=== PATIENT | male | born 1955 | race Caucasian/White ===

== ENCOUNTER → 2018-01-31 06:33 | Outpatient (CLI) | payer BC, SELFPAY ==
[2018-01-31 07:48] LABS: Alanine Aminotransferase 33 IU/L (21-72); Albumin 3.9 g/dL (3.5-5.0); Albumin Globulin Ratio 1.3 (1.0-2.8); Alkaline Phosphatase 70 U/L (38-126); Aspartate Aminotransferase 28 IU/L (17-59); BUN Creatinine Ratio 23.3 (6-22); Bilirubin Total 0.8 mg/dL (0.2-1.3); Blood Urea Nitrogen 28 mg/dL (9-20); Calcium 8.9 mg/dL (8.4-10.2); Carbon Dioxide 27 mmol/L (22-32); Chloride 104 mmol/L (98-107); Estimated Glomerular Filt Rate > 60.0 mL/min (>60); Globulin 3.1 g/dL (1.7-4.1); Glucose 95 mg/dL (80-110); HEMOLYSIS < 15 (0-50); Potassium 4.3 mmol/L (3.4-5.1); Sodium 142 mmol/L (137-145); Uric Acid 7.9 mg/dL (3.5-8.5)
[2018-01-31 10:10] LABS: Creatinine Urine Random 156.3 mg/dL
[2018-01-31 10:14] LABS: Microalbumi Creatinin Ratio Ur 6.3 ug/mg CR (<30)
== END ==
PROVIDERS: PCP Physician Assistant; Visit Provider Physician Assistant
DX: I10 Essential (primary) hypertension (principal); I25.10 Atherosclerotic heart disease of native coronary artery without angina pectoris; E78.5 Hyperlipidemia, unspecified; E79.0 Hyperuricemia without signs of inflammatory arthritis and tophaceous disease
CPT/HCPCS: 36415; 80053; 82043; 82570; 84550

== ENCOUNTER 2018-04-15 20:45 | Emergency (ER) | payer OTHER, SELFPAY ==
[2018-04-15 20:50] VITALS: BP 139/70; PULSE 59; RESP 18; TEMP 37; O2SAT 99; BMI 25.1
--- NOTE | 2018-04-15 20:53 | DI.RAD.S_ITS ---
PROCEDURE: XR FINGER LT MIN 2V INDICATIONS: crush injury, open TECHNIQUE: AP hand, 2 views of the left fourth finger(s) acquired. COMPARISON: [facility], , HAND 3V LEFT, 04/11/2016, 9:43. FINDINGS: Bones: No fractures or dislocations. No suspicious bony lesions. Soft tissues: Trace heterotopic ossification is present anterior to the middle phalanx of the left fourth digit. These findings have evolved when compared with the prior plain film dated 04/11/16. IMPRESSION: No acute fracture or dislocation. Trace heterotopic ossification likely evolved from the 2016 film. Dictated by: Lila Garsia M.D. on 04/15/2018 at 21:24 Approved by: Lila Garsia M.D. on 04/15/2018 at 21:25
[2018-04-15] MEDS: TET,DIPH,PERTUSS(ACELL),VAC/PF 0.5 ML SYRINGE IM (21:12)
[2018-04-15] MEDS: cephALEXin 250 MG PREPACK 1 BOTTLE MISC (21:55)
[2018-04-15 22:02] VITALS: BP 124/62; PULSE 58; RESP 20; TEMP 37.1; O2SAT 97
--- NOTE | 2018-04-15 22:10 | ED.WOUNDLAC ---
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 He was throwing heavy chunks of asphalt when his left ring finger was accidentally caught between 1 of these thrown chunks of asphalt and a steel wall. As a result he suffered a laceration and injury to his finger. He has decreased range of motion secondary to pain but denies numbness, tingling or weakness. He denies any other injury nor any prior injury of this finger. He is right-hand dominant Onset (ago): minute(s) Extremity Location: Left: hand Place: work Patient tetanus UTD: No Context: accidental Associated symptoms: pain Related Data Home Medications Medication Instructions Recorded Confirmed [SUPER BETA PROSTATE] 2 tab PO BID #0 04/20/16 02/02/18 aspirin 81 mg PO QDAY #60 tab 04/20/16 02/02/18 [ACID TRADER-COSTCO] 1 tab PO BID #0 01/18/17 02/02/18 amlodipine [Norvasc] 5 mg PO QDAY #0 04/07/17 02/02/18 lisinopril 10 mg PO QDAY #0 04/07/17 02/02/18 metoprolol succinate 50 mg PO BID #0 04/07/17 02/02/18 [FISH OIL] PO QDAY #0 05/24/17 02/02/18 [VITAMIN B-12] 1 tab PO QDAY #0 05/24/17 02/02/18 Previous Rx's Medication Instructions Recorded escitalopram 10 mg tablet 15 mg PO HS #135 tab 01/30/18 rosuvastatin 20 mg tablet 20 mg PO QDAY #90 tab 01/30/18 bupropion HCl XL 150 mg 24 hr 150 mg PO QDAY #90 tab 02/02/18 tablet, extended release cephalexin 500 mg PO QID 7 Days #28 cap 04/15/18 Allergies Allergy/AdvReac Type Severity Reaction Status Date / Time hydrocodone AdvReac Intermediate WEAKNESS, Verified 02/02/18 15:35 SYNCOPE codeine AdvReac Mild NAUSEA Verified 02/02/18 15:35 Review of Systems Review of Systems All systems reviewed & are unremarkable except as noted in HPI and below Constitutional Denies chills, Denies fever(s), Denies lethargy and Denies weakness Eyes Denies change in vision, Denies eye discharge, Denies irritation and Denies loss of vision ENT Ears, Nose, Mouth, and Throat: Denies change in voice, Denies neck pain and Denies sore throat Cardiovascular Denies chest pain, Denies irregular heart rhythm, Denies lightheadedness, Denies palpitations, Denies dyspnea, Denies dyspnea on exertion and Denies orthopnea Respiratory Denies cough, Denies dyspnea, Denies dyspnea on exertion and Denies wheezing Gastrointestinal Gastrointestinal: Denies abdominal pain, Denies change in bowel habits, Denies diarrhea, Denies nausea and Denies vomiting Genitourinary Denies hematuria, Denies flank pain, Denies urinary incontinence and Denies urinary urgency Musculoskeletal Reports joint swelling, Reports limited range of motion and Denies neck pain Integumentary/Breasts Denies pruritus, Denies erythema, Denies rash and Reports wounds Neurologic Denies confusion, Denies loss of vision and Denies weakness Psychiatric Denies anxiety, Denies confusion, Denies depression, Denies homicidal ideation and Denies suicidal ideation Endocrine Denies palpitations Hematologic/Lymphatic Denies easy bruising Allergic/Immunologic Denies wheezing [facility] Medical History Snoring (Chronic) Gastroesophageal reflux disease (Chronic) Coronary artery disease (Chronic) Mixed anxiety depressive disorder (Chronic 01/18/17) Essential hypertension (Chronic) Surgical History History of angioplasty Social History Smoking Status: Former smoker Tobacco: How many years used: 40 second hand exposure: No alcohol intake: never substance use type: does not use Exam Narrative Exam Narrative: GEN: AOx3 and in mild distress, clutching his left ring finger EYES: Pupils are equal, round, and reactive to light and accommodation. Extraoccular muscles are intact bilaterally. There is no subconjunctival hemorrhage or exudate. CHEST: Lungs are clear to auscultation bilaterally and free of wheezes, rales, or rhonchi. Heart rate is regular rhythm, there are no murmurs, clicks, rubs, or gallops. There is no chest wall tenderness. ABD: Abdomen is soft and nontender. There is no guarding or rebound. Bowel sounds are normal in all 4 quadrants. There is no mass or organomegaly. EXT: Decreased ROM of L 4th finger secondary to pain. No numbness, weakness, or tingling. 3cm irregular laceration on medial side of finger with debris. Minimal active bleeding SKIN: Warm, pink, and dry. No erythema or rash Initial Vital Signs Initial Vital Signs: Vital Signs Temperature 98.6 F 04/15/18 20:50 Pulse Rate 59 L 04/15/18 20:50 Respiratory Rate 18 04/15/18 20:50 Blood Pressure 139/70 04/15/18 20:50 Pulse Oximetry 99 04/15/18 20:50 Procedures Laceration Repair Laceration 1: Site: hand (Ring finger) Side (If applicable): left Size (cm): 3 Description: irregular and contaminated Depth: simple, single layer Local Anesthetic: lidocaine 1% and bupivacaine 0.5% Amount of anesthesia used (mL): 4 Pre-repair: wound explored, irrigated extensively and deep structures intact Skin layer closed with: nylon Size (cm): 5-0 Number of sutures: 4 Technique: simple, interrupted Course Orders Ordered: ED Orders 04/15/18 20:53 XR finger LT min 2V Stat Discontinued Medications Cefazolin Sodium (Keflex) 1 bottle MISC SEEINSTR ONE Stop: 04/15/18 21:48 Last Admin: 04/15/18 21:55 Dose: 500 mg Cephalexin HCl (Keflex) 1 bottle MISC SEEINSTR ONE Stop: 04/15/18 21:07 Diphtheria/Tetanus/Acell Pertussis (Adacel) 0.5 ml IM .ONCE ONE Stop: 04/15/18 20:55 Last Admin: 04/15/18 21:12 Dose: 0.5 ml Vital Signs - 8 hr 04/15/18 20:50 04/15/18 22:02 Temperature 98.6 F 98.8 F Pulse Rate 59 L 58 L Respiratory Rate 18 20 Blood Pressure 139/70 Blood Pressure [Right Arm] 124/62 Pulse Oximetry 99 97 Discharge Plan Departure Patient Disposition: Home Clinical Impression: Laceration of finger Discharge Date/Time: 04/15/18 22:15 Instructions: DI for Laceration Repair -- Finger Activity Restrictions/Additional Instructions: *You have been diagnosed with [ contaminated laceration of left ring finger ] *What to do: *Take medications as directed *Follow up with your primary care provider in about a week, call for an appointment. Let them know you were seen in the Emergency Department and that we ask that you be seen in follow up and will require suture removal *Return to ER if you should have any new, worsening or concerning symptoms, such as [increasing pain, swelling, drainage, other bothersome symptoms ] Prescriptions: New cephalexin 500 mg capsule 500 mg PO QID 7 Days Qty: 28 RF: 0 No Action bupropion HCl [Wellbutrin XL] 150 mg tablet extended release 24 hr 150 mg PO QDAY Qty: 90 RF: 1 aspirin 81 MG tablet,delayed release (DR/EC) 81 mg PO QDAY Qty: 60 RF: 0 [SUPER BETA PROSTATE] 2 tab PO BID Qty: 0 RF: 0 [ACID TRADER-COSTCO] 1 tab PO BID Qty: 0 RF: 0 amlodipine [Norvasc] 5 MG tablet 5 mg PO QDAY Qty: 0 RF: 0 lisinopril 10 MG tablet 10 mg PO QDAY Qty: 0 RF: 0 metoprolol succinate 50 MG tablet extended release 24 hr 50 mg PO BID Qty: 0 RF: 0 [FISH OIL] PO QDAY Qty: 0 RF: 0 [VITAMIN B-12] 1 tab PO QDAY Qty: 0 RF: 0 rosuvastatin [Crestor] 20 mg tablet 20 mg PO QDAY Qty: 90 RF: 3 escitalopram oxalate [Lexapro] 10 mg tablet 15 mg PO HS Qty: 135 RF: 0 Referrals: Rhina Vargas PA-C [Primary Care Provider] -
--- NOTE | 2018-04-15 22:17 | ED_ITS ---
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 He was throwing heavy chunks of asphalt when his left ring finger was accidentally caught between 1 of these thrown chunks of asphalt and a steel wall. As a result he suffered a laceration and injury to his finger. He has decreased range of motion secondary to pain but denies numbness, tingling or weakness. He denies any other injury nor any prior injury of this finger. He is right-hand dominant Onset (ago): minute(s) Extremity Location: Left: hand Place: work Patient tetanus UTD: No Context: accidental Associated symptoms: pain Related Data Home Medications Medication Instructions Recorded Confirmed [SUPER BETA PROSTATE] 2 tab PO BID #0 04/20/16 02/02/18 aspirin 81 mg PO QDAY #60 tab 04/20/16 02/02/18 [ACID SUPERVISOR DRYING AND WINDING-COSTCO] 1 tab PO BID #0 01/18/17 02/02/18 amlodipine [Norvasc] 5 mg PO QDAY #0 04/07/17 02/02/18 lisinopril 10 mg PO QDAY #0 04/07/17 02/02/18 metoprolol succinate 50 mg PO BID #0 04/07/17 02/02/18 [FISH OIL] PO QDAY #0 05/24/17 02/02/18 [VITAMIN B-12] 1 tab PO QDAY #0 05/24/17 02/02/18 Previous Rx's Medication Instructions Recorded escitalopram 10 mg tablet 15 mg PO HS #135 tab 01/30/18 rosuvastatin 20 mg tablet 20 mg PO QDAY #90 tab 01/30/18 bupropion HCl XL 150 mg 24 hr 150 mg PO QDAY #90 tab 02/02/18 tablet, extended release cephalexin 500 mg PO QID 7 Days #28 cap 04/15/18 Allergies Allergy/AdvReac Type Severity Reaction Status Date / Time hydrocodone AdvReac Intermediate WEAKNESS, Verified 02/02/18 15:35 SYNCOPE codeine AdvReac Mild NAUSEA Verified 02/02/18 15:35 Review of Systems Review of Systems All systems reviewed & are unremarkable except as noted in HPI and below Constitutional Denies chills, Denies fever(s), Denies lethargy and Denies weakness Eyes Denies change in vision, Denies eye discharge, Denies irritation and Denies loss of vision ENT Ears, Nose, Mouth, and Throat: Denies change in voice, Denies neck pain and Denies sore throat Cardiovascular Denies chest pain, Denies irregular heart rhythm, Denies lightheadedness, Denies palpitations, Denies dyspnea, Denies dyspnea on exertion and Denies orthopnea Respiratory Denies cough, Denies dyspnea, Denies dyspnea on exertion and Denies wheezing Gastrointestinal Gastrointestinal: Denies abdominal pain, Denies change in bowel habits, Denies diarrhea, Denies nausea and Denies vomiting Genitourinary Denies hematuria, Denies flank pain, Denies urinary incontinence and Denies urinary urgency Musculoskeletal Reports joint swelling, Reports limited range of motion and Denies neck pain Integumentary/Breasts Denies pruritus, Denies erythema, Denies rash and Reports wounds Neurologic Denies confusion, Denies loss of vision and Denies weakness Psychiatric Denies anxiety, Denies confusion, Denies depression, Denies homicidal ideation and Denies suicidal ideation Endocrine Denies palpitations Hematologic/Lymphatic Denies easy bruising Allergic/Immunologic Denies wheezing [facility] Medical History Snoring (Chronic) Gastroesophageal reflux disease (Chronic) Coronary artery disease (Chronic) Mixed anxiety depressive disorder (Chronic 01/18/17) Essential hypertension (Chronic) Surgical History History of angioplasty Social History Smoking Status: Former smoker Tobacco: How many years used: 40 second hand exposure: No alcohol intake: never substance use type: does not use Exam Narrative Exam Narrative: GEN: AOx3 and in mild distress, clutching his left ring finger EYES: Pupils are equal, round, and reactive to light and accommodation. Extraoccular muscles are intact bilaterally. There is no subconjunctival hemorrhage or exudate. CHEST: Lungs are clear to auscultation bilaterally and free of wheezes, rales, or rhonchi. Heart rate is regular rhythm, there are no murmurs, clicks, rubs, or gallops. There is no chest wall tenderness. ABD: Abdomen is soft and nontender. There is no guarding or rebound. Bowel sounds are normal in all 4 quadrants. There is no mass or organomegaly. EXT: Decreased ROM of L 4th finger secondary to pain. No numbness, weakness, or tingling. 3cm irregular laceration on medial side of finger with debris. Minimal active bleeding SKIN: Warm, pink, and dry. No erythema or rash Initial Vital Signs Initial Vital Signs: Vital Signs Temperature 98.6 F 04/15/18 20:50 Pulse Rate 59 L 04/15/18 20:50 Respiratory Rate 18 04/15/18 20:50 Blood Pressure 139/70 04/15/18 20:50 Pulse Oximetry 99 04/15/18 20:50 Procedures Laceration Repair Laceration 1: Site: hand (Ring finger) Side (If applicable): left Size (cm): 3 Description: irregular and contaminated Depth: simple, single layer Local Anesthetic: lidocaine 1% and bupivacaine 0.5% Amount of anesthesia used (mL): 4 Pre-repair: wound explored, irrigated extensively and deep structures intact Skin layer closed with: nylon Size (cm): 5-0 Number of sutures: 4 Technique: simple, interrupted Course Orders Ordered: ED Orders 04/15/18 20:53 XR finger LT min 2V Stat Discontinued Medications Cefazolin Sodium (Keflex) 1 bottle MISC SEEINSTR ONE Stop: 04/15/18 21:48 Last Admin: 04/15/18 21:55 Dose: 500 mg Cephalexin HCl (Keflex) 1 bottle MISC SEEINSTR ONE Stop: 04/15/18 21:07 Diphtheria/Tetanus/Acell Pertussis (Adacel) 0.5 ml IM .ONCE ONE Stop: 04/15/18 20:55 Last Admin: 04/15/18 21:12 Dose: 0.5 ml Vital Signs - 8 hr 04/15/18 20:50 04/15/18 22:02 Temperature 98.6 F 98.8 F Pulse Rate 59 L 58 L Respiratory Rate 18 20 Blood Pressure 139/70 Blood Pressure [Right Arm] 124/62 Pulse Oximetry 99 97 Discharge Plan Departure Patient Disposition: Home Clinical Impression: Laceration of finger Discharge Date/Time: 04/15/18 22:15 Instructions: DI for Laceration Repair -- Finger Activity Restrictions/Additional Instructions: *You have been diagnosed with [ contaminated laceration of left ring finger ] *What to do: *Take medications as directed *Follow up with your primary care provider in about a week, call for an appointment. Let them know you were seen in the Emergency Department and that we ask that you be seen in follow up and will require suture removal *Return to ER if you should have any new, worsening or concerning symptoms , such as [increasing pain, swelling, drainage, other bothersome symptoms ] Prescriptions: New cephalexin 500 mg capsule 500 mg PO QID 7 Days Qty: 28 RF: 0 No Action bupropion HCl [Wellbutrin XL] 150 mg tablet extended release 24 hr 150 mg PO QDAY Qty: 90 RF: 1 aspirin 81 MG tablet,delayed release (DR/EC) 81 mg PO QDAY Qty: 60 RF: 0 [SUPER BETA PROSTATE] 2 tab PO BID Qty: 0 RF: 0 [ACID SUPERVISOR DRYING AND WINDING-COSTCO] 1 tab PO BID Qty: 0 RF: 0 amlodipine [Norvasc] 5 MG tablet 5 mg PO QDAY Qty: 0 RF: 0 lisinopril 10 MG tablet 10 mg PO QDAY Qty: 0 RF: 0 metoprolol succinate 50 MG tablet extended release 24 hr 50 mg PO BID Qty: 0 RF: 0 [FISH OIL] PO QDAY Qty: 0 RF: 0 [VITAMIN B-12] 1 tab PO QDAY Qty: 0 RF: 0 rosuvastatin [Crestor] 20 mg tablet 20 mg PO QDAY Qty: 90 RF: 3 escitalopram oxalate [Lexapro] 10 mg tablet 15 mg PO HS Qty: 135 RF: 0 Referrals: Rhina Vargas PA-C [Primary Care Provider] -
== END 2018-04-15 22:15 | disposition home or self-care (01) ==
PROVIDERS: Emergency Provider Emergency Medicine; PCP Physician Assistant
DX: S61.215A Laceration without foreign body of left ring finger without damage to nail, initial encounter (principal); W26.9XXA Contact with unspecified sharp object(s), initial encounter; Y99.0 Civilian activity done for income or pay
CPT/HCPCS: 12002; 73140; 99283; 90715

== ENCOUNTER → 2018-04-21 11:29 | Outpatient (CLI) | payer OTHER, SELFPAY | PROVIDERS: PCP Physician Assistant; Visit Provider Physician Assistant | DX: S61.225A Laceration with foreign body of left ring finger without damage to nail, initial encounter (principal) | CPT/HCPCS: 87070; 87205 ==

== ENCOUNTER → 2018-07-12 10:40 | Outpatient (CLI) | payer BC, SELFPAY ==
[2018-07-14 18:19] LABS: Fecal Immunochemical Test NOT DETECTED
== END ==
PROVIDERS: PCP Physician Assistant; Visit Provider Physician Assistant
DX: Z12.11 Encounter for screening for malignant neoplasm of colon (principal)
CPT/HCPCS: 82274

== ENCOUNTER 2018-08-17 10:51 | Emergency (ER) | payer BC, SELFPAY ==
[2018-08-17 10:52] VITALS: BP 140/63; PULSE 66; RESP 18; TEMP 36.8; O2SAT 98; BMI 27.8
--- NOTE | 2018-08-17 10:57 | ED_ITS ---
HPI - General Adult General Chief complaint: Upper Respiratory Symptoms Stated complaint: SHORT OF BREATH, CHEST TIGHT Time Seen by Provider: 08/17/18 10:57 Source: patient Mode of arrival: ambulatory Limitations: no limitations History of Present Illness HPI narrative: Patient is a 63-year-old male sent over from the clinic for evaluation. Patient states that he went to see his provider this morning for ? medication issues ?during this evaluation he mentioned that he has been having dyspnea on exertion. This has been going on for several weeks if not months. He states that it has now gotten to the point to where any sort of exertion to include walking to his mailbox or walking from the couch to the refrigerator causes him to have shortness of breath. Some chest pressure with these episodes. He does have a history of coronary artery disease. Has [address] Is not on anticoagulation. He does see a outside barrel lathe operator. His last appointment a outside barrel lathe operator was within the past 6 months. He states that his last echocardiogram/stress test was greater than 1 year ago. Denies any lower extremity swelling. No new symptoms today over what has been going on for the past several months. Related Data Home Medications Medication Instructions Recorded Confirmed [SUPER BETA PROSTATE] 2 tab PO BID #0 04/20/16 08/17/18 aspirin 81 mg PO DAILY #60 tab 04/20/16 08/17/18 [ACID REWARDS CONSULTANT-COSTCO] 1 tab PO BID #0 01/18/17 08/17/18 amlodipine [Norvasc] 5 mg PO DAILY #0 04/07/17 08/17/18 lisinopril 5 mg PO DAILY #0 04/07/17 08/17/18 bupropion HCl [Wellbutrin XL] 150 mg PO DAILY 08/17/18 08/17/18 escitalopram oxalate [Lexapro] 15 mg PO BEDTIME 08/17/18 08/17/18 metoprolol tartrate 50 mg PO BID 08/17/18 08/17/18 naproxen sodium 220 mg capsule 440 mg PO DAILY PRN cap 08/17/18 08/17/18 rosuvastatin [Crestor] 20 mg PO QPM 08/17/18 08/17/18 Previous Rx's Medication Instructions Recorded furosemide [Lasix] 20 mg PO DAILY #30 tab 08/17/18 Allergies Allergy/AdvReac Type Severity Reaction Status Date / Time hydrocodone AdvReac Intermediate WEAKNESS, Verified 08/17/18 11:05 SYNCOPE codeine AdvReac Mild NAUSEA Verified 08/17/18 11:05 Review of Systems Constitutional Denies fever(s) ENT Ears, Nose, Mouth, and Throat: Denies vertigo and Denies dizziness Cardiovascular Reports chest pain, Denies syncope, Denies rapid heart rate, Denies leg edema and Reports dyspnea on exertion Respiratory Reports dyspnea on exertion Gastrointestinal Gastrointestinal: Denies abdominal pain, Denies nausea and Denies vomiting Genitourinary Denies dysuria Musculoskeletal Denies myalgias and Denies arthralgias Integumentary/Breasts Denies rash Neurologic Denies vertigo, Denies dizziness and Denies syncope Hematologic/Lymphatic Comments: Not on anticoagulation [facility] Social History Smoking Status: Former smoker Tobacco: How many years used: 40 second hand exposure: No alcohol intake: never substance use type: does not use Exam Initial Vital Signs Initial Vital Signs: Vital Signs Temperature 98.3 F 08/17/18 10:52 Pulse Rate 66 08/17/18 10:52 Respiratory Rate 18 08/17/18 10:52 Blood Pressure 140/63 08/17/18 10:52 Pulse Oximetry 98 08/17/18 10:52 Const General: cooperative, healthy appearing, comfortable, well developed, well groomed and No acute distress Orientation: alert, awake and oriented x3 HENMT Head: normal to inspection and normocephalic Resp Effort & Inspection: normal respiratory effort, no grunting, not labored and not tachypneic Auscultation: clear to auscultation bilaterally Cardio Rate: regular rate Rhythm: regular rhythm Pulses: radial pulses present GI Inspection: non-distended Palpation: soft and No tender Skin Lesions: no lesions Rashes: no rashes Neuro General: alert, awake and oriented x3 Extrem General: normal to inspection, normal exam except as noted and No edema Psych Appearance: grossly normal and well kempt Course Orders Ordered: ED Orders 08/17/18 10:58 XR chest 1V Stat D Dimer Stat 08/17/18 11:02 EKG-12 Lead Stat 08/17/18 11:15 B Type Natriuretic Peptide Stat Complete Blood Count AUTO DIFF Stat Comprehensive Metabolic Panel Stat Lipase Stat Partial Thromboplastin Time Stat Prothrombin Time INR Stat Troponin I Stat Vital Signs - 8 hr 08/17/18 10:52 Temperature 98.3 F Pulse Rate 66 Respiratory Rate 18 Blood Pressure 140/63 Pulse Oximetry 98 Medical Decision Making Lab Data Lab results reviewed: Yes I reviewed the patient's lab results. Result diagrams: 08/17/18 11:15 08/17/18 11:15 Lab Results 08/17/18 08/17/18 08/17/18 Range/Units 10:58 11:15 11:15 WBC 8.7 (4.5-11.0) X10^3/uL RBC 3.87 L (4.5-5.9) X10^6/uL Hgb 12.0 L (13.5-17.5) g/dL Hct 35.0 L (41-53) % MCV 90.4 (80-100) fL MCH 31.0 (26-34) PG MCHC 34.3 (30-36) % RDW 13.1 (11.6-14.8) % Plt Count 281 (150-400) X10^3/uL Neut % (Auto) 57.5 (50-75) % Lymph % (Auto) 28.9 (25-40) % [place] % (Auto) 10.8 (3-14) % Eos % (Auto) 1.5 L (2-4) % Baso % (Auto) 1.3 (0-2) % Neut # (Auto) 5000 (7172-4377) /uL PT (10.1-12.7) SECONDS INR (0.9-1.3) APTT (26.4-36.2) SECONDS D-Dimer 202 (<230) ng/mL Sodium 141 (137-145) mmol/L Potassium 4.2 (3.4-5.1) mmol/L Chloride 103 (98-107) mmol/L Carbon Dioxide 27 (22-32) mmol/L BUN 24 H (9-20) mg/dL Creatinine 1.40 H (0.66-1.25) mg/dL Estimated GFR 51.4 L (>60) mL/min BUN/Creatinine Ratio 17.1 (6-22) Glucose 100 (80-110) mg/dL Calcium 9.3 (8.4-10.2) mg/dL Total Bilirubin 0.8 (0.2-1.3) mg/dL AST 24 (17-59) IU/L ALT 34 (21-72) IU/L Alkaline Phosphatase 78 (38-126) U/L Troponin I (0.01-0.034) ng/mL B-Natriuretic Peptide < 100 (<100) Total Protein 6.9 (6.3-8.2) g/dL Albumin 4.1 (3.5-5.0) g/dL Globulin 2.8 (1.7-4.1) g/dL Albumin/Globulin Ratio 1.5 (1.0-2.8) Lipase (23-300) U/L 08/17/18 08/17/18 Range/Units 11:15 11:15 WBC (4.5-11.0) X10^3/uL RBC (4.5-5.9) X10^6/uL Hgb (13.5-17.5) g/dL Hct (41-53) % MCV (80-100) fL MCH (26-34) PG MCHC (30-36) % RDW (11.6-14.8) % Plt Count (150-400) X10^3/uL Neut % (Auto) (50-75) % Lymph % (Auto) (25-40) % [place] % (Auto) (3-14) % Eos % (Auto) (2-4) % Baso % (Auto) (0-2) % Neut # (Auto) (6103-6530) /uL PT 11.2 (10.1-12.7) SECONDS INR 1.0 (0.9-1.3) APTT 32 (26.4-36.2) SECONDS D-Dimer (<230) ng/mL Sodium (137-145) mmol/L Potassium (3.4-5.1) mmol/L Chloride (98-107) mmol/L Carbon Dioxide (22-32) mmol/L BUN (9-20) mg/dL Creatinine (0.66-1.25) mg/dL Estimated GFR (>60) mL/min BUN/Creatinine Ratio (6-22) Glucose (80-110) mg/dL Calcium (8.4-10.2) mg/dL Total Bilirubin (0.2-1.3) mg/dL AST (17-59) IU/L ALT (21-72) IU/L Alkaline Phosphatase (38-126) U/L Troponin I < 0.012 (0.01-0.034) ng/mL B-Natriuretic Peptide (<100) Total Protein (6.3-8.2) g/dL Albumin (3.5-5.0) g/dL Globulin (1.7-4.1) g/dL Albumin/Globulin Ratio (1.0-2.8) Lipase 150 (23-300) U/L Imaging Data Chest x-ray: Radiologist's impression: PROCEDURE: XR CHEST 1V INDICATIONS: SOB TECHNIQUE: One view of the chest was acquired. COMPARISON: [facility], , CHEST 2 VIEW, 06/10/2017, 16:23. FINDINGS: Surgical changes and devices: None. Lungs and pleura: No pleural effusions or pneumothorax. Lungs are clear. Mediastinum: Mediastinal contours appear normal. Heart size is normal. Bones and chest wall: No suspicious bony lesions. Overlying soft tissues appear unremarkable. IMPRESSION: No acute cardiopulmonary findings. Dictated by: Lila Garsia M.D. on 08/17/2018 at 11:19 Approved by: Lila Garsia M.D. on 08/17/2018 at 11:19 ECG Data Attestation: I personally reviewed and interpreted this ECG as follows: Prior ECG tracings: available for review Interpretation: Emergency department EKG Sinus rhythm Ventricular rate is 64 Normal QRS Normal QTC Normal axis No ST T wave changes Comparison EKG from 06/11 today shows no changes from emergency department EKG Comparison EKG from January 2017 shows no changes from today's emergency department EKG MDM Narrative Medical decision making narrative: Patient not in any respiratory distress. Not tachypneic. Not hypoxic. Nonischemic EKG. D-dimer is negative. Troponin is negative. Patient's symptoms have been going on for weeks if not months. Does have a significant cardiac history and is under the care of Cardiology at [facility]. I do feel like he needs an echocardiogram however do not feel like he needs admitted to the hospital to get this done. Will have him contact his outside barrel lathe operator for follow-up. Will send him home on a low dose of Lasix. Unsure if this will help his symptoms however I feel it may be diagnostic. Patient was given return precautions. He expressed understanding and agreement with plan. Discharge Plan Departure Patient Disposition: Home Clinical Impression: Dyspnea on exertion Instructions: DI for Shortness of Breath, How to Manage Shortness of Breath Activity Restrictions/Additional Instructions: Recommend that you contact your outside barrel lathe operator this afternoon to schedule a follow -up appointment in to discuss the indications for an echocardiogram. Take all of your medications as directed. Return to the emergency department for any new or worsening symptoms Prescriptions: New furosemide [Lasix] 20 mg tablet 20 mg PO DAILY Qty: 30 RF: 0 No Action naproxen sodium [Aleve] 220 mg capsule 440 mg PO DAILY PRN (Reason: pain) RF: 0 aspirin 81 MG tablet,delayed release (DR/EC) 81 mg PO DAILY Qty: 60 RF: 0 [SUPER BETA PROSTATE] 2 tab PO BID Qty: 0 RF: 0 [ACID REWARDS CONSULTANT-[employer]CO] 1 tab PO BID Qty: 0 RF: 0 amlodipine [Norvasc] 5 MG tablet 5 mg PO DAILY Qty: 0 RF: 0 lisinopril 10 MG tablet 5 mg PO DAILY Qty: 0 RF: 0 metoprolol tartrate 50 mg tablet 50 mg PO BID RF: 0 escitalopram oxalate [Lexapro] 10 mg tablet 15 mg PO BEDTIME RF: 0 rosuvastatin [Crestor] 20 mg tablet 20 mg PO QPM RF: 0 bupropion HCl [Wellbutrin XL] 150 mg tablet extended release 24 hr 150 mg PO DAILY RF: 0
[2018-08-17 11:32] LABS: Add Manual Diff / Slide Review NO; Basophils Percent Auto 1.3 % (0-2); Eosinophils Percent Auto 1.5 % (2-4); Lymphocytes Percent Auto 28.9 % (25-40); Mean Corpuscular HGB Conc 34.3 % (30-36); Mean Corpuscular Volume 90.4 fL (80-100); Monocytes Percent Auto 10.8 % (3-14); Neutrophils Absolute Auto 5000 /uL (1500-7000); Neutrophils Percent Auto 57.5 % (50-75); Platelet Count 281 X10^3/uL (150-400); Red Blood Cell Count 3.87 X10^6/uL (4.5-5.9); Red Cell Distribution Width 13.1 % (11.6-14.8); White Blood Cell Count 8.7 X10^3/uL (4.5-11.0)
[2018-08-17 11:35] LABS: Prothrombin Time 11.2 SECONDS (10.1-12.7)
[2018-08-17 11:37] LABS: PTT Partial Thromboplastin Tim 32 SECONDS (26.4-36.2)
[2018-08-17 11:42] LABS: Lipase 150 U/L (23-300)
[2018-08-17 11:45] LABS: B Type Natriuretic Peptide < 100 (<100)
[2018-08-17 11:58] LABS: Troponin I < 0.012 ng/mL (0.01-0.034)
[2018-08-17 12:07] LABS: D Dimer 202 ng/mL (<230)
[2018-08-17 12:39] LABS: Alanine Aminotransferase 34 IU/L (21-72); Albumin 4.1 g/dL (3.5-5.0); Albumin Globulin Ratio 1.5 (1.0-2.8); Alkaline Phosphatase 78 U/L (38-126); Aspartate Aminotransferase 24 IU/L (17-59); BUN Creatinine Ratio 17.1 (6-22); Bilirubin Total 0.8 mg/dL (0.2-1.3); Blood Urea Nitrogen 24 mg/dL (9-20); Calcium 9.3 mg/dL (8.4-10.2); Carbon Dioxide 27 mmol/L (22-32); Chloride 103 mmol/L (98-107); Estimated Glomerular Filt Rate 51.4 mL/min (>60); Globulin 2.8 g/dL (1.7-4.1); Glucose 100 mg/dL (80-110); HEMOLYSIS < 15 (0-50); Potassium 4.2 mmol/L (3.4-5.1); Sodium 141 mmol/L (137-145); Total Protein 6.9 g/dL (6.3-8.2)
[2018-08-17 13:00] VITALS: BP 127/65; PULSE 61; RESP 20; O2SAT 98
== END 2018-08-17 13:32 | disposition home or self-care (01) ==
PROVIDERS: Emergency Provider Emergency Medicine; PCP Physician Assistant
DX: R06.09 Other forms of dyspnea (principal)
CPT/HCPCS: 36591; 71045; 80053; 83690; 83880; 84484; 85025; 85379; 85610; 85730; 93005; 99282; 99285

== ENCOUNTER → 2018-08-29 07:53 | Outpatient (CLI) | payer BC, SELFPAY ==
[2018-08-29 09:30] LABS: Alanine Aminotransferase 42 IU/L (21-72); Albumin Globulin Ratio 1.3 (1.0-2.8); Alkaline Phosphatase 66 U/L (38-126); Aspartate Aminotransferase 27 IU/L (17-59); BUN Creatinine Ratio 25.8 (6-22); Bilirubin Total 0.8 mg/dL (0.2-1.3); Blood Urea Nitrogen 31 mg/dL (9-20); Calcium 9.6 mg/dL (8.4-10.2); Carbon Dioxide 31 mmol/L (22-32); Chloride 102 mmol/L (98-107); Cholesterol 99 mg/dL (140-199); Estimated Glomerular Filt Rate > 60.0 mL/min (>60); Glucose 90 mg/dL (80-110); HDL Cholesterol 42 mg/dL (40-60); HEMOLYSIS < 15 (0-50); LDL Cholesterol Calculated 32 mg/dL (<100); Potassium 4.8 mmol/L (3.4-5.1); Sodium 141 mmol/L (137-145); Triglycerides 126 mg/dL (35-150)
== END ==
PROVIDERS: Family Provider Physician Assistant; PCP Physician Assistant; Visit Provider Internal Medicine Cardiovascular Disease
DX: E78.5 Hyperlipidemia, unspecified (principal)
CPT/HCPCS: 36415; 80053; 80061

== ENCOUNTER → 2018-11-01 09:52 | Outpatient (CLI) | payer BC, SELFPAY ==
[2018-11-01 10:49] LABS: Hematocrit 33.3 % (41-53); Hemoglobin 11.3 g/dL (13.5-17.5)
[2018-11-01 11:10] LABS: HEMOLYSIS < 15 (0-50); Iron 69 ug/dL (49-181)
[2018-11-01 11:21] LABS: Percent Iron Saturation 21 % (20-50); Total Iron Binding Capacity 330 ug/dL (261-462); Transferrin 242 mg/dL (206-381)
== END ==
PROVIDERS: Family Provider Physician Assistant; PCP Physician Assistant; Visit Provider Physician Assistant
DX: D64.9 Anemia, unspecified (principal); R79.89 Other specified abnormal findings of blood chemistry
CPT/HCPCS: 36415; 82728; 83540; 83550; 85014; 85018

== ENCOUNTER → 2018-12-06 10:45 | Outpatient (CLI) | payer BC, SELFPAY ==
--- NOTE | 2018-12-08 14:26 | PM.PFT.1 ---
Pulmonary Function Test Referral & Results Date Patient Seen: 12/06/18 Requesting provider: Rhina Vargas Results: The spirometry demonstrates an FVC of 4.10 L which is 84% of predicted. The FEV1 was measured at 2.89 L which is 79% of predicted. The FEV1/FVC ratio was 71 which is 94% of predicted. Following the administration of bronchodilator there was no significant change. Lung volumes show an SVC of 4.05 L which is 83% of predicted. The diffusing capacity was measured at 17.81 which is 51% of predicted. No hemoglobin value was provided, so no correction for potential anemia could be made, if appropriate. The maximum voluntary ventilation was reduced Interpretation: This study demonstrates mild obstructive lung disease based our reduction in FEV1. There is no evidence of significant benefit following bronchodilator administration There is also mild restrictive lung disease present based on slight reduction in lung volumes The diffusing capacity is more significantly reduced suggesting more significant disease at the capillary alveolar level Compared to PFTs performed in January 2012, current study shows spirometry to be essentially unchanged but diffusing capacity has further decline from previous value of 66% of predicted to current value of 51% of predicted Clinical correlation suggested
== END ==
PROVIDERS: PCP Physician Assistant; Visit Provider Physician Assistant
DX: R06.00 Dyspnea, unspecified (principal)
CPT/HCPCS: 94060; 94726; 94729

== ENCOUNTER → 2019-02-26 15:52 | Outpatient (CLI) | payer BC, SELFPAY ==
--- NOTE | 2019-02-26 15:54 | DI.ECHO.S_ITS ---
[facility] +---------+ : : [address] : : : : [id number] : : : : Phone: [phone] Echocardiogram Report + + :Name: DENNISE KLEIN Study Date: 02/26/2019 Height: 71 in : :[facility] Weight: 202 lb : : Gender: Male BSA: 2.1 m2 : :: 1955 Age: 64 yrs BP: 142/72 mmHg: :Reason For Study: Dyspnea : : Performed By: Yoselin Caicedo : :Referring: GAIL SAAB : + + Interpretation Summary 1) Normal left ventricular thickness, size, wall motion, and systolic function (EF 60-65%). 2) Normal right ventricular size and function. 3) Diastolic parameters suggest a pseudonormalization pattern, consistent with probable elevated filling pressures. 4) No significant valvular abnormalities. 5) The right ventricular systolic pressure is estimated to be at least 43 mmHg based on an estimated right atrial pressure of 3 mm Hg. 6) Compared to the Echo done 11/14/2014, no significant change. Procedure: A two-dimensional transthoracic echocardiogram with color flow and Doppler was performed. The study quality was technically adequate. Comparison is made with the echocardiogram of 11-14-14. The patient was in normal sinus rhythm during the exam. Left Ventricle: The left ventricle is normal in size, wall thickness, and systolic function without any focal wall motion abnormalities. The ejection fraction is estimated to be 60-65%. Diastolic parameters suggest a pseudonormalization pattern, consistent with probable elevated filling pressures. Right Ventricle: The right ventricle grossly appears normal in size with probable normal systolic function. Atria: The left atrium is mildly dilated. Right atrial size is normal. The interatrial septum is intact with no evidence for an atrial septal defect. Mitral Valve: The mitral valve is normal in structure and function. There is trace mitral regurgitation. Aortic Valve: The aortic valve is trileaflet. The aortic valve opens well. There is no aortic valve stenosis. No aortic regurgitation is present. Tricuspid Valve: The tricuspid valve leaflets are thin and pliable. There is mild tricuspid regurgitation. The right ventricular systolic pressure is estimated to be at least 43 mmHg based on an estimated right atrial pressure of 3 mm Hg. Pulmonic Valve: The pulmonic valve is normal in structure and function. There is a trace or physiologic amount of pulmonic regurgitation. Great Vessels: The aortic root is normal size. The dimensions of the ascending aorta are normal. The aortic arch is normal in size. The IVC is of normal diameter and collapses greater than 50% with a sniff. This suggests a low right atrial pressure of 3 mm Hg. Pericardium/ Pleura There is no pericardial effusion. There is no pleural effusion. MMode/2D Measurements & Calculations LVIDd: 5.3 cm Ao root diam: 3.6 cm LVIDs: 2.8 cm Aortic Jxn: 2.4 cm FS: 46.4 % asc Aorta Diam: 3.1 cm EPSS: 0.82 cm Ao Arch Diam (Prox Trans): 2.5 cm IVSd: 1.0 cm LVPWd: 1.1 cm LV eli. diameter/BSA (cm/m^2): 2.5 LV sys. diameter/BSA (cm/m^2): 1.3 LA dimension: 4.0 cm RA long axis: 5.1 cm LA A2 area: 19.7 cm2 RA area: 18.7 cm2 LA A4 area: 21.0 cm2 RA vol: 58.6 ml LA length (vol): 5.6 cm RA : 27.7 ml/m2 LA vol: 62.2 ml IVC diam: 1.5 cm LA vol index: 29.4 ml/m2 RVDd major: 5.4 cm RVD1 (basal): 3.9 cm RVD2 (mid): 3.4 cm Doppler Measurements & Calculations Ao V2 max: 139.7 cm/sec MV E max se: 105.8 cm/sec Ao V2 mean: 88.3 cm/sec MV A max se: 88.2 cm/sec Ao max P.8 mmHg MV E/A: 1.2 Ao mean P.7 mmHg Med Peak E' Se: 5.5 cm/sec Ao V2 VTI: 33.8 cm E/E' med: 19.3 Lat Peak E' Se: 10.2 cm/sec E/E' lat: 10.4 E/e' average: 14.8 MV dec time: 0.18 sec MV P1/2t: 55.2 msec TR max se: 317.7 cm/sec MV P1/2t max se: 105.3 cm/sec TR max P.4 mmHg MVA(P1/2t): 4.0 cm2 PA V2 max: 78.9 cm/sec PA V2 mean: 52.2 cm/sec PA mean P.3 mmHg PA Accel Time: 0.23 sec Reading Physician:05:18 PM
== END ==
PROVIDERS: Family Provider Internal Medicine Cardiovascular Disease; PCP Physician Assistant; Visit Provider Physician Assistant
DX: R06.09 Other forms of dyspnea (principal); I07.1 Rheumatic tricuspid insufficiency; R94.2 Abnormal results of pulmonary function studies; I25.10 Atherosclerotic heart disease of native coronary artery without angina pectoris; I10 Essential (primary) hypertension
CPT/HCPCS: 93306

== ENCOUNTER → 2019-05-31 11:46 | Outpatient (CLI) | payer BC, SELFPAY ==
--- NOTE | 2019-05-31 12:14 | DI.CT.S_ITS ---
PROCEDURE: CT CHEST HIGH RESOLUTION INDICATIONS: Abnormal PFTs; Dyspnea on exertion; suspect ILD TECHNIQUE: Noncontrast 1.0 and 5.0 mm thick contiguous axial sections from the pulmonary apex to the posterior costophrenic angles, with 7 mm thick coronal and sagittal MIP reformats. 1 mm thick dynamic expiratory images acquired through the upper, mid, and lower lungs. 1.0 mm thick axial sections acquired from the mervin to the posterior costophrenic angles in the prone end-inspiration position. For radiation dose reduction, the following was used: automated exposure control, adjustment of mA and/or kV according to patient size. COMPARISON: None. FINDINGS: Image quality: Excellent. CHEST: Lungs and pleura: Mild subsegmental scattered atelectasis and scarring. No definite subpleural reticulation identified. No honeycombing seen. No acute consolidation. Central airway thickening is present. No tree-in-bud opacities or definite mosaic lung attenuation. Mild upper lobe centrilobular emphysema Pleura: Normal Mediastinum: Coronary artery calcifications are present. Lymph nodes: Normal Aorta: Normal Pulmonary arteries: Normal Trace hiatal hernia. Bones and chest wall: Bones: Multilevel spondylosis and endplate spurring No vertebral body compression fractures. Axillary nodes: Normal Thyroid: Normal Abdomen (visualized upper abdomen): Pancreatic calcifications incidentally noted. IMPRESSION: No acute consolidation. Subsegmental scattered scarring/atelectasis. Central airway thickening suggestive of chronic bronchitis and/or reactive airways disease. No specific evidence of interstitial lung disease. Coronary artery disease. Upper lobe centrilobular emphysema. Dictated by: Westley Rock M.D. on 05/31/2019 at 17:05 Approved by: Westley Rock M.D. on 05/31/2019 at 17:13
== END ==
PROVIDERS: Family Provider Internal Medicine Cardiovascular Disease; PCP Physician Assistant; Visit Provider Physician Assistant
DX: R94.2 Abnormal results of pulmonary function studies (principal); R06.09 Other forms of dyspnea; I25.10 Atherosclerotic heart disease of native coronary artery without angina pectoris; J43.2 Centrilobular emphysema
CPT/HCPCS: 71250

== ENCOUNTER → 2020-02-20 07:38 | Outpatient (CLI) | payer BC, SELFPAY ==
[2020-02-20 08:24] LABS: Add Manual Diff / Slide Review NO; Basophils Absolute Auto 100 /uL (0-100); Basophils Percent Auto 1.2 % (0-2); Eosinophils Absolute Auto 100 /uL (0-450); Eosinophils Percent Auto 1.5 % (2-4); Hemoglobin 12.3 g/dL (13.5-17.5); Lymphocytes Absolute Auto 2000 /uL (1100-4500); Lymphocytes Percent Auto 27.8 % (25-40); Mean Corpuscular HGB Conc 33.1 % (30-36); Mean Corpuscular Hemoglobin 29.7 PG (26-34); Mean Corpuscular Volume 89.5 fL (80-100); Monocytes Absolute Auto 600 /uL (0-900); Monocytes Percent Auto 7.8 % (3-14); Neutrophils Absolute Auto 4400 /uL (1500-7000); Neutrophils Percent Auto 61.7 % (50-75); Platelet Count 267 X10^3/uL (150-400); Red Blood Cell Count 4.14 X10^6/uL (4.5-5.9); Red Cell Distribution Width 13.9 % (11.6-14.8); White Blood Cell Count 7.1 X10^3/uL (4.5-11.0)
[2020-02-20 08:51] LABS: Erythrocyte Sedimentation Rate 13 MM/HR (0-15)
[2020-02-20 08:52] LABS: Alanine Aminotransferase 18 IU/L (<50); Albumin 3.9 g/dL (3.5-5.0); Albumin Globulin Ratio 1.3 (1.0-2.8); Alkaline Phosphatase 80 U/L (38-126); Aspartate Aminotransferase 22 IU/L (17-59); BUN Creatinine Ratio 16.7 (6-22); Bilirubin Total 0.6 mg/dL (0.2-1.3); Blood Urea Nitrogen 21 mg/dL (9-20); Calcium 9.5 mg/dL (8.4-10.2); Carbon Dioxide 27 mmol/L (22-32); Chloride 104 mmol/L (98-107); Cholesterol 106 mg/dL (140-199); Estimated Glomerular Filt Rate 57.6 mL/min (>60); Globulin 2.9 g/dL (1.7-4.1); Glucose 115 mg/dL (80-110); HDL Cholesterol 41 mg/dL (40-60); HEMOLYSIS < 15 (0-50); LDL Cholesterol Calculated 40 mg/dL (<100); Potassium 4.4 mmol/L (3.4-5.1); Sodium 138 mmol/L (137-145); Total Protein 6.8 g/dL (6.3-8.2); Triglycerides 124 mg/dL (35-150)
[2020-02-20 08:54] LABS: C-Reactive Protein Quant < 0.5 mg/dL (<1.0)
[2020-02-20 09:21] LABS: Prostate Specific Antigen Scrn 0.719 ng/mL (0.1-4.0); TSH w/ Reflex to FT4 1.89 uIU/mL (0.47-4.68)
== END ==
PROVIDERS: Family Provider Internal Medicine Cardiovascular Disease; PCP Internal Medicine; Referring Provider Internal Medicine; Visit Provider Internal Medicine
DX: Z12.5 Encounter for screening for malignant neoplasm of prostate (principal); F41.8 Other specified anxiety disorders; I10 Essential (primary) hypertension; I25.10 Atherosclerotic heart disease of native coronary artery without angina pectoris; J44.9 Chronic obstructive pulmonary disease, unspecified; K21.9 Gastro-esophageal reflux disease without esophagitis; R53.83 Other fatigue
CPT/HCPCS: 36415; 80053; 80061; 84443; 85025; 85651; 86140; G0103

== ENCOUNTER → 2020-03-19 07:53 | Outpatient (CLI) | payer BC, SELFPAY ==
[2020-03-20 10:36] LABS: Fecal Immunochemical Test Negative (Negative)
== END ==
PROVIDERS: Family Provider Internal Medicine Cardiovascular Disease; PCP Internal Medicine; Referring Provider Internal Medicine; Visit Provider Internal Medicine
DX: Z12.11 Encounter for screening for malignant neoplasm of colon (principal)
CPT/HCPCS: 82274

== ENCOUNTER → 2020-08-12 09:58 | Outpatient (CLI) | payer BC, SELFPAY ==
[2020-08-12 12:05] LABS: BUN Creatinine Ratio 18.6 (6-22); Blood Urea Nitrogen 22 mg/dL (9-20); Calcium 9.4 mg/dL (8.4-10.2); Carbon Dioxide 30 mmol/L (22-32); Chloride 104 mmol/L (98-107); Estimated Glomerular Filt Rate > 60.0 mL/min (>60); Glucose 107 mg/dL (80-110); HEMOLYSIS < 15 (0-50); Potassium 4.4 mmol/L (3.4-5.1); Sodium 138 mmol/L (137-145)
[2020-08-12 12:13] LABS: NT-proBNP (BNP-Adult 18+) 433 pg/mL (<125)
== END ==
PROVIDERS: Family Provider Internal Medicine Cardiovascular Disease; PCP Internal Medicine; Referring Provider Nurse Practitioner; Visit Provider Nurse Practitioner
DX: I25.10 Atherosclerotic heart disease of native coronary artery without angina pectoris (principal); R06.00 Dyspnea, unspecified
CPT/HCPCS: 36415; 80048; 83880

== ENCOUNTER → 2021-08-24 09:24 | Outpatient (CLI) | payer OTHER, SELFPAY ==
--- NOTE | 2021-08-24 | DI.US.S_ITS ---
PROCEDURE: US ABD AORTA ANEURYSM SCREEN INDICATIONS: Encounter for screening for cardiovascular disorde TECHNIQUE: Real time scanning was performed of the aorta and iliac arteries, with image documentation. COMPARISON: [facility], , ABD AORTA ANEURYSM SCREENING, 02/28/2012, 13:05. FINDINGS: Aorta: Proximal aortic diameter measures 2.4 cm. Mid-aorta measures 1.5 cm. Distal aortic diameter is 1.7 cm. Iliac arteries: Right common iliac artery measures 0.8 cm. Left common iliac artery measures 0.8 cm. Study is limited by bowel gas. IMPRESSION: Negative for aneurysm. Dictated by: Jonh Lawson M.D. on 08/24/2021 at 10:46 Approved by: Jonh Lawson M.D. on 08/24/2021 at 10:47
== END ==
PROVIDERS: Family Provider Internal Medicine Cardiovascular Disease; PCP Internal Medicine; Referring Provider Family Medicine; Visit Provider Family Medicine
DX: Z13.6 Encounter for screening for cardiovascular disorders (principal)
CPT/HCPCS: 76706

== ENCOUNTER 2022-05-07 07:12 | Inpatient (IN) | payer OTHER, SELFPAY ==
[2022-05-07] VITALS (28 sets, daily range): BP systolic 105–174; BP diastolic 50–110; PULSE 51–71; RESP 8–34; TEMP 36.3–36.6; O2SAT 90–100; BMI 27.8; BMI 25.8
--- NOTE | 2022-05-07 07:23 | DI.RAD.S_ITS ---
PROCEDURE: XR CHEST 1V INDICATIONS: chest pain TECHNIQUE: One view of the chest was acquired. COMPARISON: [facility], CATE, XR CHEST 1V, 08/17/2018, 11:23. [facility], CATE, CHEST 2 VIEW, 06/10/2017, 16:23. FINDINGS: Surgical changes and devices: None. Lungs and pleura: Lungs are clear. No pleural effusions or pneumothorax. Mediastinum: Mediastinal contours appear normal. Heart size is normal. Bones and chest wall: No suspicious bony lesions. Overlying soft tissues appear unremarkable. IMPRESSION: No acute radiographic abnormality. Dictated by: Nabeel Jones M.D. on 05/07/2022 at 7:54 Approved by: Nabeel Jones M.D. on 05/07/2022 at 7:55
[2022-05-07 07:52] LABS: Add Manual Diff / Slide Review NO; Basophils Absolute Auto 100 /uL (0-100); Basophils Percent Auto 0.7 % (0-2); Eosinophils Absolute Auto 200 /uL (0-450); Eosinophils Percent Auto 1.8 % (2-4); Hemoglobin 11.9 g/dL (13.5-17.5); Lymphocytes Absolute Auto 1700 /uL (1100-4500); Lymphocytes Percent Auto 19.7 % (25-40); Mean Corpuscular HGB Conc 35.1 % (30-36); Mean Corpuscular Hemoglobin 30.7 PG (26-34); Mean Corpuscular Volume 87.4 fL (80-100); Monocytes Absolute Auto 700 /uL (0-900); Monocytes Percent Auto 8.1 % (3-14); Neutrophils Absolute Auto 5900 /uL (1500-7000); Neutrophils Percent Auto 69.7 % (50-75); Platelet Count 272 X10^3/uL (150-400); Red Blood Cell Count 3.89 X10^6/uL (4.5-5.9); Red Cell Distribution Width 13.5 % (11.6-14.8); White Blood Cell Count 8.4 X10^3/uL (4.5-11.0)
[2022-05-07 08:02] LABS: Alanine Aminotransferase 16 IU/L (<50); Albumin 3.8 g/dL (3.5-5.0); Albumin Globulin Ratio 1.2 (1.0-2.8); Alkaline Phosphatase 85 U/L (38-126); Aspartate Aminotransferase 20 IU/L (17-59); BUN Creatinine Ratio 15.9 (6-22); Bilirubin Total 0.7 mg/dL (0.2-1.3); Blood Urea Nitrogen 20 mg/dL (9-20); Calcium 8.9 mg/dL (8.4-10.2); Carbon Dioxide 27 mmol/L (22-32); Chloride 104 mmol/L (98-107); Creatine Kinase 66 U/L (55-170); Estimated Glomerular Filt Rate > 60 mL/min (>60); Globulin 3.3 g/dL (1.7-4.1); Glucose 136 mg/dL (80-110); HEMOLYSIS < 15 (0-50); Lipase 95 U/L (23-300); Magnesium 1.8 mg/dL (1.6-2.3); Potassium 3.9 mmol/L (3.4-5.1); Sodium 141 mmol/L (137-145); Total Protein 7.1 g/dL (6.3-8.2)
--- NOTE | 2022-05-07 08:05 | DI.CT.S_ITS ---
PROCEDURE: CT ANGIO HEAD AND NECK INDICATIONS: Dizziness/ataxia TECHNIQUE: Pre-contrast 4.5 mm thick sections acquired from the foramen magnum to the vertex. After the administration of intravenous contrast, 1 mm thick sections acquired from the aortic arch through the [place] of [place]. Post-contrast 4.5 mm thick sections then re-acquired from the foramen magnum to the vertex. 3-dimensional iniekvh-imdrcopzg-sttnunwgzn (MIP) and/or volume rendering reformats were acquired of the central intracranial vasculature and neck separately. For radiation dose reduction, the following was used: automated exposure control, adjustment of mA and/or kV according to patient size. COMPARISON: , CT, HEAD WITHOUT CONTRAST, 11/08/2012, 19:01. FINDINGS: Image quality: Excellent. BRAIN: CSF spaces: Ventricles are normal in size and shape. Basal cisterns are patent. No extra-axial fluid collections. Brain: No midline shift. No intracranial bleeds or masses. Punctate calcification is redemonstrated within the left basal ganglia. Kaufman-white matter interface appears intact. Skull and face: Calvarium and facial bones appear intact, without suspicious lesions. Orbits appear normal. Sinuses: Sinuses and mastoids are clear. HEAD CT ANGIOGRAPHY: Anterior circulation: Dense atheromatous calcifications are present bilaterally within the cavernous portions of the internal carotid arteries with resultant 50% luminal stenosis. The flow within the paired anterior cerebral arteries is normal and symmetric. The flow within the middle cerebral arteries is normal and symmetric. The anterior communicating artery is seen. No aneurysms are seen. Posterior circulation: Visualized portions of the vertebral arteries demonstrate normal caliber, and join to form a normal appearing basilar artery. Flow within the posterior cerebral arteries is normal and symmetric. No aneurysms are seen. NECK CT ANGIOGRAPHY: Carotid system: The great vessels demonstrate a conventional anatomy as they arise from the aortic arch. The origins of the common carotid arteries appear patent. The common carotid arteries demonstrate normal caliber and courses. The bifurcation regions are both widely patent. Atheromatous calcification at the left carotid bulb results in approximately 50% stenosis at the origin of the left internal carotid artery. The internal carotid arteries demonstrate normal calibers and courses. Posterior circulation: The origins of the vertebral arteries both appear widely patent. The more superior extracranial portions of both vertebral arteries also demonstrate normal courses and calibers. They join to form a normal appearing basilar artery. Soft tissues: There is moderate centrilobular emphysema at the bilateral apices. There is mediastinal adenopathy which is incompletely characterized including a 1.2 cm subcarinal lymph node and shotty subcentimeter AP window nodes. Bones: No suspicious bony lesions. Visualized cervical spine appears normally aligned. IMPRESSION: 1. Approximately 50% stenosis in the bilateral cavernous portions of the internal carotid artery secondary to atheromatous calcification. 2. Approximately 50% stenosis at the origin of the left internal carotid artery secondary to atheromatous calcification. 3. No acute intracranial findings. 4. Questionable mediastinal adenopathy which is incompletely characterized. If further characterization is warranted, CT of the chest with contrast is recommended. Any quantitative measurements of stenosis were performed using NASCET criteria. Dictated by: Lila Garsia M.D. on 05/07/2022 at 8:37 Approved by: Lila Garsia M.D. on 05/07/2022 at 8:47
--- NOTE | 2022-05-07 08:06 | ED_ITS ---
HPI - Dizziness General Chief Complaint: Dizziness Stated Complaint: vertigo/dizziness Time Seen by Provider: 05/07/22 07:32 Source: patient and EMS Mode of arrival: EMS History of Present Illness HPI Narrative: Patient here for dizziness and ataxia. He had no complaints yesterday of this. He went to bed around 2:00 a.m.. at bedside. Brought in by ambulance. Blood sugar 116. Patient and states they did not fall asleep very easily or sleep very well at night. He fell asleep around 2:00 a.m.. It woke up at 3:30 a.m.. He got out of bed and felt very off balance and dizzy. He was bouncing back and forth on the hallway álvarez to get to the bathroom. He lowered himself to the ground no fall or injury. Was able to get himself back to bed. States he had a bowel movement which was very dark. But no noticeable blood in the toilet. Patient states that he tried getting up again around 6:00 a.m. in the morning but called the ambulance because he was too dizzy to get out of the bed and feared that he would fall again. No recent nausea vomiting diarrhea. No cough cold congestion or fluid loss. No urinary complaints. Patient states that this has happened 3 times before in the past years. Has been seen here for the same. Has cardiac history, sees Dr. Diaz, primary care is Dr. Stack. Denies denies any chest pain or palpitations. He has been feeling very tired and short of breath when he is exerting himself. No recent colonoscopy. No history of stomach or colonic bleeds. Is not on a blood t hinner. Patient felt very dizzy when attempted to do orthostatics here. No recent echocardiogram. Fast exam is negative. No slurred speech or facial droop or limb numbness tingling or weakness. Related Data Home Medications Medication Instructions Recorded Confirmed aspirin 81 mg tablet,delayed 81 mg PO DAILY #60 tabs 04/20/16 05/07/22 release lisinopril 10 mg tablet 5 mg PO DAILY ##0 04/07/17 05/07/22 naproxen sodium 220 mg capsule 440 mg PO DAILY PRN pain 08/17/18 05/07/22 (Aleve) esomeprazole magnesium 20 mg 20 mg PO DAILY 02/19/20 05/07/22 capsule,delayed release (Nexium 24HR) metoprolol tartrate 50 mg tablet 75 mg PO BID 09/08/20 05/07/22 Previous Rx's Medication Instructions Recorded Disabled Parking Placard #1 ea 11/13/18 rosuvastatin 20 mg tablet (Crestor) 20 mg PO QPM #90 tabs 03/31/20 amlodipine 5 mg tablet (Norvasc) 5 mg PO DAILY #90 tabs 05/16/20 escitalopram oxalate 20 mg tablet 20 mg PO DAILY #90 tabs 06/01/21 bupropion HCl 150 mg 24 hr tablet, 150 mg PO DAILY #90 tabs 06/26/21 extended release (Wellbutrin XL) Allergies Allergy/AdvReac Type Severity Reaction Status Date / Time hydrocodone AdvReac Intermediate WEAKNESS, Verified 05/07/22 07:21 SYNCOPE codeine AdvReac Mild NAUSEA Verified 05/07/22 07:21 Review of Systems Review of Systems Narrative: GENERAL: Denies chills, fatigue, malaise, fever, sweats. HEENT: Denies sinus pain, ear pain, sore throat RESPIRATORY: Denies dyspnea, cough CARDIOVASCULAR: Denies chest pain, palpitations GASTROINTESTINAL: Denies nausea, vomiting, abdominal pain, positive black stools : Denies dysuria, frequency, hematuria MUSCULOSKELETAL: denies muscle or bony pain SKIN: Denies rash, skin lesions NEUROLOGIC: Denies weakness, numbness, positive dizziness ROS Unobtainable: All systems reviewed & are unremarkable except as noted in HPI and below Patient History Medical History Chronic cough COPD (chronic obstructive pulmonary disease) Coronary artery disease (~2008) Essential hypertension Gastroesophageal reflux disease Gout Mixed anxiety depressive disorder (01/18/17) Mixed hyperlipidemia Restless leg syndrome Sleep apnea Snoring Varicose veins of both lower extremities Vision disorder Surgical History History of angioplasty Family History Father Stroke History of heart disease Hypertension Hyperlipidemia Mother Cancer Brother History of heart attack History of heart disease Sister Mental health problem Social History household members: spouse Smoking Status: Former smoker Tobacco: How many years used: 40 second hand exposure: No alcohol intake: never substance use type: does not use Smoking Status: Former smoker Exam Narrative Exam Narrative: GENERAL: in no distress, not toxic not dyspneic HEAD: Normocephalic. EYES: Pupils equal round No scleral icterus. ENT: Mucous membranes moist. NECK: Trachea midline. CARDIOVASCULAR: Regular rate and rhythm without murmurs RESPIRATORY: Clear to auscultation. Breath sounds equal bilaterally. No wheezes, rales, or rhonchi. GASTROINTESTINAL: Abdomen soft, non-tender, brown stool on glove, slight hemoccult positive. EXTREMITIES: No gross deformities. BACK: No flank tenderness. NEURO: AOx4. SKIN: Warm and dry PSYCH: Not anxious, is cooperative Initial Vital Signs Initial Vital Signs: Vital Signs Temperature 97.8 F 05/07/22 07:17 Pulse Rate 59 L 05/07/22 07:17 Respiratory Rate 18 05/07/22 07:17 Blood Pressure 154/70 H 05/07/22 07:17 Pulse Oximetry 100 05/07/22 07:17 Oxygen Delivery Method 05/07/22 07:17 Scores NIH Stroke Scale Level of Conciousness: Alert, keenly responsive Ask month/age: Answers both questions correctly. Open/close eyes, close hand: Performs both tasks correctly Best gaze horizontal: Normal Visual armando: No visual loss Facial palsy: Normal symetrical movement Left arm drift: No drift for full 10 sec Right arm drift: No drift for full 10 sec Left leg drift: No drift for full 5 sec Right leg drift: No drift for full 5 sec Limb ataxia: Absent Sensory on face/arms/legs: Normal, no sensory loss Best language: No aphasia, normal Dysarthria: Normal Extinction or inattention: No abnormality Total NIH Stroke scale score: 0 Course Course Decision to Admit Date: 05/07/22 Decision to Admit time: 08:13 Orders Ordered: Discontinued Medications Acetaminophen (Acetaminophen 325 Mg Tablet) 650 mg PO Q6HR PRN PRN Reason: Fever/Mild Pain (1-3) Last Admin: 05/07/22 23:20 Dose: 650 mg Documented By: GAY Amlodipine Besylate (Amlodipine 5 Mg Tablet) 5 mg PO DAILY [facility] Last Admin: 05/09/22 08:40 Dose: 5 mg Documented By: Admin: 05/08/22 09:10 Dose: 5 mg Documented By: FREDERICK Atorvastatin Calcium (Atorvastatin 20 Mg Tablet) 40 mg PO BEDTIME [facility] Last Admin: 05/08/22 20:50 Dose: 40 mg Documented By: Admin: 05/07/22 20:03 Dose: 40 mg Documented By: GAY Bupropion HCl (Bupropion Xl 150 Mg Tab) 150 mg PO DAILY [facility] Last Admin: 05/09/22 08:44 Dose: 150 mg Documented By: Admin: 05/08/22 09:09 Dose: 150 mg Documented By: FREDERICK Calcium Carbonate (Calcium Carbonate 500 Mg Tab) 1,000 mg PO Q4HR PRN PRN Reason: Dyspepsia Docusate Sodium (Docusate 100 Mg Capsule) 100 mg PO BID [facility] Last Admin: 05/09/22 08:40 Dose: 100 mg Documented By: Admin: 05/08/22 20:50 Dose: 100 mg Documented By: Admin: 05/08/22 09:10 Dose: 100 mg Documented By: Admin: 05/07/22 20:03 Dose: 100 mg Documented By: GAY Enoxaparin Sodium (Enoxaparin 40 Mg/0.4 Ml Syringe) 40 mg SUBCUT DAILY [facility] Last Admin: 05/09/22 08:44 Dose: 40 mg Documented By: Admin: 05/08/22 09:10 Dose: 40 mg Documented By: FREDERICK Escitalopram Oxalate (Escitalopram 10 Mg Tablet) 20 mg PO DAILY [facility] Last Admin: 05/09/22 08:43 Dose: 20 mg Documented By: Admin: 05/08/22 09:13 Dose: 20 mg Documented By: FREDERICK Sodium Chloride (Normal Saline 0.9%) 1,000 mls @ 1,000 mls/hr IV BOLUS ONE Stop: 05/07/22 09:04 Last Infusion: 05/07/22 10:10 Dose: 0 mls/hr Documented By: Admin: 05/07/22 08:35 Dose: 1,000 mls/hr Documented By: RANDALL Sodium Chloride (Normal Saline 0.9%) 1,000 mls @ 84 mls/hr IV CONT [facility] Last Admin: 05/08/22 07:17 Dose: 84 mls/hr Documented By: Infusion: 05/08/22 07:17 Dose: 84 mls/hr Documented By: Admin: 05/07/22 19:38 Dose: 84 mls/hr Documented By: GAY Lactated Ringer's (Lactated Ringers) 1,000 mls @ 120 mls/hr IV CONT [facility] Last Infusion: 05/07/22 19:38 Dose: 0 mls/hr Documented By: Admin: 05/07/22 19:26 Dose: 120 mls/hr Documented By: Infusion: 05/07/22 19:26 Dose: 120 mls/hr Documented By: Admin: 05/07/22 15:10 Dose: 120 mls/hr Documented By: FARIDEH Lisinopril (Lisinopril 10 Mg Tablet) 5 mg PO DAILY [facility] Last Admin: 05/09/22 08:40 Dose: 5 mg Documented By: Admin: 05/08/22 09:09 Dose: 5 mg Documented By: FREDERICK Metoclopramide HCl (Metoclopramide 10 Mg/2 Ml Inj) 10 mg IV NOW PRN PRN Reason: Nausea And Vomiting Metoprolol Tartrate (Metoprolol Ir 50 Mg Tablet) 50 mg PO BID [facility] Last Admin: 05/09/22 08:44 Dose: 50 mg Documented By: Admin: 05/08/22 20:50 Dose: 50 mg Documented By: Admin: 05/08/22 09:10 Dose: 50 mg Documented By: Admin: 05/07/22 20:03 Dose: 50 mg Documented By: GAY Ondansetron HCl (Ondansetron 4 Mg Odt) 4 mg PO Q8HR PRN PRN Reason: Nausea And Vomiting Ondansetron HCl (Ondansetron 4 Mg/2 Ml Inj) 4 mg IV NOW PRN PRN Reason: Nausea And Vomiting Pantoprazole Sodium (Pantoprazole Dr 20 Mg Tablet) 20 mg PO DAILY [facility] Last Admin: 05/09/22 08:40 Dose: 20 mg Documented By: Admin: 05/08/22 09:10 Dose: 20 mg Documented By: FREDERICK Reevaluation(s) Reevaluation #1: Reviewed results with patient. They understand need for admission and endoscopy. Will need observation for hemoglobin levels as well. Currently symptom free. Has been NPO greater than 12 hours Time: 10:59 Consultations Consultation #1: Spoke with general surgery, Dr. Jasso, if medically cleared patient can be taken to the endoscopy suite today/this afternoon. Time: 10:59 Consultation #2: Spoke with primary care provider dr canales, will admit pt Time: 11:22 Vital Signs Vital signs: Vital Signs - 8 hr 05/07/22 07:17 05/07/22 07:56 05/07/22 07:21 Temperature 97.8 F Pulse Rate 59 L 58 L Pulse Rate [Orthostatic Lying] 55 L Pulse Rate [Orthostatic Sitting] 68 Pulse Rate [Orthostatic Standing] 60 Respiratory Rate 18 Blood Pressure 154/70 H Blood Pressure [Orthostatic Lying] 145/67 H Blood Pressure [Orthostatic Sitting] 138/69 Blood Pressure [Orthostatic Standing] 134/66 Pulse Oximetry 100 99 Oxygen Delivery Method Room Air 05/07/22 07:30 05/07/22 07:30 05/07/22 07:45 Temperature Pulse Rate 54 L Pulse Rate [Orthostatic Lying] Pulse Rate [Orthostatic Sitting] Pulse Rate [Orthostatic Standing] Respiratory Rate 28 H Blood Pressure 151/72 H 145/67 H Blood Pressure [Orthostatic Lying] Blood Pressure [Orthostatic Sitting] Blood Pressure [Orthostatic Standing] Pulse Oximetry 97 Oxygen Delivery Method 05/07/22 07:45 05/07/22 07:49 05/07/22 07:49 Temperature Pulse Rate 56 L 58 L Pulse Rate [Orthostatic Lying] Pulse Rate [Orthostatic Sitting] Pulse Rate [Orthostatic Standing] Respiratory Rate 27 H 34 H Blood Pressure 138/69 Blood Pressure [Orthostatic Lying] Blood Pressure [Orthostatic Sitting] Blood Pressure [Orthostatic Standing] Pulse Oximetry 98 99 Oxygen Delivery Method 05/07/22 07:50 05/07/22 07:50 05/07/22 08:00 Temperature Pulse Rate 60 56 L Pulse Rate [Orthostatic Lying] Pulse Rate [Orthostatic Sitting] Pulse Rate [Orthostatic Standing] Respiratory Rate 32 H 30 H Blood Pressure 134/66 Blood Pressure [Orthostatic Lying] Blood Pressure [Orthostatic Sitting] Blood Pressure [Orthostatic Standing] Pulse Oximetry 99 98 Oxygen Delivery Method Room Air 05/07/22 08:25 05/07/22 08:25 05/07/22 08:30 Temperature Pulse Rate 57 L Pulse Rate [Orthostatic Lying] Pulse Rate [Orthostatic Sitting] Pulse Rate [Orthostatic Standing] Respiratory Rate 21 Blood Pressure 174/74 H 155/72 H Blood Pressure [Orthostatic Lying] Blood Pressure [Orthostatic Sitting] Blood Pressure [Orthostatic Standing] Pulse Oximetry 99 Oxygen Delivery Method 05/07/22 08:30 05/07/22 09:00 05/07/22 09:00 Temperature Pulse Rate 55 L 56 L Pulse Rate [Orthostatic Lying] Pulse Rate [Orthostatic Sitting] Pulse Rate [Orthostatic Standing] Respiratory Rate 21 17 Blood Pressure 162/74 H Blood Pressure [Orthostatic Lying] Blood Pressure [Orthostatic Sitting] Blood Pressure [Orthostatic Standing] Pulse Oximetry 96 94 Oxygen Delivery Method 05/07/22 09:30 05/07/22 09:30 05/07/22 09:32 Temperature Pulse Rate 58 L 59 L Pulse Rate [Orthostatic Lying] Pulse Rate [Orthostatic Sitting] Pulse Rate [Orthostatic Standing] Respiratory Rate 18 18 Blood Pressure 159/110 H Blood Pressure [Orthostatic Lying] Blood Pressure [Orthostatic Sitting] Blood Pressure [Orthostatic Standing] Pulse Oximetry 95 96 Oxygen Delivery Method 05/07/22 09:32 05/07/22 10:00 05/07/22 10:00 Temperature Pulse Rate 55 L Pulse Rate [Orthostatic Lying] Pulse Rate [Orthostatic Sitting] Pulse Rate [Orthostatic Standing] Respiratory Rate 15 Blood Pressure 160/72 H 163/73 H Blood Pressure [Orthostatic Lying] Blood Pressure [Orthostatic Sitting] Blood Pressure [Orthostatic Standing] Pulse Oximetry 96 Oxygen Delivery Method 05/07/22 10:30 05/07/22 10:30 05/07/22 11:00 Temperature Pulse Rate 59 L Pulse Rate [Orthostatic Lying] Pulse Rate [Orthostatic Sitting] Pulse Rate [Orthostatic Standing] Respiratory Rate 17 Blood Pressure 164/68 H 146/66 H Blood Pressure [Orthostatic Lying] Blood Pressure [Orthostatic Sitting] Blood Pressure [Orthostatic Standing] Pulse Oximetry 100 Oxygen Delivery Method 05/07/22 11:00 Temperature Pulse Rate 56 L Pulse Rate [Orthostatic Lying] Pulse Rate [Orthostatic Sitting] Pulse Rate [Orthostatic Standing] Respiratory Rate 16 Blood Pressure Blood Pressure [Orthostatic Lying] Blood Pressure [Orthostatic Sitting] Blood Pressure [Orthostatic Standing] Pulse Oximetry 98 Oxygen Delivery Method MDM - Dizziness Differential Diagnosis Differential diagnosis: Likely benign paroxysmal positional vertigo, orthostatic hypotension, vertebral basilar insufficiency, cerebrovascular accident, acute vestibular neuronitis, transient cerebral ischemia and other (GI bleed/valvular disease) Medical Records Medical records narrative: [address] [address] Echocardiography Report Signed Patient: Dennise Klein MR#: [id number] : 1955 Acct:[id number] Age/Sex: 64 / M Date of Service: 02/26/19 Loc: ECHO Accession Number: [id number] ?? Procedure: EC echo doppler complete Ordering Provider: Rhina Vargas P.A-C ? [facility] +---------+? [facility]? +---------+ : ? :? [address] [place] [address] ? : ? : : ? :? [place], [place] ? : ? : : ? :? [id number] ? : ? : : ? : ? Phone: [phone] : ? : [phone]---------[phone]? [phone]? +---------+ ? Echocardiogram Report + + :Name: DENNISE KLEIN ? Study Date: 02/26/2019? Height: 71 in? : :[facility] ? Weight: 202 lb : : ? Gender: Male? BSA: 2.1 m2? ? : :: 1955 ? Age: 64 yrs ? BP: 142/72 mmHg: :Reason For Study: Dyspnea? : :? Performed By: Yoselin Caicedo? : :Referring: RHINA VARGAS ? : + + Interpretation Summary 1) Normal left ventricular thickness, size, wall motion, and systolic function (EF 60-65%). 2) Normal right ventricular size and function. 3) Diastolic parameters suggest a pseudonormalization pattern, consistent with probable elevated filling pressures. 4) No significant valvular abnormalities. 5) The right ventricular systolic pressure is estimated to be at least 43 mmHg based on an estimated right atrial pressure of 3 mm Hg. 6) Compared to the Echo done 11/14/2014, no significant change. ? ? Procedure: ? A two-dimensional transthoracic echocardiogram with color flow and Doppler was performed. The study quality was technically adequate. Comparison is made with the echocardiogram of 11-14-14. The patient was in normal sinus rhythm during the exam. Left Ventricle: ? The left ventricle is normal in size, wall thickness, and systolic function without any focal wall motion abnormalities. The ejection fraction is estimated to be 60-65%. Diastolic parameters suggest a pseudonormalization pattern, consistent with probable elevated filling pressures. Right Ventricle: ? The right ventricle grossly appears normal in size with probable normal systolic function. Atria: ? The left atrium is mildly dilated. Right atrial size is normal. The interatrial septum is intact with no evidence for an atrial septal defect. Mitral Valve: ? The mitral valve is normal in structure and function. There is trace mitral regurgitation. Aortic Valve: ? The aortic valve is trileaflet. The aortic valve opens well. There is no aortic valve stenosis. No aortic regurgitation is present. Tricuspid Valve: ? The tricuspid valve leaflets are thin and pliable. There is mild tricuspid regurgitation. The right ventricular systolic pressure is estimated to be at least 43 mmHg based on an estimated right atrial pressure of 3 mm Hg. Pulmonic Valve: ? The pulmonic valve is normal in structure and function. There is a trace or physiologic amount of pulmonic regurgitation. Great Vessels: ? The aortic root is normal size. The dimensions of the ascending aorta are normal. The aortic arch is normal in size. The IVC is of normal diameter and collapses greater than 50% with a sniff. This suggests a low right atrial pressure of 3 mm Hg. Pericardium/ Pleura ? There is no pericardial effusion. There is no pleural effusion. ? ? MMode/2D Measurements & Calculations LVIDd: 5.3 cm? Ao root diam: 3.6 cm LVIDs: 2.8 cm? Aortic Jxn: 2.4 cm FS: 46.4 % ? asc Aorta Diam: 3.1 cm EPSS: 0.82 cm? Ao Arch Diam (Prox Trans): 2.5 cm IVSd: 1.0 cm LVPWd: 1.1 cm LV eli. diameter/BSA (cm/m^2): 2.5 LV sys. diameter/BSA (cm/m^2): 1.3 ? LA dimension: 4.0 cm ? RA long axis: 5.1 cm LA A2 area: 19.7 cm2 ? RA area: 18.7 cm2 LA A4 area: 21.0 cm2 ? RA vol: 58.6 ml LA length (vol): 5.6 cm? RA : 27.7 ml/m2 LA vol: 62.2 ml? IVC diam: 1.5 cm LA vol index: 29.4 ml/m2 ? RVDd major: 5.4 cm ? RVD1 (basal): 3.9 cm RVD2 (mid): 3.4 cm ? ? Doppler Measurements & Calculations Ao V2 max: 139.7 cm/sec? MV E max se: 105.8 cm/sec Ao V2 mean: 88.3 cm/sec? MV A max se: 88.2 cm/sec Ao max P.8 mmHg? MV E/A: 1.2 Ao mean P.7 mmHg ? Med Peak E' Se: 5.5 cm/sec Ao V2 VTI: 33.8 cm ? E/E' med: 19.3 ? Lat Peak E' Se: 10.2 cm/sec ? E/E' lat: 10.4 ? E/e' average: 14.8 ? MV dec time: 0.18 sec ? MV P1/2t: 55.2 msec ? TR max se: 317.7 cm/sec ? MV P1/2t max se: 105.3 cm/sec TR max P.4 mmHg ? MVA(P1/2t): 4.0 cm2 PA V2 max: 78.9 cm/sec PA V2 mean: 52.2 cm/sec PA mean P.3 mmHg PA Accel Time: 0.23 sec ? Reading Physician:05:18 PM ? ? Lab Data Result diagrams: 05/09/22 06:55 05/09/22 06:55 Labs: Lab Results 05/07/22 05/07/22 05/07/22 Range/Units 07:20 07:20 11:00 WBC 8.4 (4.5-11.0) X10^3/uL RBC 3.89 L (4.5-5.9) X10^6/uL Hgb 11.9 L (13.5-17.5) g/dL Hct 34.0 L (41-53) % MCV 87.4 (80-100) fL MCH 30.7 (26-34) PG MCHC 35.1 (30-36) % RDW 13.5 (11.6-14.8) % Plt Count 272 (150-400) X10^3/uL Neut % (Auto) 69.7 (50-75) % Lymph % (Auto) 19.7 L (25-40) % [place] % (Auto) 8.1 (3-14) % Eos % (Auto) 1.8 L (2-4) % Baso % (Auto) 0.7 (0-2) % Neut # (Auto) 5900 (3610-7273) /uL Lymph # (Auto) 1700 (4580-2173) /uL [place] # (Auto) 700 (0-900) /uL Eos # (Auto) 200 (0-450) /uL Baso # (Auto) 100 (0-100) /uL Sodium 141 (137-145) mmol/L Potassium 3.9 (3.4-5.1) mmol/L Chloride 104 (98-107) mmol/L Carbon Dioxide 27 (22-32) mmol/L BUN 20 (9-20) mg/dL Creatinine 1.26 H (0.66-1.25) mg/dL Estimated GFR > 60 (>60) mL/min BUN/Creatinine Ratio 15.9 (6-22) Glucose 136 H (80-110) mg/dL Calcium 8.9 (8.4-10.2) mg/dL Magnesium 1.8 (1.6-2.3) mg/dL Total Bilirubin 0.7 (0.2-1.3) mg/dL AST 20 (17-59) IU/L ALT 16 (<50) IU/L Alkaline Phosphatase 85 (38-126) U/L Total Creatine Kinase 66 (55-170) U/L CK-MB (CK-2) TNP CK-MB (CK-2) Rel Index TNP Troponin I < 0.012 (0.01-0.034) ng/mL Total Protein 7.1 (6.3-8.2) g/dL Albumin 3.8 (3.5-5.0) g/dL Globulin 3.3 (1.7-4.1) g/dL Albumin/Globulin Ratio 1.2 (1.0-2.8) Lipase 95 (23-300) U/L SARS-CoV-2 (PCR) Negative (Negative) Imaging Data Chest x-ray: Radiologist's Impression: [address] [address]ABvp ReportSigned Patient: Dennise Klein RMR#: [id number]: 1955cct:[id number]/Sex: 67 / MDate of Service: 05/07/22Loc: EDAccession Number: [id number] Procedure: XR chest 1V Ordering Provider: Rolando Vera MD PROCEDURE: XR CHEST 1V INDICATIONS: chest pain TECHNIQUE: One view of the chest was acquired. COMPARISON: [facility], CR, XR CHEST 1V, 08/17/2018, 11:23. [facility], CR, CHEST 2 VIEW, 06/10/2017, 16:23. FINDINGS: Surgical changes and devices: None. Lungs and pleura: Lungs are clear. No pleural effusions or pneumothorax. Mediastinum: Mediastinal contours appear normal. Heart size is normal. Bones and chest wall: No suspicious bony lesions. Overlying soft tissues appear unremarkable. IMPRESSION: No acute radiographic abnormality. Dictated by: Nabeel Jones M.D. on 05/07/2022 at 7:54 Approved by: Nabeel Jones M.D. on 05/07/2022 at 7:55 CTA - brain/neck: Radiologist's Impression: [address] [address] [address] Scan Report Signed Patient: Dennise Klein MR#: [id number] : 1955 Acct:[id number] Age/Sex: 67 / M Date of Service: 05/07/22 Loc: ED Accession Number: [id number] ?? Procedure: CT angio head and neck Ordering Provider: Rolando Vera MD PROCEDURE:? CT ANGIO HEAD AND NECK ? INDICATIONS:? Dizziness/ataxia ? TECHNIQUE:? Pre-contrast 4.5 mm thick sections acquired from the foramen magnum to the vertex.? After the administration of intravenous contrast, 1 mm thick sections acquired from the aortic arch through the [place] of [place].? Post-contrast 4.5 mm thick sections then re- acquired from the foramen magnum to the vertex.? 3-dimensional dqoboxi-ggjhlhkzo-klikfpbmcy (MIP) and/or volume rendering reformats were acquired of the central intracranial vasculature and neck separately. For radiation dose reduction, the following was used:? automated exposure control, adjustment of mA and/or kV according to patient size.? ? COMPARISON:? [facility], CT, HEAD WITHOUT CONTRAST, 11/08/2012, 19:01. ? FINDINGS:? Image quality:? Excellent.? ? BRAIN:? CSF spaces:? Ventricles are normal in size and shape.? Basal cisterns are patent.? No extra-axial fluid collections.? ? Brain:? No midline shift.? No intracranial bleeds or masses.? Punctate calcification is redemonstrated within the left basal ganglia.? Kaufman-white matter interface appears intact.? ? Skull and face:? Calvarium and facial bones appear intact, without suspicious lesions.? Orbits appear normal.? ? Sinuses:? Sinuses and mastoids are clear.? ? HEAD CT ANGIOGRAPHY:? Anterior circulation:? Dense atheromatous calcifications are present bilaterally within the cavernous portions of the internal carotid arteries with resultant 50% luminal stenosis.? The flow within the paired anterior cerebral arteries is normal and symmetric. ?The flow within the middle cerebral arteries is normal and symmetric.? The anterior communicating artery is seen.? No aneurysms are seen.? ? Posterior circulation:? Visualized portions of the vertebral arteries demonstrate normal caliber, and join to form a normal appearing basilar artery.? Flow within the posterior cerebral arteries is normal and symmetric.? No aneurysms are seen.? ? NECK CT ANGIOGRAPHY:? Carotid system:? The great vessels demonstrate a conventional anatomy as they arise from the aortic arch.? The origins of the common carotid arteries appear patent.? The common carotid arteries demonstrate normal caliber and courses.? The bifurcation regions are both widely patent.? Atheromatous calcification at the left carotid bulb results in approximately 50% stenosis at the origin of the left internal carotid artery.? The internal carotid arteries demonstrate normal calibers and courses.? ? Posterior circulation:? The origins of the vertebral arteries both appear widely patent.? The more superior extracranial portions of both vertebral arteries also demonstrate normal courses and calibers.? They join to form a normal appearing basilar artery.? ? Soft tissues:? There is moderate centrilobular emphysema at the bilateral apices.? There is mediastinal adenopathy which is incompletely characterized including a 1.2 cm subcarinal lymph node and shotty subcentimeter AP window nodes. ? Bones:? No suspicious bony lesions.? Visualized cervical spine appears normally aligned.? IMPRESSION:? ? 1. Approximately 50% stenosis in the bilateral cavernous portions of the internal carotid artery secondary to atheromatous calcification. ? 2. Approximately 50% stenosis at the origin of the left internal carotid artery secondary to atheromatous calcification. ? 3. No acute intracranial findings. ? 4. Questionable mediastinal adenopathy which is incompletely characterized.? If further characterization is warranted, CT of the chest with contrast is recommended.? ? Any quantitative measurements of stenosis were performed using NASCET criteria.? ? ? Dictated by: Lila Garsia M.D. on 05/07/2022 at 8:37 ? ? Approved by: Lila Garsia M.D. on 05/07/2022 at 8:47 ? ECG Data Interpretation: Sinus bradycardia rate 56 MDM Narrative Medical decision making narrative: Appropriate for admission. Will need echocardiogram as well as possible endoscopy Discharge Plan Departure Patient Disposition: Admitted as Observation Clinical Impression: Dizziness Admit Date/Time: 05/07/22 11:37 Admit Provider: Noe Canales
[2022-05-07 08:13] LABS: Troponin I < 0.012 ng/mL (0.01-0.034)
--- NOTE | 2022-05-07 08:17 | DI.ECHO.S_ITS ---
[place] [facility]---------+ [facility] +---------+ : : [address] : : : : [id number] : : : : Phone: [phone] Echocardiogram Report + + :Name: DENNISE KLEIN Study Date: 05/07/2022 Height: 71 in : :[facility] ReadingLocation: Weight: 200 lb : : Gender: Male BSA: 2.1 m2 : :: 1955 Age: 67 yrs BP: 163/73 mmHg: :Reason For Study: Dyspnea : :Ordering Physician: : :TYRONE SHORT Performed By: Ranjeet Shah : :Referring: TYRONE SHORT : + + Interpretation Summary Normal sinus rhythm. Normal LV size and wall thickness. Normal wall motion and left ventricular systolic function. Ejection fraction is 60-65%. Stage I diastolic dysfunction. Normal chamber sizes No significant valvular abnormalities. Compared to prior study performed November 14, 2014, diastolic dysfunction improved from stage II down to stage I. Left atrial volume index fell from 30 down to 21 mL/mA?. Elevated blood pressure is newly described. Procedure: A two-dimensional transthoracic echocardiogram with color flow and Doppler was performed. The study quality was technically adequate. Comparison is made with the echocardiogram of 04/06/2017. The patient was in normal sinus rhythm during the exam. Left Ventricle: The left ventricle is normal in size and wall thickness. Left ventricular systolic function is normal. The ejection fraction is estimated to be 60-65%. There are no focal wall motion abnormalities. Diastolic parameters suggest a relaxation abnormality of the left ventricle, consistent with probable normal filling pressures. Right Ventricle: The right ventricle is normal in size and function. Atria: Both atria are normal in size. The interatrial septum grossly appears intact with no obvious evidence for an atrial septal defect. Mitral Valve: The mitral valve is normal in structure and function. There is trace mitral regurgitation. Aortic Valve: The aortic valve is normal in structure and function. No aortic regurgitation is present. Tricuspid Valve: The tricuspid valve is normal in structure and function. There is trace tricuspid regurgitation. Pulmonary artery pressures cannot be estimated because of the lack of a measurable TR jet velocity. Pulmonic Valve: The pulmonic valve is normal in structure and function. There is a trace or physiologic amount of pulmonic regurgitation. Great Vessels: The aortic root is normal size. The dimensions of the ascending aorta are normal. The IVC is of normal diameter and collapses greater than 50% with a sniff. This suggests a low right atrial pressure of 3 mm Hg. Pericardium/ Pleura There is no pericardial effusion. There is no pleural effusion. MMode/2D Measurements & Calculations LVIDd: 5.3 cm LVOT diam: 2.2 cm LVIDs: 3.6 cm Ao root diam: 3.2 cm FS: 32.9 % asc Aorta Diam: 2.9 cm IVSd: 1.1 cm LVPWd: 0.91 cm LV eli. diameter/BSA (cm/m^2): 2.5 LV sys. diameter/BSA (cm/m^2): 1.7 LA A2 area: 17.4 cm2 RA long axis: 4.6 cm LA A4 area: 14.9 cm2 RA area: 14.6 cm2 LA length (vol): 5.0 cm RA vol: 39.6 ml LA vol: 44.4 ml RA : 18.8 ml/m2 LA vol index: 21.0 ml/m2 TAPSE: 2.1 cm Doppler Measurements & Calculations Ao V2 max: 121.1 cm/sec LVOT Max Se: 105.9 cm/sec Ao V2 mean: 77.6 cm/sec LV V1 max P.5 mmHg Ao max P.9 mmHg LV V1 VTI: 24.3 cm Ao mean P.8 mmHg LORETO(I,D): 3.5 cm2 Ao V2 VTI: 26.1 cm LORETO(V,D): 3.3 cm2 sev ratio: 0.93 LORETO indexed to BSA (cm^2/m^2): 1.7 MV E max se: 83.9 cm/sec SV(LVOT): 91.8 ml MV A max se: 94.9 cm/sec MV E/A: 0.88 Med Peak E' Se: 6.1 cm/sec E/E' med: 13.9 Lat Peak E' Se: 7.9 cm/sec E/E' lat: 10.7 E/e' average: 12.3 MV dec time: 0.25 sec Electronically signed by: Oksana Stern M.D. on Reading Physician:05/07/2022 01:01 PM
[2022-05-07] MEDS: SODIUM CHLORIDE 0.9% 1,000 ML 1000 ML IV (08:35)
[2022-05-07 11:38] LABS: COVID19 -Nasal RAPID Negative (Negative)
--- NOTE | 2022-05-07 12:20 | PM.HP.1 ---
History of Present Illness History of Present Illness Date Patient Seen: 05/07/22 Time Patient Seen: 11:00 Chief complaint: vertigo/dizziness Narrative: Pt reports some decreasing exercise tolerance for the last couple weeks then yesterday became acutely dizzy on getting up to go to the bathroom. endorses dark black stools found to be anemic with positive guiac. He feels ok sitting in bed but weaving all over if he tries to stand and walk. no falls but definitely not feeling well with SOB/dizzy/nausea on exertion. In ED other scans of CTA/FAST were not acutely concerning, surgery plans to take him for scope this afternoon which is great. He has been NPO all night and will continue until the procedure. endorses appetite. Patient History Medical History Chronic cough COPD (chronic obstructive pulmonary disease) Coronary artery disease (~2008) Essential hypertension Gastroesophageal reflux disease Gout Mixed anxiety depressive disorder (01/18/17) Mixed hyperlipidemia Restless leg syndrome Sleep apnea Snoring Varicose veins of both lower extremities Vision disorder Surgical History History of angioplasty Family & Social History Family History Father Stroke History of heart disease Hypertension Hyperlipidemia Mother Cancer Brother History of heart attack History of heart disease Sister Mental health problem Safety & Behavioral: Feels Safe in Current Yes Environment Been Physically Hurt or No Threatened By a Person Tobacco & Substance use: Smoking Status Former smoker alcohol intake never Meds Home Medications and Allergies Home Medications Medication Instructions Recorded Confirmed Type aspirin 81 mg tablet,delayed 81 mg PO DAILY #60 tabs 04/20/16 03/09/21 History release lisinopril 10 mg tablet 5 mg PO DAILY ##0 04/07/17 03/09/21 History naproxen sodium 220 mg capsule 440 mg PO DAILY PRN pain 08/17/18 03/09/21 History (Aleve) Disabled Parking Placard #1 ea 11/13/18 03/09/21 Rx esomeprazole magnesium 20 mg 20 mg PO DAILY 02/19/20 03/09/21 History capsule,delayed release (Nexium 24HR) rosuvastatin 20 mg tablet (Crestor) 20 mg PO QPM #90 tabs 03/31/20 03/09/21 Rx amlodipine 5 mg tablet (Norvasc) 5 mg PO DAILY #90 tabs 05/16/20 03/09/21 Rx metoprolol tartrate 50 mg tablet 75 mg PO BID 09/08/20 03/09/21 History escitalopram oxalate 20 mg tablet 20 mg PO DAILY #90 tabs 06/01/21 Rx bupropion HCl 150 mg 24 hr tablet, 150 mg PO DAILY #90 tabs 06/26/21 Rx extended release (Wellbutrin XL) Allergies Allergy/AdvReac Type Severity Reaction Status Date / Time hydrocodone AdvReac Intermediate WEAKNESS, Verified 05/07/22 07:21 SYNCOPE codeine AdvReac Mild NAUSEA Verified 05/07/22 07:21 Review of Systems Review of Systems Narrative: all systems reviewed and negative except as otherwise documented in HPI Exam Vital Signs (past 8 hours): - 05/07/22 07:17 05/07/22 07:56 05/07/22 07:21 Temperature 97.8 F Pulse Rate 59 L 58 L Pulse Rate [Orthostatic Lying] 55 L Pulse Rate [Orthostatic Sitting] 68 Pulse Rate [Orthostatic Standing] 60 Respiratory Rate 18 Blood Pressure 154/70 H Blood Pressure [Orthostatic Lying] 145/67 H Blood Pressure [Orthostatic Sitting] 138/69 Blood Pressure [Orthostatic Standing] 134/66 Pulse Oximetry 100 99 Oxygen Delivery Method Room Air 05/07/22 07:30 05/07/22 07:30 05/07/22 07:45 Temperature Pulse Rate 54 L Pulse Rate [Orthostatic Lying] Pulse Rate [Orthostatic Sitting] Pulse Rate [Orthostatic Standing] Respiratory Rate 28 H Blood Pressure 151/72 H 145/67 H Blood Pressure [Orthostatic Lying] Blood Pressure [Orthostatic Sitting] Blood Pressure [Orthostatic Standing] Pulse Oximetry 97 Oxygen Delivery Method 05/07/22 07:45 05/07/22 07:49 05/07/22 07:49 Temperature Pulse Rate 56 L 58 L Pulse Rate [Orthostatic Lying] Pulse Rate [Orthostatic Sitting] Pulse Rate [Orthostatic Standing] Respiratory Rate 27 H 34 H Blood Pressure 138/69 Blood Pressure [Orthostatic Lying] Blood Pressure [Orthostatic Sitting] Blood Pressure [Orthostatic Standing] Pulse Oximetry 98 99 Oxygen Delivery Method 05/07/22 07:50 05/07/22 07:50 05/07/22 08:00 Temperature Pulse Rate 60 56 L Pulse Rate [Orthostatic Lying] Pulse Rate [Orthostatic Sitting] Pulse Rate [Orthostatic Standing] Respiratory Rate 32 H 30 H Blood Pressure 134/66 Blood Pressure [Orthostatic Lying] Blood Pressure [Orthostatic Sitting] Blood Pressure [Orthostatic Standing] Pulse Oximetry 99 98 Oxygen Delivery Method Room Air 05/07/22 08:25 05/07/22 08:25 05/07/22 08:30 Temperature Pulse Rate 57 L Pulse Rate [Orthostatic Lying] Pulse Rate [Orthostatic Sitting] Pulse Rate [Orthostatic Standing] Respiratory Rate 21 Blood Pressure 174/74 H 155/72 H Blood Pressure [Orthostatic Lying] Blood Pressure [Orthostatic Sitting] Blood Pressure [Orthostatic Standing] Pulse Oximetry 99 Oxygen Delivery Method 05/07/22 08:30 05/07/22 09:00 05/07/22 09:00 Temperature Pulse Rate 55 L 56 L Pulse Rate [Orthostatic Lying] Pulse Rate [Orthostatic Sitting] Pulse Rate [Orthostatic Standing] Respiratory Rate 21 17 Blood Pressure 162/74 H Blood Pressure [Orthostatic Lying] Blood Pressure [Orthostatic Sitting] Blood Pressure [Orthostatic Standing] Pulse Oximetry 96 94 Oxygen Delivery Method 05/07/22 09:30 05/07/22 09:30 05/07/22 09:32 Temperature Pulse Rate 58 L 59 L Pulse Rate [Orthostatic Lying] Pulse Rate [Orthostatic Sitting] Pulse Rate [Orthostatic Standing] Respiratory Rate 18 18 Blood Pressure 159/110 H Blood Pressure [Orthostatic Lying] Blood Pressure [Orthostatic Sitting] Blood Pressure [Orthostatic Standing] Pulse Oximetry 95 96 Oxygen Delivery Method 05/07/22 09:32 05/07/22 10:00 05/07/22 10:00 Temperature Pulse Rate 55 L Pulse Rate [Orthostatic Lying] Pulse Rate [Orthostatic Sitting] Pulse Rate [Orthostatic Standing] Respiratory Rate 15 Blood Pressure 160/72 H 163/73 H Blood Pressure [Orthostatic Lying] Blood Pressure [Orthostatic Sitting] Blood Pressure [Orthostatic Standing] Pulse Oximetry 96 Oxygen Delivery Method 05/07/22 10:30 05/07/22 10:30 05/07/22 11:00 Temperature Pulse Rate 59 L Pulse Rate [Orthostatic Lying] Pulse Rate [Orthostatic Sitting] Pulse Rate [Orthostatic Standing] Respiratory Rate 17 Blood Pressure 164/68 H 146/66 H Blood Pressure [Orthostatic Lying] Blood Pressure [Orthostatic Sitting] Blood Pressure [Orthostatic Standing] Pulse Oximetry 100 Oxygen Delivery Method 05/07/22 11:00 05/07/22 11:30 05/07/22 11:30 Temperature Pulse Rate 56 L 53 L Pulse Rate [Orthostatic Lying] Pulse Rate [Orthostatic Sitting] Pulse Rate [Orthostatic Standing] Respiratory Rate 16 17 Blood Pressure 147/70 H Blood Pressure [Orthostatic Lying] Blood Pressure [Orthostatic Sitting] Blood Pressure [Orthostatic Standing] Pulse Oximetry 98 93 Oxygen Delivery Method Oxygen Delivery Method Room Air Const General: cooperative and comfortable HENCO Head: normocephalic and atraumatic Eyes General: appearance normal, both eyes and all related structures Resp Other: moving air well clear to auscultation bilaterally Cardio Rhythm: regular rhythm GI Other: active bowel sounds nontender Skin General: pallor Neuro General: patient alert, patient awake, patient oriented x3, moves all extremities and CN's II-XI intact bilaterally Psych Appearance: grossly normal Mental Status: mental status grossly normal Objective Labs Result Diagrams: 05/07/22 07:20 05/07/22 07:20 Labs: Laboratory Results - last 24 hr 05/07/22 05/07/22 05/07/22 07:20 07:20 11:00 WBC 8.4 RBC 3.89 L Hgb 11.9 L Hct 34.0 L MCV 87.4 MCH 30.7 MCHC 35.1 RDW 13.5 Plt Count 272 Neut % (Auto) 69.7 Lymph % (Auto) 19.7 L [place] % (Auto) 8.1 Eos % (Auto) 1.8 L Baso % (Auto) 0.7 Neut # (Auto) 5900 Lymph # (Auto) 1700 [place] # (Auto) 700 Eos # (Auto) 200 Baso # (Auto) 100 Sodium 141 Potassium 3.9 Chloride 104 Carbon Dioxide 27 BUN 20 Creatinine 1.26 H Estimated GFR > 60 BUN/Creatinine Ratio 15.9 Glucose 136 H Calcium 8.9 Magnesium 1.8 Total Bilirubin 0.7 AST 20 ALT 16 Alkaline Phosphatase 85 Total Creatine Kinase 66 CK-MB (CK-2) TNP CK-MB (CK-2) Rel Index TNP Troponin I < 0.012 Total Protein 7.1 Albumin 3.8 Globulin 3.3 Albumin/Globulin Ratio 1.2 Lipase 95 SARS-CoV-2 (PCR) Negative Assessment & Plan Assessment & Plan narrative: #new normocytic anemia in setting of #dizziness and malaise with melena and positive guiac indicating #possible GI bleed admitting for monitoring and colonoscopy continue NPO until scope VSS he remains fall risk pending echo read #MDD stable, continue home escitalopram and bupropion #hypertension stable, continue home lisinopril amlodipine and metoprolol #GERD stable continue home prazole #Hyperlipidemia stable continue home statin dispo: Admit obsv for monitoring and scope code: full MDM: Lauryn VALDEZ diet: NPO Time Spent With Patient Critical Care time: I spent a total of [] minutes of critical care time on this patient's care today; this time is exclusive of procedural time.
--- NOTE | 2022-05-07 13:11 | PM.HP.1 ---
History of Present Illness History of Present Illness Date Patient Seen: 05/07/22 Chief complaint: vertigo/dizziness Narrative: Mr. Walker is a 67-year-old male who presents with vertigo and dizziness. He has been having black tarry stools starting last night. Today the stool is according to ER physician weakly heme-positive and not black but still the suspicion is for an upper GI bleed as the main etiology for his presenting symptoms. Patient states he is short of breath he feels weak and he has been having some abdominal pain as well. He has had some previous episodes which were similar about a year ago. He has had a colonoscopy in the past but states it has been a very long time since then he can not recall if he had any polyps removed. He has no family history of colon cancer no family history of bleeding or blood clotting disorders or problems with anesthesia in the family. As far as he knows he has not eaten anything strange in terms of food. He does complain of symptoms of ?and ?heartburn and takes an antacid daily he has been NPO for the last 12 hours for any food or water. Patient History Medical History Chronic cough COPD (chronic obstructive pulmonary disease) Coronary artery disease (~2008) Essential hypertension Gastroesophageal reflux disease Gout Mixed anxiety depressive disorder (01/18/17) Mixed hyperlipidemia Restless leg syndrome Sleep apnea Snoring Varicose veins of both lower extremities Vision disorder Surgical History History of angioplasty Family & Social History Family History Father Stroke History of heart disease Hypertension Hyperlipidemia Mother Cancer Brother History of heart attack History of heart disease Sister Mental health problem Safety & Behavioral: Feels Safe in Current Yes Environment Been Physically Hurt or No Threatened By a Person Tobacco & Substance use: Smoking Status Former smoker alcohol intake never Meds Home Medications and Allergies Home Medications Medication Instructions Recorded Confirmed Type aspirin 81 mg tablet,delayed 81 mg PO DAILY #60 tabs 04/20/16 03/09/21 History release lisinopril 10 mg tablet 5 mg PO DAILY ##0 04/07/17 03/09/21 History naproxen sodium 220 mg capsule 440 mg PO DAILY PRN pain 08/17/18 03/09/21 History (Aleve) Disabled Parking Placard #1 ea 11/13/18 03/09/21 Rx esomeprazole magnesium 20 mg 20 mg PO DAILY 02/19/20 03/09/21 History capsule,delayed release (Nexium 24HR) rosuvastatin 20 mg tablet (Crestor) 20 mg PO QPM #90 tabs 03/31/20 03/09/21 Rx amlodipine 5 mg tablet (Norvasc) 5 mg PO DAILY #90 tabs 05/16/20 03/09/21 Rx metoprolol tartrate 50 mg tablet 75 mg PO BID 09/08/20 03/09/21 History escitalopram oxalate 20 mg tablet 20 mg PO DAILY #90 tabs 06/01/21 Rx bupropion HCl 150 mg 24 hr tablet, 150 mg PO DAILY #90 tabs 06/26/21 Rx extended release (Wellbutrin XL) Allergies Allergy/AdvReac Type Severity Reaction Status Date / Time hydrocodone AdvReac Intermediate WEAKNESS, Verified 05/07/22 07:21 SYNCOPE codeine AdvReac Mild NAUSEA Verified 05/07/22 07:21 Exam Vital Signs (past 8 hours): - 05/07/22 07:17 05/07/22 07:56 05/07/22 07:21 Temperature 97.8 F Pulse Rate 59 L 58 L Pulse Rate [Orthostatic Lying] 55 L Pulse Rate [Orthostatic Sitting] 68 Pulse Rate [Orthostatic Standing] 60 Respiratory Rate 18 Blood Pressure 154/70 H Blood Pressure [Orthostatic Lying] 145/67 H Blood Pressure [Orthostatic Sitting] 138/69 Blood Pressure [Orthostatic Standing] 134/66 Pulse Oximetry 100 99 Oxygen Delivery Method Room Air 05/07/22 07:30 05/07/22 07:30 05/07/22 07:45 Temperature Pulse Rate 54 L Pulse Rate [Orthostatic Lying] Pulse Rate [Orthostatic Sitting] Pulse Rate [Orthostatic Standing] Respiratory Rate 28 H Blood Pressure 151/72 H 145/67 H Blood Pressure [Orthostatic Lying] Blood Pressure [Orthostatic Sitting] Blood Pressure [Orthostatic Standing] Pulse Oximetry 97 Oxygen Delivery Method 05/07/22 07:45 05/07/22 07:49 05/07/22 07:49 Temperature Pulse Rate 56 L 58 L Pulse Rate [Orthostatic Lying] Pulse Rate [Orthostatic Sitting] Pulse Rate [Orthostatic Standing] Respiratory Rate 27 H 34 H Blood Pressure 138/69 Blood Pressure [Orthostatic Lying] Blood Pressure [Orthostatic Sitting] Blood Pressure [Orthostatic Standing] Pulse Oximetry 98 99 Oxygen Delivery Method 05/07/22 07:50 05/07/22 07:50 05/07/22 08:00 Temperature Pulse Rate 60 56 L Pulse Rate [Orthostatic Lying] Pulse Rate [Orthostatic Sitting] Pulse Rate [Orthostatic Standing] Respiratory Rate 32 H 30 H Blood Pressure 134/66 Blood Pressure [Orthostatic Lying] Blood Pressure [Orthostatic Sitting] Blood Pressure [Orthostatic Standing] Pulse Oximetry 99 98 Oxygen Delivery Method Room Air 05/07/22 08:25 05/07/22 08:25 05/07/22 08:30 Temperature Pulse Rate 57 L Pulse Rate [Orthostatic Lying] Pulse Rate [Orthostatic Sitting] Pulse Rate [Orthostatic Standing] Respiratory Rate 21 Blood Pressure 174/74 H 155/72 H Blood Pressure [Orthostatic Lying] Blood Pressure [Orthostatic Sitting] Blood Pressure [Orthostatic Standing] Pulse Oximetry 99 Oxygen Delivery Method 05/07/22 08:30 05/07/22 09:00 05/07/22 09:00 Temperature Pulse Rate 55 L 56 L Pulse Rate [Orthostatic Lying] Pulse Rate [Orthostatic Sitting] Pulse Rate [Orthostatic Standing] Respiratory Rate 21 17 Blood Pressure 162/74 H Blood Pressure [Orthostatic Lying] Blood Pressure [Orthostatic Sitting] Blood Pressure [Orthostatic Standing] Pulse Oximetry 96 94 Oxygen Delivery Method 05/07/22 09:30 05/07/22 09:30 05/07/22 09:32 Temperature Pulse Rate 58 L 59 L Pulse Rate [Orthostatic Lying] Pulse Rate [Orthostatic Sitting] Pulse Rate [Orthostatic Standing] Respiratory Rate 18 18 Blood Pressure 159/110 H Blood Pressure [Orthostatic Lying] Blood Pressure [Orthostatic Sitting] Blood Pressure [Orthostatic Standing] Pulse Oximetry 95 96 Oxygen Delivery Method 05/07/22 09:32 05/07/22 10:00 05/07/22 10:00 Temperature Pulse Rate 55 L Pulse Rate [Orthostatic Lying] Pulse Rate [Orthostatic Sitting] Pulse Rate [Orthostatic Standing] Respiratory Rate 15 Blood Pressure 160/72 H 163/73 H Blood Pressure [Orthostatic Lying] Blood Pressure [Orthostatic Sitting] Blood Pressure [Orthostatic Standing] Pulse Oximetry 96 Oxygen Delivery Method 05/07/22 10:30 05/07/22 10:30 05/07/22 11:00 Temperature Pulse Rate 59 L Pulse Rate [Orthostatic Lying] Pulse Rate [Orthostatic Sitting] Pulse Rate [Orthostatic Standing] Respiratory Rate 17 Blood Pressure 164/68 H 146/66 H Blood Pressure [Orthostatic Lying] Blood Pressure [Orthostatic Sitting] Blood Pressure [Orthostatic Standing] Pulse Oximetry 100 Oxygen Delivery Method 05/07/22 11:00 05/07/22 11:30 05/07/22 11:30 Temperature Pulse Rate 56 L 53 L Pulse Rate [Orthostatic Lying] Pulse Rate [Orthostatic Sitting] Pulse Rate [Orthostatic Standing] Respiratory Rate 16 17 Blood Pressure 147/70 H Blood Pressure [Orthostatic Lying] Blood Pressure [Orthostatic Sitting] Blood Pressure [Orthostatic Standing] Pulse Oximetry 98 93 Oxygen Delivery Method 05/07/22 12:00 05/07/22 12:00 Temperature Pulse Rate 53 L Pulse Rate [Orthostatic Lying] Pulse Rate [Orthostatic Sitting] Pulse Rate [Orthostatic Standing] Respiratory Rate 17 Blood Pressure 153/72 H Blood Pressure [Orthostatic Lying] Blood Pressure [Orthostatic Sitting] Blood Pressure [Orthostatic Standing] Pulse Oximetry 93 Oxygen Delivery Method Oxygen Delivery Method Room Air Const General: cooperative, healthy appearing and comfortable HENMT Head: normal to inspection Eyes General: appearance normal, both eyes and all related structures Neck Neck: normal visual inspection Resp Effort & Inspection: normal respiratory effort and able to speak in complete sentences GI Inspection: normal to inspection Palpation: soft and tender (Mild tenderness right upper quadrant) Extrem General: normal to inspection Objective Labs Result Diagrams: 05/07/22 07:20 05/07/22 07:20 Labs: Laboratory Results - last 24 hr 05/07/22 05/07/22 05/07/22 07:20 07:20 11:00 WBC 8.4 RBC 3.89 L Hgb 11.9 L Hct 34.0 L MCV 87.4 MCH 30.7 MCHC 35.1 RDW 13.5 Plt Count 272 Neut % (Auto) 69.7 Lymph % (Auto) 19.7 L [place] % (Auto) 8.1 Eos % (Auto) 1.8 L Baso % (Auto) 0.7 Neut # (Auto) 5900 Lymph # (Auto) 1700 [place] # (Auto) 700 Eos # (Auto) 200 Baso # (Auto) 100 Sodium 141 Potassium 3.9 Chloride 104 Carbon Dioxide 27 BUN 20 Creatinine 1.26 H Estimated GFR > 60 BUN/Creatinine Ratio 15.9 Glucose 136 H Calcium 8.9 Magnesium 1.8 Total Bilirubin 0.7 AST 20 ALT 16 Alkaline Phosphatase 85 Total Creatine Kinase 66 CK-MB (CK-2) TNP CK-MB (CK-2) Rel Index TNP Troponin I < 0.012 Total Protein 7.1 Albumin 3.8 Globulin 3.3 Albumin/Globulin Ratio 1.2 Lipase 95 SARS-CoV-2 (PCR) Negative Assessment & Plan Assessment and plan (1) Dizziness: Status: Acute (2) GI (gastrointestinal bleed): Status: Acute Plan I discussed the risks benefits and alternatives to esophagogastroduodenoscopy with Mr. Wall. He understands all of his questions were answered. He would like to understand why he is having the symptoms and understands that GI bleeding is a possible cause and would like to proceed with the examination to rule out out or diagnose an upper GI bleed. He understands that this examination may be negative and may not give us the answer for the symptoms he is presenting with today. He will be hospitalized and is already admitted to the medical service. Time Spent With Patient Critical Care time: I spent a total of [] minutes of critical care time on this patient's care today; this time is exclusive of procedural time.
--- NOTE | 2022-05-07 14:30 | P.OP.EGD_ITS ---
Operative Date/Time/Diagnoses Date of procedure: 05/07/22 Pre-op diagnosis: Possible GI bleed. Post-op diagnosis: same (not upper GI bleed. ) Procedure & Clinicians Study performed: EGD Same procedure as scheduled: Yes Surgeon: Eleanor Jasso Procedure Notes Procedure in detail: Mr. Wall taken to OR time out was preformed. Monitored anesthetic care. Scope introduced easily into esophagus. Tounge and epiglottis normal. Espohagus was tortuous but otherwise looked normal. EG junction normal. gastric álvarez no rmal, no stigmata of bleeding. pyloris and first portion of duodenum normal without blood within. Photographs taken. Scope withdrawn. patient tolerated well, no complications, went in good condition to PACU. Specimen(s): none sent Complications: none Impression: normal EGD Post-procedure Recommendations: Other recommendation(s) (no need for repeat EGD. Would trend Hb and monitor. If continued suspicion of GI bleed as reason for presenting symptoms, could schedule colonoscopy in future. I believe the patient is likely due for screeing. ) Disposition: PACU
[2022-05-07] MEDS: LACTATED RINGERS 1,000 ML 120 ML IV ×2 (15:10→19:26)
--- NOTE | 2022-05-07 15:45 | OT.IP.EVAL ---
Current Diagnoses Gastrointestinal hemorrhage, unspecified (05/07/22) Dizziness and giddiness (05/07/22) Surgery Performed Operation Date: 05/07/22 13:45 Actual Procedures p Esophagogastroduodenoscopy - Eleanor Jasso MD Past Medical History (Last Reviewed 05/07/22 @ 13:13 by Eleanor Jasso MD) Chronic cough COPD (chronic obstructive pulmonary disease) Coronary artery disease (~2008) Essential hypertension Gastroesophageal reflux disease Gout Mixed anxiety depressive disorder (01/18/17) Mixed hyperlipidemia Restless leg syndrome Sleep apnea Snoring Varicose veins of both lower extremities Vision disorder Surgical History (Last Reviewed 05/07/22 @ 13:13 by Eleanor Jasso MD) History of angioplasty Occupational Therapy Inpatient Evaluation/Re-Eval M1 PT/OT-IP Prior Functional Status Start: 05/07/22 15:47 Freq: NEEDED Status: Active Protocol: Document 05/07/22 15:47 CGR (Rec: 05/07/22 15:57 CGR [id number]) Medical Review Prior Functional Status Medical History Reviewed Yes Communication Pt is an effective verbal communicator. Mobility and Gait Pt was IND in all functional mobility prior to admit. Activities of Daily Living and IADL's Pt was IND in all ADLs and IADLs prior to admit. Social History Household Members spouse Living Arrangements RV Number of Floors (Floors) One Floor Number of Stairs To Enter/Railing? 5 steps with railing on L assending. Home Environment Standard Height Toilet,Walk in Shower Home Equipment Straight Cane,Hand Held Shower Employment Status Retired Additional Social History Comment Pt and his live in a class A. They currently are parked on their property and their kids live in the house on the property. M2 OT-IP Current Condition Start: 05/07/22 15:47 Freq: Status: Active Protocol: Document 05/07/22 15:47 CGR (Rec: 05/07/22 15:57 CGR [id number]) Occupational Therapy Current Condition Current Condition Evaluation Date 05/07/22 Treatment Diagnosis acute dizziness, black margaret stools. Diagnosis Onset Date 05/07/22 M3 OT- IP Subjective and Pain Start: 05/07/22 15:47 Freq: Status: Active Protocol: Document 05/07/22 15:47 CGR (Rec: 05/07/22 15:57 CGR [id number]) OT- Subjective Occupational Therapy Visit Type Type Initial Evaluation Visit Start Time 15:16 Visit Stop Time 15:45 Total Visit Minutes 29 Notes Co-treat with P.T. OT Pain Assessment Pain When Pain Assessed At Rest Pain Present Pain Present Denied Pain M4 OT- IP ADL's Start: 05/07/22 15:47 Freq: Status: Active Protocol: Document 05/07/22 15:47 CGR (Rec: 05/07/22 15:57 CGR [id number]) OT [id number] Comments OT Self-Feeding Comments Pt is currently NPO OT ADL-Grooming Comments OT Grooming Comments Pt declined to perform at this time OT ADL-Oral Care Comments Oral Care Comments Pt states his has his teeth at this time. OT ADL-Dressing Comments OT Dressing Comments not performed OT ADL-Toileting Comments OT Toileting Comments pt declined need OT ADL-Bathing Comments OT Bathing Comments not performed M5 OT- IP IADL's Start: 05/07/22 15:47 Freq: Status: Active Protocol: Document 05/07/22 15:47 CGR (Rec: 05/07/22 15:57 CGR [id number]) OT-Instrumental Activities of Daily Living Deficits IADL Deficits Identified Deficits Home Safety Awareness Awareness of Need for Assistance at Home Good Awareness Ability to Problem Solve Emergency Able to Problem Solve Situations Medication Management Medication Management No Deficits Identified Money Management Money Management No Deficits Identified Meal Preparation Meal Preparation Caregiver Provides Assist Portfolio Management Marketing Portfolio Management Marketing Caregiver Provides Assist Driving Driving Concerns Identified Regarding Safety M6 OT- IP Functional Cognition Start: 05/07/22 15:47 Freq: Status: Active Protocol: Document 05/07/22 15:47 CGR (Rec: 05/07/22 15:57 CGR [id number]) Cognitive Factors Limiting Selfcare Function Cognitive Ability Level of Alertness Alert Patient Orientation Name,Age,Birthday,Month,Date, Year,Day of Week,Place, Situation Attention Span Ability Capable of Focused Attention, Capable of Sustained Attention Ability to Follow Commands Able to Follow Multi-Step Commands OT- Vision and Hearing OT- Hearing Assessment OT- Hearing Assessment WFL OT- Vision Assessment Visual Acuity Glasses All The Time Visual Attentiveness WFL Occular Pursuits WFL Visual Convergence WFL Vision Assessment Comments No noted beating of the eyes with head movements. M7 OT- IP Mobility and Balance Start: 05/07/22 15:47 Freq: Status: Active Protocol: Document 05/07/22 15:47 CGR (Rec: 05/07/22 15:57 CGR [id number]) OT- Bed Mobility Assessment Supine to Sit Supine to Sit Assist Standby Assistance Scooting Scooting to Edge of Bed Independent OT-Transfer Assessment Sit to and From Stand Sit to and from Stand Moderate Assistance,Maximum Assistance,1 Person Assistance Transfers Transfer Ability Moderate Assistance,Maximum Assistance,1 Person Assistance Technique Transfer Destination Bed,Chair Transfer Technique Stand Step Pivot Devices Transfer Assistive Devices Gait Belt,Front Wheeled Walker Comments Mobility Comments Pt stood x 2 from the bed then transfered to the chair. BP steady, see p.t. notes for specific BP measurements. OT- Balance Assessment Sitting Balance and Reactions Static Sitting Balance Ability Good Dynamic Sitting Balance Ability Fair M8 OT- IP Objective Assessments Start: 05/07/22 15:47 Freq: Status: Active Protocol: Document 05/07/22 15:47 CGR (Rec: 05/07/22 15:57 CGR [id number]) OT Gross Range of Motion Upper Extremity Range of Motion Assessment Within Functional Limits OT Strength Upper Extremity Strength Assessment Within Functional Limits Comments Strength Comments 4+/5 OT- Coordination Assessment Upper Extremity Finger to Nose Test Within Functional Limits Finger Tapping Test Within Functional Limits OT-Muscle Tone Assessment Muscle Tone WNL Yes OT Sensation Assessment Edema Edema Absent M9 OT- IP Assessment and Plan Start: 05/07/22 15:47 Freq: Status: Active Protocol: Document 05/07/22 15:47 CGR (Rec: 05/07/22 15:57 CGR [id number]) OT Summary Assessment and Plan Potential Rehabilitation Potential Excellent Analytic Complexity at Evaluation Low Summary OT Impairments Balance,Functional Mobility, Grooming,Dressing,Toileting, Bathing,Toilet Transfers, Shower Transfers,Activity Tolerance Progress Towards Goals Progressing Toward Goals Assessment Summary Pt presents as a low complexity evaluation s/p admit for acute dizziness and black margaret stools. Pt currently having difficulty with mobility d/t dizziness. Pt states that it gets better if he doesn't move his head but sideways movements and up and down movements of the head seem to cause dizziness only at end point of neck ROM. Will assess further tomorrow for BPPV. Pt may benefit form SNF if dizziness continues. Goals Grooming Goal Independent Dressing Goal Independent Toileting Goal Independent Bathing Goal Independent Toilet Transfer Goal Independent Shower Transfer Goal Independent Days to Meet Goals 5 Frequency of Treatment Frequency Of Treatment Once a Day Treatment Plan OT Treatment Plan ADL Training,Functional Cognition Training,Functional Mobility,Therapeutic Exercises ,Patient/Family Education, Discharge Planning Other Treatment Recommendations and Next BPPV assessment, shower Treatment Focus Discharge Recommendations OT Discharge Recommendations Home vs SNF Other Discharge Recommendations dependent on dizziness Transportation Needs at Discharge Wheelchair/Cabulance
--- NOTE | 2022-05-07 15:45 | PT.IIE ---
Current Diagnoses Gastrointestinal hemorrhage, unspecified (05/07/22) Dizziness and giddiness (05/07/22) Surgery Performed Operation Date: 05/07/22 13:45 Actual Procedures p Esophagogastroduodenoscopy - Eleanor Jasso MD Surgical History (Last Reviewed 05/07/22 @ 13:13 by Eleanor Jasso MD) History of angioplasty Medical History (Last Reviewed 05/07/22 @ 13:13 by Eleanor Jasso MD) Chronic cough COPD (chronic obstructive pulmonary disease) Coronary artery disease (~2008) Essential hypertension Gastroesophageal reflux disease Gout Mixed anxiety depressive disorder (01/18/17) Mixed hyperlipidemia Restless leg syndrome Sleep apnea Snoring Varicose veins of both lower extremities Vision disorder Physical Therapy Inpatient Evaluation/Re-Eval M1 PT/OT-IP Prior Functional Status Start: 05/07/22 16:42 Freq: NEEDED Status: Active Protocol: Document 05/07/22 15:10 AB (Rec: 05/07/22 16:52 AB [id number]) Medical Review Prior Functional Status Medical History Reviewed Yes Communication able to make needs known Mobility and Gait pt stated that he is indpeendent with all mobilities and ambulation without AD Activities of Daily Living and IADL's per OT's note: Pt was IND in all ADLs and IADLs prior to admit. Social History Household Members spouse Living Arrangements RV Number of Floors (Floors) One Floor Number of Stairs To Enter/Railing? 5 steps with railing on L assending. Home Environment Standard Height Toilet,Walk in Shower Home Equipment Straight Cane,Hand Held Shower Employment Status Retired Additional Social History Comment Pt and his live in a class A. They currently are parked on their property and their sons live in the house on the property. pt stated that a FWW will be hard to use inside his house. M2 PT-IP Current Condition Start: 05/07/22 16:42 Freq: NEEDED Status: Active Protocol: Document 05/07/22 15:10 AB (Rec: 05/07/22 16:52 AB [id number]) Physical Therapy Current Condition Current Condition Evaluation Date 05/07/22 Treatment Diagnosis GI bleed; dizziness; difficulty in walking Onset Date 05/07/22 M3 PT-IP Subjective Start: 05/07/22 16:42 Freq: NEEDED Status: Active Protocol: Document 05/07/22 15:10 AB (Rec: 05/07/22 16:52 [email or web address]) Subjective Physical Therapy Visit Type Type Initial Evaluation Visit Start Time 15:10 Visit Stop Time 15:45 Total Visit Minutes 35 Number of NIGHT MONITOR Visits 0 Physical Therapy Visit Comments Patient Comments agreeable to do PT M4 PT-IP Mobility and Gait Start: 05/07/22 16:42 Freq: NEEDED Status: Active Protocol: Document 05/07/22 15:10 AB (Rec: 05/07/22 16:52 [email or web address]) PT-Bed Mobility Assessment Supine to Sit Supine to Sit Standby Assistance PT-Transfer Assessment Sit to and From Stand Sit to and from Stand Moderate Assistance,Maximum Assistance,1 Person Assistance ,Use of Upper Extremities Equipment Transfer Assistive Device Gait Belt,Front Wheeled Walker Orthotic/Prosthetic Devices or Brace: No Transfers Transfer Destination Chair Transfer Technique Stand Step Pivot Transfer Ability Level of Assist Moderate Assistance,Maximum Assistance,1 Person Assistance ,Use of Upper Extremities Comments Mobility Comments BP in supine: 139/70. completed supine to sit SBA. BP in sittin/77. c/o dizziness with head movement at end range of rotation and flexion. completed sit to stand mod to max A and max cues. able to to maintain standing min A and cues using FWW for support. BP in standin/71. pt able to take ~ 3 steps using FWW mod to max A but has to sit back down with c/o feeling weak and unsteady. positioned pt on the chair. BP in sittin /74. call light and table placed within reach. Gait Assessment Gait Gait Assistance Required: Moderate Assistance,Maximum Assistance,1 Person Assist Distance (Feet) 2 Able to Maintain Weight Bearing Status Yes During Gait Assistive Devices Assistive Device Gait Belt,Front Wheeled Walker Orthotic/Prosthetic Devices or Brace: No Gait Deviations General Gait Pattern Decreased Stride Length, Decreased Feet Clearance Factors Limiting Gait Function Factors Limiting Gait Function Decreased Activity Tolerance, Decreased Strength,Difficulty Following Directions,Limited Range of Motion,Pain,Poor Balance,Poor Safety Awareness PT-Balance Assessment Sitting Balance and Reactions Static Sitting Balance Ability Good Dynamic Sitting Balance Ability Good Standing Balance and Reactions Static Standing Balance Ability Fair Dynamic Standing Balance Ability Poor Device Used FWW M5 PT-IP Objective Assessments Start: 05/07/22 16:42 Freq: NEEDED Status: Active Protocol: Document 05/07/22 15:10 AB (Rec: 05/07/22 16:52 AB [id number]) Orientation Orientation/Cognition Level of Alertness Alert Orientation Name,Month,Year,Place, Situation Language Function Ability No Deficits Noted Safety Awareness Decreased Safety Awareness Memory Description No Deficits Noted Gross Range of Motion Lower Extremity ROM Assessment Within Functional Limits Strength Lower Extremity Strength Hip 4-/5 Knee 4-/5 Muscle Tone Muscle Tone WNL Yes M6 PT-IP Treatment Start: 05/07/22 16:42 Freq: NEEDED Status: Active Protocol: Document 05/07/22 15:10 AB (Rec: 05/07/22 16:52 AB [email or web address]) Physical Therapy Treatment Education Education Provided Safety M7 PT-IP Assessment and Plan Start: 05/07/22 16:42 Freq: NEEDED Status: Active Protocol: Document 05/07/22 15:10 AB (Rec: 05/07/22 16:52 AB [email or web address]) PT Summary Assessment and Plan Potential Rehabilitation Potential Fair Status of Condition at Evaluation Evolving Summary Impairments Pain,ROM,Strength,Balance, Coordination,Sensation,Tone, Cognition,Bed Mobility, Transfers,Gait,Activity Tolerance Assessment Summary pt requiring mod to max with mobility using FWW and only able to take a few steps using FWW requiring mod to max A. d/c plan depends on progress but at this time may require SNF rehab. will continue to assess progress. Goals Bed Mobility Goal Independent Transfer Goal Standby Assistance,Front Wheeled Walker Gait Goal Standby Assistance,Front Wheel Walker Gait Distance 100 Other Goals improve transfers and ambulation 200 ft without AD or least restrictive AD SBA up/down 5 steps L rail ascending SBA Days to Meet Goals 10 Frequency of Treatment Frequency Of Treatment Once a Day Treatment Plan Physical Therapy Treatment Plan Bed Mobility Training,Transfer Training,Gait Training, Therapeutic Exercise,Balance Retraining,Discharge Planning, Hot or Cold Pack,Neuromuscular Re-ed,Coordination Retraining ,Manual Therapy Precautions Other Precautions falls Recommendations To Nursing Amount of Assist Needed 1 Person Assist Discharge Recommendations PT Discharge Recommendations Home with 07/03 Assist Available,Home Health,SNF Rehab,Home vs SNF Equipment Needed for Home Before FWW if not safe with SPC/ Discharge without AD Transportation Needs at Discharge Private Vehicle,Wheelchair/ Cabulance
[2022-05-07] MEDS: SODIUM CHLORIDE 0.9% 1,000 ML 84 ML IV (19:38)
[2022-05-07] MEDS: METOPROLOL IR 50 MG TABLET PO (20:03)
[2022-05-07] MEDS: ATORVASTATIN 20 MG TABLET 40 MG PO (20:03)
[2022-05-07] MEDS: DOCUSATE 100 MG CAPSULE PO (20:03)
[2022-05-07] MEDS: ACETAMINOPHEN 325 MG TABLET 650 MG PO (23:20)
[2022-05-08 07:00] VITALS: BP 138/72; PULSE 60; RESP 17; TEMP 36.1; O2SAT 94
[2022-05-08] MEDS: SODIUM CHLORIDE 0.9% 1,000 ML 84 ML IV (07:17)
[2022-05-08 08:25] LABS: Add Manual Diff / Slide Review NO; Basophils Absolute Auto 100 /uL (0-100); Basophils Percent Auto 0.9 % (0-2); Eosinophils Absolute Auto 200 /uL (0-450); Eosinophils Percent Auto 2.2 % (2-4); Hematocrit 30.3 % (41-53); Hemoglobin 10.7 g/dL (13.5-17.5); Lymphocytes Absolute Auto 1500 /uL (1100-4500); Lymphocytes Percent Auto 21.4 % (25-40); Mean Corpuscular HGB Conc 35.3 % (30-36); Mean Corpuscular Hemoglobin 30.9 PG (26-34); Mean Corpuscular Volume 87.5 fL (80-100); Monocytes Absolute Auto 600 /uL (0-900); Monocytes Percent Auto 8.7 % (3-14); Neutrophils Absolute Auto 4700 /uL (1500-7000); Neutrophils Percent Auto 66.8 % (50-75); Platelet Count 236 X10^3/uL (150-400); Red Blood Cell Count 3.47 X10^6/uL (4.5-5.9); Red Cell Distribution Width 13.7 % (11.6-14.8)
[2022-05-08 08:32] LABS: Alanine Aminotransferase 15 IU/L (<50); Albumin 3.3 g/dL (3.5-5.0); Albumin Globulin Ratio 1.1 (1.0-2.8); Alkaline Phosphatase 73 U/L (38-126); Aspartate Aminotransferase 19 IU/L (17-59); BUN Creatinine Ratio 12.9 (6-22); Bilirubin Total 0.9 mg/dL (0.2-1.3); Blood Urea Nitrogen 16 mg/dL (9-20); Calcium 8.6 mg/dL (8.4-10.2); Carbon Dioxide 27 mmol/L (22-32); Chloride 106 mmol/L (98-107); Estimated Glomerular Filt Rate > 60 mL/min (>60); Glucose 109 mg/dL (80-110); HEMOLYSIS < 15 (0-50); Potassium 3.6 mmol/L (3.4-5.1); Sodium 140 mmol/L (137-145); Total Protein 6.3 g/dL (6.3-8.2)
[2022-05-08 09:09] VITALS: BP 138/72
[2022-05-08] MEDS: lisinopriL 10 MG TABLET 5 MG PO (09:09)
[2022-05-08] MEDS: buPROPion XL 150 MG TAB PO (09:09)
[2022-05-08] MEDS: AMLODIPINE 5 MG TABLET PO (09:10)
[2022-05-08] MEDS: METOPROLOL IR 50 MG TABLET PO ×2 (09:10→20:50)
[2022-05-08] MEDS: PANTOPRAZOLE DR 20 MG TABLET PO (09:10)
[2022-05-08] MEDS: ENOXAPARIN 40 MG/0.4 ML SYRINGE SUBCUT (09:10)
[2022-05-08] MEDS: DOCUSATE 100 MG CAPSULE PO ×2 (09:10→20:50)
--- NOTE | 2022-05-08 09:12 | CM.DANOTE ---
DCP Assessment: Payor Confirmed: Yonathan PCP Confirmed: MD Alycia Pt is a 67 y.o. M who presented to the ER via ambulance for dizziness and ataxia. called ambulance because of her fear that pt would have a fall due to his dizziness and loss of balance. Pt admitted under observation for further management of symptoms. Pt had EGD procedure yesterday. DCP met with patient this morning to discuss discharge needs. Pt sitting up in bed eating breakfast. DCP introduced self and role. Pt states he lives with his , Violeta, in [place]. Pt states he is independent at baseline. Denies DME use. Still drives POV. Pt states that he still feels dizzy when he sits up on the side of the bed. Pt states that he does need help getting to the bathroom. Pt denies HH use in the past. Discharge needs unclear at this time. DCP to continue to follow. Whiteboard updated and instructed to call if needed. Pt thankful for discussion. P: DCP to continue to follow pt case. Once medically stable, goal is to discharge home via spouse POV. Unclear needs at this time. 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 No History Provided By Patient,Medical Record Prior Living Arrangements House Household Members spouse Type of transporation used prior to Drives own vehicle admit Independent with ADL's Yes Is patient alert and oriented? Yes Caregiver for Another No Discharge Plan Home Transportation Arrangement Spouse POV Referrals Initiated None needed Additional Comment At this time. Whiteboard Updated in Patient Room with Yes name and ext. # of Gas Burner Operator Comment Instructed to call if needed. Review Status In Process Please Provide Date Initial DC 05/08/22 Assessment Was Performed Next Review Type Continued Stay Review
[2022-05-08] MEDS: ESCITALOPRAM 10 MG TABLET 20 MG PO (09:13)
--- NOTE | 2022-05-08 11:00 | PT.IPTN ---
Current Diagnoses Gastrointestinal hemorrhage, unspecified (05/07/22) Dizziness and giddiness (05/07/22) Surgery Performed Operation Date: 05/07/22 13:45 Actual Procedures p Esophagogastroduodenoscopy - Eleanor Jasso MD Physical Therapy Treatment Note M2 PT-IP Current Condition Start: 05/07/22 16:42 Freq: NEEDED Status: Active Protocol: Document 05/07/22 15:10 AB (Rec: 05/07/22 16:52 AB [email or web address]) Physical Therapy Current Condition Current Condition Evaluation Date 05/07/22 Treatment Diagnosis GI bleed; dizziness; difficulty in walking Onset Date 05/07/22 M3 PT-IP Subjective Start: 05/07/22 16:42 Freq: NEEDED Status: Active Protocol: Document 05/08/22 10:35 KS (Rec: 05/08/22 12:55 KS [id number]) Subjective Physical Therapy Visit Type Type Treatment Note Visit Start Time 10:35 Visit Stop Time 11:00 Total Visit Minutes 25 Number of MANAGER DATA WAREHOUSING Visits 1 Physical Therapy Visit Comments Patient Comments agreeable to do PT M4 PT-IP Mobility and Gait Start: 05/07/22 16:42 Freq: NEEDED Status: Active Protocol: Document 05/08/22 10:35 KS (Rec: 05/08/22 12:55 KS [id number]) PT-Bed Mobility Assessment Supine to Sit Supine to Sit Standby Assistance Scooting Scooting to Edge of Bed Standby Assistance PT-Transfer Assessment Sit to and From Stand Sit to and from Stand Contact Guard Assistance,1 Person Assistance,Use of Upper Extremities Equipment Transfer Assistive Device Gait Belt,Front Wheeled Walker Orthotic/Prosthetic Devices or Brace: No Transfers Transfer Destination Chair,Toilet Transfer Technique Pt ambulated w/ FWW Transfer Ability Level of Assist Contact Guard Assistance,1 Person Assistance,Use of Upper Extremities Comments Mobility Comments Pt in bed upon arrival and agreeable to mobilize. SBA for bed mobility, CGA for sit<> stand w/ FWW. Pts BP 125/71 standing - reporting slight dizziness. Pt requesting to use bathroom. Pt ambulated to bathroom ~20 ft w/ FWW CGA, c/ o dizziness. After voiding, he ambulated to chair and remained dizzy and reported weakness but felt slightly better after sitting. BP 140/ 80. Pt did not wish to complete further mobility due to weakness. Gait Assessment Gait Gait Assistance Required: Contact Guard Assist,1 Person Assist Distance (Feet) 20 Able to Maintain Weight Bearing Status Yes During Gait Assistive Devices Assistive Device Gait Belt,Front Wheeled Walker Orthotic/Prosthetic Devices or Brace: No Gait Deviations General Gait Pattern Decreased Stride Length, Decreased Feet Clearance Factors Limiting Gait Function Factors Limiting Gait Function Decreased Activity Tolerance, Decreased Strength,Difficulty Following Directions,Limited Range of Motion,Pain,Poor Balance,Poor Safety Awareness Comments Gait Comments Pt limited by weakness and dizziness, but able to ambulate short distances w/ FWW. Stair Climbing Assessment Comments Stair Climbing Comments Did not assess due to pt dizziness, weakness, and fatigue. PT-Balance Assessment Sitting Balance and Reactions Static Sitting Balance Ability Good Dynamic Sitting Balance Ability Good Standing Balance and Reactions Static Standing Balance Ability Fair Dynamic Standing Balance Ability Fair Device Used FWW M5 PT-IP Objective Assessments Start: 05/07/22 16:42 Freq: NEEDED Status: Active Protocol: Document 05/07/22 15:10 AB (Rec: 05/07/22 16:52 AB [id number]) Orientation Orientation/Cognition Level of Alertness Alert Orientation Name,Month,Year,Place, Situation Language Function Ability No Deficits Noted Safety Awareness Decreased Safety Awareness Memory Description No Deficits Noted Gross Range of Motion Lower Extremity ROM Assessment Within Functional Limits Strength Lower Extremity Strength Hip 4-/5 Knee 4-/5 Muscle Tone Muscle Tone WNL Yes M6 PT-IP Treatment Start: 05/07/22 16:42 Freq: NEEDED Status: Active Protocol: Document 05/08/22 10:35 KS (Rec: 05/08/22 12:55 KS [id number]) Physical Therapy Treatment Education Education Provided Safety M7 PT-IP Assessment and Plan Start: 05/07/22 16:42 Freq: NEEDED Status: Active Protocol: Document 05/08/22 10:35 KS (Rec: 05/08/22 12:55 KS [id number]) PT Summary Assessment and Plan Potential Rehabilitation Potential Fair Summary Impairments Pain,ROM,Strength,Balance, Coordination,Sensation,Tone, Cognition,Bed Mobility, Transfers,Gait,Activity Tolerance Progress Towards Goals Slow Progress due to Medical Issues,Slow Progress due to Activity Tolerance Assessment Summary Pt limited by dizziness w/ positional changes, weakness, and quick approach to fatigue. SBA to CGA for transfers and CGA for short distances ambulation. Anticipate pt will be safe to d/c home w/ spouse supporting and either HHPT or OPPT to assess dizziness and weakness. Goals Bed Mobility Goal Independent Transfer Goal Standby Assistance,Front Wheeled Walker Gait Goal Standby Assistance,Front Wheel Walker Gait Distance 100 Other Goals improve transfers and ambulation 200 ft without AD or least restrictive AD SBA up/down 5 steps L rail ascending SBA Days to Meet Goals 10 Frequency of Treatment Frequency Of Treatment Once a Day Treatment Plan Physical Therapy Treatment Plan Bed Mobility Training,Transfer Training,Gait Training, Therapeutic Exercise,Balance Retraining,Discharge Planning, Hot or Cold Pack,Neuromuscular Re-ed,Coordination Retraining ,Manual Therapy Precautions Other Precautions falls Recommendations To Nursing Amount of Assist Needed 1 Person Assist Discharge Recommendations PT Discharge Recommendations Home with 07/03 Assist Available,Home Health, Outpatient PT Equipment Needed for Home Before FWW if not safe with SPC/ Discharge without AD - pt unsure if he can use FWW in home Transportation Needs at Discharge Private Vehicle
--- NOTE | 2022-05-08 12:26 | OT.IP.TRT ---
Current Diagnoses Gastrointestinal hemorrhage, unspecified (05/07/22) Dizziness and giddiness (05/07/22) Surgery Performed Operation Date: 05/07/22 13:45 Actual Procedures p Esophagogastroduodenoscopy - Eleanor Jasso MD Occupational Therapy Treatment Note M2 OT-IP Current Condition Start: 05/07/22 15:47 Freq: Status: Active Protocol: Document 05/07/22 15:47 CGR (Rec: 05/07/22 15:57 CGR [id number]) Occupational Therapy Current Condition Current Condition Evaluation Date 05/07/22 Treatment Diagnosis acute dizziness, black margaret stools. Diagnosis Onset Date 05/07/22 M3 OT- IP Subjective and Pain Start: 05/07/22 15:47 Freq: Status: Active Protocol: Document 05/08/22 16:25 CGR (Rec: 05/08/22 16:37 CGR [id number]) OT- Subjective Occupational Therapy Visit Type Type Progress Note Visit Start Time 11:30 Visit Stop Time 12:26 Total Visit Minutes 56 Notes Discussed findings with Dr. Tang. She is agreeable to imaging of the cervial spine and plan for out patient physical therapy. OT Pain Assessment Pain When Pain Assessed At Rest Pain Present Pain Present Denied Pain M4 OT- IP ADL's Start: 05/07/22 15:47 Freq: Status: Active Protocol: Document 05/07/22 15:47 CGR (Rec: 05/07/22 15:57 CGR [id number]) OT [id number] Comments OT Self-Feeding Comments Pt is currently NPO OT ADL-Grooming Comments OT Grooming Comments Pt declined to perform at this time OT ADL-Oral Care Comments Oral Care Comments Pt states his has his teeth at this time. OT ADL-Dressing Comments OT Dressing Comments not performed OT ADL-Toileting Comments OT Toileting Comments pt declined need OT ADL-Bathing Comments OT Bathing Comments not performed M5 OT- IP IADL's Start: 05/07/22 15:47 Freq: Status: Active Protocol: Document 05/07/22 15:47 CGR (Rec: 05/07/22 15:57 CGR [id number]) OT-Instrumental Activities of Daily Living Deficits IADL Deficits Identified Deficits Home Safety Awareness Awareness of Need for Assistance at Home Good Awareness Ability to Problem Solve Emergency Able to Problem Solve Situations Medication Management Medication Management No Deficits Identified Money Management Money Management No Deficits Identified Meal Preparation Meal Preparation Caregiver Provides Assist Power Sweeper Operator Power Sweeper Operator Caregiver Provides Assist Driving Driving Concerns Identified Regarding Safety M6 OT- IP Functional Cognition Start: 05/07/22 15:47 Freq: Status: Active Protocol: Document 05/07/22 15:47 CGR (Rec: 05/07/22 15:57 CGR [id number]) Cognitive Factors Limiting Selfcare Function Cognitive Ability Level of Alertness Alert Patient Orientation Name,Age,Birthday,Month,Date, Year,Day of Week,Place, Situation Attention Span Ability Capable of Focused Attention, Capable of Sustained Attention Ability to Follow Commands Able to Follow Multi-Step Commands OT- Vision and Hearing OT- Hearing Assessment OT- Hearing Assessment WFL OT- Vision Assessment Visual Acuity Glasses All The Time Visual Attentiveness WFL Occular Pursuits WFL Visual Convergence WFL Vision Assessment Comments No noted beating of the eyes with head movements. M7 OT- IP Mobility and Balance Start: 05/07/22 15:47 Freq: Status: Active Protocol: Document 05/08/22 16:25 CGR (Rec: 05/08/22 16:37 CGR [id number]) OT- Bed Mobility Assessment Supine to Sit Supine to Sit Assist Standby Assistance Sit to Supine Sit to Supine Assist Standby Assistance Scooting Scooting to Edge of Bed Standby Assistance OT-Transfer Assessment Sit to and From Stand Sit to and from Stand Contact Guard Assistance Transfers Transfer Ability Contact Guard Assistance Technique Transfer Destination Bed,Chair Transfer Technique Stand Step Pivot Devices Transfer Assistive Devices Gait Belt,Front Wheeled Walker Comments Mobility Comments After identifying cervical component of pt's dizziness and instructing him to pull his head back during activity, pt was able to perform mobility with CGA. M8 OT- IP Objective Assessments Start: 05/07/22 15:47 Freq: Status: Active Protocol: Document 05/07/22 15:47 CGR (Rec: 05/07/22 15:57 R [id number]) OT Gross Range of Motion Upper Extremity Range of Motion Assessment Within Functional Limits OT Strength Upper Extremity Strength Assessment Within Functional Limits Comments Strength Comments 4+/5 OT- Coordination Assessment Upper Extremity Finger to Nose Test Within Functional Limits Finger Tapping Test Within Functional Limits OT-Muscle Tone Assessment Muscle Tone WNL Yes OT Sensation Assessment Edema Edema Absent M9 OT- IP Assessment and Plan Start: 05/07/22 15:47 Freq: Status: Active Protocol: Document 05/08/22 16:25 CGR (Rec: 05/08/22 16:37 CGR [id number]) OT Summary Assessment and Plan Potential Rehabilitation Potential Excellent Analytic Complexity at Evaluation Low Summary OT Impairments Balance,Functional Mobility, Grooming,Dressing,Toileting, Bathing,Toilet Transfers, Shower Transfers,Activity Tolerance Progress Towards Goals Progressing Toward Goals Assessment Summary Pt presents as a low complexity evaluation s/p admit for acute dizziness and black margaret stools. This repairer typewriter was prepared to perform BPPV testing on pt today, however, it was discovered that the greatest dizziness occured with pt looking down then up, although he states light dizziness with right and left head turns. Pt has significant resting protraction of the neck noted. Attempted neck retraction then performing the same movements and pt states no dizziness with multiple trials . Pt then performed sit to stand from chair and transfer to bed for exercises without dizziness by following commands to retract his neck when moving. Pt performed neck retraction exercises sitting in chair x10, then in bed pushing against pillow x15, then again x 10 seated EOB as well as shld retraction and protraction x15. Pt returned to chair at end of session. Call button within reach and lunch set up for pt. Goals Grooming Goal Independent Dressing Goal Independent Toileting Goal Independent Bathing Goal Independent Toilet Transfer Goal Independent Shower Transfer Goal Independent Days to Meet Goals 5 Frequency of Treatment Frequency Of Treatment Once a Day Treatment Plan OT Treatment Plan ADL Training,Functional Cognition Training,Functional Mobility,Therapeutic Exercises ,Patient/Family Education, Discharge Planning Other Treatment Recommendations and Next BPPV assessment, shower Treatment Focus Discharge Recommendations OT Discharge Recommendations Home with Assistance, Outpatient PT Transportation Needs at Discharge Private Vehicle
--- NOTE | 2022-05-08 13:56 | PC.NURSE ---
Pt having relatively uneventful day Denies pain; some vertigo with movement Sat in chair this afternoon HL RAC intact/patent. MD here to see, ordering MRI of neck. Call light w/in reach, pt calls appropriately for needs. Continue w/plan of care.
--- NOTE | 2022-05-08 13:58 | DI.MRI.S_ITS ---
PROCEDURE: MR CERVICAL SPINE WO CON INDICATIONS: vertigo; cervical radiculopathy TECHNIQUE: Noncontrast sagittal T1 spin echo and T2 fast spin echo, sagittal STIR, foraminal oblique sagittal T2 fast spin echo, and axial gradient echo or T2 fast spin echo through the cervical spine. COMPARISON: [facility], CT, CT CHEST W CON, 05/08/2022, 16:11. FINDINGS: Image quality: This examination is limited by involuntary motion artifact. Alignment and Curvature: There is normal bony alignment. Bone Marrow: Marrow demonstrates normal overall signal. Spinal Cord: Visualized spinal cord has normal size. Mildly increased T2 weighted signal can be seen within the cervical cord at the C2-C3 and C3-C4 levels. No cerebellar tonsillar herniation. Paraspinous Soft Tissues: No paravertebral masses. Prevertebral soft tissues are normal in thickness. C2-C3: Moderate loss of disc height is seen. Loss of disc signal is seen. Moderate generalized disc osteophyte complex is seen. There is a central disc osteophyte protrusion. Mild to moderate facet hypertrophy is seen. There is at least moderate bilateral neural foraminal narrowing seen, right worse than left. At least moderate central canal narrowing is seen, with associated ventral cord flattening. C3-C4: Moderate loss of disc height is seen. Loss of disc signal is seen. Moderate disc osteophyte complex is seen, with a central/right disc osteophyte protrusion. At least moderate facet hypertrophy is seen. Moderate to severe bilateral neural foraminal narrowing can be seen. There is severe central canal narrowing seen, with associated flattening of the spinal cord. C4-C5: The disc height is well-preserved. Loss of disc signal is seen at this level. Mild to moderate disc osteophyte complex is seen, which is eccentric to the left. Moderate to severe facet hypertrophy is seen. There is moderate to severe bilateral neural foraminal narrowing seen. Moderate central canal narrowing is seen. C5-C6: The disc height is well-preserved. Loss of disc signal is seen at this level. A mild degree of generalized disc osteophyte complex is seen. There is a central/right disc osteophyte protrusion seen. At least moderate facet hypertrophy can be seen at this level. There is moderate to severe bilateral neural foraminal narrowing seen. Moderate central canal narrowing is seen. There is associated mass effect upon the ventral spinal cord. C6-C7: Moderate loss of disc height is seen. Loss of disc signal is seen. At least moderate disc osteophyte complex is seen. There is a central disc osteophyte protrusion seen. Uncovertebral joint hypertrophy is seen at this level. Moderate facet joint hypertrophy is seen. Moderate to severe bilateral neural foraminal narrowing can be seen. At least moderate central canal narrowing is seen, with associated ventral cord flattening. C7-T1: Mild loss of disc height is seen. Loss of disc signal is seen. Moderate disc osteophyte complex is seen, which is eccentric to the right. Moderate facet hypertrophy is seen, right worse than left. There is [id number] bilateral neural foraminal narrowing seen. Minimal to mild central canal narrowing is seen. IMPRESSION: Prominent cervical spine degenerative changes are seen, which are overall worst at the C3-C4 level, where there is severe central canal narrowing and moderate to severe bilateral neural foraminal narrowing. 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 Dictated by: Jonh Lawson M.D. on 05/08/2022 at 16:15 Approved by: Jonh Lawson M.D. on 05/08/2022 at 16:20
--- NOTE | 2022-05-08 14:00 | DI.CT.S_ITS ---
PROCEDURE: CT CHEST W CON INDICATIONS: mediastinal adenopathy TECHNIQUE: After the administration of intravenous contrast, 5 mm thick sections acquired from the pulmonary apices to the posterior costophrenic angles. 1 mm axial lung, 5 mm thick coronal and sagittal reformats and 7 mm axial MIP were acquired. For radiation dose reduction, the following was used: automated exposure control, adjustment of mA and/or kV according to patient size. COMPARISON: [facility], MR, MR CERVICAL SPINE WO CON, 05/08/2022, 15:36. [facility], CT, CT CHEST HIGH RESOLUTION, 05/31/2019, 11:53. FINDINGS: Image quality: Excellent. Lungs and pleura: Centrilobular emphysematous changes are seen. These are more prominent at the lung apices than at the lung bases. No focal infiltrates are seen. No pneumothorax or pleural effusions are seen. Mediastinum: At least moderate coronary artery calcification is seen. Heart size is normal. No pericardial effusion. Borderline prominent mediastinal lymph nodes are seen, yet without gisselle enlarged mediastinal or hilar lymph nodes by size criteria. Thoracic aorta and central pulmonary arteries are normal in size. Esophagus is normal in caliber. No hiatal hernia. Bones and chest wall: No suspicious bony lesions. No vertebral body compression fractures. No axillary or supraclavicular adenopathy by size criteria. Age-appropriate bony degenerative changes are seen. Accentuated thoracic kyphosis is seen. Thyroid gland demonstrates no significant abnormality . Abdomen: Visualized upper abdominal solid organs appear normal. Upper abdominal bowel loops are normal in caliber. IMPRESSION: Borderline prominent lymph nodes are seen, without gisselle enlarged mediastinal lymph nodes. Incidental note is made of: Centrilobular emphysematous changes At least moderate coronary artery calcification Dictated by: Jonh Lawson M.D. on 05/08/2022 at 16:20 Approved by: Jonh Lawson M.D. on 05/08/2022 at 16:22
--- NOTE | 2022-05-08 14:01 | P.PN_ITS ---
Subjective Subjective Date Patient Seen: 05/08/22 Time Patient Seen: 14:01 Interval history: Patient had an unremarkable night. He underwent EGD for possible GI bleed which showed no evidence of any abnormality. Patient has not had any melanotic stools and physical therapy met with patient and clearly his dizziness seems to be vertigo and cervicogenic in nature. Outpatient physical therapy and imaging were recommended. Patient however did have a decrease in his hemoglobin hematocrit today. He is not having any abdominal pain. He is tolerating p.o. without difficulty. He denies any chest pain or shortness of breath. I reviewed his history in his workup thus far. Discussed his case with surgery. Twelve point review of systems is otherwise negative other than subjective Exam Vital Signs (past 8 hours): - 05/08/22 07:00 05/08/22 09:09 Temperature 96.9 F L Pulse Rate 60 Respiratory Rate 17 Blood Pressure 138/72 138/72 Pulse Oximetry 94 Oxygen Flow Rate 0 Oxygen Delivery Method Room Air Oxygen Flow Rate 0 Narrative Exam Narrative: Patient is afebrile, vital signs stable, slightly pale HEENT is unremarkable. Patient has no nystagmus. Patient does have reproduction of his vertigo with positional changes if he is leaning forward. Neck: Supple without adenopathy or thyromegaly. Chest: Clear to auscultation without wheezes rhonchi or crackles Cor: Regular rate and rhythm without a murmur Abdomen: Positive bowel sounds, obese, no hepatosplenomegaly Extremities no edema pulses intact Neurologic exam is nonfocal Skin no rashes Objective Labs Result Diagrams: 05/08/22 07:52 05/08/22 07:52 Labs: Laboratory Results - last 24 hr 05/08/22 05/08/22 07:52 07:52 WBC 7.0 RBC 3.47 L Hgb 10.7 L Hct 30.3 L MCV 87.5 MCH 30.9 MCHC 35.3 RDW 13.7 Plt Count 236 Neut % (Auto) 66.8 Lymph % (Auto) 21.4 L [place] % (Auto) 8.7 Eos % (Auto) 2.2 Baso % (Auto) 0.9 Neut # (Auto) 4700 Lymph # (Auto) 1500 [place] # (Auto) 600 Eos # (Auto) 200 Baso # (Auto) 100 Sodium 140 Potassium 3.6 Chloride 106 Carbon Dioxide 27 BUN 16 Creatinine 1.24 Estimated GFR > 60 BUN/Creatinine Ratio 12.9 Glucose 109 Calcium 8.6 Total Bilirubin 0.9 AST 19 ALT 15 Alkaline Phosphatase 73 Total Protein 6.3 Albumin 3.3 L Globulin 3.0 Albumin/Globulin Ratio 1.1 [facility] Medical History Chronic cough COPD (chronic obstructive pulmonary disease) Coronary artery disease (~2008) Essential hypertension Gastroesophageal reflux disease Gout Mixed anxiety depressive disorder (01/18/17) Mixed hyperlipidemia Restless leg syndrome Sleep apnea Snoring Varicose veins of both lower extremities Vision disorder Surgical History History of angioplasty Family History Father Stroke History of heart disease Hypertension Hyperlipidemia Mother Cancer Brother History of heart attack History of heart disease Sister Mental health problem Social History household members: spouse Smoking Status: Former smoker Tobacco: How many years used: 40 second hand exposure: No alcohol intake: never substance use type: does not use Assessment & Plan Assessment & Plan narrative: 67-year-old male admitted with dizziness, anemia and guaiac-positive stool on digital rectal exam. Assessment 1. Guaiac-positive stool. Story does not seem entirely consistent for GI bleed as the etiology of his dizziness. EGD was done yesterday was unremarkable. Appreciate surgery consult. H&H was decreased today which certainly could be explained by IV fluids etc.. Plan: Will continue hospitalization overnight and reassess blood count tomorrow. If blood count is stable and no further symptoms then he will likely be discharged home and we can do an outpatient colonoscopy Assessment 2. Dizziness suspect multifactorial. I do not think this is related to peripheral vascular disease or the CT findings of 50% stenosis of carotid arteries. I think most likely this is related to cervical spine disease per my exam and history as well as physical therapy. He is doing much better with the changes that were recommended by Physical therapy. Plan: We will do MRI without contrast of his cervical spine. Will continue with physical therapy and likely discharge home tomorrow with outpatient physical therapy Assessment 3. History of coronary artery disease without any acute symptoms. Plan: Continue with risk reduction with antihypertensives and statin medication Assessment 4. Anxiety and depression, no acute issues Plan: Continue with the escitalopram and Wellbutrin Assessment 5. Possible mediastinal adenopathy on CT scan head and neck Plan: Will do chest CT today with contrast Assessment 6. Hypertension with good control Plan: Continue outpatient medications. Assessment 7. DVT prophylaxis Plan: Because of the concern of possible GI bleed then we will not do Lovenox but will do bilateral SCDs. Patient is active in the room and working with physical therapy. Code status is full code Disposition: If patient remains stable likely home tomorrow with outpatient PT and colonoscopy Time Spent With Patient Critical Care time: I spent a total of [] minutes of critical care time on this patient's care today; this time is exclusive of procedural time. Quality VTE Deep Vein Thrombosis/Pulmonary Embolism Present on Admission: No
[2022-05-08 14:57] VITALS: BP 140/59; PULSE 61; RESP 17; TEMP 36.2; O2SAT 96
[2022-05-08 19:10] VITALS: BP 137/70; PULSE 62; RESP 21; TEMP 36.6; O2SAT 97
[2022-05-08] MEDS: ATORVASTATIN 20 MG TABLET 40 MG PO (20:50)
[2022-05-09 03:15] VITALS: BP 146/63; PULSE 64; RESP 18; TEMP 36.2; O2SAT 97
[2022-05-09 07:36] LABS: Add Manual Diff / Slide Review NO; Basophils Absolute Auto 100 /uL (0-100); Basophils Percent Auto 0.9 % (0-2); Eosinophils Absolute Auto 300 /uL (0-450); Eosinophils Percent Auto 3.1 % (2-4); Hematocrit 31.9 % (41-53); Hemoglobin 11.1 g/dL (13.5-17.5); Lymphocytes Absolute Auto 1600 /uL (1100-4500); Lymphocytes Percent Auto 18.4 % (25-40); Mean Corpuscular Hemoglobin 30.6 PG (26-34); Mean Corpuscular Volume 87.5 fL (80-100); Monocytes Absolute Auto 600 /uL (0-900); Neutrophils Absolute Auto 6100 /uL (1500-7000); Neutrophils Percent Auto 70.6 % (50-75); Platelet Count 246 X10^3/uL (150-400); Red Blood Cell Count 3.64 X10^6/uL (4.5-5.9); Red Cell Distribution Width 13.7 % (11.6-14.8); White Blood Cell Count 8.6 X10^3/uL (4.5-11.0)
[2022-05-09 07:52] LABS: Alanine Aminotransferase 15 IU/L (<50); Albumin 3.5 g/dL (3.5-5.0); Albumin Globulin Ratio 1.1 (1.0-2.8); Alkaline Phosphatase 74 U/L (38-126); Aspartate Aminotransferase 21 IU/L (17-59); BUN Creatinine Ratio 12.2 (6-22); Bilirubin Total 0.6 mg/dL (0.2-1.3); Blood Urea Nitrogen 14 mg/dL (9-20); Calcium 8.9 mg/dL (8.4-10.2); Carbon Dioxide 27 mmol/L (22-32); Chloride 104 mmol/L (98-107); Estimated Glomerular Filt Rate > 60 mL/min (>60); Globulin 3.2 g/dL (1.7-4.1); Glucose 114 mg/dL (80-110); HEMOLYSIS < 15 (0-50); Potassium 3.7 mmol/L (3.4-5.1); Sodium 139 mmol/L (137-145); Total Protein 6.7 g/dL (6.3-8.2)
[2022-05-09 08:40] VITALS: BP 146/73; PULSE 61
[2022-05-09] MEDS: AMLODIPINE 5 MG TABLET PO (08:40)
[2022-05-09] MEDS: DOCUSATE 100 MG CAPSULE PO (08:40)
[2022-05-09] MEDS: lisinopriL 10 MG TABLET 5 MG PO (08:40)
[2022-05-09] MEDS: PANTOPRAZOLE DR 20 MG TABLET PO (08:40)
[2022-05-09] MEDS: ESCITALOPRAM 10 MG TABLET 20 MG PO (08:43)
[2022-05-09] MEDS: buPROPion XL 150 MG TAB PO (08:44)
[2022-05-09] MEDS: METOPROLOL IR 50 MG TABLET PO (08:44)
[2022-05-09] MEDS: ENOXAPARIN 40 MG/0.4 ML SYRINGE SUBCUT (08:44)
[2022-05-09 10:57] VITALS: BP 130/55; PULSE 57; RESP 17; TEMP 36.2; O2SAT 96
--- NOTE | 2022-05-09 12:25 | PM.DS.1 ---
History of Present Illness History of Present Illness Date Patient Seen: 05/09/22 Time Patient Seen: 12:25 Chief complaint: vertigo/dizziness Discharge Providers Provider Date of admission: 05/07/22 11:37 Discharge Date: 05/09/22 Primary care physician: Noe Tong MD Consults: 05/07/22 12:19 Consult to Occupational Therapy Evaluate & Treat Comment: Physician Instructions: Evaluate and treat Consult to Physical Therapy Evaluate & Treat Comment: Physician Instructions: Evaluate and Treat Discharge provider: Amanda Tang MD Summary Hospital Course Discharge Diagnosis: Guaiac-positive stools status post EGD negative. 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 No further black tarry stools. EGD negative. Hematocrit improved and was no significant drop. No abdominal pain or other concerns. Patient evaluated by surgery and recommended outpatient colonoscopy. Patient's dizziness was felt to be cervical spine. PT evaluated him and recommended positional changes in his symptoms resolved. He would no other complications during the hospitalization. He would a MRI of his neck. Had a CT scan of his chest to rule out mediastinal lymphadenopathy which was incidentally found on the CT a of his head and neck. He had 50% stenosis bilateral carotids. Echo was normal. His vital signs remained stable. He will be discharged home in stable condition on outpatient medications Status at Discharge Cognitive/behavioral status at discharge: at baseline, oriented Functional status at discharge: independent ambulation Overall status at discharge: patient is back to baseline Exam Vital Signs (past 8 hours): - 05/09/22 08:40 05/09/22 10:57 Temperature 97.1 F L Pulse Rate 61 57 L Respiratory Rate 17 Blood Pressure 146/73 H 130/55 L Pulse Oximetry 96 Oxygen Flow Rate 0 Oxygen Delivery Method Room Air Oxygen Flow Rate 0 Narrative Exam Narrative: Alert and oriented no apparent distress HEENT unremarkable Neck: No tenderne ss to palpation. Some tenderness in the proximal insertion of the trapezius to the posterior occiput bilateral Chest: Clear to auscultation with prolonged expiratory phase but no wheezes rhonchi or crackles Cor: Regular rate and rhythm without a murmur Abdomen benign. Positive bowel sounds x4. No tenderness to palpation or hepatosplenomegaly Extremities: No edema Neurologic exam nonfocal Objective Labs Result Diagrams: 05/09/22 06:55 05/09/22 06:55 Labs: Laboratory Results - last 24 hr 05/09/22 05/09/22 06:55 06:55 WBC 8.6 RBC 3.64 L Hgb 11.1 L Hct 31.9 L MCV 87.5 MCH 30.6 MCHC 35.0 RDW 13.7 Plt Count 246 Neut % (Auto) 70.6 Lymph % (Auto) 18.4 L [place] % (Auto) 7.0 Eos % (Auto) 3.1 Baso % (Auto) 0.9 Neut # (Auto) 6100 Lymph # (Auto) 1600 [place] # (Auto) 600 Eos # (Auto) 300 Baso # (Auto) 100 Sodium 139 Potassium 3.7 Chloride 104 Carbon Dioxide 27 BUN 14 Creatinine 1.15 Estimated GFR > 60 BUN/Creatinine Ratio 12.2 Glucose 114 H Calcium 8.9 Total Bilirubin 0.6 AST 21 ALT 15 Alkaline Phosphatase 74 Total Protein 6.7 Albumin 3.5 Globulin 3.2 Albumin/Globulin Ratio 1.1 PFSH Medical History Chronic cough COPD (chronic obstructive pulmonary disease) Coronary artery disease (~2008) Essential hypertension Gastroesophageal reflux disease Gout Mixed anxiety depressive disorder (01/18/17) Mixed hyperlipidemia Restless leg syndrome Sleep apnea Snoring Varicose veins of both lower extremities Vision disorder Surgical History History of angioplasty Family History Father Stroke History of heart disease Hypertension Hyperlipidemia Mother Cancer Brother History of heart attack History of heart disease Sister Mental health problem Social History household members: spouse Smoking Status: Former smoker Tobacco: How many years used: 40 second hand exposure: No alcohol intake: never substance use type: does not use Discharge Assessment & Plan Assessment and Plan Assessment: 67-year-old male who was admitted for dizziness and guaiac-positive stools. Patient seen by Physical therapy and instructed on tucking his chin which has completely eradicated his dizziness. He is had no further black tarry stools. He is had a negative EGD. Assessment 1. Guaiac-positive stool.? Story does not seem consistent for GI bleed as the etiology of his dizziness.? EGD was performed and was negative..? Appreciate surgery consult.? H&H improved today and no further concerns Plan:? DC home Patient instructed to return if he has recurrent symptoms. Patient will need outpatient colonoscopy. Due to heme-positive stool on admit with rectal exam and he is overdue for screening. He voices understanding. He will call for appointment tomorrow with Dr. Tong Assessment 2. Dizziness suspect multifactorial.? I do not think this is related to peripheral vascular disease or the CT findings of 50% stenosis of carotid arteries.? I think most likely this is related to cervical spine disease per my exam and history as well as physical therapy.? He is doing much better with the changes that were recommended by Physical therapy. His symptoms have completely response did to positional changes. MRI shows degenerative disc disease of the cervical spine with canal stenosis. Patient gets headaches and tension headaches but he denies radicular symptoms including weakness numbness tingling of the upper lower extremities. He is not having any bowel or bladder problems. Plan:? Patient will be discharged home today. He will follow-up for outpatient therapy. We will refer for neurosurgical evaluation and nerve conduction study. He will follow-up with his PCP this week to get this set up. He will call or come in with any worsening symptoms which were reviewed with him at length. Assessment 3. History of coronary artery disease without any acute symptoms. Plan: Continue with risk reduction with antihypertensives and statin medication Assessment 4. Anxiety and depression, no acute issues Plan: Continue with the escitalopram and Wellbutrin Assessment 5. Possible mediastinal adenopathy on CT scan head and neck. CT scan with contrast of the chest does not show mediastinal adenopathy but lymph nodes are at the upper end of normal but not enlarged Plan:? No further evaluation indicated Assessment 6. Hypertension with good control Plan: Continue outpatient medications. Assessment 7. DVT prophylaxis Plan:? Because of the concern of possible GI bleed then we will not do Lovenox but will do bilateral SCDs.? Patient is active in the room and working with physical therapy. Assessment 8. Hyperlipidemia Plan: Will continue outpatient statin. Discharge Plan Discharge Plan Patient Disposition: [facility] Diet/Activity/Treatments Diet: Diet as Tolerated Discharge Data Primary Care Provider: Noe Tong Attending Provider: Noe Tong Quality VTE Deep Vein Thrombosis/Pulmonary Embolism Present on Admission: No
--- NOTE | 2022-05-09 12:58 | CM.DPC ---
DCP Discharge Home Per MD, pt is medically stable to d/c home today with oral Rx and will need outpt follow up for colonoscopy and dizziness has resolved per PT recommendations for tx. Per RN, no concerns at this time. Pt independent at baseline and in room. Plan: Patient to d/c home today via spouse POV and no further SW needs at this time and outpt f/u. ROSALINO Smith
--- NOTE | 2022-05-09 13:01 | PC.NURSE ---
Pt is dressed and ready for discharge home with Spouse. Went over d/c instructions with Pt and Spouse-discussed d/c meds, time of last dose, reviewed stroke education, no new prescriptions, advised Pt to get up slowly from bed or chair, follow PT instructions regarding neck movements and follow up as directed. Pt denied further questions and was taken out via w/c by SENIOR TRAINER to POV with Spouse and all belongings.
--- NOTE | 2022-05-09 13:16 | PT.IPTN ---
Current Diagnoses Gastrointestinal hemorrhage, unspecified (05/07/22) Dizziness and giddiness (05/07/22) Surgery Performed Operation Date: 05/07/22 13:45 Actual Procedures p Esophagogastroduodenoscopy - Eleanor Jasso MD Physical Therapy Treatment Note M2 PT-IP Current Condition Start: 05/07/22 16:42 Freq: NEEDED Status: Active Protocol: Document 05/09/22 13:07 [facility] (Rec: 05/09/22 13:16 [facility] [id number]) Physical Therapy Current Condition Current Condition Evaluation Date 05/09/22 Treatment Diagnosis GI bleed; dizziness; difficulty in walking Onset Date 05/07/22 M3 PT-IP Subjective Start: 05/07/22 16:42 Freq: NEEDED Status: Active Protocol: Document 05/09/22 13:07 [facility] (Rec: 05/09/22 13:16 [facility] [id number]) Subjective Physical Therapy Visit Type Type Treatment Note Visit Start Time 12:45 Visit Stop Time 13:07 Total Visit Minutes 22 Number of FOOD SERVICE REPRESENTATIVE Visits 0 Physical Therapy Visit Comments Patient Comments pt agrees to PT and is sitting up in bedside chair with clothes on ready to DC home with M4 PT-IP Mobility and Gait Start: 05/07/22 16:42 Freq: NEEDED Status: Active Protocol: Document 05/09/22 13:07 [facility] (Rec: 05/09/22 13:16 [facility] [id number]) PT-Bed Mobility Assessment Supine to Sit Supine to Sit Standby Assistance Scooting Scooting to Edge of Bed Standby Assistance PT-Transfer Assessment Sit to and From Stand Sit to and from Stand Contact Guard Assistance,1 Person Assistance,Use of Upper Extremities Equipment Transfer Assistive Device Gait Belt,Front Wheeled Walker Orthotic/Prosthetic Devices or Brace: No Transfers Transfer Destination Chair Transfer Technique pt ambulated with FWW Transfer Ability Level of Assist Contact Guard Assistance,1 Person Assistance,Use of Upper Extremities Comments Mobility Comments pt sitting in chair upon arrival. He is dressed and ready to DC home. His is present. Pt reports he had ambulated to the bathroom just recently. He notes that as along as he doesn't look down he is okay. Pt ambulated 212 feet with no loss of balance and CGA. He ambulated up and down 2 sets of stairs for a total of 6 stairs using B railings and CGA. His was shown how to assist on stairs with gait belt for safety Gait Assessment Gait Gait Assistance Required: Contact Guard Assist,1 Person Assist Distance (Feet) 212 Able to Maintain Weight Bearing Status Yes During Gait Assistive Devices Assistive Device Gait Belt,Front Wheeled Walker Orthotic/Prosthetic Devices or Brace: No Gait Deviations General Gait Pattern Decreased Stride Length, Decreased Feet Clearance Comments Gait Comments pt demonstrated improved balance and decreased dizzyness with gait this afternoon. He notes as long as he doesn't look down he is able to avoid dizzyness Stair Climbing Assessment Evaluation Level of Assist On Stairs Contact Guard Assistance Devices Stair Climbing Assistive Devices Left Railing,Right Railing Technique/Endurance Stair Climbing Direction Ascend and Descend Stair Climbing Technique Step to Step Comments Stair Climbing Comments pt did well, able to do 2 sets of stairs, instructions to to fuel injection servicer front of him coming down with gait belt as he can't look down without dizzyness PT-Balance Assessment Sitting Balance and Reactions Static Sitting Balance Ability Good Dynamic Sitting Balance Ability Good Standing Balance and Reactions Static Standing Balance Ability Good Dynamic Standing Balance Ability Fair Device Used FWW M5 PT-IP Objective Assessments Start: 05/07/22 16:42 Freq: NEEDED Status: Active Protocol: Document 05/07/22 15:10 AB (Rec: 05/07/22 16:52 AB [id number]) Orientation Orientation/Cognition Level of Alertness Alert Orientation Name,Month,Year,Place, Situation Language Function Ability No Deficits Noted Safety Awareness Decreased Safety Awareness Memory Description No Deficits Noted Gross Range of Motion Lower Extremity ROM Assessment Within Functional Limits Strength Lower Extremity Strength Hip 4-/5 Knee 4-/5 Muscle Tone Muscle Tone WNL Yes M6 PT-IP Treatment Start: 05/07/22 16:42 Freq: NEEDED Status: Active Protocol: Document 05/09/22 13:07 [facility] (Rec: 05/09/22 13:16 [facility] [id number]) Physical Therapy Treatment Other Treatments Other Treatment Performed cervical retraction/chin tuck, shoulder blade squeeze M7 PT-IP Assessment and Plan Start: 05/07/22 16:42 Freq: NEEDED Status: Active Protocol: Document 05/09/22 13:07 [facility] (Rec: 05/09/22 13:16 [facility] [id number]) PT Summary Assessment and Plan Potential Rehabilitation Potential Good Summary Impairments Pain,ROM,Strength,Balance, Coordination,Sensation,Tone, Cognition,Bed Mobility, Transfers,Gait,Activity Tolerance Progress Towards Goals Safe For Discharge Assessment Summary Pt limited by dizziness w/ positional changes, weakness, and quick approach to fatigue. SBA to CGA for transfers and CGA for short distances ambulation. Anticipate pt will be safe to d/c home w/ spouse supporting and either HHPT or OPPT to assess dizziness and weakness. Goals Bed Mobility Goal Independent Transfer Goal Standby Assistance,Front Wheeled Walker Gait Goal Standby Assistance,Front Wheel Walker Gait Distance 100 Other Goals improve transfers and ambulation 200 ft without AD or least restrictive AD SBA up/down 5 steps L rail ascending SBA Days to Meet Goals 10 Frequency of Treatment Frequency Of Treatment Once a Day Discharge Recommendations PT Discharge Recommendations Home,Home Health,Outpatient PT Equipment Needed for Home Before FWW for home use Discharge Transportation Needs at Discharge Private Vehicle
== END 2022-05-09 13:26 | disposition home or self-care (01) | DRG 552 ==
LOC: ED 11:05 → AC 13:05
PROVIDERS: Surgery; Admitting Provider Family Medicine; Emergency Provider Emergency Medicine; Family Provider Internal Medicine Cardiovascular Disease; PCP Family Medicine; Referring Provider Emergency Medicine; Visit Provider Family Medicine
PROC: 0DJ08ZZ Inspection of Upper Intestinal Tract, Via Natural or Artificial Opening Endoscopic (ICD-10-PCS; CPT 43235; principal; 2022-05-07 13:45)
DX: M48.02 Spinal stenosis, cervical region (principal); R19.5 Other fecal abnormalities; D64.9 Anemia, unspecified; F32.9 Major depressive disorder, single episode, unspecified; I10 Essential (primary) hypertension; K21.9 Gastro-esophageal reflux disease without esophagitis; E78.5 Hyperlipidemia, unspecified; F41.9 Anxiety disorder, unspecified; I25.10 Atherosclerotic heart disease of native coronary artery without angina pectoris; Z98.61 Coronary angioplasty status; Z87.891 Personal history of nicotine dependence; Z20.822 Contact with and (suspected) exposure to COVID-19
CPT/HCPCS: 43235; 36415; 70496; 70498; 71045; 71260; 72141; 80053; 82550; 83690; 83735; 84484; 85025; 87635; 93005; 93306; 97116; 97162; 97165; 97530; 99284; 99285; C9803; G0378; J1650; Q9967

== ENCOUNTER → 2022-06-24 12:04 | Outpatient (CLI) | payer OTHER, SELFPAY ==
[2022-05-07 15:02] VITALS: BMI 25.8
--- NOTE | 2022-06-24 12:06 | DI.CT.S_ITS ---
PROCEDURE: CT CERVICAL SPINE WO CON INDICATIONS: Spinal stenosis, cervical region TECHNIQUE: Noncontrast 3 mm thick sections acquired from the skull base to the T4 level. Sagittal and coronal reformats were then constructed. For radiation dose reduction, the following was used: automated exposure control, adjustment of mA and/or kV according to patient size. COMPARISON: [facility], MR, MR CERVICAL SPINE WO CON, 05/08/2022, 15:36. [facility], EC, EC ECHO DOPPLER COMPLETE, 05/07/2022, 10:35. FINDINGS: Image quality: Excellent. Bones: No fractures or dislocations. Visualized superior ribs are intact. Disc space narrowing and posterior osteophytes with uncovertebral joint hypertrophy noted in the mid cervical spine. Severe central stenosis present at C2-3 and C3-4 with moderate bilateral foraminal stenosis. Moderate central stenosis present at C6-7 as well Soft tissues: Prevertebral soft tissues are normal in thickness. No paravertebral hematomas. No apical pneumothoraces. IMPRESSION: Multilevel degenerative disc disease and arthropathy results in varying degrees of central foraminal stenosis including severe central stenosis C2-3 and C3-4, as noted on the prior Approved by: Torin Mcdermott M.D. on 06/24/2022 at 13:54
== END ==
PROVIDERS: Family Provider Internal Medicine Cardiovascular Disease; PCP Family Medicine; Referring Provider Neurological Surgery; Visit Provider Neurological Surgery
DX: M50.31 Other cervical disc degeneration, high cervical region (principal); M47.812 Spondylosis without myelopathy or radiculopathy, cervical region; M48.02 Spinal stenosis, cervical region
CPT/HCPCS: 72125

== ENCOUNTER → 2022-11-11 10:10 | Outpatient (CLI) | payer OTHER, SELFPAY ==
[2022-05-07 15:02] VITALS: BMI 25.8
--- NOTE | 2022-11-11 | DI.RAD.S_ITS ---
PROCEDURE: XR CERVICAL SPINE 2V OR 3V INDICATIONS: Spinal stenosis, cervical region TECHNIQUE: 3 view(s) of the cervical spine were acquired. COMPARISON: None. FINDINGS: Bones: No fractures or dislocations to the C7-T1 level. There is prior anterior fusion at C3-4 level with surgical hardware in place. No evidence of hardware loosening or failure. Degenerative endplate changes and bilateral facet arthrosis throughout rest of the cervical spine is seen. The lateral masses of C1 appear intact on the odontoid view. No suspicious bony lesions. Soft tissues: No prevertebral soft tissue swelling. IMPRESSION: Prior anterior fusion at C3-4 level. No acute cervical spine fracture or dislocation. No gross prevertebral soft tissue abnormalities. Degenerative disc disease throughout rest of the cervical spine. Dictated by: Xu Baer M.D. on 11/11/2022 at 11:30 Approved by: Xu Baer M.D. on 11/11/2022 at 11:31
== END ==
PROVIDERS: Family Provider Internal Medicine Cardiovascular Disease; PCP Family Medicine; Referring Provider Neurological Surgery; Visit Provider Neurological Surgery
DX: M50.30 Other cervical disc degeneration, unspecified cervical region (principal); M43.22 Fusion of spine, cervical region; M48.02 Spinal stenosis, cervical region
CPT/HCPCS: 72040

== ENCOUNTER → 2023-04-15 07:57 | Outpatient (CLI) | payer OTHER, SELFPAY ==
[2022-05-07 15:02] VITALS: BMI 25.8
== END ==
PROVIDERS: Family Provider Internal Medicine Cardiovascular Disease; PCP Family Medicine; Referring Provider Internal Medicine Cardiovascular Disease; Visit Provider Internal Medicine Cardiovascular Disease
DX: R06.09 Other forms of dyspnea (principal); Z87.891 Personal history of nicotine dependence; J98.8 Other specified respiratory disorders
CPT/HCPCS: 94060; 94726; 94729

== ENCOUNTER → 2023-05-11 07:37 | Outpatient (CLI) | payer OTHER, SELFPAY ==
[2022-05-07 15:02] VITALS: BMI 25.8
--- NOTE | 2023-05-11 07:39 | DI.US.S_ITS ---
PROCEDURE: US CAROTID DOPPLER BI INDICATIONS: CHEST DISCOMFORT TECHNIQUE: Color and pulse Doppler interrogation was performed of both carotid systems, with image documentation and velocity measurements. COMPARISON: None. FINDINGS: Stenosis calculations are based on SRU (Society of Radiologists in Ultrasound) criteria. Right side: Brachial blood pressure: 127/68 mm Hg. Common carotid artery peak systolic velocity: 75 cm/sec. Internal carotid artery peak systolic velocity: 119 cm/sec. Internal carotid artery end diastolic velocity: 18 cm/sec. External carotid artery peak systolic velocity: 109 cm/sec. ICA/CCA peak systolic ratio: 0.6 . Kaufman scale imaging description: Mild plaque Percent internal carotid artery stenosis: Less than 50% . Vertebral artery: Flow direction is antegrade. Left side: Brachial blood pressure: 124/66 mm Hg. Common carotid artery peak systolic velocity: 60 cm/sec. Internal carotid artery peak systolic velocity: 19 cm/sec. Internal carotid artery end diastolic velocity: 33 cm/sec. External carotid artery peak systolic velocity: 239 cm/sec. ICA/CCA peak systolic ratio: 1.9 . Kaufman scale imaging description: Moderate plaque Percent internal carotid artery stenosis: Less than 50% . Vertebral artery: Flow direction is antegrade. IMPRESSION: Less than 50% bilateral internal carotid artery stenosis. Dictated by: Padilla Da Silva [facility] Interpreted: Xu Baer MD on 05/11/2023 at 13:05 Transcribed by: ALEM on 05/11/2023 at 13:06 Approved by: Xu Baer M.D. on 05/11/2023 at 16:23
--- NOTE | 2023-05-11 07:39 | DI.ECHO.S_ITS ---
[facility] +---------+ : : [address] : : : : [id number] : : : : Phone: [phone]+ Echocardiogram Report + + :Name: DENNISE KLEIN Study Date: 05/11/2023 Height: 69 in : :[facility] ReadingLocation: Weight: 200 lb : : Gender: Male BSA: 2.1 m2 : :: 1955 Age: 68 yrs BP: 135/78 mmHg: :Reason For Study: CHEST DISCOMFORT : :Ordering Physician: REGINALDO, : :DELON Performed By: Kellee Roldan : :Referring: DELON HAIR : + + Interpretation Summary The left ventricle is normal in size and wall thickness. The left ventricular ejection fraction is normal. The ejection fraction is estimated to be 60-65%. There has been no significant change in LVEF since the previous exam. The right ventricle is normal in size and function. No significant valvular pathology seen. There is mild luminal irregularity and echogenicity in the abdominal aorta, suggestive of aortic atherosclerotic disease. Mild atherosclerotic plaque(s) in the aortic arch. The IVC is of normal diameter and collapses greater than 50% with a sniff. This suggests a low right atrial pressure of 3 mm Hg. Procedure: A two-dimensional transthoracic echocardiogram with color flow and Doppler was performed. The study quality was technically adequate. Comparison is made with the echocardiogram of 05/07/2022. The patient was in sinus rhythm with heart rates between 52-64 bpm during the exam. Left Ventricle: The left ventricle is normal in size and wall thickness. There is no thrombus. The ejection fraction is estimated to be 60-65%. The left ventricular ejection fraction is normal. There has been no significant change since the previous exam. There are no focal wall motion abnormalities. MV E/A: 1.1 Med Peak E' Se: 5.8 cm/sec E/E' med: 14.0. Right Ventricle: The right ventricle is normal in size and function. Atria: The left atrial size is normal. There has been no significant change since the previous study. Right atrial size is normal. There is no Doppler evidence for an interatrial shunt. Mitral Valve: The mitral valve is normal in structure and function. There is trace mitral regurgitation. Aortic Valve: The aortic valve is trileaflet. The aortic valve opens well. There is no aortic valve stenosis. No aortic regurgitation is present. Tricuspid Valve: The tricuspid valve is normal in structure and function. There is trace tricuspid regurgitation. The right ventricular systolic pressure is estimated to be at least 31 mmHg based on an estimated right atrial pressure of 3 mm Hg. Pulmonic Valve: The pulmonic valve leaflets are thin and pliable; valve motion is normal. There is trace pulmonic regurgitation. Great Vessels: The aortic root is normal size. The dimensions of the ascending aorta are normal. There is mild luminal irregularity and echogenicity in the abdominal aorta, suggestive of aortic atherosclerotic disease. Mild atherosclerotic plaque(s) in the aortic arch. The IVC is of normal diameter and collapses greater than 50% with a sniff. This suggests a low right atrial pressure of 3 mm Hg. Pericardium/ Pleura There is no pericardial effusion. There is no pleural effusion. MMode/2D Measurements & Calculations LVIDd: 5.6 cm LVOT diam: 2.1 cm LVIDs: 3.7 cm Ao root diam: 3.2 cm FS: 34.0 % asc Aorta Diam: 2.9 cm EPSS: 0.88 cm IVSd: 0.96 cm LVPWd: 0.79 cm LV eli. diameter/BSA (cm/m^2): 2.7 LV sys. diameter/BSA (cm/m^2): 1.8 LA A2 area: 16.1 cm2 RA long axis: 4.8 cm LA A4 area: 13.1 cm2 RA area: 12.4 cm2 LA length (vol): 4.7 cm RA vol: 27.5 ml LA vol: 37.9 ml RA : 13.3 ml/m2 LA vol index: 18.4 ml/m2 IVC diam: 1.3 cm RVD1 (basal): 3.4 cm RVD2 (mid): 2.5 cm TAPSE: 2.1 cm Doppler Measurements & Calculations Ao V2 max: 119.5 cm/sec LVOT Max Se: 98.2 cm/sec Ao V2 mean: 83.6 cm/sec LV V1 max P.9 mmHg Ao max P.7 mmHg LV V1 VTI: 20.6 cm Ao mean P.0 mmHg LORETO(I,D): 2.5 cm2 Ao V2 VTI: 28.3 cm LORETO(V,D): 2.8 cm2 sev ratio: 0.73 LORETO indexed to BSA (cm^2/m^2): 1.2 MV E max se: 81.0 cm/sec TR max se: 267.0 cm/sec MV A max se: 76.8 cm/sec TR max P.5 mmHg MV E/A: 1.1 PA V2 max: 89.0 cm/sec Med Peak E' Se: 5.8 cm/sec PA V2 mean: 66.1 cm/sec E/E' med: 14.0 PA mean P.9 mmHg Lat Peak E' Se: 8.5 cm/sec PA pr(Accel): 32.8 mmHg E/E' lat: 9.6 E/e' average: 11.8 MV dec time: 0.24 sec SV(LVOT): 70.0 ml Reading Physician:04:14 PM
--- NOTE | 2023-05-12 07:15 | DI.NM.S_ITS ---
DATE OF SERVICE: 05/11/2023 Pharmacological Perfusion Study INDICATIONS: Chest pain with known history of coronary artery disease with history of LAD and RCA stent in the remote past, hypertension and hyperlipidemia. RADIOPHARMACEUTICAL: 27 mCi technetium-99m Myoview IV was injected at stress and 11.4 mCi technetium-99m Myoview IV was injected at rest. CARDIAC STRESS: Patient underwent IV Lexiscan perfusion study under the supervision of an attending staff as per standard protocol. The patient remained hemodynamically stable. Resting blood pressure 128/70. Heart rate 68. Baseline rhythm sinus. During stress, no convincing ischemic changes or significant arrhythmias seen. With Lexiscan, patient has chest discomfort and minimal dyspnea, which got resolved in recovery. RAW DATA: There is increased subdiaphragmatic activity. The patient's weight is 210 pounds. GATED STUDY: Resting LV ejection fraction 73% and stress LV ejection fraction 77% without any obvious wall motion abnormalities. Resting end- diastolic volume 104 mL. TID ratio 0.91, which is within normal limits. Lung/heart ratio 0.32, which is within normal limits. MYOCARDIAL PERFUSION SCAN: Stress supine, resting supine and stress prone images were compared to each other. Resting supine images revealed small size, mildly decreased perfusion of inferior wall which got completely resolved during stress prone images, suggestive of diaphragmatic tissue attenuation artifact. The stress supine images revealed normal myocardial perfusion as well. CONCLUSION: This is a normal myocardial perfusion study without any convincing ischemia infarction. Preserved left ventricular function. There was evidence of diaphragmatic tissue attenuation artifact which was resolved during stress prone images. The patient had a perfusion study in August,, at that time also had normal myocardial perfusion. Overall, low-risk myocardial perfusion scan. Andrew Wall - /gaby/ doc#: [id number]/job#: [id number] dd: 05/11/2023 16:37:00 dt: 05/11/2023 19:02:00 DICTATING MD/COPIES TO: Andrew Diaz MD COPIES MNE: MARY;
== END ==
PROVIDERS: Family Provider Internal Medicine Cardiovascular Disease; PCP Family Medicine; Referring Provider Internal Medicine Cardiovascular Disease; Visit Provider Internal Medicine Cardiovascular Disease
DX: I65.23 Occlusion and stenosis of bilateral carotid arteries (principal); R07.89 Other chest pain; I70.0 Atherosclerosis of aorta; I10 Essential (primary) hypertension; I25.10 Atherosclerotic heart disease of native coronary artery without angina pectoris; E78.5 Hyperlipidemia, unspecified; R06.09 Other forms of dyspnea; R09.89 Other specified symptoms and signs involving the circulatory and respiratory systems; Z95.5 Presence of coronary angioplasty implant and graft
CPT/HCPCS: 78452; 93017; 93306; 93880; A9502; J2785

== ENCOUNTER → 2023-05-25 07:43 | Outpatient (CLI) | payer OTHER, SELFPAY ==
[2022-05-07 15:02] VITALS: BMI 25.8
[2023-05-25 13:13] LABS: Cholesterol 103 mg/dL (140-199); HDL Cholesterol 41 mg/dL (40-60); LDL Cholesterol Calculated 39 mg/dL (<100); Triglycerides 116 mg/dL (35-150)
== END ==
PROVIDERS: Family Provider Internal Medicine Cardiovascular Disease; PCP Family Medicine; Referring Provider Internal Medicine Cardiovascular Disease; Visit Provider Internal Medicine Cardiovascular Disease
DX: E78.5 Hyperlipidemia, unspecified (principal)
CPT/HCPCS: 36415; 80061

== ENCOUNTER 2023-09-30 08:15 | Inpatient (IN) | payer OTHER, SELFPAY ==
[2022-05-07 15:02] VITALS: BMI 25.8
[2023-09-30] VITALS (44 sets, daily range): BP systolic 92–142; BP diastolic 50–75; PULSE 70–90; RESP 17–34; TEMP 36.7–38.9; O2SAT 90–97; BMI 30.1; BMI 29.6
--- NOTE | 2023-09-30 08:21 | DI.CT.S_ITS ---
PROCEDURE: CT CHEST ABD PEL W CON INDICATIONS: Sepsis TECHNIQUE: After the administration of intravenous contrast, 5 mm thick sections acquired from the lung apices to the symphysis. 5 mm coronal and sagittal reformats were performed, with additional 7 mm MIP reformats through the lungs. For radiation dose reduction, the following was used: automated exposure control, adjustment of mA and/or kV according to patient size. COMPARISON: CT, CT CHEST W CON, 05/08/2022, 16:11. FINDINGS: Image quality: Excellent. CHEST: Lower Neck: No enlarged lymph nodes. Thyroid: No thyroid nodules which require sonographic follow up, per consensus guidelines. Axillae: No enlarged lymph nodes. Chest Wall: Unremarkable. Lungs and Pleura: No pneumothorax or pleural effusions. Right upper lobe infiltrate and consolidation consistent with pneumonia. Heart: Heart size is normal. No pericardial effusion. Severe coronary artery calcification. Thoracic Vessels: The aorta and pulmonary arteries demonstrate normal size. Mediastinum and Liya: No enlarged lymph nodes. Esophagus: No wall thickening. Small hiatal hernia. ABDOMEN: Liver: No solid mass. Gallbladder: No radiopaque gallstones or wall thickening. Biliary ducts: No biliary dilation. Pancreas: No ductal dilation. Spleen: Size is within normal limits. Adrenal Glands: No adrenal nodules. Kidneys and Ureters: No hydronephrosis. No solid mass. No complex renal cystic lesion which requires follow up. Stomach and Bowel: Normal bowel caliber, without significant wall thickening. There is a large amount of stool in colon and rectum. Peritoneum: No abnormal intraperitoneal fluid. No free air. Ventral Wall: No significant ventral hernia. Abdominal Nodes: No retroperitoneal or mesenteric adenopathy by size criteria. Vessels: Aorta and inferior vena cava are normal in size. Moderate atherosclerotic calcifications. PELVIS: Pelvic Organs: Unremarkable. Bladder: No bladder wall thickening, accounting for underdistention. Pelvic Nodes: No enlarged lymph nodes. Miscellaneous: No inguinal hernias are seen. Bones: No aggressive osseous abnormality. IMPRESSION: 1. Right upper lobe pneumonia. 2. Severe coronary artery calcifications consistent with severe coronary atherosclerosis. 3. A large amount of stool in colon and rectum. Dictated by: Norberto Galvez M.D. on 09/30/2023 at 9:24 Approved by: Norberto Galvez M.D. on 09/30/2023 at 9:27
--- NOTE | 2023-09-30 08:24 | ED_ITS ---
HPI - Syncope General Chief Complaint: Weakness Stated Complaint: weakness/cp/sob/fever Time Seen by Provider: 09/30/23 08:21 History of Present Illness HPI narrative: Patient brought in by ambulance from home. Blood sugar 150. Patient is awake alert oriented x4 at this time. Denies any pain or injury after syncopal episode when he walked to the bathroom this morning. had reported he has been sick in the past week or 2. Has had cough cold congestion fever chills. Has had off and on chest pain. Pain is right side chest and radiates epigastric area. Patient denies any chest pain at this time. Did have vomiting episode on EMS arrival. Patient states has chills and is shaking at this time. Warm blankets provided. Denies hitting his head. No pain from the syncopal episode. Was going to the bathroom to have a bowel movement Related Data Home Medications Medication Instructions Recorded Confirmed aspirin 81 mg tablet,delayed 81 mg PO DAILY #60 tabs 04/20/16 09/30/23 release lisinopril 10 mg tablet 5 mg PO DAILY ##0 04/07/17 09/30/23 esomeprazole magnesium 20 mg 20 mg PO DAILY 02/19/20 09/30/23 capsule,delayed release (Nexium 24HR) metoprolol tartrate 50 mg tablet 50 mg PO BID 09/08/20 09/30/23 bupropion HCl 150 mg 24 hr tablet, 300 mg PO DAILY 09/30/23 09/30/23 extended release (Wellbutrin XL) nitroglycerin 0.4 mg sublingual 0.4 mg sublingual PRN PRN Chest 09/30/23 09/30/23 tablet Pain Previous Rx's Medication Instructions Recorded Disabled Parking Placard #1 ea 11/13/18 rosuvastatin 20 mg tablet (Crestor) 20 mg PO QPM #90 tabs 03/31/20 escitalopram oxalate 20 mg tablet 20 mg PO DAILY #90 tabs 06/01/21 amlodipine 5 mg tablet (Norvasc) 10 mg (2 x 5 mg) PO DAILY #30 tabs 10/07/23 cefuroxime axetil 250 mg tablet 500 mg (2 x 250 mg) PO BID #14 tabs 10/07/23 doxycycline hyclate 100 mg tablet 100 mg PO BID #14 tabs 10/07/23 furosemide 20 mg tablet 20 mg PO DAILY #7 tabs 10/07/23 prednisone 20 mg tablet 20 mg PO DAILY #15 tabs 10/07/23 Allergies Allergy/AdvReac Type Severity Reaction Status Date / Time hydrocodone AdvReac Intermediate WEAKNESS, Verified 05/07/22 07:21 SYNCOPE codeine AdvReac Mild NAUSEA Verified 05/07/22 07:21 Review of Systems Review of Systems Narrative: GENERAL: Positive chills, fatigue, malaise, fever, sweats. HEENT: negative sinus pain, ear pain, sore throat RESPIRATORY: negative dyspnea, positive cough CARDIOVASCULAR: negative chest pain, palpitations GASTROINTESTINAL: Positive nausea, vomiting, negative abdominal pain : negative dysuria, frequency, hematuria MUSCULOSKELETAL: negative muscle or bony pain SKIN: negative rash, skin lesions NEUROLOGIC: negative weakness, numbness ROS Unobtainable: All systems reviewed & are unremarkable except as noted in HPI and below Patient History Medical History Vision disorder Gout Chronic cough Restless leg syndrome Mixed hyperlipidemia COPD (chronic obstructive pulmonary disease) Varicose veins of both lower extremities Sleep apnea Snoring Essential hypertension Mixed anxiety depressive disorder (01/18/17) Coronary artery disease (~2008) Gastroesophageal reflux disease Surgical History History of angioplasty Family History Father Stroke History of heart disease Hypertension Hyperlipidemia Mother Cancer Brother History of heart attack History of heart disease Sister Mental health problem Social History household members: spouse Smoking Status: Former smoker Tobacco: How many years used: 40 second hand exposure: No alcohol intake: never substance use type: does not use Smoking Status: Former smoker Substance Use Type: does not use Exam Narrative Exam Narrative: GENERAL: in no distress, not toxic not dyspneic HEAD: Normocephalic. EYES: Pupils equal round ENT: Mucous membranes dry, dry lips NECK: Trachea midline. CARDIOVASCULAR: Regular rate and rhythm RESPIRATORY: Clear to auscultation. Breath sounds equal bilaterally. No wheezes, rales, or rhonchi. GASTROINTESTINAL: Abdomen soft, non-tender EXTREMITIES: No gross deformities. Nontender bilateral shoulders elbows wrists pelvis hips knees and ankles BACK: No flank tenderness. No midline tenderness or step-off of the cervical thoracic or lumbar spine NEURO: AOx4. Clear speech SKIN: Warm and dry PSYCH: Not anxious, is cooperative Initial Vital Signs Initial Vital Signs: Vital Signs Pulse Rate 81 09/30/23 08:18 Blood Pressure 142/75 H 09/30/23 08:18 Pulse Oximetry 90 L 09/30/23 08:18 Course Orders Ordered: Discontinued Medications Acetaminophen (Acetaminophen 325 Mg Tablet) 975 mg PO NOW ONE Stop: 09/30/23 10:41 Last Admin: 09/30/23 10:50 Dose: 975 mg Documented By: ARACELI Acetaminophen (Acetaminophen 325 Mg Tablet) 650 mg PO Q6HR PRN PRN Reason: Fever/Mild Pain (1-3) Last Admin: 10/06/23 20:29 Dose: 650 mg Documented By: Admin: 10/06/23 05:24 Dose: 650 mg Documented By: Admin: 10/05/23 13:32 Dose: 650 mg Documented By: (2) Admin: 10/04/23 04:00 Dose: 650 mg Documented By: Admin: 10/03/23 20:39 Dose: 650 mg Documented By: Admin: 10/03/23 12:50 Dose: 650 mg Documented By: Admin: 10/03/23 05:28 Dose: 650 mg Documented By: Admin: 10/02/23 19:42 Dose: 650 mg Documented By: Admin: 10/01/23 17:18 Dose: 325 mg Documented By: Admin: 10/01/23 05:30 Dose: 650 mg Documented By: RAGINI Hydrocodone Bitart/Acetaminophen (Hydrocodone/Acet 5/325 Tablet) 1 tab PO Q4H PRN PRN Reason: Pain, Moderate (4-6) Last Admin: 09/30/23 19:24 Dose: 1 tab Documented By: RAGINI Albuterol (Albuterol 2.5 Mg/3 Ml Neb (Adult)) 2.5 mg INH NOW ONE Stop: 10/01/23 20:24 Last Admin: 10/01/23 20:39 Dose: 2.5 mg Documented By: Albuterol (Albuterol 2.5 Mg/3 Ml Neb (Adult)) 2.5 mg INH [id number] PRN PRN Reason: Shortness Of Breath Or Wheezing Last Admin: 10/04/23 04:23 Dose: 2.5 mg Documented By: MANISH Albuterol/Ipratropium (Albuterol/Ipratropium 3 Ml Ampul) 3 ml INH NOW ONE Stop: 09/30/23 09:14 Last Admin: 09/30/23 09:17 Dose: 3 ml Documented By: OLGA Amlodipine Besylate (Amlodipine 5 Mg Tablet) 5 mg PO DAILY [facility] Last Admin: 10/05/23 08:51 Dose: 5 mg Documented By: Admin: 10/04/23 08:51 Dose: 5 mg Documented By: Admin: 10/03/23 09:10 Dose: 5 mg Documented By: Admin: 10/02/23 09:36 Dose: 5 mg Documented By: Admin: 10/01/23 10:44 Dose: Not Given Documented By: SUHAS Amlodipine Besylate (Amlodipine 5 Mg Tablet) 10 mg PO DAILY [facility] Last Admin: 10/07/23 08:41 Dose: 10 mg Documented By: Admin: 10/06/23 08:42 Dose: Not Given Documented By: MS(2) Admin: 10/06/23 08:36 Dose: 10 mg Documented By: MS(2) Aspirin (Aspirin Ec 81 Mg Tablet) 81 mg PO DAILY [facility] Last Admin: 10/07/23 08:42 Dose: 81 mg Documented By: Admin: 10/06/23 08:36 Dose: 81 mg Documented By: MS(2) Admin: 10/05/23 08:50 Dose: 81 mg Documented By: Admin: 10/04/23 08:49 Dose: 81 mg Documented By: Admin: 10/03/23 09:10 Dose: 81 mg Documented By: Admin: 10/02/23 09:36 Dose: 81 mg Documented By: Admin: 10/01/23 10:42 Dose: 81 mg Documented By: SUHAS Atorvastatin Calcium (Atorvastatin 20 Mg Tablet) 40 mg PO BEDTIME [facility] Last Admin: 10/06/23 20:07 Dose: 40 mg Documented By: Admin: 10/05/23 20:10 Dose: 40 mg Documented By: Admin: 10/04/23 20:51 Dose: 40 mg Documented By: Admin: 10/03/23 20:40 Dose: 40 mg Documented By: Admin: 10/02/23 21:02 Dose: 40 mg Documented By: Admin: 10/01/23 21:14 Dose: 40 mg Documented By: Admin: 09/30/23 20:23 Dose: 40 mg Documented By: RAGINI Bupropion HCl (Bupropion Xl 150 Mg Tab) 300 mg PO DAILY [facility] Last Admin: 10/07/23 08:42 Dose: 300 mg Documented By: Admin: 10/06/23 08:35 Dose: 300 mg Documented By: MS(2) Admin: 10/05/23 08:51 Dose: 300 mg Documented By: Admin: 10/04/23 08:48 Dose: 300 mg Documented By: Admin: 10/03/23 09:10 Dose: 300 mg Documented By: Admin: 10/02/23 09:38 Dose: 300 mg Documented By: Admin: 10/01/23 10:42 Dose: 300 mg Documented By: SUHAS Cefuroxime Axetil (Cefuroxime 250 Mg Tablet) 500 mg PO BID [facility] Last Admin: 10/07/23 08:40 Dose: 500 mg Documented By: Admin: 10/06/23 20:07 Dose: 500 mg Documented By: Admin: 10/06/23 08:35 Dose: 500 mg Documented By: MS(2) Docusate Sodium (Docusate 100 Mg Capsule) 100 mg PO BID [facility] Last Admin: 10/07/23 08:42 Dose: Not Given Documented By: Admin: 10/06/23 20:07 Dose: 100 mg Documented By: Admin: 10/06/23 08:39 Dose: Not Given Documented By: MS(2) Admin: 10/05/23 20:10 Dose: 100 mg Documented By: Admin: 10/05/23 08:50 Dose: 100 mg Documented By: Admin: 10/04/23 20:51 Dose: 100 mg Documented By: Admin: 10/04/23 08:49 Dose: 100 mg Documented By: Admin: 10/03/23 20:38 Dose: 100 mg Documented By: Admin: 10/03/23 09:11 Dose: 100 mg Documented By: Admin: 10/02/23 21:02 Dose: 100 mg Documented By: Admin: 10/02/23 09:35 Dose: 100 mg Documented By: Admin: 10/01/23 21:14 Dose: 100 mg Documented By: Admin: 10/01/23 10:42 Dose: 100 mg Documented By: Admin: 09/30/23 20:23 Dose: 100 mg Documented By: RAGINI Doxycycline Hyclate (Doxycycline Hyclate 100 Mg Tablet) 100 mg PO BID [facility] Last Admin: 10/07/23 08:42 Dose: 100 mg Documented By: Admin: 10/06/23 20:07 Dose: 100 mg Documented By: Admin: 10/06/23 08:36 Dose: 100 mg Documented By: MS(2) Enoxaparin Sodium (Enoxaparin 40 Mg/0.4 Ml Syringe) 40 mg SUBCUT DAILY [facility] Last Admin: 10/07/23 08:40 Dose: 40 mg Documented By: Admin: 10/06/23 08:37 Dose: 40 mg Documented By: MS(2) Admin: 10/05/23 08:50 Dose: 40 mg Documented By: Admin: 10/04/23 08:48 Dose: 40 mg Documented By: Admin: 10/03/23 09:11 Dose: 40 mg Documented By: Admin: 10/02/23 09:36 Dose: 40 mg Documented By: Admin: 10/01/23 10:42 Dose: 40 mg Documented By: SUHAS Escitalopram Oxalate (Escitalopram 10 Mg Tablet) 20 mg PO DAILY [facility] Last Admin: 10/07/23 08:41 Dose: 20 mg Documented By: Admin: 10/06/23 08:36 Dose: 20 mg Documented By: MS(2) Admin: 10/05/23 08:50 Dose: 20 mg Documented By: Admin: 10/04/23 08:49 Dose: 20 mg Documented By: Admin: 10/03/23 09:11 Dose: 20 mg Documented By: Admin: 10/02/23 09:38 Dose: 20 mg Documented By: Admin: 10/01/23 10:47 Dose: 20 mg Documented By: SUHAS Furosemide (Furosemide 20 Mg/2 Ml Vial) 20 mg IV NOW ONE Stop: 10/04/23 04:41 Last Admin: 10/04/23 04:54 Dose: 20 mg Documented By: BRANDEE Furosemide (Furosemide 20 Mg/2 Ml Vial) 20 mg IV BID [facility] Last Admin: 10/05/23 20:10 Dose: 20 mg Documented By: Admin: 10/05/23 08:51 Dose: 20 mg Documented By: Admin: 10/04/23 20:51 Dose: 20 mg Documented By: Furosemide (Furosemide 20 Mg Tablet) 20 mg PO DAILY [facility] Last Admin: 10/07/23 08:42 Dose: 20 mg Documented By: Admin: 10/06/23 08:36 Dose: 20 mg Documented By: (2) Hydralazine HCl (Hydralazine 20 Mg/Ml Vial) 10 mg IV Q6HR PRN PRN Reason: Hypertension SBP >180 Hydroxyzine HCl (Hydroxyzine Hcl 25 Mg Tablet) 25 mg PO BEDTIME PRN PRN Reason: Insomnia Last Admin: 10/01/23 03:39 Dose: 25 mg Documented By: RAGINI Hydroxyzine HCl (Hydroxyzine Syrup 10 Mg/5 Ml Solution) 50 mg PO BEDTIME [facility] Last Admin: 10/01/23 21:19 Dose: Not Given Documented By: RAGINI Hydroxyzine HCl (Hydroxyzine Hcl 25 Mg Tablet) 50 mg PO BEDTIME PRN PRN Reason: Insomnia Last Admin: 10/04/23 20:51 Dose: 50 mg Documented By: Sodium Chloride (Normal Saline 0.9%) 1,000 mls @ 1,000 mls/hr IV BOLUS ONE Stop: 09/30/23 09:20 Last Infusion: 09/30/23 09:55 Dose: Infused Documented By: Admin: 09/30/23 08:53 Dose: 1,000 mls/hr Documented By: OLGA Sodium Chloride (Normal Saline 0.9%) 1,000 mls @ 1,000 mls/hr IV BOLUS ONE Stop: 09/30/23 10:14 Last Infusion: 09/30/23 12:10 Dose: Infused Documented By: Admin: 09/30/23 10:09 Dose: 1,000 mls/hr Documented By: SPF Ceftriaxone Sodium 2,000 mg/ (Sodium Chloride) 100 mls @ 200 mls/hr IV NOW ONE Stop: 09/30/23 09:47 Last Infusion: 09/30/23 10:50 Dose: Infused Documented By: Admin: 09/30/23 10:16 Dose: 200 mls/hr Documented By: SPF Azithromycin 500 mg/ Dextrose 250 mls @ 250 mls/hr IV NOW ONE Stop: 09/30/23 09:47 Last Infusion: 09/30/23 12:10 Dose: Infused Documented By: Admin: 09/30/23 10:50 Dose: 250 mls/hr Documented By: CTS Sodium Chloride (Normal Saline 0.9%) 1,000 mls @ 84 mls/hr IV CONT SAILAJA Last Admin: 10/03/23 23:52 Dose: 84 mls/hr Documented By: Infusion: 10/03/23 18:52 Dose: Infused Documented By: Admin: 10/03/23 06:57 Dose: 84 mls/hr Documented By: Infusion: 10/03/23 06:57 Dose: Infused Documented By: Admin: 10/02/23 23:26 Dose: 84 mls/hr Documented By: Infusion: 10/02/23 21:35 Dose: Infused Documented By: Admin: 10/02/23 09:40 Dose: 84 mls/hr Documented By: Infusion: 10/02/23 05:13 Dose: Infused Documented By: Admin: 10/01/23 17:18 Dose: 84 mls/hr Documented By: Infusion: 10/01/23 17:18 Dose: Infused Documented By: Admin: 10/01/23 05:30 Dose: 84 mls/hr Documented By: Infusion: 10/01/23 05:30 Dose: Infused Documented By: Admin: 09/30/23 18:40 Dose: 84 mls/hr Documented By: CLL Ceftriaxone Sodium 1,000 mg/ (Sodium Chloride) 100 mls @ 200 mls/hr IV Q24H SAILAJA Stop: 10/04/23 13:59 Last Admin: 10/04/23 15:35 Dose: 200 mls/hr Documented By: Infusion: 10/03/23 13:21 Dose: Infused Documented By: Admin: 10/03/23 12:51 Dose: 200 mls/hr Documented By: Infusion: 10/02/23 23:03 Dose: Infused Documented By: Admin: 10/02/23 13:25 Dose: 200 mls/hr Documented By: Infusion: 10/01/23 16:49 Dose: Infused Documented By: Admin: 10/01/23 16:19 Dose: 200 mls/hr Documented By: SUHAS Azithromycin 500 mg/ Dextrose 250 mls @ 250 mls/hr IV Q24H [facility] Stop: 10/02/23 14:29 Last Admin: 10/02/23 14:10 Dose: 250 mls/hr Documented By: Infusion: 10/01/23 18:04 Dose: Infused Documented By: Admin: 10/01/23 17:04 Dose: 250 mls/hr Documented By: SUHAS Doxycycline Hyclate 100 mg/ (Sodium Chloride) 100 mls @ 100 mls/hr IV Q12H [facility] Last Infusion: 10/05/23 21:10 Dose: Infused Documented By: Admin: 10/05/23 20:09 Dose: 100 mls/hr Documented By: Infusion: 10/05/23 12:19 Dose: Infused Documented By: Admin: 10/05/23 08:49 Dose: 100 mls/hr Documented By: Infusion: 10/04/23 21:50 Dose: Infused Documented By: Admin: 10/04/23 20:50 Dose: 100 mls/hr Documented By: Infusion: 10/04/23 09:45 Dose: Infused Documented By: Admin: 10/04/23 08:42 Dose: 100 mls/hr Documented By: Infusion: 10/03/23 22:36 Dose: Infused Documented By: Admin: 10/03/23 21:15 Dose: 100 mls/hr Documented By: Infusion: 10/03/23 10:20 Dose: Infused Documented By: Admin: 10/03/23 09:17 Dose: 100 mls/hr Documented By: LDV Lidocaine HCl (Lidocaine 2% (Glydo) 6 Ml Gel) 6 ml TOP NOW ONE Stop: 09/30/23 09:46 Last Admin: 09/30/23 10:09 Dose: 6 ml Documented By: SPF Lisinopril (Lisinopril 10 Mg Tablet) 5 mg PO DAILY [facility] Last Admin: 10/07/23 08:41 Dose: 5 mg Documented By: Admin: 10/06/23 08:36 Dose: 5 mg Documented By: MS(2) Admin: 10/05/23 08:50 Dose: 5 mg Documented By: Admin: 10/04/23 08:51 Dose: 5 mg Documented By: Admin: 10/03/23 09:11 Dose: 5 mg Documented By: Admin: 10/02/23 09:36 Dose: 5 mg Documented By: Admin: 10/01/23 10:43 Dose: Not Given Documented By: CEW Melatonin (Melatonin 3 Mg Tablet) 3 mg PO BEDTIME PRN PRN Reason: insomnia Last Admin: 10/01/23 00:07 Dose: 3 mg Documented By: AMH Melatonin (Melatonin 3 Mg Tablet) 9 mg PO BEDTIME PRN PRN Reason: insomnia Last Admin: 10/02/23 21:02 Dose: 9 mg Documented By: Admin: 10/01/23 21:16 Dose: 9 mg Documented By: AMH Methylprednisolone (Methylprednisolone 40 Mg/Ml Vial) 60 mg IV Q6H [facility] Last Admin: 10/06/23 05:23 Dose: 60 mg Documented By: Admin: 10/05/23 23:00 Dose: 60 mg Documented By: Admin: 10/05/23 17:15 Dose: 60 mg Documented By: Admin: 10/05/23 12:19 Dose: 60 mg Documented By: Admin: 10/05/23 04:30 Dose: 60 mg Documented By: Admin: 10/04/23 22:21 Dose: 60 mg Documented By: Admin: 10/04/23 16:52 Dose: 60 mg Documented By: Admin: 10/04/23 11:21 Dose: 60 mg Documented By: Admin: 10/04/23 05:08 Dose: 60 mg Documented By: BRANDEE Metoprolol Tartrate (Metoprolol Ir 50 Mg Tablet) 50 mg PO BID [facility] Last Admin: 10/07/23 08:41 Dose: 50 mg Documented By: Admin: 10/06/23 20:07 Dose: 50 mg Documented By: Admin: 10/06/23 08:35 Dose: 50 mg Documented By: (2) Admin: 10/05/23 20:10 Dose: 50 mg Documented By: Admin: 10/05/23 08:51 Dose: 50 mg Documented By: Admin: 10/04/23 20:51 Dose: 50 mg Documented By: Admin: 10/04/23 08:51 Dose: 50 mg Documented By: Admin: 10/03/23 20:40 Dose: 50 mg Documented By: Admin: 10/03/23 09:11 Dose: 50 mg Documented By: Admin: 10/02/23 21:02 Dose: 50 mg Documented By: Admin: 10/02/23 09:36 Dose: 50 mg Documented By: Admin: 10/01/23 21:15 Dose: Not Given Documented By: Admin: 10/01/23 10:43 Dose: Not Given Documented By: Admin: 09/30/23 20:23 Dose: 50 mg Documented By: RAGINI Morphine Sulfate (Morphine 2 Mg/Ml Inj) 2 mg IV Q4HR PRN PRN Reason: Pain, Severe (7-10) Last Admin: 10/04/23 04:55 Dose: 2 mg Documented By: BRANDEE Naloxone HCl (Naloxone 0.4 Mg/Ml Vial) 0.2 mg IV Q2MIN PRN PRN Reason: Opiate Reversal Nitroglycerin (Nitroglycerin 0.4 Mg Sl Tab) 0.4 mg SL PRN PRN PRN Reason: Chest Pain Ondansetron HCl (Ondansetron 4 Mg/2 Ml Inj) 4 mg IV Q8HR PRN PRN Reason: Nausea And Vomiting Last Admin: 10/03/23 18:08 Dose: 4 mg Documented By: HENRI Ondansetron HCl (Ondansetron 4 Mg Odt) 4 mg PO Q8HR PRN PRN Reason: Nausea And Vomiting Last Admin: 10/03/23 19:51 Dose: 4 mg Documented By: BRANDEE Oxycodone/Acetaminophen (Oxycodone/Acetaminophen 5/325 Tablet) 1 tab PO Q4HR PRN PRN Reason: Fever/Mild Pain (1-3) Last Admin: 10/03/23 20:39 Dose: 1 tab Documented By: Admin: 10/02/23 13:24 Dose: 1 tab Documented By: Admin: 10/02/23 09:47 Dose: 1 tab Documented By: Admin: 10/01/23 16:35 Dose: 1 tab Documented By: Admin: 10/01/23 10:47 Dose: 1 tab Documented By: SUHAS Pantoprazole Sodium (Pantoprazole Dr 20 Mg Tablet) 20 mg PO 0600 SAILAJA Last Admin: 10/07/23 06:10 Dose: 20 mg Documented By: Admin: 10/06/23 05:23 Dose: 20 mg Documented By: Admin: 10/05/23 04:30 Dose: 20 mg Documented By: Admin: 10/04/23 06:43 Dose: 20 mg Documented By: Admin: 10/03/23 05:24 Dose: 20 mg Documented By: Admin: 10/02/23 06:08 Dose: 20 mg Documented By: Admin: 10/01/23 05:28 Dose: 20 mg Documented By: RAGINI Potassium Chloride (Potassium Chloride 20 Meq Tab) 40 meq PO NOW ONE Stop: 10/05/23 10:31 Last Admin: 10/05/23 12:19 Dose: 40 meq Documented By: RAY Potassium Chloride (Potassium Chloride 20 Meq Tab) 40 meq PO NOW ONE Stop: 10/07/23 10:46 Last Admin: 10/07/23 10:43 Dose: 40 meq Documented By: RAY Prednisone (Prednisone 20 Mg Tablet) 40 mg PO NOW ONE Stop: 10/06/23 08:15 Last Admin: 10/06/23 08:38 Dose: 40 mg Documented By: MS(2) Sodium Chloride (Sodium Chloride 0.9% Flush) 10 ml IV BID SAILAJA Last Admin: 10/07/23 08:42 Dose: 10 ml Documented By: Admin: 10/06/23 20:08 Dose: 10 ml Documented By: Admin: 10/06/23 09:11 Dose: 10 ml Documented By: MS(2) Admin: 10/05/23 20:10 Dose: 10 ml Documented By: Admin: 10/05/23 08:52 Dose: 10 ml Documented By: Admin: 10/04/23 20:52 Dose: 10 ml Documented By: Admin: 10/04/23 16:53 Dose: 10 ml Documented By: Admin: 10/04/23 11:23 Dose: 10 ml Documented By: Admin: 10/04/23 08:43 Dose: 10 ml Documented By: Admin: 10/03/23 20:55 Dose: Not Given Documented By: Admin: 10/03/23 09:11 Dose: Not Given Documented By: Admin: 10/02/23 23:02 Dose: 10 ml Documented By: Admin: 10/02/23 09:38 Dose: Not Given Documented By: Admin: 10/01/23 21:15 Dose: Not Given Documented By: Admin: 10/01/23 10:44 Dose: 10 ml Documented By: Admin: 09/30/23 20:27 Dose: 10 ml Documented By: RAGINI Zolpidem Tartrate (Zolpidem 5 Mg Tablet) 5 mg PO BEDTIME PRN PRN Reason: Sleep Last Admin: 10/04/23 20:51 Dose: 5 mg Documented By: Vital Signs Vital signs: Vital Signs - 8 hr 09/30/23 08:18 09/30/23 08:18 09/30/23 08:33 Temperature 98.4 F Pulse Rate 81 78 Respiratory Rate 28 H Blood Pressure 142/75 H 142/75 H Pulse Oximetry 90 L 92 Oxygen Delivery Method Room Air Oxygen Flow Rate 09/30/23 08:53 09/30/23 08:56 09/30/23 08:56 Temperature Pulse Rate 74 75 Respiratory Rate 27 H Blood Pressure 124/57 L Pulse Oximetry 93 Oxygen Delivery Method Oxygen Flow Rate 09/30/23 09:00 09/30/23 09:00 09/30/23 09:10 Temperature Pulse Rate 75 77 Respiratory Rate 30 H 24 Blood Pressure 118/58 L Pulse Oximetry 90 L 93 Oxygen Delivery Method Nasal Cannula Oxygen Flow Rate 2 09/30/23 09:10 09/30/23 09:16 09/30/23 09:20 Temperature Pulse Rate 78 78 77 Respiratory Rate 18 17 Blood Pressure Pulse Oximetry 94 95 94 Oxygen Delivery Method Nasal Cannula Nasal Cannula Oxygen Flow Rate 2 2 09/30/23 09:30 09/30/23 09:30 09/30/23 09:40 Temperature Pulse Rate 78 80 Respiratory Rate 25 H 25 H Blood Pressure 114/73 Pulse Oximetry 92 93 Oxygen Delivery Method Nasal Cannula Oxygen Flow Rate 2 09/30/23 09:50 09/30/23 10:00 09/30/23 10:00 Temperature Pulse Rate 83 82 Respiratory Rate 24 25 H Blood Pressure 118/56 L Pulse Oximetry 93 94 Oxygen Delivery Method Oxygen Flow Rate MDM - Syncope Lab Data 10/07/23 09:35 10/07/23 09:35 Labs: Lab Results 09/30/23 09/30/23 Range/Units 08:28 10:00 WBC 19.2 H (4.5-11.0) X10^3/uL RBC 4.07 L (4.5-5.9) X10^6/uL Hgb 11.6 L (13.5-17.5) g/dL Hct 35.1 L (41-53) % MCV 86.2 (80-100) fL MCH 28.6 (26-34) PG MCHC 33.1 (30-36) % RDW 13.4 (11.6-14.8) % Plt Count 303 (150-400) X10^3/uL Neut % (Auto) 86.2 H (50-75) % Lymph % (Auto) 7.2 L (25-40) % [place] % (Auto) 5.7 (3-14) % Eos % (Auto) 0.6 L (2-4) % Baso % (Auto) 0.3 (0-2) % Neut # (Auto) 48187 H (2451-7293) /uL Lymph # (Auto) 1400 (2321-5502) /uL [place] # (Auto) 1100 H (0-900) /uL Eos # (Auto) 100 (0-450) /uL Baso # (Auto) 100 (0-100) /uL Sodium 143 (137-145) mmol/L Potassium 5.0 (3.4-5.1) mmol/L Chloride 106 (98-107) mmol/L Carbon Dioxide 24 (22-32) mmol/L BUN 33 H (9-20) mg/dL Creatinine 1.85 H (0.66-1.25) mg/dL Estimated GFR 39 L (>60) mL/min BUN/Creatinine Ratio 17.8 (6-22) Glucose 136 H (80-110) mg/dL Lactate 4.3 H* (0.7-2.1) mmol/L Calcium 9.3 (8.4-10.2) mg/dL Total Bilirubin 0.9 (0.2-1.3) mg/dL AST 35 (17-59) IU/L ALT 28 (<50) IU/L Alkaline Phosphatase 75 (38-126) U/L Total Creatine Kinase 111 (55-170) U/L Troponin I < 0.012 (0.01-0.034) ng/mL Total Protein 7.7 (6.3-8.2) g/dL Albumin 4.3 (3.5-5.0) g/dL Globulin 3.4 (1.7-4.1) g/dL Albumin/Globulin Ratio 1.3 (1.0-2.8) Procalcitonin 0.09 (<0.5) ng/mL Urine Color Yellow Urine Appearance Clear Urine pH 6.0 (4.5-8.0) Ur Specific [place] 1.020 (1.000-1.035) Urine Protein Negative (Negative) Urine Glucose (UA) Negative (Negative) g/dL Urine Ketones Negative (NEGATIVE) Urine Occult Blood 3+ H (Negative) Urine Nitrate Negative (Negative) Urine Bilirubin Negative (NEGATIVE) Urine Urobilinogen 1.0 (0.2) E.U./dL Ur Leukocyte Esterase Negative (NEGATIVE) Urine RBC 10-30/hpf H (0-5/HPF) Urine WBC None seen (0-5/HPF) Ur Squamous Epith Cells 1-5 /hpf (0-5/HPF) Urine Bacteria None seen (None) Ur Culture Indicated? Cult not indicated Vol Urine Centrifuged 10ml (spun) A.calcoaceticus-baumannii cmplx PCR Not detected (Not Detect) Chlamy pneumoniae PCR Not detected (Not Detect) Adenovirus (PCR) Not detected (Not Detect) Bacteroides fragilis Not detected (Not Detect) B.parapertussis DNA PCR Not detected (Not Detecte) Layla albicans (PCR) Not detected (Not Detect) Layla auris (PCR) Not detected (Not Detect) C. glabrata (PCR) Not detected (Not Detect) C. krusei (PCR) Not detected (Not Detect) C. parapsilosis (PCR) Not detected (Not Detect) C. tropicalis (PCR) Not detected (Not Detect) Coronavirus OC43 (PCR) Not detected (Not Detect) Coronavirus HKU1 (PCR) Not detected (Not Detect) Coronavirus 229E (PCR) Not detected (Not Detect) SARS-CoV-2 (PCR) Not detected (Not Detecte) Coronavirus NL63 (PCR) Not detected (Not Detect) C. neoform/gattii (PCR) Not detected (Not Detect) Enterobacterales (PCR) Not detected (Not Detect) E. cloacae complex PCR Not detected (Not Detect) Enterococc faecalis PCR Not detected (Not Detect) Enterococc faecium PCR Not detected (Not Detect) E. coli (PCR) Not detected (Not Detect) H. influenzae (PCR) Not detected (Not Detect) Human Metapneumovir PCR Not detected (Not Detect) Influenza Type A (PCR) Not detected (Not Detect) Influenza Type B (PCR) Not detected (Not Detect) Klebsiella aerogenes (PCR) Not detected (Not Detect) Klebsiella oxytoca PCR Not detected (Not Detect) Klebsiella pneumoniae Not detected (Not Detect) List. monocytogenes PCR Not detected (Not Detect) M. pneumoniae (PCR) Not detected (Not Detect) N. meningitidis (PCR) Not detected (Not Detect) Parainfluenza 1 (PCR) Not detected (Not Detect) Parainfluenza 2 (PCR) Not detected (Not Detect) Parainfluenza 3 (PCR) Not detected (Not Detect) Parainfluenza 4 (PCR) Not detected (Not Detect) Proteus species (PCR) Not detected (Not Detect) RSV (PCR) Not detected (Not Detect) Entero/Rhino (PCR) Not detected (Not Detect) Salmonella spp. (PCR) Not detected (Not Detect) Serratia marcescens PCR Not detected (Not Detect) Staphylococcus sp PCR Detected (Not Detect) Staph aureus (PCR) Not detected (Not Detect) mecA/C & MREJ Resist Gene Not applicable (Not Detect) mecA/C-Methicil Resis Gene Detected (Not Detect) mcr-1 Colistin Res Gene PCR Not applicable (Not Detect) Staph epidermidis (PCR) Detected (Not Detect) Staph lugdunensis PCR Not detected (Not Detect) S. maltophilia (PCR) Not detected (Not Detect) Streptococcus sp PCR Not detected (Not Detect) Group A Strep (PCR) Not detected (Not Detect) Strep agalactiae (PCR) Not detected (Not Detect) Strep pneumoniae (PCR) Not detected (Not Detect) P. aeruginosa (PCR) Not detected (Not Detect) Karrie/B-Vanco Res Genes Not applicable (Not Detect) blaIMP Car res Gene PCR Not applicable (Not Detect) KPC-Carbap Res Gene PCR Not applicable (Not Detect) blaNDM Car Res Gene PCR Not applicable (Not Detect) OXA-48 Carbapenem Resis Gene (PCR) Not applicable (Not Detect) blaVIM Car Res Gene PCR Not applicable (Not Detect) CTX-M Gene Resistance (PCR) Not applicable (Not Detect) Imaging Data CT chest abdomen and pelvis: Radiologist's Impression: [address] [address] [address] Scan Report Signed Patient: Andrew Wall MR#: [id number] : 1955 Acct:[id number] Age/Sex: 68 / M Date of Service: 09/30/23 Loc: ED Accession Number: [id number] Procedure: CT chest abd pel w con Ordering Provider: Rolando Vera MD PROCEDURE: CT CHEST ABD PEL W CON INDICATIONS: Sepsis TECHNIQUE: After the administration of intravenous contrast, 5 mm thick sections acquired from the lung apices to the symphysis. 5 mm coronal and sagittal reformats were performed, with additional 7 mm MIP reformats through the lungs. For radiation dose reduction, the following was used: automated exposure control, adjustment of mA and/or kV according to patient size. COMPARISON: CT, CT CHEST W CON, 05/08/2022, 16:11. FINDINGS: Image quality: Excellent. CHEST: Lower Neck: No enlarged lymph nodes. Thyroid: No thyroid nodules which require sonographic follow up, per consensus guidelines. Axillae: No enlarged lymph nodes. Chest Wall: Unremarkable. Lungs and Pleura: No pneumothorax or pleural effusions. Right upper lobe infiltrate and consolidation consistent with pneumonia. Heart: Heart size is normal. No pericardial effusion. Severe coronary artery calcification. Thoracic Vessels: The aorta and pulmonary arteries demonstrate normal size. Mediastinum and Liya: No enlarged lymph nodes. Esophagus: No wall thickening. Small hiatal hernia. ABDOMEN: Liver: No solid mass. Gallbladder: No radiopaque gallstones or wall thickening. Biliary ducts: No biliary dilation. Pancreas: No ductal dilation. Spleen: Size is within normal limits. Adrenal Glands: No adrenal nodules. Kidneys and Ureters: No hydronephrosis. No solid mass. No complex renal cystic lesion which requires follow up. Stomach and Bowel: Normal bowel caliber, without significant wall thickening. There is a large amount of stool in colon and rectum. Peritoneum: No abnormal intraperitoneal fluid. No free air. Ventral Wall: No significant ventral hernia. Abdominal Nodes: No retroperitoneal or mesenteric adenopathy by size criteria. Vessels: Aorta and inferior vena cava are normal in size. Moderate atherosclerotic calcifications. PELVIS: Pelvic Organs: Unremarkable. Bladder: No bladder wall thickening, accounting for underdistention. Pelvic Nodes: No enlarged lymph nodes. Miscellaneous: No inguinal hernias are seen. Bones: No aggressive osseous abnormality. IMPRESSION: 1. Right upper lobe pneumonia. 2. Severe coronary artery calcifications consistent with severe coronary atherosclerosis. 3. A large amount of stool in colon and rectum. Dictated by: Norberto Galvez M.D. on 09/30/2023 at 9:24 Approved by: Norberto Galvez M.D. on 09/30/2023 at 9:27 [facility] Narrative Medical decision making narrative: Patient brought in by ambulance from home. Blood sugar 150. Patient is awake alert oriented x4 at this time. Denies any pain or injury after syncopal episode when he walked to the bathroom this morning. had reported he has been sick in the past week or 2. Has had cough cold congestion fever chills. Has had off and on chest pain. Pain is right side chest and radiates epigastric area. Patient denies any chest pain at this time. Did have vomiting episode on EMS arrival. Patient states has chills and is shaking at this time. Warm blankets provided. Denies hitting his head. No pain from the syncopal episode. Was going to the bathroom to have a bowel movement After history and exam CBC CMP lactic acid procalcitonin urinalysis blood culture CT chest abdomen pelvis normal saline respiratory panel EKG [facility] CC: Syncope/upper respiratory symptoms Complicating co-morbidities: COPD coronary artery disease Data collected from: Patient and EMS Medical records reviewed: No recent visit for this complaint Differential considered: Includes but not limited to pneumonia sepsis [place] pulmonary embolism Exam documented above, pertinent findings include: Dry mucous membranes, skin warm to touch Lab Test results independently reviewed as above. Pertinent findings: WBC 19.2 hemoglobin 11.6 sodium 143 potassium 5.0 BUN 33 creatinine 1.85 lactic acid 4.3 glucose 136 GFR 39 procalcitonin 0.09 troponin less than 0.012 respiratory panel negative Independently reviewed EKG normal sinus rhythm rate 76 artifact extensive due to patient's tremors/shaking. Imaging studies independently reviewed: CT chest abdomen pelvis shows right upper lobe infiltrate Consultations: 10:25 a.m.. Spoke with primary care, dr canales will admit Treatments: Normal saline 2 L, Rocephin Zithromax Re-evaluations: 10:30 a.m.. Spoke with patient and family at bedside. They do agree understand need for admission. Needs IV antibiotics and IV hydration Discussion: Appropriate for admission for possibly early sepsis with pneumonia. Antibiotics have been started. 2 L normal saline have been started. And given. Vital signs are reassuring. No hypotension or hypoxia. Diagnosis: Community-acquired pneumonia Discharge Plan Departure Patient Disposition: Admitted As Inpatient Clinical Impression: Community acquired pneumonia Qualifiers: Laterality: right Lung location: unspecified part of lung Qualified Code(s): J 18.9 - Pneumonia, unspecified organism Admit Date/Time: 09/30/23 10:23 Admit Provider: Noe Canales
[2023-09-30 08:42] LABS: Add Manual Diff / Slide Review NO; Basophils Absolute Auto 100 /uL (0-100); Basophils Percent Auto 0.3 % (0-2); Eosinophils Absolute Auto 100 /uL (0-450); Eosinophils Percent Auto 0.6 % (2-4); Hematocrit 35.1 % (41-53); Hemoglobin 11.6 g/dL (13.5-17.5); Lymphocytes Absolute Auto 1400 /uL (1100-4500); Lymphocytes Percent Auto 7.2 % (25-40); Mean Corpuscular HGB Conc 33.1 % (30-36); Mean Corpuscular Hemoglobin 28.6 PG (26-34); Mean Corpuscular Volume 86.2 fL (80-100); Monocytes Absolute Auto 1100 /uL (0-900); Monocytes Percent Auto 5.7 % (3-14); Neutrophils Absolute Auto 16600 /uL (1500-7000); Neutrophils Percent Auto 86.2 % (50-75); Platelet Count 303 X10^3/uL (150-400); Red Blood Cell Count 4.07 X10^6/uL (4.5-5.9); Red Cell Distribution Width 13.4 % (11.6-14.8); White Blood Cell Count 19.2 X10^3/uL (4.5-11.0)
[2023-09-30] MEDS: SODIUM CHLORIDE 0.9% 1,000 ML 1000 ML IV ×2 (08:53→10:09)
[2023-09-30 08:56] LABS: Alanine Aminotransferase 28 IU/L (<50); Albumin 4.3 g/dL (3.5-5.0); Albumin Globulin Ratio 1.3 (1.0-2.8); Alkaline Phosphatase 75 U/L (38-126); Aspartate Aminotransferase 35 IU/L (17-59); BUN Creatinine Ratio 17.8 (6-22); Bilirubin Total 0.9 mg/dL (0.2-1.3); Blood Urea Nitrogen 33 mg/dL (9-20); Calcium 9.3 mg/dL (8.4-10.2); Carbon Dioxide 24 mmol/L (22-32); Chloride 106 mmol/L (98-107); Creatine Kinase 111 U/L (55-170); Estimated Glomerular Filt Rate 39 mL/min (>60); Globulin 3.4 g/dL (1.7-4.1); Glucose 136 mg/dL (80-110); HEMOLYSIS 49 (0-50); Sodium 143 mmol/L (137-145); Total Protein 7.7 g/dL (6.3-8.2)
[2023-09-30 08:57] LABS: Lactate (Lactic Acid) 4.3 mmol/L (0.7-2.1)
[2023-09-30 09:07] LABS: Troponin I < 0.012 ng/mL (0.01-0.034)
[2023-09-30 09:12] LABS: Procalcitonin 0.09 ng/mL (<0.5)
[2023-09-30] MEDS: ALBUTEROL/IPRATROPIUM 3 ML AMPUL INH (09:17)
--- NOTE | 2023-09-30 09:20 | PC.NURSE ---
Pt reports weakness the past month, describing not being able to take his dog for daily walks around the block, having falls at home and cannot get up after. He denies chest pain currently and reports history of COPD, no oxygen use at home, and Francheska reports he hasnt used his CPAP machine in years. Pt on 2L NC now and reports always feeling SOB.
[2023-09-30 09:30] LABS: Adenovirus Not Detected (Not Detect); B. parapertussis Not Detected (Not Detecte); Bordetella pertussis Not Detected (Not Detect); Chlamydophila pneumoniae Not Detected (Not Detect); Coronavirus 229E Not Detected (Not Detect); Coronavirus HKU1 Not Detected (Not Detect); Coronavirus NL 63 Not Detected (Not Detect); Coronavirus OC43 Not Detected (Not Detect); Human Metapneumovirus Not Detected (Not Detect); Human Rhinovirus/Enterovirus Not Detected (Not Detect); Influenza A Not Detected (Not Detect); Influenza B Not Detected (Not Detect); Mycoplasma pneumoniae Not Detected (Not Detect); Parainfluenza Virus 1 Not Detected (Not Detect); Parainfluenza Virus 2 Not Detected (Not Detect); Parainfluenza Virus 3 Not Detected (Not Detect); Parainfluenza Virus 4 Not Detected (Not Detect); Respiratory Syncytial Virus Not Detected (Not Detect); SARS- CoV-2 Not Detected (Not Detecte)
--- NOTE | 2023-09-30 09:41 | RT ---
pt willem neb tx well, on 2 lpm nc and no distress noted
[2023-09-30] MEDS: LIDOCAINE 2% (GLYDO) 6 ML GEL TOP (10:09)
[2023-09-30 10:14] LABS: Reflexed Lactate in 2 Hours Y
[2023-09-30 10:15] LABS: Appearance Urine UA CLEAR; Bilirubin Urine UA NEGATIVE (NEGATIVE); Color Urine UA YELLOW; Glucose Urine UA NEGATIVE (Negative); Ketones Urine UA NEGATIVE (NEGATIVE); Leukocyte Esterase Urine UA NEGATIVE (NEGATIVE); Nitrite Urine UA NEGATIVE (Negative); Occult Blood Urine UA 3+ (Negative); Protein Urine UA NEGATIVE (Negative)
[2023-09-30] MEDS: cefTRIAXone 2,000 MG in SODIUM CHLORIDE 0.9% 100 ML 200 MG IV (10:16)
[2023-09-30 10:21] LABS: Bacteria Urine None Seen; Culture Indicated Urine Cult Not Indicated; RBC Urine 10-30/HPF (0-5/HPF); Squamous Epithelial Cell Urine 1-5 /HPF (0-5/HPF); Urine Volume 10mL (spun); WBC Urine None Seen (0-5/HPF)
[2023-09-30 10:41] LABS: Lactate 2HR (Lactic Acid Rflx) 1.1 mmol/L (0.7-2.1)
[2023-09-30] MEDS: AZITHROMYCIN 500 MG in DEXTROSE 5% IN WATER 250 ML 250 MG IV (10:50)
[2023-09-30] MEDS: ACETAMINOPHEN 325 MG TABLET 975 MG PO (10:50)
--- NOTE | 2023-09-30 17:33 | PM.HP.1 ---
History of Present Illness History of Present Illness Date Patient Seen: 09/30/23 Time Patient Seen: 13:30 Chief complaint: weakness/cp/sob/fever Narrative: chief complaint: weakness Patient has been sick and worsening with fatigue and enervation for about a week this morning just had no energy to move had to call EMS Found to have upper lobar pneumonia in ED with incipient sepsis started on antibiotics and fluids Feels better now on the floor but still acutely weak hard to get up [facility] Medical History Vision disorder Gout Chronic cough Restless leg syndrome Mixed hyperlipidemia COPD (chronic obstructive pulmonary disease) Varicose veins of both lower extremities Sleep apnea Snoring Essential hypertension Mixed anxiety depressive disorder (01/18/17) Coronary artery disease (~2008) Gastroesophageal reflux disease Surgical History History of angioplasty Family History Father Stroke History of heart disease Hypertension Hyperlipidemia Mother Cancer Brother History of heart attack History of heart disease Sister Mental health problem Social History household members: spouse Smoking Status: Former smoker Tobacco: How many years used: 40 second hand exposure: No alcohol intake: never substance use type: does not use Meds Home Medications and Allergies Home Medications Medication Instructions Recorded Confirmed Type aspirin 81 mg tablet,delayed 81 mg PO DAILY #60 tabs 04/20/16 09/30/23 History release lisinopril 10 mg tablet 5 mg PO DAILY ##0 04/07/17 09/30/23 History naproxen sodium 220 mg capsule 440 mg PO DAILY PRN pain 08/17/18 09/30/23 History (Aleve) Disabled Parking Placard #1 ea 11/13/18 09/30/23 Rx esomeprazole magnesium 20 mg 20 mg PO DAILY 02/19/20 09/30/23 History capsule,delayed release (Nexium 24HR) rosuvastatin 20 mg tablet (Crestor) 20 mg PO QPM #90 tabs 03/31/20 09/30/23 Rx amlodipine 5 mg tablet (Norvasc) 5 mg PO DAILY #90 tabs 05/16/20 09/30/23 Rx metoprolol tartrate 50 mg tablet 50 mg PO BID 09/08/20 09/30/23 History escitalopram oxalate 20 mg tablet 20 mg PO DAILY #90 tabs 06/01/21 09/30/23 Rx bupropion HCl 150 mg 24 hr tablet, 300 mg PO DAILY 09/30/23 09/30/23 History extended release (Wellbutrin XL) nitroglycerin 0.4 mg sublingual 0.4 mg sublingual PRN PRN Chest 09/30/23 09/30/23 History tablet Pain Allergies Allergy/AdvReac Type Severity Reaction Status Date / Time hydrocodone AdvReac Intermediate WEAKNESS, Verified 05/07/22 07:21 SYNCOPE codeine AdvReac Mild NAUSEA Verified 05/07/22 07:21 Review of Systems Review of Systems Narrative: all systems reviewed and negative expect as otherwise documented in HPI Exam Vital Signs (past 8 hours): - 09/30/23 09:40 09/30/23 09:50 09/30/23 10:00 Temperature Pulse Rate 80 83 82 Respiratory Rate 25 H 24 25 H Blood Pressure Pulse Oximetry 93 93 94 Oxygen Delivery Method Oxygen Flow Rate 09/30/23 10:00 09/30/23 10:10 09/30/23 10:20 Temperature Pulse Rate 83 86 Respiratory Rate 23 21 Blood Pressure 118/56 L Pulse Oximetry 94 94 Oxygen Delivery Method Nasal Cannula Oxygen Flow Rate 2 09/30/23 10:30 09/30/23 10:30 09/30/23 10:40 Temperature 102.0 F H 102.0 F H Pulse Rate 87 85 Respiratory Rate 34 H Blood Pressure 118/63 Pulse Oximetry 94 96 Oxygen Delivery Method Nasal Cannula Nasal Cannula Oxygen Flow Rate 2 2 09/30/23 10:50 09/30/23 11:00 09/30/23 11:00 Temperature 101.7 F H 101.5 F H Pulse Rate 85 86 Respiratory Rate 29 H 27 H Blood Pressure 121/58 L Pulse Oximetry 97 95 Oxygen Delivery Method Nasal Cannula Oxygen Flow Rate 2 09/30/23 11:10 09/30/23 11:20 09/30/23 11:35 Temperature 101.3 F H 101.1 F H 100.9 F H Pulse Rate 87 90 90 Respiratory Rate 29 H 25 H Blood Pressure Pulse Oximetry 96 95 Oxygen Delivery Method Nasal Cannula Oxygen Flow Rate 2 09/30/23 11:37 09/30/23 11:37 09/30/23 11:40 Temperature 100.9 F H 100.9 F H Pulse Rate 90 87 Respiratory Rate 21 21 Blood Pressure 124/57 L Pulse Oximetry 91 94 Oxygen Delivery Method Nasal Cannula Nasal Cannula Oxygen Flow Rate 2 2 09/30/23 11:50 09/30/23 11:55 09/30/23 12:00 Temperature 100.8 F H 100.6 F H 100.6 F H Pulse Rate 86 84 Respiratory Rate 19 19 Blood Pressure Pulse Oximetry 94 94 Oxygen Delivery Method Nasal Cannula Oxygen Flow Rate 2 09/30/23 12:00 09/30/23 12:25 09/30/23 12:25 Temperature Pulse Rate 79 Respiratory Rate Blood Pressure 113/55 L 101/50 L Pulse Oximetry 90 L Oxygen Delivery Method Oxygen Flow Rate 09/30/23 12:27 09/30/23 12:30 09/30/23 13:00 Temperature Pulse Rate 80 Respiratory Rate Blood Pressure 98/51 L 102/55 L Pulse Oximetry 93 Oxygen Delivery Method Oxygen Flow Rate 09/30/23 13:07 09/30/23 13:10 09/30/23 13:20 Temperature Pulse Rate 73 73 72 Respiratory Rate Blood Pressure Pulse Oximetry 91 91 92 Oxygen Delivery Method Oxygen Flow Rate 09/30/23 13:30 09/30/23 13:30 09/30/23 13:40 Temperature Pulse Rate 72 71 Respiratory Rate Blood Pressure 92/51 L Pulse Oximetry 93 93 Oxygen Delivery Method Oxygen Flow Rate 09/30/23 13:50 09/30/23 14:00 09/30/23 14:00 Temperature Pulse Rate 71 71 Respiratory Rate Blood Pressure 96/50 L Pulse Oximetry 92 93 Oxygen Delivery Method Oxygen Flow Rate 09/30/23 14:10 09/30/23 14:20 09/30/23 14:30 Temperature Pulse Rate 72 71 Respiratory Rate Blood Pressure 100/50 L Pulse Oximetry 92 90 L Oxygen Delivery Method Oxygen Flow Rate 09/30/23 14:30 09/30/23 14:40 09/30/23 14:50 Temperature Pulse Rate 70 74 71 Respiratory Rate Blood Pressure Pulse Oximetry 90 L 92 94 Oxygen Delivery Method Oxygen Flow Rate 09/30/23 16:03 Temperature 98.5 F Pulse Rate Respiratory Rate Blood Pressure Pulse Oximetry Oxygen Delivery Method Oxygen Flow Rate Oxygen Delivery Method Nasal Cannula Oxygen Flow Rate 2 Narrative Exam Narrative: alert looks weak laying in bed HENMT Other: normocephalic, atraumatic Resp Other: moving air ok, on 1L via NC satting ok, some junky breath sounds on auscultation of RUL, otherwise sounds pretty clear Cardio Other: regular rate, S1/S2, no pedal edema GI Other: soft nontender active bowel sounds Neuro Other: AAOx3, moving all extremities Objective Labs 09/30/23 08:28 09/30/23 08:28 Labs: Laboratory Results - last 24 hr 09/30/23 09/30/23 09/30/23 08:28 10:00 10:25 WBC 19.2 H RBC 4.07 L Hgb 11.6 L Hct 35.1 L MCV 86.2 MCH 28.6 MCHC 33.1 RDW 13.4 Plt Count 303 Neut % (Auto) 86.2 H Lymph % (Auto) 7.2 L [place] % (Auto) 5.7 Eos % (Auto) 0.6 L Baso % (Auto) 0.3 Neut # (Auto) 06624 H Lymph # (Auto) 1400 [place] # (Auto) 1100 H Eos # (Auto) 100 Baso # (Auto) 100 Sodium 143 Potassium 5.0 Chloride 106 Carbon Dioxide 24 BUN 33 H Creatinine 1.85 H Estimated GFR 39 L BUN/Creatinine Ratio 17.8 Glucose 136 H Lactate 4.3 H* 1.1 Calcium 9.3 Total Bilirubin 0.9 AST 35 ALT 28 Alkaline Phosphatase 75 Total Creatine Kinase 111 Troponin I < 0.012 Total Protein 7.7 Albumin 4.3 Globulin 3.4 Albumin/Globulin Ratio 1.3 Procalcitonin 0.09 Urine Color Yellow Urine Appearance Clear Urine pH 6.0 Ur Specific [place] 1.020 Urine Protein Negative Urine Glucose (UA) Negative Urine Ketones Negative Urine Occult Blood 3+ H Urine Nitrate Negative Urine Bilirubin Negative Urine Urobilinogen 1.0 Ur Leukocyte Esterase Negative Urine RBC 10-30/hpf H Urine WBC None seen Ur Squamous Epith Cells 1-5 /hpf Urine Bacteria None seen Ur Culture Indicated? Cult not indicated Vol Urine Centrifuged 10ml (spun) Chlamy pneumoniae PCR Not detected Adenovirus (PCR) Not detected B.parapertussis DNA PCR Not detected Coronavirus OC43 (PCR) Not detected Coronavirus HKU1 (PCR) Not detected Coronavirus 229E (PCR) Not detected SARS-CoV-2 (PCR) Not detected Coronavirus NL63 (PCR) Not detected Human Metapneumovir PCR Not detected Influenza Type A (PCR) Not detected Influenza Type B (PCR) Not detected M. pneumoniae (PCR) Not detected Parainfluenza 1 (PCR) Not detected Parainfluenza 2 (PCR) Not detected Parainfluenza 3 (PCR) Not detected Parainfluenza 4 (PCR) Not detected RSV (PCR) Not detected Entero/Rhino (PCR) Not detected Assessment & Plan Assessment & Plan narrative: #R upper lobe pneumonia, community acquired, with septic features on admission started IVF and rocephin and azithromycin #severe coronary atherosclerosis noted on CT continue statin and asa 81 #HTN stable continue home meds with prn hydralazine #MDD stable continue home meds Dispo: admit obs for pneumonia tx, PT/OT eval Code: DNR, POLSt on file - ok to intubate if needed MDM: : [phone] him [id number] her PCP: Alycia Diet: cardiac healthy Quality VTE Deep Vein Thrombosis/Pulmonary Embolism Present on Admission: No
--- NOTE | 2023-09-30 18:28 | PC.NURSE ---
Assess- Patient is alert and oriented x4, he denies pain. Villalta putting out yellow urine and patient is tolerating O2 at 2L, he is mid 90s. Up with 1 person assist the commode and is at bedside.
[2023-09-30] MEDS: SODIUM CHLORIDE 0.9% 1,000 ML 84 ML IV (18:40)
[2023-09-30] MEDS: HYDROCODONE/ACET 5/325 TABLET 1 TAB PO (19:24)
[2023-09-30] MEDS: METOPROLOL IR 50 MG TABLET PO (20:23)
[2023-09-30] MEDS: ATORVASTATIN 20 MG TABLET 40 MG PO (20:23)
[2023-09-30] MEDS: DOCUSATE 100 MG CAPSULE PO (20:23)
[2023-09-30] MEDS: SODIUM CHLORIDE 0.9% FLUSH 10 ML IV (20:27)
--- NOTE | 2023-09-30 23:45 | PC.NURSE ---
Addendum entered by Linda Nur R.N. 10/01/23 05:32: O2 sat dipping down into upper 80's so increased O2 to 3L/min and sat now staying 92-95%. Complains of 6/10 headache this morning but requested he only be given tylenol rather than vicodin. Addendum entered by Linda Nur R.N. 10/01/23 00:33: Patient complained of inability to sleep so Dr. Lynch contacted and new orders received for Melatonin and Hydroxyzine. Medicated with Melatonin and instructed if not working could also have the Hydroxyzine. Original Note: Patient is alert and oriented. Breath sounds CTA and denies SOB at rest but reports he has been SOB with exertion. Does not normally use home O2 but is currently on oxygen at 2L/min per NC with sat of 94%. HRR. Denied nausea. BT present and abdomen is soft. Indwelling catheter in place related to urinary retention; urine is clear, light yellow. Is able to move himself in bed. Gait not assessed but at home walks independently without use of AD. Bilateral calf SCD's were applied. Complained of headache and was medicated with vicodin with reduction in pain severity. Fall risk score is high and bed alarm is activated.
[2023-10-01] VITALS (10 sets, daily range): BP systolic 105–134; BP diastolic 48–53; PULSE 67–96; RESP 16–91; TEMP 36.3–38.3; O2SAT 83–94
[2023-10-01] MEDS: MELATONIN 3 MG TABLET PO (00:07)
[2023-10-01] MEDS: hydrOXYzine HCL 25 MG TABLET PO (03:39)
[2023-10-01 05:03] LABS: Add Manual Diff / Slide Review NO; Basophils Absolute Auto 0 /uL (0-100); Basophils Percent Auto 0.3 % (0-2); Eosinophils Absolute Auto 100 /uL (0-450); Eosinophils Percent Auto 0.4 % (2-4); Hematocrit 25.5 % (41-53); Hemoglobin 8.7 g/dL (13.5-17.5); Lymphocytes Absolute Auto 1700 /uL (1100-4500); Lymphocytes Percent Auto 11.5 % (25-40); Mean Corpuscular HGB Conc 33.9 % (30-36); Mean Corpuscular Hemoglobin 28.8 PG (26-34); Mean Corpuscular Volume 84.9 fL (80-100); Monocytes Absolute Auto 1300 /uL (0-900); Monocytes Percent Auto 8.4 % (3-14); Neutrophils Absolute Auto 11800 /uL (1500-7000); Neutrophils Percent Auto 79.4 % (50-75); Platelet Count 209 X10^3/uL (150-400); Red Cell Distribution Width 13.6 % (11.6-14.8); White Blood Cell Count 14.9 X10^3/uL (4.5-11.0)
[2023-10-01 05:12] LABS: Alanine Aminotransferase 20 IU/L (<50); Albumin 2.9 g/dL (3.5-5.0); Alkaline Phosphatase 60 U/L (38-126); Aspartate Aminotransferase 22 IU/L (17-59); BUN Creatinine Ratio 17.4 (6-22); Bilirubin Total 0.8 mg/dL (0.2-1.3); Blood Urea Nitrogen 29 mg/dL (9-20); Calcium 8.3 mg/dL (8.4-10.2); Carbon Dioxide 23 mmol/L (22-32); Chloride 109 mmol/L (98-107); Estimated Glomerular Filt Rate 45 mL/min (>60); Globulin 2.8 g/dL (1.7-4.1); Glucose 106 mg/dL (80-110); HEMOLYSIS < 15 (0-50); Potassium 4.2 mmol/L (3.4-5.1); Sodium 139 mmol/L (137-145); Total Protein 5.7 g/dL (6.3-8.2)
[2023-10-01] MEDS: PANTOPRAZOLE DR 20 MG TABLET PO (05:28)
[2023-10-01] MEDS: SODIUM CHLORIDE 0.9% 1,000 ML 84 ML IV ×2 (05:30→17:18)
[2023-10-01] MEDS: ACETAMINOPHEN 325 MG TABLET 650 MG PO ×2 (05:30→17:18)
--- NOTE | 2023-10-01 10:29 | PM.PN.1 ---
Subjective Subjective Date Patient Seen: 10/01/23 Time Patient Seen: 11:00 Interval history: Mr. Wall is resting comfortably in bed accompanied by his . He is feeling better with more strength compared to admission but not yet back to baseline. Does have a mild headache that he attributes to caffeine withdrawal. That said, he is eager to have Villalta catheter removed so that he can ambulate to the bathroom. No significant cough and denies feeling short of breath. Has not yet worked with PT today. Exam Vital Signs (past 8 hours): - 10/01/23 04:56 10/01/23 04:58 10/01/23 08:00 Temperature 98.6 F 97.3 F L Pulse Rate 75 69 Respiratory Rate 16 19 Blood Pressure 113/53 L 105/48 L Pulse Oximetry 90 L 92 93 Oxygen Delivery Method Oxygen Flow Rate 2.5 3 3 10/01/23 08:07 Temperature Pulse Rate Respiratory Rate Blood Pressure Pulse Oximetry Oxygen Delivery Method Nasal Cannula Oxygen Flow Rate 2.5 Oxygen Delivery Method Nasal Cannula Oxygen Flow Rate 2.5 Narrative Exam Narrative: General: Pleasant, well nourished, no distress HEENT: Normocephalic, atraumatic, EOMI, moist mucous membranes CV: Regular rate and rhythm, normal S1-S2, no murmur auscultated Resp: Moderate crackles auscultated in right middle and upper lung regions, left lung clear to auscultation, comfortable work of breathing, able to speak in complete sentences Abdomen: Soft, nontender, nondistended, bowel sounds present Extremities: No edema Neuro: A&O x3, moves all extremities Objective Labs 10/01/23 04:45 10/01/23 04:45 Labs: Laboratory Results - last 24 hr 09/30/23 10/01/23 10:25 04:45 WBC 14.9 H RBC 3.00 L Hgb 8.7 L Hct 25.5 L MCV 84.9 MCH 28.8 MCHC 33.9 RDW 13.6 Plt Count 209 Neut % (Auto) 79.4 H Lymph % (Auto) 11.5 L [place] % (Auto) 8.4 Eos % (Auto) 0.4 L Baso % (Auto) 0.3 Neut # (Auto) 37191 H Lymph # (Auto) 1700 [place] # (Auto) 1300 H Eos # (Auto) 100 Baso # (Auto) 0 Sodium 139 Potassium 4.2 Chloride 109 H Carbon Dioxide 23 BUN 29 H Creatinine 1.67 H Estimated GFR 45 L BUN/Creatinine Ratio 17.4 Glucose 106 Lactate 1.1 Calcium 8.3 L Total Bilirubin 0.8 AST 22 ALT 20 Alkaline Phosphatase 60 Total Protein 5.7 L Albumin 2.9 L Globulin 2.8 Albumin/Globulin Ratio 1.0 PFSH Medical History Vision disorder Gout Chronic cough Restless leg syndrome Mixed hyperlipidemia COPD (chronic obstructive pulmonary disease) Varicose veins of both lower extremities Sleep apnea Snoring Essential hypertension Mixed anxiety depressive disorder (01/18/17) Coronary artery disease (~2008) Gastroesophageal reflux disease Surgical History History of angioplasty Family History Father Stroke History of heart disease Hypertension Hyperlipidemia Mother Cancer Brother History of heart attack History of heart disease Sister Mental health problem Social History household members: spouse Smoking Status: Former smoker Tobacco: How many years used: 40 second hand exposure: No alcohol intake: never substance use type: does not use Assessment & Plan Assessment and plan (1) Community acquired pneumonia: Qualifiers: Laterality: right Lung location: unspecified part of lung Qualified Code(s): J18.9 - Pneumonia, unspecified organism Status: Acute (2) Coronary artery disease: Problem details: Stents placed LAD and RCA 04/07/17 acute unstable angina w/non obstructing CAD Qualifiers: Associated angina: without angina Coronary Disease-Associated Artery/Lesion type: [place] artery [place] vs. transplanted heart: [place] heart Qualified Code(s): I25.10 - Atherosclerotic heart disease of [place] coronary artery without angina pectoris Status: Chronic (3) Mixed hyperlipidemia: Status: Chronic (4) Essential hypertension: Status: Chronic (5) Gastroesophageal reflux disease: Qualifiers: Esophagitis presence: esophagitis presence not specified Qualified Code(s): K21.9 - Gastro-esophageal reflux disease without esophagitis Status: Chronic (6) Mixed anxiety depressive disorder: Status: Chronic Assessment & Plan narrative: #R upper lobe pneumonia, community acquired, with septic features on admission -subjectively improving but not back to baseline, leukocytosis improving 19.2 > 14.9 today -rocephin and azithromycin q.day -Bcx NGTD #CAD #HLD -noted on CT -home statin and asa 81 daily -nitroglycerin sublingual as needed #HTN -borderline hypotensive yesterday afternoon and overnight, antihypertensive meds held this morning -home amlodipine and lisinopril daily -hydralazine IV as needed #GERD -pantoprazole daily #MDD -escitalopram daily Diet: Cardiac Dispo: Likely home in 1-2 days pending clinical improvement, PT/OT recs Code: DNR, POLST on file - ok to intubate if needed Time Spent With Patient Time with patient: 30 to 49 minutes with 50% spent counseling/coordinating care Quality VTE Deep Vein Thrombosis/Pulmonary Embolism Present on Admission: No
[2023-10-01] MEDS: ENOXAPARIN 40 MG/0.4 ML SYRINGE SUBCUT (10:42)
[2023-10-01] MEDS: ASPIRIN EC 81 MG TABLET PO (10:42)
[2023-10-01] MEDS: DOCUSATE 100 MG CAPSULE PO ×2 (10:42→21:14)
[2023-10-01] MEDS: buPROPion XL 150 MG TAB 300 MG PO (10:42)
[2023-10-01] MEDS: SODIUM CHLORIDE 0.9% FLUSH 10 ML IV (10:44)
[2023-10-01] MEDS: ESCITALOPRAM 10 MG TABLET 20 MG PO (10:47)
[2023-10-01] MEDS: OXYCODONE/ACETAMINOPHEN 5/325 TABLET 1 TAB PO ×2 (10:47→16:35)
--- NOTE | 2023-10-01 11:10 | CM.DANOTE ---
DCP: Case received, EMR reviewed and met with patient. Introduced self and role. Was able to obtain information regarding patient's baseline activity level at home prior to hospitalization. DCP assessment completed with information currently available. Patient is a 68 year old male who admitted yesterday morning to the care of the hospitalist team. PCP: Dr. Tong. Payer: confirmed: [employer]. Patient came to the hospital via ambulance secondary to having weakness, post syncopal episode. Notes indicate that patient had been in the bathroom, became weak, and fell. Notes also indicate that his spouse indicated that patient had been sick the last past week, with cold and congestion symptoms. Patient was diagnosed with community-acquired pneumonia. Met with patient in his room. He was sitting up in bed, alert. Confirmed that [place] [facility] his spouse, Violeta. He stated, he had just taken a shower, felt weak, and fainted. He uses no DME at baseline, and drives short distances. P: DCP to continue to follow. He does have P.T, and O.T. orders which are pending. Patient may benefit with home health services at discharge, as long as he is homebound. Will see how he does with therapy. Karen Shaw RN/Scale Tank Operator Discharge Planning/Care Management CM Discharge Assessment Start: 10/01/23 11:07 Freq: Status: Active Protocol: Document 10/01/23 11:07 (Rec: 10/01/23 11:10 [id number]) Discharge Planning Assessment Assigned Club Lounge Attendant Karen Shaw RN/Scale Tank Operator Advance Directives? No History Provided By Patient,Medical Record Prior Living Arrangements House Household Members spouse Type of transporation used prior to Drives own vehicle admit Comment Patient indicated, he drives short distances. Independent with ADL's Yes Is patient alert and oriented? 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 Whiteboard Updated in Patient Room with Yes name and ext. # of Club Lounge Attendant Review Status In Process Next Review Type Continued Stay Review
--- NOTE | 2023-10-01 14:10 | PT.IIE ---
Current Diagnoses Sepsis, unspecified organism (09/30/23) Surgical History (Last Reviewed 09/30/23 @ 08:28 by Rolando Vera MD) History of angioplasty Medical History (Last Reviewed 09/30/23 @ 08:28 by Rolando Vera MD) Chronic cough COPD (chronic obstructive pulmonary disease) Coronary artery disease (~2008) Essential hypertension Gastroesophageal reflux disease Gout Mixed anxiety depressive disorder (01/18/17) Mixed hyperlipidemia Restless leg syndrome Sleep apnea Snoring Varicose veins of both lower extremities Vision disorder Physical Therapy Inpatient Evaluation/Re-Eval M1 PT/OT-IP Prior Functional Status Start: 10/01/23 15:25 Freq: NEEDED Status: Active Protocol: Document 10/01/23 14:10 AB (Rec: 10/01/23 15:45 AB [id number]) Medical Review Prior Functional Status Medical History Reviewed Yes Communication able to make needs known Mobility and Gait pt stated that he was independent with all mobilities and ambulation without AD Social History Household Members spouse Living Arrangements RV Number of Floors (Floors) One Floor Number of Stairs To Enter/Railing? 5 steps L rail ascending to enter the house Home Environment Standard Height Toilet,Walk in Shower Home Equipment Straight Cane M2 PT-IP Current Condition Start: 10/01/23 15:25 Freq: NEEDED Status: Active Protocol: Document 10/01/23 14:10 AB (Rec: 10/01/23 15:45 AB [id number]) Physical Therapy Current Condition Current Condition Evaluation Date 10/01/23 Treatment Diagnosis PNA; difficulty in walking Onset Date 09/30/23 M3 PT-IP Subjective Start: 10/01/23 15:25 Freq: NEEDED Status: Active Protocol: Document 10/01/23 14:10 AB (Rec: 10/01/23 15:45 AB [id number]) Subjective Physical Therapy Visit Type Type Initial Evaluation Visit Start Time 14:10 Visit Stop Time 15:15 Number of DIET THERAPIST Visits 65 Physical Therapy Visit Comments Patient Comments agreeable to do PT M4 PT-IP Mobility and Gait Start: 10/01/23 15:25 Freq: NEEDED Status: Active Protocol: Document 10/01/23 14:10 AB (Rec: 10/01/23 15:45 AB [id number]) PT-Bed Mobility Assessment Supine to Sit Supine to Sit Standby Assistance PT-Transfer Assessment Sit to and From Stand Sit to and from Stand Contact Guard Assistance, Minimal Assistance,1 Person Assistance,Use of Upper Extremities Equipment Transfer Assistive Device Gait Belt,Front Wheeled Walker Orthotic/Prosthetic Devices or Brace: No Transfers Transfer Destination Toilet Transfer Technique ambulated Transfer Ability Level of Assist Contact Guard Assistance, Minimal Assistance,1 Person Assistance,Use of Upper Extremities Comments Mobility Comments pt supine in bed. spouse in room. pt agreed to do PT. obtained PLOF and home set up. O2 sat resting at RA: 88-90% . per chart: pt on 3L/min O2. BP: 134/48. pt completed supine to sit SBA. O2 sat decreases : 85-86%. O2 with 2 1/2L/min provided to pt and O2 sat increased to 94% and O2 decreased to 2l/min. pt needing to be cleaned up and brief put on. NAC in room to assist. pt completed sit to stand CGA to min A. required CGA for standing balance using FWW for support. NAC assisted pt with hygiene care and PT assisted pt with brief management but seems like pt needs to use the toilet. ambulated pt to the toilet using FWW CGA to min A and cues for safety. assisted pt with brief management. pt stated that he had surgery before on his coccyx and occasionally has bowel issues. pt presents with unsteady gait and is not consistent with following directions and needs increase reaction time. Assisted pt from toilet to the sink using FWW CGA to min A. pt was able to maintain standing using fWW for support CGA while completing handwashing. pt ambulated to the chair CGA using FWW with unsteady gait and pt was alicia. (+) SOB. O2 sat checked and O2 sat decreased to 83%. cued pt for PLB. O2 sat increased: 94-96%. asked pt if he wants to ambulate more but pt refused. stated that that's is all he can do today. positioned pt on the chair. call light and table placed within reach. O2 taken off and O2 oximeter on and pt 's O2 sat at rest: 89- 94% at RA. Left pt with spouse. informed nurse regarding o2 sat. Gait Assessment Gait Gait Assistance Required: Contact Guard Assist,Minimum Assistance Distance (Feet) 15 Able to Maintain Weight Bearing Status Yes During Gait Assistive Devices Assistive Device Gait Belt,Front Wheeled Walker Orthotic/Prosthetic Devices or Brace: No Gait Deviations General Gait Pattern Decreased Stride Length, Decreased Feet Clearance Factors Limiting Gait Function Factors Limiting Gait Function Decreased Activity Tolerance, Decreased Strength,Poor Balance,Poor Safety Awareness, Respiratory Distress PT-Balance Assessment Sitting Balance and Reactions Static Sitting Balance Ability Good Dynamic Sitting Balance Ability Good Standing Balance and Reactions Static Standing Balance Ability Fair Dynamic Standing Balance Ability Fair Device Used FWW M5 PT-IP Objective Assessments Start: 10/01/23 15:25 Freq: NEEDED Status: Active Protocol: Document 10/01/23 14:10 AB (Rec: 10/01/23 15:45 AB [id number]) Orientation Orientation/Cognition Level of Alertness Alert Orientation Name,Situation Language Function Ability No Deficits Noted Safety Awareness Decreased Safety Awareness Memory Description No Deficits Noted Comments slgith confusion Gross Range of Motion Lower Extremity ROM Assessment Within Functional Limits Strength Lower Extremity Strength Assessment Within Functional Limits Coordination Assessment Gross Coordination Gross Coordination WNL Sensation Assessment Sensation Gross Sensation WNL Muscle Tone Muscle Tone WNL Yes M6 PT-IP Treatment Start: 10/01/23 15:25 Freq: NEEDED Status: Active Protocol: Document 10/01/23 14:10 AB (Rec: 10/01/23 15:45 AB [id number]) Physical Therapy Treatment Education Education Provided Safety M7 PT-IP Assessment and Plan Start: 10/01/23 15:25 Freq: NEEDED Status: Active Protocol: Document 10/01/23 14:10 AB (Rec: 10/01/23 15:45 AB [id number]) PT Summary Assessment and Plan Potential Rehabilitation Potential Fair Status of Condition at Evaluation Evolving Summary Impairments Pain,ROM,Strength,Balance, Coordination,Sensation,Tone, Cognition,Bed Mobility, Transfers,Gait,Activity Tolerance Assessment Summary pt is a 68 y/o M who presented to the ED for SOB. pt admitted for PNA. pt's O2 sat at RA: 88-90%. pt requiring CGA to min A with mobility using fWW but unable to tolerate much activity due to c/o fatigue. O2 sat decreases with activity to 83% with 2L/ min O2. d/c plan depending on progress but pt plans to go home with spouse to assist. will conduct caregiver training when appropriate. pt also needed to complete stair climbing training prior to d/c (pt has 5 steps L rail ascending to enter his RV). will continue to assess. pt may require HHPT. Goals Bed Mobility Goal Independent Transfer Goal Independent,Cane,Front Wheeled Walker Gait Goal Independent,Cane,Front Wheel Walker Gait Distance 200 Other Goals improve transfers and ambulation without AD mod I ~ 300 ft up/down 5 steps L rail ascending SBA Days to Meet Goals 10 Frequency of Treatment Frequency Of Treatment Once a Day Treatment Plan Physical Therapy Treatment Plan Bed Mobility Training,Transfer Training,Gait Training, Therapeutic Exercise,Balance Retraining,Post Op Education, Discharge Planning,Hot or Cold Pack,Neuromuscular Re-ed, Coordination Retraining,Manual Therapy Other Recommendations and Next Treatment ambulation using SPC/without Focus AD if appropriate Precautions Other Precautions O2 sat Recommendations To Nursing Amount of Assist Needed 1 Person Assist Discharge Recommendations PT Discharge Recommendations Home with Assistance,Home Health Equipment Needed for Home Before FWW if not safe with SPC/ Discharge without AD Transportation Needs at Discharge Private Vehicle
[2023-10-01] MEDS: cefTRIAXone 1,000 MG in SODIUM CHLORIDE 0.9% 100 ML 200 MG IV (16:19)
[2023-10-01] MEDS: AZITHROMYCIN 500 MG in DEXTROSE 5% IN WATER 250 ML 250 MG IV (17:04)
--- NOTE | 2023-10-01 20:15 | PC.NURSE ---
Change in LOC: Pt was mostly oriented this am, sl mixed up on time and a few events but oriented easily. He has not slept since admitted and has not slept today either. This early evening after his pearce was d/c he became more disoriented, feeling like he was having difficulty breathing and reporting chest pressure. He got up to the bathroom twice on his own, the first time he accidently pulled out IV, IVF were started in the other arm but then that IV was found to be infiltrated. Pt then got up to the bathroom on his own a second time. He did not call even though instructed to do so. He has the bedalarm on and the call light in reach. He was inc of urine and voided as well in the toilet. He did have a sl temp to 100.9 and was sl flushed. He got an extra tylenol with his percocet. Patient was also mixed up on if he should wear his oxygen and he had pulled it off a couple of times. He was instructed O2 needs to be left on all the time for now. An ekg was completed by RT and MD was called and notified of changes in mentation, he hasnt slept since his arrival, chest pressure, he had a temp. See new orders. Orders were accepted at change of shift and oncoming RN Linda will complete them. Pt is aware he has been more disoriented. is here and she is concerned about his disorientation as well. Spouse made aware of MD orders and current plan of care. Linda is calling RT and LAB.
[2023-10-01] MEDS: ALBUTEROL 2.5 MG/3 ML NEB (ADULT) INH (20:39)
[2023-10-01] MEDS: ATORVASTATIN 20 MG TABLET 40 MG PO (21:14)
[2023-10-01] MEDS: MELATONIN 3 MG TABLET 9 MG PO (21:16)
[2023-10-01 21:22] LABS: Troponin I < 0.012 ng/mL (0.01-0.034)
--- NOTE | 2023-10-01 23:07 | PC.NURSE ---
Patient is alert and oriented except did not know the day of the month. Breath sounds with crackles at bases right > left. Initially was on 3L/min oxygen per NC with sat of 92% but seen by RT who increased his oxygen to 4L/min with sat now at 94%. HRR w/BP still on lower end at 122/50 so Metoprolol held again tonight as day RN stated MD would re-eval in the a.m. Denied nausea. BT present and abdomen is soft. Voiding per urinal and denied any dysuria but instructed on sx infection (catheter removed earlier today) and importance of notifying RN if experiences any of those symptoms. Is able to move himself in bed. Due to weakness, which he states has improved, he is provided assistance when out of bed. Bilateral calf SCD's applied at shift change. Does complain of 4/10 left lateral ankle discomfort but was too early to give pain meds at that time and is now asleep after having received Melatonin earlier. Fall risk score is high and bed alarm is activated.
[2023-10-02] VITALS (9 sets, daily range): BP systolic 129–143; BP diastolic 49–64; PULSE 70–82; RESP 16–22; TEMP 36.7–38.9; O2SAT 91–95
[2023-10-02] MEDS: PANTOPRAZOLE DR 20 MG TABLET PO (06:08)
[2023-10-02 09:10] LABS: Add Manual Diff / Slide Review NO; Basophils Absolute Auto 100 /uL (0-100); Basophils Percent Auto 0.7 % (0-2); Eosinophils Absolute Auto 0 /uL (0-450); Eosinophils Percent Auto 0.3 % (2-4); Hematocrit 25.5 % (41-53); Hemoglobin 8.7 g/dL (13.5-17.5); Lymphocytes Absolute Auto 1200 /uL (1100-4500); Mean Corpuscular HGB Conc 33.9 % (30-36); Mean Corpuscular Hemoglobin 28.9 PG (26-34); Mean Corpuscular Volume 85.1 fL (80-100); Monocytes Absolute Auto 900 /uL (0-900); Monocytes Percent Auto 7.5 % (3-14); Neutrophils Absolute Auto 10200 /uL (1500-7000); Neutrophils Percent Auto 81.5 % (50-75); Platelet Count 204 X10^3/uL (150-400); Red Cell Distribution Width 13.3 % (11.6-14.8); White Blood Cell Count 12.5 X10^3/uL (4.5-11.0)
[2023-10-02 09:22] LABS: Alanine Aminotransferase 18 IU/L (<50); Albumin 2.9 g/dL (3.5-5.0); Albumin Globulin Ratio 1.1 (1.0-2.8); Alkaline Phosphatase 64 U/L (38-126); Aspartate Aminotransferase 21 IU/L (17-59); BUN Creatinine Ratio 14.4 (6-22); Bilirubin Total 1.1 mg/dL (0.2-1.3); Blood Urea Nitrogen 21 mg/dL (9-20); Calcium 8.6 mg/dL (8.4-10.2); Carbon Dioxide 24 mmol/L (22-32); Chloride 108 mmol/L (98-107); Estimated Glomerular Filt Rate 52 mL/min (>60); Globulin 2.7 g/dL (1.7-4.1); Glucose 107 mg/dL (80-110); HEMOLYSIS < 15 (0-50); Potassium 4.1 mmol/L (3.4-5.1); Sodium 138 mmol/L (137-145); Total Protein 5.6 g/dL (6.3-8.2)
[2023-10-02 09:33] LABS: Troponin I < 0.012 ng/mL (0.01-0.034)
[2023-10-02] MEDS: DOCUSATE 100 MG CAPSULE PO ×2 (09:35→21:02)
[2023-10-02] MEDS: AMLODIPINE 5 MG TABLET PO (09:36)
[2023-10-02] MEDS: ENOXAPARIN 40 MG/0.4 ML SYRINGE SUBCUT (09:36)
[2023-10-02] MEDS: METOPROLOL IR 50 MG TABLET PO ×2 (09:36→21:02)
[2023-10-02] MEDS: ASPIRIN EC 81 MG TABLET PO (09:36)
[2023-10-02] MEDS: lisinopriL 10 MG TABLET 5 MG PO (09:36)
[2023-10-02] MEDS: buPROPion XL 150 MG TAB 300 MG PO (09:38)
[2023-10-02] MEDS: ESCITALOPRAM 10 MG TABLET 20 MG PO (09:38)
[2023-10-02] MEDS: SODIUM CHLORIDE 0.9% 1,000 ML 84 ML IV ×2 (09:40→23:26)
[2023-10-02] MEDS: OXYCODONE/ACETAMINOPHEN 5/325 TABLET 1 TAB PO ×2 (09:47→13:24)
--- NOTE | 2023-10-02 10:16 | PM.PN.1 ---
Subjective Subjective Date Patient Seen: 10/02/23 Time Patient Seen: 11:15 Interval history: Mr. Wall is resting comfortably in bed accompanied by his . Feels about the same as prior. No significant shortness of breath at rest, though he is uncomfortable with current position in bed. Tried to ambulate to restroom last night and felt some shortness of breath/chest discomfort. EKG was unremarkable aside from nonspecific T-wave changes and troponin negative x2. He does endorse some left foot/toe pain and swelling that has been worsening over the past few days. Has a history of gout affecting his right hand and did eat a number of meals containing beef this past week prior to hospitalization. Exam Vital Signs (past 8 hours): - 10/02/23 06:00 10/02/23 08:14 10/02/23 08:25 Temperature 98.1 F 98.1 F Pulse Rate 78 70 Respiratory Rate 22 20 Blood Pressure 137/52 L 132/52 L Pulse Oximetry 93 94 Oxygen Delivery Method Nasal Cannula Oxygen Flow Rate 3.5 3 10/02/23 09:36 Temperature Pulse Rate 80 Respiratory Rate Blood Pressure 143/49 H Pulse Oximetry Oxygen Delivery Method Oxygen Flow Rate Oxygen Delivery Method Nasal Cannula Oxygen Flow Rate 3 Narrative Exam Narrative: General: Pleasant, NAD HEENT: NC/AT, EOMI, moist mucous membranes CV: RRR, normal S1-S2, no m/g/r Resp: Moderate crackles auscultated in right middle and upper lung regions, left lung clear to auscultation, comfortable work of breathing, able to speak in complete sentences Abdomen: Soft, NTND, BS+ Extremities: No edema, left 1st MTPJ warm and swollen w/TTP, no erythema, neurovascularly intact Neuro: A&O x3, moves all extremities Objective Labs 10/02/23 08:50 10/02/23 08:50 Labs: Laboratory Results - last 24 hr 10/01/23 10/02/23 20:50 08:50 WBC 12.5 H RBC 3.00 L Hgb 8.7 L Hct 25.5 L MCV 85.1 MCH 28.9 MCHC 33.9 RDW 13.3 Plt Count 204 Neut % (Auto) 81.5 H Lymph % (Auto) 10.0 L Quay % (Auto) 7.5 Eos % (Auto) 0.3 L Baso % (Auto) 0.7 Neut # (Auto) 11866 H Lymph # (Auto) 1200 Quay # (Auto) 900 Eos # (Auto) 0 Baso # (Auto) 100 Sodium 138 Potassium 4.1 Chloride 108 H Carbon Dioxide 24 BUN 21 H Creatinine 1.46 H Estimated GFR 52 L BUN/Creatinine Ratio 14.4 Glucose 107 Calcium 8.6 Total Bilirubin 1.1 AST 21 ALT 18 Alkaline Phosphatase 64 Troponin I < 0.012 < 0.012 Total Protein 5.6 L Albumin 2.9 L Globulin 2.7 Albumin/Globulin Ratio 1.1 [facility] Medical History Vision disorder Gout Chronic cough Restless leg syndrome Mixed hyperlipidemia COPD (chronic obstructive pulmonary disease) Varicose veins of both lower extremities Sleep apnea Snoring Essential hypertension Mixed anxiety depressive disorder (01/18/17) Coronary artery disease (~2008) Gastroesophageal reflux disease Surgical History History of angioplasty Family History Father Stroke History of heart disease Hypertension Hyperlipidemia Mother Cancer Brother History of heart attack History of heart disease Sister Mental health problem Social History household members: spouse Smoking Status: Former smoker Tobacco: How many years used: 40 second hand exposure: No alcohol intake: never substance use type: does not use Assessment & Plan Assessment and plan (1) Community acquired pneumonia: Qualifiers: Laterality: right Lung location: unspecified part of lung Qualified Code(s): J18.9 - Pneumonia, unspecified organism Status: Acute (2) Coronary artery disease: Problem details: Stents placed LAD and RCA 04/07/17 acute unstable angina w/non obstructing CAD Qualifiers: Associated angina: without angina Coronary Disease-Associated Artery/Lesion type: [place] artery [place] vs. transplanted heart: [place] heart Qualified Code(s): I25.10 - Atherosclerotic heart disease of [place] coronary artery without angina pectoris Status: Chronic (3) Mixed hyperlipidemia: Status: Chronic (4) Essential hypertension: Status: Chronic (5) Pain and swelling of toe of left foot: Status: Acute (6) Gastroesophageal reflux disease: Qualifiers: Esophagitis presence: esophagitis presence not specified Qualified Code(s): K21.9 - Gastro-esophageal reflux disease without esophagitis Status: Chronic (7) Mixed anxiety depressive disorder: Status: Chronic (8) Chest discomfort: Status: Acute Assessment & Plan narrative: #R upper lobe pneumonia, community acquired, with septic features on admission Subjectively improving but not back to baseline, leukocytosis improving 19.2 > 14.9 > 12.5 today. -rocephin q.day (09/30- ), s/p azithromycin (09/30-) -consider transition to oral abx once 24 hours afebrile -Bcx NGTD #CAD #HLD #Chest discomfort C/o chest discomfort w/low O2 sat last night. EKG w/non-specific T wave changes and troponin negative x2. Improved w/breathing tx. -home statin and asa 81 daily -nitroglycerin sublingual as needed #L great toe/foot pain Suspect gout due to patient history and recent dietary triggers. Low suspicion of DVT at this time given anticoagulation. -uric acid pending -will obtain doppler US r/o DVT if uric acid normal #HTN -home amlodipine, lisinopril, metoprolol daily -hydralazine IV as needed #GERD -pantoprazole daily #MDD -home bupropion and escitalopram daily Diet: Cardiac GI ppx: PPI DVT ppx: Lovenox Code: DNR, POLST on file - ok to intubate if needed Dispo: Likely home in 1-2 days pending clinical improvement, PT/OT recs Time Spent With Patient Time with patient: less than 30 minutes Quality VTE Deep Vein Thrombosis/Pulmonary Embolism Present on Admission: No
--- NOTE | 2023-10-02 13:06 | PT.IPTN ---
Current Diagnoses Sepsis, unspecified organism (09/30/23) Mixed hyperlipidemia (09/30/23) Other specified anxiety disorders (09/30/23) Essential (primary) hypertension (09/30/23) Atherosclerotic heart disease of [place] coronary artery without angina pectoris (09/30/23) Pneumonia, unspecified organism (09/30/23) Gastro-esophageal reflux disease without esophagitis (09/30/23) Physical Therapy Treatment Note M2 PT-IP Current Condition Start: 10/01/23 15:25 Freq: NEEDED Status: Active Protocol: Document 10/01/23 14:10 AB (Rec: 10/01/23 15:45 AB [id number]) Physical Therapy Current Condition Current Condition Evaluation Date 10/01/23 Treatment Diagnosis PNA; difficulty in walking Onset Date 09/30/23 M3 PT-IP Subjective Start: 10/01/23 15:25 Freq: NEEDED Status: Active Protocol: Document 10/02/23 12:40 MB (Rec: 10/02/23 13:06 MB [id number]) Subjective Physical Therapy Visit Type Type Treatment Note Visit Start Time 12:40 Visit Stop Time 12:54 Number of TAX ASSISTANT Visits 0 Physical Therapy Visit Comments Patient Comments Pt and significant other state that pt had a rough night, that he is tired of being in the bed and that though he is better, he still doesn't feel well today. Therapy Pain Assessment Pain When Pain Assessed During Mobility Pain Present Pain Present Pain Reported Location Left great toe area Intensity 6 Scale Used [place] (Faces) Pain Behaviors Calling Out,Guarding,Wincing Pain Management Techniques Re-positioning M4 PT-IP Mobility and Gait Start: 10/01/23 15:25 Freq: NEEDED Status: Active Protocol: Document 10/02/23 12:40 MB (Rec: 10/02/23 13:06 MB [id number]) PT-Bed Mobility Assessment Supine to Sit Supine to Sit Standby Assistance,1 Person Assistance,Head of Bed Elevated,Bedrails Sit to Supine Sit to Supine Standby Assistance,1 Person Assistance,Head of Bed Elevated,Bedrails Scooting Scooting to Edge of Bed Standby Assistance PT-Transfer Assessment Comments Mobility Comments PT clears with nsg before treatment. Pt's HGB has dropped and nsg recommends dangling. Pt c/o left foot pain from gout on mobility and so dangling and scooting EOB only two things performed with PT this afternoon. Pt is on 3L O2 and his sats are 88-91% during PT treatment. BP and HR in LUE are 123/54, 69 in hook lying and sitting EOB 120/55, 70. Pt states he doesn't feet like getting up and cues and SBA to get back to bed. Pt requires assistance with managing bed parts. PT-Balance Assessment Sitting Balance and Reactions Static Sitting Balance Ability Good Dynamic Sitting Balance Ability Fair Comments Other Balance Tests/Deviations/Treatment Pt has some trouble with side : scooting to the left up to HOB M5 PT-IP Objective Assessments Start: 10/01/23 15:25 Freq: NEEDED Status: Active Protocol: Document 10/01/23 14:10 AB (Rec: 10/01/23 15:45 AB [id number]) Orientation Orientation/Cognition Level of Alertness Alert Orientation Name,Situation Language Function Ability No Deficits Noted Safety Awareness Decreased Safety Awareness Memory Description No Deficits Noted Comments slgith confusion Gross Range of Motion Lower Extremity ROM Assessment Within Functional Limits Strength Lower Extremity Strength Assessment Within Functional Limits Coordination Assessment Gross Coordination Gross Coordination WNL Sensation Assessment Sensation Gross Sensation WNL Muscle Tone Muscle Tone WNL Yes M6 PT-IP Treatment Start: 10/01/23 15:25 Freq: NEEDED Status: Active Protocol: Document 10/02/23 12:40 MB (Rec: 10/02/23 13:06 MB [id number]) Physical Therapy Treatment Education Education Provided Safety M7 PT-IP Assessment and Plan Start: 10/01/23 15:25 Freq: NEEDED Status: Active Protocol: Document 10/02/23 12:40 MB (Rec: 10/02/23 13:06 MB [id number]) PT Summary Assessment and Plan Potential Rehabilitation Potential Fair Status of Condition at Evaluation Evolving Summary Impairments Pain,ROM,Strength,Balance,Bed Mobility,Transfers,Gait, Activity Tolerance Progress Towards Goals Slow Progress due to Pain,Slow Progress due to Medical Issues,Slow Progress due to Activity Tolerance Assessment Summary Pt had a HGB drop and nsg recommends dangling pt EOB and checking vitals and PT is in agreement. His BP does not drop much with the movement and his O2 sats on 3L are 88- 91%. Pt reports he doesn't feel like getting up once EOB and his left foot also hurts him from gout. Returned to hook lying. Goals Bed Mobility Goal Independent Transfer Goal Independent,Cane,Front Wheeled Walker Gait Goal Independent,Cane,Front Wheel Walker Gait Distance 200 Other Goals improve transfers and ambulation without AD mod I ~ 300 ft up/down 5 steps L rail ascending SBA Days to Meet Goals 10 Frequency of Treatment Frequency Of Treatment Once a Day Treatment Plan Physical Therapy Treatment Plan Bed Mobility Training,Transfer Training,Gait Training, Therapeutic Exercise,Balance Retraining,Post Op Education, Discharge Planning,Hot or Cold Pack,Neuromuscular Re-ed, Coordination Retraining,Manual Therapy Other Recommendations and Next Treatment ambulation using SPC/without Focus AD if appropriate Precautions Other Precautions O2 sat Recommendations To Nursing Amount of Assist Needed 1 Person Assist Discharge Recommendations PT Discharge Recommendations Home with Assistance,Home Health Equipment Needed for Home Before FWW if not safe with SPC/ Discharge without AD Transportation Needs at Discharge Private Vehicle
[2023-10-02] MEDS: cefTRIAXone 1,000 MG in SODIUM CHLORIDE 0.9% 100 ML 200 MG IV (13:25)
[2023-10-02] MEDS: AZITHROMYCIN 500 MG in DEXTROSE 5% IN WATER 250 ML 250 MG IV (14:10)
--- NOTE | 2023-10-02 14:24 | CM.DPNOTE ---
DCP Note BALLPOINT PEN CARTRIDGE TESTER reviewed EMR. Per Rn, pt doing much better today. On 2ltrs of O2 and moving much better. Good supports at home. Per RN, provider reports likely here until Tuesday. May be moving well enough at dc to not qualify for HH. Plan: home with spouse when medically stable. May need FWW upon dc. f/u for HH need closer to dc. CM team will continue to follow closely. ROSALINO Ibarra
[2023-10-02] MEDS: ACETAMINOPHEN 325 MG TABLET 650 MG PO (19:42)
[2023-10-02] MEDS: ATORVASTATIN 20 MG TABLET 40 MG PO (21:02)
[2023-10-02] MEDS: MELATONIN 3 MG TABLET 9 MG PO (21:02)
[2023-10-02] MEDS: SODIUM CHLORIDE 0.9% FLUSH 10 ML IV (23:02)
[2023-10-03] VITALS (13 sets, daily range): BP systolic 120–145; BP diastolic 48–60; PULSE 67–87; RESP 16–24; TEMP 36.6–38.1; O2SAT 87–93
[2023-10-03] MEDS: PANTOPRAZOLE DR 20 MG TABLET PO (05:24)
[2023-10-03] MEDS: ACETAMINOPHEN 325 MG TABLET 650 MG PO ×3 (05:28→20:39)
[2023-10-03 05:43] LABS: Add Manual Diff / Slide Review NO; Basophils Absolute Auto 100 /uL (0-100); Basophils Percent Auto 0.5 % (0-2); Eosinophils Absolute Auto 0 /uL (0-450); Eosinophils Percent Auto 0.3 % (2-4); Hematocrit 24.4 % (41-53); Hemoglobin 8.3 g/dL (13.5-17.5); Lymphocytes Absolute Auto 800 /uL (1100-4500); Lymphocytes Percent Auto 7.2 % (25-40); Mean Corpuscular HGB Conc 34.1 % (30-36); Monocytes Absolute Auto 900 /uL (0-900); Monocytes Percent Auto 7.8 % (3-14); Neutrophils Absolute Auto 9800 /uL (1500-7000); Neutrophils Percent Auto 84.2 % (50-75); Platelet Count 204 X10^3/uL (150-400); Red Blood Cell Count 2.87 X10^6/uL (4.5-5.9); Red Cell Distribution Width 13.3 % (11.6-14.8); White Blood Cell Count 11.7 X10^3/uL (4.5-11.0)
[2023-10-03 05:54] LABS: Uric Acid 4.3 mg/dL (3.5-8.5)
[2023-10-03 05:56] LABS: Alanine Aminotransferase 18 IU/L (<50); Albumin 3.1 g/dL (3.5-5.0); Alkaline Phosphatase 60 U/L (38-126); Aspartate Aminotransferase 20 IU/L (17-59); BUN Creatinine Ratio 13.8 (6-22); Bilirubin Total 1.3 mg/dL (0.2-1.3); Blood Urea Nitrogen 19 mg/dL (9-20); Calcium 8.5 mg/dL (8.4-10.2); Carbon Dioxide 23 mmol/L (22-32); Chloride 106 mmol/L (98-107); Estimated Glomerular Filt Rate 56 mL/min (>60); Glucose 110 mg/dL (80-110); HEMOLYSIS < 15 (0-50); Potassium 3.9 mmol/L (3.4-5.1); Sodium 138 mmol/L (137-145); Total Protein 6.1 g/dL (6.3-8.2)
[2023-10-03] MEDS: SODIUM CHLORIDE 0.9% 1,000 ML 84 ML IV ×2 (06:57→23:52)
[2023-10-03] MEDS: AMLODIPINE 5 MG TABLET PO (09:10)
[2023-10-03] MEDS: ASPIRIN EC 81 MG TABLET PO (09:10)
[2023-10-03] MEDS: buPROPion XL 150 MG TAB 300 MG PO (09:10)
[2023-10-03] MEDS: ENOXAPARIN 40 MG/0.4 ML SYRINGE SUBCUT (09:11)
[2023-10-03] MEDS: METOPROLOL IR 50 MG TABLET PO ×2 (09:11→20:40)
[2023-10-03] MEDS: DOCUSATE 100 MG CAPSULE PO ×2 (09:11→20:38)
[2023-10-03] MEDS: lisinopriL 10 MG TABLET 5 MG PO (09:11)
[2023-10-03] MEDS: ESCITALOPRAM 10 MG TABLET 20 MG PO (09:11)
[2023-10-03] MEDS: DOXYCYCLINE 100 MG in SODIUM CHLORIDE 0.9% 100 ML IV ×2 (09:17→21:15)
[2023-10-03 12:14] LABS: Acinetobacter calcoa-baumannii Not Detected (Not Detect); Bacteroides fragilis Not Detected (Not Detect); Candida albicans Not Detected (Not Detect); Candida auris Not Detected (Not Detect); Candida glabrata Not Detected (Not Detect); Candida krusei Not Detected (Not Detect); Candida parapsilosis Not Detected (Not Detect); Candida tropicalis Not Detected (Not Detect); Cryptococcus neoformans/gatti Not Detected (Not Detect); Enterobacter cloacae complex Not Detected (Not Detect); Enterobacterales Not Detected (Not Detect); Enterococcus faecalis Not Detected (Not Detect); Enterococcus faecium Not Detected (Not Detect); Haemophilus influenzae Not Detected (Not Detect); Klebsiella aerogenes Not Detected (Not Detect); Listeria monocytogenes Not Detected (Not Detect); Neisseria meningitidis Not Detected (Not Detect); Proteus species Not Detected (Not Detect); Pseudomonas aeruginosa Not Detected (Not Detect); Salmonella species Not Detected (Not Detect); Serratia marcescens Not Detected (Not Detect); Staphylococcus epidermidis Detected (Not Detect); Staphylococcus lugdunensis Not Detected (Not Detect); Staphylococcus species Detected (Not Detect); Stenotrophomonas maltophilia Not Detected (Not Detect); Streptococcus agalactiae (Gr B Not Detected (Not Detect); Streptococcus pneumonia Not Detected (Not Detect); Streptococcus pyogenes (Gr A) Not Detected (Not Detect); Streptococcus species Not Detected (Not Detect); mecA/C Resistance Detected (Not Detect)
[2023-10-03] MEDS: cefTRIAXone 1,000 MG in SODIUM CHLORIDE 0.9% 100 ML 200 MG IV (12:51)
--- NOTE | 2023-10-03 13:25 | PM.PN.1 ---
Subjective Subjective Date Patient Seen: 10/03/23 Time Patient Seen: 08:40 Interval history: Patient seen in follow-up pneumonia. Chest discomfort patient with fever last night but otherwise doing well. No other changes. No further chest pain. Foot is feeling better. No other complaint or problem. Exam Vital Signs (past 8 hours): - 10/03/23 07:00 10/03/23 07:32 10/03/23 08:00 Temperature 98.6 F Pulse Rate 67 71 Respiratory Rate 22 Blood Pressure 145/60 H Pulse Oximetry 93 92 Oxygen Delivery Method Nasal Cannula Oximask Oxygen Flow Rate 5 5 10/03/23 08:30 10/03/23 09:11 10/03/23 10:45 Temperature 99.7 F H Pulse Rate Respiratory Rate Blood Pressure 145/60 H Pulse Oximetry 90 L Oxygen Delivery Method Oxygen Flow Rate 3 10/03/23 11:30 10/03/23 12:50 Temperature 100.5 F H 100.0 F H Pulse Rate 73 Respiratory Rate Blood Pressure 139/57 L Pulse Oximetry 89 L Oxygen Delivery Method Oxygen Flow Rate 5 Oxygen Delivery Method Oximask Oxygen Flow Rate 5 Narrative Exam Narrative: Alert elderly male in no acute distress Neck supple without adenopathy lungs are clear heart is regular rate and rhythm Objective Labs 10/03/23 05:23 10/03/23 05:23 Labs: Laboratory Results - last 24 hr 10/03/23 05:23 WBC 11.7 H RBC 2.87 L Hgb 8.3 L Hct 24.4 L MCV 85.0 MCH 29.0 MCHC 34.1 RDW 13.3 Plt Count 204 Neut % (Auto) 84.2 H Lymph % (Auto) 7.2 L Hubbard % (Auto) 7.8 Eos % (Auto) 0.3 L Baso % (Auto) 0.5 Neut # (Auto) 9800 H Lymph # (Auto) 800 L Hubbard # (Auto) 900 Eos # (Auto) 0 Baso # (Auto) 100 Sodium 138 Potassium 3.9 Chloride 106 Carbon Dioxide 23 BUN 19 Creatinine 1.38 H Estimated GFR 56 L BUN/Creatinine Ratio 13.8 Glucose 110 Uric Acid 4.3 Calcium 8.5 Total Bilirubin 1.3 AST 20 ALT 18 Alkaline Phosphatase 60 Total Protein 6.1 L Albumin 3.1 L Globulin 3.0 Albumin/Globulin Ratio 1.0 [facility] Medical History Vision disorder Gout Chronic cough Restless leg syndrome Mixed hyperlipidemia COPD (chronic obstructive pulmonary disease) Varicose veins of both lower extremities Sleep apnea Snoring Essential hypertension Mixed anxiety depressive disorder (01/18/17) Coronary artery disease (~2008) Gastroesophageal reflux disease Surgical History History of angioplasty Family History Father Stroke History of heart disease Hypertension Hyperlipidemia Mother Cancer Brother History of heart attack History of heart disease Sister Mental health problem Social History household members: spouse Smoking Status: Former smoker Tobacco: How many years used: 40 second hand exposure: No alcohol intake: never substance use type: does not use Assessment & Plan Assessment & Plan narrative: Pneumonia. Patient has continued white count elevation + persistent fevers. Can not switch to p.o. today. Will add doxycycline. Allergic to azithromycin. He is only on 1 antibiotic for community-acquired. Will see how he does. Symptomatically he is doing well. Having no other complaint. Left great toe pain will follow uric acid see how he is doing consider Doppler depending but right now he seems to be doing well. Chest pain. Noncardiac. Hypertension stable. GERD on pantoprazole. MDD continue antidepressants. Code status DNR. Hopefully home in the next 48 hours. Will see how things go. 50 minutes spent with the patient dictating discussing with nursing orders note. Chart review Quality VTE Deep Vein Thrombosis/Pulmonary Embolism Present on Admission: No
--- NOTE | 2023-10-03 16:03 | PT.IPTN ---
Current Diagnoses Sepsis, unspecified organism (09/30/23) Mixed hyperlipidemia (09/30/23) Other specified anxiety disorders (09/30/23) Essential (primary) hypertension (09/30/23) Atherosclerotic heart disease of [place] coronary artery without angina pectoris (09/30/23) Pneumonia, unspecified organism (09/30/23) Gastro-esophageal reflux disease without esophagitis (09/30/23) Pain in left toe(s) (09/30/23) Other specified soft tissue disorders (09/30/23) Other chest pain (09/30/23) Physical Therapy Treatment Note M2 PT-IP Current Condition Start: 10/01/23 15:25 Freq: NEEDED Status: Active Protocol: Document 10/01/23 14:10 AB (Rec: 10/01/23 15:45 AB [id number]) Physical Therapy Current Condition Current Condition Evaluation Date 10/01/23 Treatment Diagnosis PNA; difficulty in walking Onset Date 09/30/23 M3 PT-IP Subjective Start: 10/01/23 15:25 Freq: NEEDED Status: Active Protocol: Document 10/03/23 15:42 MB (Rec: 10/03/23 16:03 MB [id number]) Subjective Physical Therapy Visit Type Type Treatment Note Visit Start Time 15:42 Visit Stop Time 15:57 Number of [employer]ELOPER Visits 0 Physical Therapy Visit Comments Patient Comments Pt states that he is okay and doing better. Therapy Pain Assessment Pain When Pain Assessed At Rest Pain Present Pain Present Denied Pain M4 PT-IP Mobility and Gait Start: 10/01/23 15:25 Freq: NEEDED Status: Active Protocol: Document 10/03/23 15:42 MB (Rec: 10/03/23 16:03 MB [id number]) PT-Bed Mobility Assessment Supine to Sit Supine to Sit Standby Assistance,1 Person Assistance,Head of Bed Elevated,Bedrails Scooting Scooting to Edge of Bed Standby Assistance PT-Transfer Assessment Sit to and From Stand Sit to and from Stand Contact Guard Assistance, Minimal Assistance,1 Person Assistance,Use of Upper Extremities Equipment Transfer Assistive Device Gait Belt,Front Wheeled Walker Orthotic/Prosthetic Devices or Brace: No Transfers Transfer Destination Chair Transfer Technique Ambulation Transfer Ability Level of Assist Contact Guard Assistance, Minimal Assistance,1 Person Assistance,Use of Upper Extremities Comments Mobility Comments Pt's O2 sats are low today on 3.5 L and running at 86-87% and nsg states that PT can bump up O2 and so sats stay in the karan 80s on 4L and increase to 90-91% on 4L once he is up sitting in the chair Gait Assessment Gait Gait Assistance Required: Contact Guard Assist,Minimum Assistance Distance (Feet) 5 Able to Maintain Weight Bearing Status Yes During Gait Assistive Devices Assistive Device Gait Belt,Front Wheeled Walker Orthotic/Prosthetic Devices or Brace: No Gait Deviations General Gait Pattern Decreased Stride Length, Decreased Feet Clearance Factors Limiting Gait Function Factors Limiting Gait Function Decreased Activity Tolerance, Decreased Strength,Poor Balance,Poor Safety Awareness, Respiratory Distress Comments Gait Comments 5' forward and back x2 d/t many lines and PT needing to monitor O2 sats today. Pt with some unsteadiness with gait, decreased foot clearance and step-length PT-Balance Assessment Sitting Balance and Reactions Static Sitting Balance Ability Good Dynamic Sitting Balance Ability Good Standing Balance and Reactions Static Standing Balance Ability Fair Dynamic Standing Balance Ability Fair Device Used FWW M5 PT-IP Objective Assessments Start: 10/01/23 15:25 Freq: NEEDED Status: Active Protocol: Document 10/01/23 14:10 AB (Rec: 10/01/23 15:45 AB [id number]) Orientation Orientation/Cognition Level of Alertness Alert Orientation Name,Situation Language Function Ability No Deficits Noted Safety Awareness Decreased Safety Awareness Memory Description No Deficits Noted Comments slgith confusion Gross Range of Motion Lower Extremity ROM Assessment Within Functional Limits Strength Lower Extremity Strength Assessment Within Functional Limits Coordination Assessment Gross Coordination Gross Coordination WNL Sensation Assessment Sensation Gross Sensation WNL Muscle Tone Muscle Tone WNL Yes M6 PT-IP Treatment Start: 10/01/23 15:25 Freq: NEEDED Status: Active Protocol: Document 10/03/23 15:42 MB (Rec: 10/03/23 16:03 MB [id number]) Physical Therapy Treatment Education Education Provided Safety M7 PT-IP Assessment and Plan Start: 10/01/23 15:25 Freq: NEEDED Status: Active Protocol: Document 10/03/23 15:42 MB (Rec: 10/03/23 16:03 MB [id number]) PT Summary Assessment and Plan Potential Rehabilitation Potential Fair Status of Condition at Evaluation Evolving Summary Impairments Pain,ROM,Strength,Balance,Bed Mobility,Transfers,Gait, Activity Tolerance Progress Towards Goals Slow Progress due to Pain,Slow Progress due to Medical Issues,Slow Progress due to Activity Tolerance Assessment Summary Pt's O2 sats remain in the high 80s or low 90s today with pt on 4L O2 and are in the higher numbers once sitting up in chair. He has slow progress with PT d/t medical issues. Goals Bed Mobility Goal Independent Transfer Goal Independent,Cane,Front Wheeled Walker Gait Goal Independent,Cane,Front Wheel Walker Gait Distance 200 Other Goals improve transfers and ambulation without AD mod I ~ 300 ft up/down 5 steps L rail ascending SBA Days to Meet Goals 10 Frequency of Treatment Frequency Of Treatment Once a Day Treatment Plan Physical Therapy Treatment Plan Bed Mobility Training,Transfer Training,Gait Training, Therapeutic Exercise,Balance Retraining,Post Op Education, Discharge Planning,Hot or Cold Pack,Neuromuscular Re-ed, Coordination Retraining,Manual Therapy Other Recommendations and Next Treatment ambulation using SPC/without Focus AD if appropriate Precautions Other Precautions O2 sat Recommendations To Nursing Amount of Assist Needed 1 Person Assist Discharge Recommendations PT Discharge Recommendations Home with Assistance,Home Health Equipment Needed for Home Before FWW if not safe with SPC/ Discharge without AD Transportation Needs at Discharge Private Vehicle
--- NOTE | 2023-10-03 16:14 | CM.DPNOTE ---
DCP Note BULB WEEDER reviewed EMR. Pt remains on 3ltrs O2 at this time. Continues to have a fever. Per provider note, anticipate home in next 48hours. Per RN, pt doing okay. Spouse has been at bedside. BULB WEEDER unable to meet with pt due to triaging needs. f/u about HH (with insurance of [employer], I believe only option is [facility]). Plan: home with spouse within next 48hrs. f/u about HH referral. may need walker at dc. CM team will follow closely. Fozia Proctor, ROSALINO
--- NOTE | 2023-10-03 17:43 | OT.IP.EVAL ---
Current Diagnoses Sepsis, unspecified organism (09/30/23) Mixed hyperlipidemia (09/30/23) Other specified anxiety disorders (09/30/23) Essential (primary) hypertension (09/30/23) Atherosclerotic heart disease of [place] coronary artery without angina pectoris (09/30/23) Pneumonia, unspecified organism (09/30/23) Gastro-esophageal reflux disease without esophagitis (09/30/23) Pain in left toe(s) (09/30/23) Other specified soft tissue disorders (09/30/23) Other chest pain (09/30/23) Past Medical History (Last Reviewed 09/30/23 @ 08:28 by Rolando Vera MD) Chronic cough COPD (chronic obstructive pulmonary disease) Coronary artery disease (~2008) Essential hypertension Gastroesophageal reflux disease Gout Mixed anxiety depressive disorder (01/18/17) Mixed hyperlipidemia Restless leg syndrome Sleep apnea Snoring Varicose veins of both lower extremities Vision disorder Surgical History (Last Reviewed 09/30/23 @ 08:28 by Rolando Vera MD) History of angioplasty Occupational Therapy Inpatient Evaluation/Re-Eval M1 PT/OT-IP Prior Functional Status Start: 10/01/23 15:25 Freq: NEEDED Status: Active Protocol: Document 10/01/23 14:10 AB (Rec: 10/01/23 15:45 AB [id number]) Medical Review Prior Functional Status Medical History Reviewed Yes Communication able to make needs known Mobility and Gait pt stated that he was independent with all mobilities and ambulation without AD Social History Household Members spouse Living Arrangements RV Number of Floors (Floors) One Floor Number of Stairs To Enter/Railing? 5 steps L rail ascending to enter the house Home Environment Standard Height Toilet,Walk in Shower Home Equipment Straight Cane M1 PT/OT-IP Prior Functional Status Start: 10/03/23 17:20 Freq: NEEDED Status: Active Protocol: Document 10/03/23 16:35 AMY (Rec: 10/03/23 17:43 AMY [id number]) Medical Review Prior Functional Status Medical History Reviewed Yes Communication able to make needs known Mobility and Gait pt stated that he was independent with all mobilities, ambulated with furniture walking or SC as needed, and walked his two dogs outdoors Activities of Daily Living and IADL's pt reports being I with BADLs Social History Household Members spouse Living Arrangements RV Number of Floors (Floors) One Floor Number of Stairs To Enter/Railing? 5 steps L rail ascending to enter the house Home Environment Standard Height Toilet,Walk in Shower Home Equipment Straight Cane Employment Status Retired Additional Social History Comment Pt retired two years ago. Pt denies any hobbies. M2 OT-IP Current Condition Start: 10/03/23 17:20 Freq: Status: Active Protocol: Document 10/03/23 16:35 [email or web address] (Rec: 10/03/23 17:43 [facility] [id number]) Occupational Therapy Current Condition Current Condition Evaluation Date 10/03/23 Treatment Diagnosis weakness, pneumonia Diagnosis Onset Date 09/30/23 M3 OT- IP Subjective and Pain Start: 10/03/23 17:20 Freq: Status: Active Protocol: Document 10/03/23 16:35 [email or web address] (Rec: 10/03/23 17:43 [facility] [id number]) OT- Subjective Occupational Therapy Visit Type Type Initial Evaluation Visit Start Time 16:35 Visit Stop Time 17:15 Notes Pt sitting up in chair with spouse present on entrance of OT. Pt agreed to participate in OT eval. Occupational Therapy Visit Comments Patient Comments Following evaluation, pt declines continuing with OT. Pt stated that he does not need help with his BADLs, understands how to use LB AE, and states that his will assist him if he needs it when he goes home. Pt's did not contradict pt. OT Pain Assessment Pain When Pain Assessed At Rest Pain Present Pain Present Pain Reported Location Left great toe area Intensity 8 M4 OT- IP ADL's Start: 10/03/23 17:20 Freq: Status: Active Protocol: Document 10/03/23 16:35 [id number] (Rec: 10/03/23 17:43 [facility] [id number]) OT [id number] General Evaluation Self-Feeding Ability Independent Comments OT Self-Feeding Comments Pt with dinner present at end of evaluation. Pt able to manage I'ly. OT ADL-Grooming General Evaluation Grooming Ability Standby Assistance Areas Needing Assistance Retrieving/Set-up of Grooming Items Comments OT Grooming Comments Pt declined performing during OT eval, but reports that he is I and does not need assist. OT ADL-Oral Care Comments Oral Care Comments Pt declined performing during OT eval. Pt reports he does not need assist. OT ADL-Dressing Comments OT Dressing Comments Pt declined performing during OT eval. Pt reports that he does not require assistance. Pt stated that he sometimes has difficulty donning his socks. Pt was will to have OT educate pt on AE for LB dressing. OT demonstrated use of manager labor relations and sockaid. Pt verbalized understanding for performing. OT ADL-Toileting Comments OT Toileting Comments Not observed during OT eval. OT ADL-Bathing Comments OT Bathing Comments Pt declines performing during OT eval. Pt reports he does not need assist or that his can assist if necessary. M5 OT- IP IADL's Start: 10/03/23 17:20 Freq: Status: Active Protocol: Document 10/03/23 16:35 AMY (Rec: 10/03/23 17:43 [facility] [id number]) OT-Instrumental Activities of Daily Living Deficits IADL Deficits Identified Deficits Home Safety Awareness Awareness of Need for Assistance at Home Decreased Awareness Ability to Problem Solve Emergency Able to Problem Solve Situations Medication Management Medication Management No Deficits Identified Money Management Money Management No Deficits Identified Meal Preparation Meal Preparation Caregiver Provides Supervision Enterprise [employer] Architect [employer] Architect Caregiver Provides Assist Driving Driving Comments Pt was driving days before his syncopal episode. M6 OT- IP Functional Cognition Start: 10/03/23 17:20 Freq: Status: Active Protocol: Document 10/03/23 16:35 AMY (Rec: 10/03/23 17:43 [facility] [id number]) Cognitive Factors Limiting Selfcare Function Cognitive Ability Level of Alertness Alert Patient Orientation Name,Month,Year,Place, Situation Attention Span Ability Capable of Focused Attention, Capable of Sustained Attention Ability to Follow Commands Able to Follow One Step Commands,Able to Follow Multi- Step Commands Memory Description No Deficits Noted Safety Awareness Underestimates Need for Assistance Problem Solving Ability No deficits Noted Executive Function Ability No Deficits Noted Abstract Thinking Ability No Deficits Noted OT- Vision and Hearing OT- Hearing Assessment OT- Hearing Assessment WFL OT- Vision Assessment Visual Acuity WFL,Glasses All The Time M7 OT- IP Mobility and Balance Start: 10/03/23 17:20 Freq: Status: Active Protocol: Document 10/03/23 16:35 AMY (Rec: 10/03/23 17:43 [facility] [id number]) OT- Bed Mobility Assessment Sit to Supine Sit to Supine Assist Contact Guard Assistance,1 Person Assistance,Head of Bed Elevated,Bedrails Scooting Scooting Up and Down in Bed Standby Assistance,1 Person Assistance,Head of Bed Elevated,Bedrails OT-Transfer Assessment Sit to and From Stand Sit to and from Stand Contact Guard Assistance,1 Person Assistance,Use of Upper Extremities Transfers Transfer Ability Contact Guard Assistance,1 Person Assistance,Use of Upper Extremities Technique Transfer Destination Bed Transfer Technique Stand Step Pivot Devices Transfer Assistive Devices Gait Belt,Front Wheeled Walker OT- Gait Assessment Gait Gait Assistance Required: Contact Guard Assist Distance (Feet) 5 Assistive Devices Assistive Device Gait Belt,Front Wheeled Walker OT- Balance Assessment Sitting Balance and Reactions Static Sitting Balance Ability Good Dynamic Sitting Balance Ability Fair Standing Balance and Reactions Static Standing Balance Ability Good Dynamic Standing Balance Ability Fair M8 OT- IP Objective Assessments Start: 10/03/23 17:20 Freq: Status: Active Protocol: Document 10/03/23 16:35 AMY (Rec: 10/03/23 17:43 [facility] [id number]) OT Gross Range of Motion Upper Extremity Range of Motion Assessment Within Functional Limits OT Strength Upper Extremity Strength Shoulder R 4/5, L 4-/5 Elbow B 4+/5 Hand Steel Loader Strength Hand Dominance Right M9 OT- IP Assessment and Plan Start: 10/03/23 17:20 Freq: Status: Active Protocol: Document 10/03/23 16:35 AMY (Rec: 10/03/23 17:43 [facility] [id number]) OT Summary Assessment and Plan Potential Rehabilitation Potential Excellent Analytic Complexity at Evaluation Low Summary OT Impairments Balance,Functional Mobility, Dressing,Bathing,Toilet Transfers,Shower Transfers, Activity Tolerance Progress Towards Goals Safe For Discharge Assessment Summary Pt is 68 yo M admitted with pneumonia and weakness following a syncopal episode that resulted in a fall in his bathroom. Pt's reports that he seemed sick for about two weeks prior. Pt's O2 sat on 3.5L was between 90-95 throughout eval, except during MMT, at which time it dropped to 85. OT educated pt on PLB technique, pt would not model technique despite cues. O2 SAT returned to 94 after about 1 minute. Pt demonstrates decreased functional mobility/ transfers, activity intolerance, and decreased BADLs. Skilled OT services are appropriate to address these deficits, but pt has declined to continue with OT services. Pt's only interest was education on LB AE. OT performed education on sockaid , shoe horn, and manager labor relations. Pt declined having a follow-up treatment to ensure understanding of LB AE. Pt left with all needs met and in reach, sitting up in bed with exit alarm set, meal and spouse present. Frequency of Treatment Frequency Of Treatment Discharge Discharge Recommendations OT Discharge Recommendations Home with Assistance,Home Health Home Equipment Needs grab bars in shower, sock aid, long handled manager labor relations, pulse- ox Transportation Needs at Discharge Private Vehicle
[2023-10-03] MEDS: ONDANSETRON 4 MG/2 ML INJ IV (18:08)
[2023-10-03] MEDS: ONDANSETRON 4 MG ODT PO (19:51)
[2023-10-03] MEDS: OXYCODONE/ACETAMINOPHEN 5/325 TABLET 1 TAB PO (20:39)
[2023-10-03] MEDS: ATORVASTATIN 20 MG TABLET 40 MG PO (20:40)
[2023-10-04] VITALS (12 sets, daily range): BP systolic 119–156; BP diastolic 48–66; PULSE 65–86; RESP 17–28; TEMP 36.8–37.4; O2SAT 89–98
[2023-10-04] MEDS: ACETAMINOPHEN 325 MG TABLET 650 MG PO (04:00)
[2023-10-04] MEDS: ALBUTEROL 2.5 MG/3 ML NEB (ADULT) INH (04:23)
--- NOTE | 2023-10-04 04:30 | DI.RAD.S_ITS ---
PROCEDURE: XR CHEST 1V INDICATIONS: SOB TECHNIQUE: One view of the chest was acquired. COMPARISON: [facility], CR, XR CHEST 1V, 05/07/2022, 7:37. FINDINGS: Surgical changes and devices: None. Lungs and pleura: Patchy opacities are present within the lungs bilaterally. Mediastinum: Mediastinal contours appear normal. Heart size is normal. Bones and chest wall: No suspicious bony lesions. Overlying soft tissues appear unremarkable. IMPRESSION: Bilateral pulmonary opacities suggestive of pneumonia. Dictated by: Ana Thrasher M.D. on 10/04/2023 at 10:43 Approved by: Ana Thrasher M.D. on 10/04/2023 at 10:47
--- NOTE | 2023-10-04 04:46 | DI.CT.S_ITS ---
PROCEDURE: CT ANGIO CHEST PE PROTOCOL INDICATIONS: SOB TECHNIQUE: After the administration of intravenous contrast, 2 mm thick sections acquired from the pulmonary apices to the posterior costophrenic angles. 3-dimensional maximum intensity projection (MIP) coronal and sagittal reformats were then acquired through the thorax. For radiation dose reduction, the following was used: automated exposure control, adjustment of mA and/or kV according to patient size. COMPARISON: [facility], CT, CT CHEST W CON, 05/08/2022, 16:11. [facility], CT, CT CHEST ABD PEL W CON, 09/30/2023, 8:34. FINDINGS: Image quality: Diagnostic. Pulmonary arteries: Pulmonary arteries are normal in size, and demonstrate no intraluminal filling defects to suggest central pulmonary embolism. Lower Neck: No enlarged lymph nodes. Thyroid: No thyroid nodules which require sonographic follow up, per consensus guidelines. Axillae: No enlarged lymph nodes. Chest Wall: Unremarkable. Bones: No suspicious osseous lesion. Lungs and Pleura: No pneumothorax. Small bilateral pleural effusions. Severe emphysematous change. A few pulmonary nodules are identified. Right middle lobe 0.5 cm, (6/161), new in the short-term interval. Consolidative and ground-glass opacity most pronounced in the right upper and lower lobes and left lower lobe. Left lower lobe volume loss. Central airways are clear. Heart: Heart size is within normal limits. Three-vessel coronary artery calcifications. No pericardial effusion. Thoracic Vessels: No aortic aneurysm. Mediastinum and Liya: Shotty mediastinal lymph nodes. Subcarinal node measuring 1.3 cm. Prevascular node measuring 1 cm. Esophagus: No wall thickening. No hiatal hernia. Upper Abdomen: Visualized upper abdomen solid organs and bowel loops appear normal. IMPRESSION: 1. No pulmonary embolism identified. 2. Multifocal pneumonia which is worsened compared to 09/30/2023. Recommend follow-up to resolution. 3. Small bilateral pleural effusions, new. 4. Enlarged and shotty mediastinal lymph nodes. Favor reactive etiology. No significant discrepancy with the overnight preliminary interpretation. Dictated by: Lane Mullins M.D. on 10/04/2023 at 8:33 Approved by: Lane Mullins M.D. on 10/04/2023 at 8:44
[2023-10-04] MEDS: FUROSEMIDE 20 MG/2 ML VIAL IV ×2 (04:54→20:51)
[2023-10-04] MEDS: MORPHINE 2 MG/ML INJ IV (04:55)
[2023-10-04] MEDS: PANTOPRAZOLE DR 20 MG TABLET PO (06:43)
--- NOTE | 2023-10-04 07:56 | PC.NURSE ---
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 Complaints of nausea w/o emesis & left toe pain d/t gout, medicated as ordered w/ good effect. Denies chest pain, minimal SOB on exertion, denies difficulty breathing. Lung sounds are clear/diminished bilaterally throughout. Patient remaining in high-zamudio's position. IV abx infused as ordered. at bedside, discussed medications & overnight plan w/ patient & spouse. 299 update: Patient O2 desats to 86-87% on 5L oximask. Denies SOB or difficulty breathing. Patient stated he felt fine and no different than before. Appears relaxed, breathing unlabored. RT notified, recommended to increase O2 to 8L. O2 saturation increased to low 90's. Patient remaining in high-fowlers position. Lung sounds unchanged. 399 update: Patient O2 desats between low-mid 80's on 8L oximask. Patient notably SOB, work of breathing increased. Patient is alert & oriented, lung sounds are unchanged. RT notified to request breathing treatment. Breathing treatment given w/ no effect. RT placed patient on heated hi-flow (55% FiO2). O2 saturation remaining between 85-88%. Notified MD Michel, new orders placed: CXR, chest CT, 12-lead EKG, 20mg IV Lasix, IV Solu-medrol. New orders completed. 529 update: Updated MD Michel on imaging results & patient condition, new order for tele ICU public transit trolley driver consult. Order placed. 629 update: Notified by MD Michel that ICU public transit trolley driver accepts patient. Patient moved to ICU. Called (Lauryn) @ [phone] to provide update on patient.
[2023-10-04] MEDS: DOXYCYCLINE 100 MG in SODIUM CHLORIDE 0.9% 100 ML IV ×2 (08:42→20:50)
[2023-10-04] MEDS: SODIUM CHLORIDE 0.9% FLUSH 10 ML IV ×4 (08:43→20:52)
[2023-10-04] MEDS: ENOXAPARIN 40 MG/0.4 ML SYRINGE SUBCUT (08:48)
[2023-10-04] MEDS: buPROPion XL 150 MG TAB 300 MG PO (08:48)
[2023-10-04] MEDS: ASPIRIN EC 81 MG TABLET PO (08:49)
[2023-10-04] MEDS: DOCUSATE 100 MG CAPSULE PO ×2 (08:49→20:51)
[2023-10-04] MEDS: ESCITALOPRAM 10 MG TABLET 20 MG PO (08:49)
[2023-10-04] MEDS: lisinopriL 10 MG TABLET 5 MG PO (08:51)
[2023-10-04] MEDS: METOPROLOL IR 50 MG TABLET PO ×2 (08:51→20:51)
[2023-10-04] MEDS: AMLODIPINE 5 MG TABLET PO (08:51)
[2023-10-04 09:10] LABS: Fractionated Inspired Oxygen 55; HCO3 ABG 23 mmol/L (23-27); Oxygen Saturation ABG 92 % (95-100); PCO2 ABG 33.8 mmHg (35-45); PO2 ABG 62 mmHg (80-100); TCO2 ABG 24 mmol/L (23-27); pH ABG 7.43 (7.35-7.45)
[2023-10-04 09:11] LABS: Allen Test for ABG Passed? Yes, Passed; Blood Gas Collection Site Left Radial
--- NOTE | 2023-10-04 09:28 | DI.ECHO.S_ITS ---
Version: 1 Study ID: [id number] [place] [id number] Name: DENNISE KLEIN Study Date: 10/04/2023, 10: 34 AM : 1955 BP: 130 / 61 mmHg Gender: Male Height: 69 in Age: 68 Years Weight: 200 lb BSA: 2.07 mA? Ordering: JESSY WEST Referring: JESSY WEST Clinician: Kellee Roldan Reason For Study: HYPOXIA History: Summary Statements Normal sinus rhythm. Normal LV size and wall thickness. Normal wall motion and LV systolic function. Ejection fraction is 60-65%. Stage II diastolic dysfunction. Mild RV enlargement; otherwise normal chamber sizes. No significant valvular abnormalities. Estimated PA systolic pressure is 50 mmHg assuming right atrial pressure of 8 mmHg. Incidental note is made of thoracic aorta atherosclerosis. Compared to prior study May 11, 2023 PA systolic pressure is up from 31 mmHg to 50 mmHg. Procedure: A two-dimensional transthoracic echocardiogram with color flow and Doppler was performed. The study quality was technically adequate. Comparison is made with the echocardiogram of 05/11/2023. The patient was in sinus rhythm with heart rates between 67-77 bpm during the exam. Left Ventricle: The ejection fraction is estimated to be 60-65%. The left ventricle is normal in size and wall thickness. Right Ventricle: The right ventricular systolic function is normal. The right ventricle is mildly dilated. Atria: There is no Doppler evidence for an interatrial shunt. The left atrial size is normal. Right atrial size is normal. Mitral Valve: There is trace mitral regurgitation. The mitral valve is normal in structure and function. Aortic Valve: No aortic regurgitation is present. There is no aortic valve stenosis. The aortic valve is trileaflet. The aortic valve opens well. Tricuspid Valve: There is mild tricuspid regurgitation. The right ventricular systolic pressure is estimated to be at least 46 mmHg based on an estimated right atrial pressure of 3 mm Hg. The tricuspid valve leaflets are thin and pliable. Pulmonic Valve: There is no pulmonic valvular regurgitation. The pulmonic valve leaflets are thin and pliable; valve motion is normal. Great Vessels: The dimensions of the ascending aorta are normal. The aortic root is normal size. The IVC is of normal diameter and collapses greater than 50% with a sniff. This suggests a low right atrial pressure of 3 mm Hg. Pericardium/ Pleura: There is no pericardial effusion. There is no pleural effusion. 2D and M-Mode Measurements and Calculations LVIDd: 5.2 cm AoV Openin.91 cm LVIDs: 3.4 cm LVOT diam: 1.98 cm IVSd: 0.77 cm Ao root diam: 3.3 cm LVPWd: 0.88 cm asc Aorta Diam: 2.8 cm LV eli. diameter/BSA (cm/m^2): 2.5 Ao Arch Diam (Prox Trans): 2.6 cm LV sys. diameter/BSA (cm/m^2): 1.65 EPSS: 0.30 cm RVD1 (basal): 4.2 cm TAPSE: 2.5 cm LA A4 area: 18.2 unix manager? IVC diam: 1.49 cm LA A2 area: 18.2 unix manager? RA area: 16.7 unix manager? LA length (vol): 5.0 cm RA long axis: 5.1 cm LA vol: 56.5 ml RA vol: 46.6 ml LA vol index: 27.4 ml/mA? RA : 22.5 ml/mA? Doppler Measurements and Calculations Ao V2 max: 153.0 cm/sec LVOT Max Se: 104.8 cm/sec Ao V2 mean: 108.8 cm/sec LV V1 max P.4 mmHg Ao V2 VTI: 31.9 cm LV V1 VTI: 23.0 cm Ao max P.4 mmHg SV(LVOT): 71.0 ml Ao mean P.1 mmHg LORETO(I,D): 2.23 unix manager? LORETO(V,D): 2.11 unix manager? LORETO indexed to BSA (cm^2/m^2): 1.08 sev ratio: 0.72 MV E max se: 105.4 cm/sec MV dec time: 0.20 sec MV A max se: 89.0 cm/sec MV E/A: 1.18 Med Peak E' Se: 4.5 cm/sec Lat Peak E' Se: 12.5 cm/sec E/e' average: 15.9 TR max se: 327.7 cm/sec PA mean P.2 mmHg TR max P.0 mmHg PA V2 max: 123.2 cm/sec Electronically signed by: Oksana Stern M.D. 10/04/2023, 3: 41 PM
--- NOTE | 2023-10-04 09:54 | PM.PN.1 ---
Subjective Subjective Date Patient Seen: 10/04/23 Time Patient Seen: 09:54 Interval history: Patient seen in follow-up of hypoxia, pneumonia, left great toe pain. Patient had a difficult night. Patient around 4:00 a.m. was having increasing shortness of breath. Which really was over the last half of the day yesterday. Did not feel like he was had any appetite. Radnor like he was more short of breath. During the night he had increasing shortness of breath and O2 requirement. Was at 8.5 L up from 5. Chest x-ray was done which showed did not show significant change patient had a history of some leg swelling and CT PE protocol was obtained which showed multifocal pneumonia which is worsened since the . Patient was transferred to the CCU on high-flow oxygen heated feeling much better. Blood gas looked not bad with 92% and adequate CO2. No other change. CCU Was consulted. No chest pain. He has been feeling much better. Without other changes. He was given 20 mg of Lasix IV with 750 cc out Exam Vital Signs (past 8 hours): - 10/04/23 04:00 10/04/23 04:00 10/04/23 06:13 Temperature 99.0 F 99.0 F Pulse Rate 80 85 Respiratory Rate 21 28 H Blood Pressure 130/50 L Pulse Oximetry 90 L Oxygen Delivery Method High Flow Nasal Cannula Oxygen Flow Rate 8 45 Fraction of Inspired Oxygen 55 10/04/23 06:14 10/04/23 08:51 10/04/23 08:51 Temperature 99.4 F Pulse Rate 86 72 72 Respiratory Rate 26 H 26 H Blood Pressure 140/63 Pulse Oximetry 89 L 90 L Oxygen Delivery Method Oxygen Flow Rate 45 Fraction of Inspired Oxygen Fraction of Inspired Oxygen 55 Oxygen Delivery Method High Flow Nasal Cannula Oxygen Flow Rate 45 Narrative Exam Narrative: Alert male sitting up eating in no acute distress HEENT exam unremarkable mucous membranes moist neck supple without adenopathy lungs with decreased breath sounds but no crackles or rhonchi. No retractions. Breathing comfortably today. Heart is regular rate and rhythm although distant extremities without edema. Objective Labs 10/03/23 05:23 10/03/23 05:23 Labs: Laboratory Results - last 24 hr 09/30/23 10/04/23 08:28 08:50 ABG Sample Site Left radial ABG pH 7.43 ABG pCO2 33.8 L ABG pO2 62 L ABG HCO3 23 ABG Total CO2 24 ABG O2 Saturation 92 L ABG Base Excess -2.0 FiO2 55 A.calcoaceticus-baumannii cmplx PCR Not detected Bacteroides fragilis Not detected Layla albicans (PCR) Not detected Layla auris (PCR) Not detected C. glabrata (PCR) Not detected C. krusei (PCR) Not detected C. parapsilosis (PCR) Not detected C. tropicalis (PCR) Not detected C. neoform/gattii (PCR) Not detected Enterobacterales (PCR) Not detected E. cloacae complex PCR Not detected Enterococc faecalis PCR Not detected Enterococc faecium PCR Not detected E. coli (PCR) Not detected H. influenzae (PCR) Not detected Klebsiella aerogenes (PCR) Not detected Klebsiella oxytoca PCR Not detected Klebsiella pneumoniae Not detected List. monocytogenes PCR Not detected N. meningitidis (PCR) Not detected Proteus species (PCR) Not detected Salmonella spp. (PCR) Not detected Serratia marcescens PCR Not detected Staphylococcus sp PCR Detected Staph aureus (PCR) Not detected mecA/C & MREJ Resist Gene Not applicable mecA/C-Methicil Resis Gene Detected mcr-1 Colistin Res Gene PCR Not applicable Staph epidermidis (PCR) Detected Staph lugdunensis PCR Not detected S. maltophilia (PCR) Not detected Streptococcus sp PCR Not detected Group A Strep (PCR) Not detected Strep agalactiae (PCR) Not detected Strep pneumoniae (PCR) Not detected P. aeruginosa (PCR) Not detected Karrie/B-Vanco Res Genes Not applicable blaIMP Car res Gene PCR Not applicable KPC-Carbap Res Gene PCR Not applicable blaNDM Car Res Gene PCR Not applicable OXA-48 Carbapenem Resis Gene (PCR) Not applicable blaVIM Car Res Gene PCR Not applicable CTX-M Gene Resistance (PCR) Not applicable [facility] Medical History Vision disorder Gout Chronic cough Restless leg syndrome Mixed hyperlipidemia COPD (chronic obstructive pulmonary disease) Varicose veins of both lower extremities Sleep apnea Snoring Essential hypertension Mixed anxiety depressive disorder (01/18/17) Coronary artery disease (~2008) Gastroesophageal reflux disease Surgical History History of angioplasty Family History Father Stroke History of heart disease Hypertension Hyperlipidemia Mother Cancer Brother History of heart attack History of heart disease Sister Mental health problem Social History household members: spouse Smoking Status: Former smoker Tobacco: How many years used: 40 second hand exposure: No alcohol intake: never substance use type: does not use Assessment & Plan Assessment & Plan narrative: Acute respiratory failure. Worsening overnight. Now it is more stabilized. CT shows worsening pneumonia, we do not have a white count. No evidence of PE. He did get quite a improvement in output with Lasix. BNP is pending. Echo was ordered. Whether this is primarily respiratory which I think is probably the case or some combination of that and cardiac it is unclear at this point. Will continue current therapy I do not think the doxycycline is had enough time to really make a difference will see what his white count shows but at this point unless the CCU doctor wants to make a change I am not going to changes antibiotics too early to tell at this point. Will see what echo shows and whether we need to increase his diuresis and BNP. We will follow-up later today. Pneumonia. Appears to be worsening just had doxycycline started yesterday. No obvious pathogen. I think 1 bottle positive staph is not probably anything other than a contaminant. I do not know if we want to make changes in her his antibiotics. Will see what his white count shows. His fever curve is slightly better. And this point will continue with Rocephin and doxycycline. And re-evaluate. History of COPD. He certainly does not sound wheezy but steroids were started last night and we will continue. We will see what recommendation from CCU doctor is but at this point I do not think we make any changes and will follow. Hypertension. Stable. No change. GERD. Continue on pantoprazole. MDD. Continue antidepressants Code status DNR but intubation okay. Disposition. Patient clearly worsening. Suspect will be in hospital over the next several days. Hold to spend on findings and how he recovers. Discussed with the patient. 75 minutes spent with the patient orders dictation discussion with nurses and patient Quality VTE Deep Vein Thrombosis/Pulmonary Embolism Present on Admission: No
[2023-10-04 10:08] LABS: Add Manual Diff / Slide Review NO; Basophils Absolute Auto 0 /uL (0-100); Basophils Percent Auto 0.2 % (0-2); Eosinophils Absolute Auto 0 /uL (0-450); Hematocrit 25.1 % (41-53); Hemoglobin 8.6 g/dL (13.5-17.5); Lymphocytes Absolute Auto 300 /uL (1100-4500); Lymphocytes Percent Auto 3.1 % (25-40); Mean Corpuscular HGB Conc 34.1 % (30-36); Mean Corpuscular Hemoglobin 29.5 PG (26-34); Mean Corpuscular Volume 86.3 fL (80-100); Monocytes Absolute Auto 300 /uL (0-900); Monocytes Percent Auto 2.3 % (3-14); Neutrophils Absolute Auto 10700 /uL (1500-7000); Neutrophils Percent Auto 94.4 % (50-75); Platelet Count 227 X10^3/uL (150-400); Red Blood Cell Count 2.91 X10^6/uL (4.5-5.9); Red Cell Distribution Width 13.3 % (11.6-14.8); White Blood Cell Count 11.3 X10^3/uL (4.5-11.0)
[2023-10-04 10:39] LABS: NT-proBNP (BNP-Adult 18+) 6930 pg/mL (<125)
--- NOTE | 2023-10-04 13:12 | PT.IPTN ---
Current Diagnoses Sepsis, unspecified organism (09/30/23) Mixed hyperlipidemia (09/30/23) Other specified anxiety disorders (09/30/23) Essential (primary) hypertension (09/30/23) Atherosclerotic heart disease of [place] coronary artery without angina pectoris (09/30/23) Pneumonia, unspecified organism (09/30/23) Gastro-esophageal reflux disease without esophagitis (09/30/23) Pain in left toe(s) (09/30/23) Other specified soft tissue disorders (09/30/23) Other chest pain (09/30/23) Physical Therapy Treatment Note M2 PT-IP Current Condition Start: 10/01/23 15:25 Freq: NEEDED Status: Active Protocol: Document 10/01/23 14:10 AB (Rec: 10/01/23 15:45 AB [id number]) Physical Therapy Current Condition Current Condition Evaluation Date 10/01/23 Treatment Diagnosis PNA; difficulty in walking Onset Date 09/30/23 M3 PT-IP Subjective Start: 10/01/23 15:25 Freq: NEEDED Status: Active Protocol: Document 10/04/23 13:45 TS (Rec: 10/04/23 14:08 TS [id number]) Subjective Physical Therapy Visit Type Type Treatment Note Visit Start Time 13:12 Visit Stop Time 13:43 Notes Spouse present. Number of TOOTH CUTTER CONTACT WHEEL Visits 1 Physical Therapy Visit Comments Patient Comments Pt found resting in bed, on high flow o2, Spo2 93%, HR 75, BP 136/63. Pt is agreeable to PT. M4 PT-IP Mobility and Gait Start: 10/01/23 15:25 Freq: NEEDED Status: Active Protocol: Document 10/04/23 13:45 TS (Rec: 10/04/23 14:08 TS [id number]) PT-Bed Mobility Assessment Supine to Sit Supine to Sit Standby Assistance,Head of Bed Elevated,Bedrails Scooting Scooting to Edge of Bed Standby Assistance PT-Transfer Assessment Sit to and From Stand Sit to and from Stand Standby Assistance,Use of Upper Extremities Equipment Transfer Assistive Device Gait Belt,Front Wheeled Walker Orthotic/Prosthetic Devices or Brace: No Comments Mobility Comments Supine to sit SBA with HOB and BUE support for uprighting trunk. STS from bed with FWW SBA, pt demonstrates good standing balance. He ambulated in room ~50' CGA/Manan, pt has x2LOB requiring Manan and FWW for stability. He performed steps x5 with use of FWW CGA, had no buckling or LOB. Dynamic balance ex of NBOS, NBOS eyes closed and half tandem stance, pt is unsteady and requires CGA/Manan for balance. STS test x5 from bed with use of FWW in 16 seconds, Spo2 decreased to mid 80's, pt sat EOB, recovered after ~ 30secs with cues for PLB. Pt was left back in bed, all needs met. Gait Assessment Gait Gait Assistance Required: Contact Guard Assist,Minimum Assistance Distance (Feet) 50 Able to Maintain Weight Bearing Status Yes During Gait Assistive Devices Assistive Device Gait Belt,Front Wheeled Walker Orthotic/Prosthetic Devices or Brace: No Gait Deviations General Gait Pattern Decreased Stride Length, Decreased Feet Clearance Factors Limiting Gait Function Factors Limiting Gait Function Decreased Activity Tolerance, Decreased Strength,Poor Balance,Poor Safety Awareness, Respiratory Distress Comments Gait Comments See mobility comments Stair Climbing Assessment Evaluation Level of Assist On Stairs Contact Guard Assistance Devices Stair Climbing Assistive Devices Front Wheel Walker Technique/Endurance Stair Climbing Direction Ascend and Descend Stair Climbing Technique Step to Step Number of Steps Climbed 5 Comments Stair Climbing Comments See mobility comments PT-Balance Assessment Sitting Balance and Reactions Static Sitting Balance Ability Good Dynamic Sitting Balance Ability Fair Standing Balance and Reactions Static Standing Balance Ability Good Dynamic Standing Balance Ability Fair Device Used FWW Functional Assessments Functional Tests 5 Times Sit to Stand 16 secs M5 PT-IP Objective Assessments Start: 10/01/23 15:25 Freq: NEEDED Status: Active Protocol: Document 10/01/23 14:10 AB (Rec: 10/01/23 15:45 AB [id number]) Orientation Orientation/Cognition Level of Alertness Alert Orientation Name,Situation Language Function Ability No Deficits Noted Safety Awareness Decreased Safety Awareness Memory Description No Deficits Noted Comments slgith confusion Gross Range of Motion Lower Extremity ROM Assessment Within Functional Limits Strength Lower Extremity Strength Assessment Within Functional Limits Coordination Assessment Gross Coordination Gross Coordination WNL Sensation Assessment Sensation Gross Sensation WNL Muscle Tone Muscle Tone WNL Yes M6 PT-IP Treatment Start: 10/01/23 15:25 Freq: NEEDED Status: Active Protocol: Document 10/04/23 13:45 TS (Rec: 10/04/23 14:08 TS [id number]) Physical Therapy Treatment Education Education Provided Safety M7 PT-IP Assessment and Plan Start: 10/01/23 15:25 Freq: NEEDED Status: Active Protocol: Document 10/04/23 13:45 TS (Rec: 10/04/23 14:08 TS [id number]) PT Summary Assessment and Plan Potential Rehabilitation Potential Fair Summary Impairments Pain,ROM,Strength,Balance,Bed Mobility,Transfers,Gait, Activity Tolerance Progress Towards Goals Progressing Toward Goals Assessment Summary Andrew is making some progress with his mobility this session .He is SBA for all bed mobility and for STS with use of FWW. He performed STS test x5 in 16secs, Spo2 desat to low 80's, recovered to low 90' s after ~30 secs. He ambulated in room ~50', requires CGA/ Manan at times for unsteadiness and LOB x2. He progressed to stairs x5 with use of FWW. PT is recommending pt return home with assist and HHPT. Goals Bed Mobility Goal Independent Transfer Goal Independent,Cane,Front Wheeled Walker Gait Goal Independent,Cane,Front Wheel Walker Gait Distance 200 Other Goals improve transfers and ambulation without AD mod I ~ 300 ft up/down 5 steps L rail ascending SBA Days to Meet Goals 10 Frequency of Treatment Frequency Of Treatment Once a Day Treatment Plan Physical Therapy Treatment Plan Bed Mobility Training,Transfer Training,Gait Training, Therapeutic Exercise,Balance Retraining,Post Op Education, Discharge Planning,Hot or Cold Pack,Neuromuscular Re-ed, Coordination Retraining,Manual Therapy Other Recommendations and Next Treatment ambulation using SPC/without Focus AD if appropriate Precautions Other Precautions O2 sat Recommendations To Nursing Amount of Assist Needed 1 Person Assist Discharge Recommendations PT Discharge Recommendations Home with Assistance,Home Health Equipment Needed for Home Before FWW if not safe with SPC/ Discharge without AD Transportation Needs at Discharge Private Vehicle
--- NOTE | 2023-10-04 14:25 | PM.CN.EICU ---
History of Present Illness Consult details IF CAMERA ACTIVATED, patient seen via real-time interactive audiovisual communication: Camera activated Date Patient Seen: 10/04/23 Chief complaint: weakness/cp/sob/fever Consent obtained for tele-dental prosthetist care: Yes Patient Location: ICU Provider location (State): [place] Other participants/roles: rn Narrative: 68 year old man witg history significant for COPD, transferred to the ICU for acute hypoxemic resp failure - currently on HFNC. Pt initally admitted with worsneing SOB and was previously on 8l nc, niow fio2 requirements have increased. CTA done wihtout PE but there is signifcant centrilobular emphysema, mosciacism and fibrotic chanegs with intersitial opciates in the area of fibrosis and small effusions b/l. currently he is on 55% fio2 and seems cimfortable. labs reviewed - probnp is eleavyed and creatinine is increasing ( now 1.67) procal is neg micro postive for gram + cocci in 1/4 bottles PFSH Medical History Vision disorder Gout Chronic cough Restless leg syndrome Mixed hyperlipidemia COPD (chronic obstructive pulmonary disease) Varicose veins of both lower extremities Sleep apnea Snoring Essential hypertension Mixed anxiety depressive disorder (01/18/17) Coronary artery disease (~2008) Gastroesophageal reflux disease Surgical History History of angioplasty Family History Father Stroke History of heart disease Hypertension Hyperlipidemia Mother Cancer Brother History of heart attack History of heart disease Sister Mental health problem Social History household members: spouse Smoking Status: Former smoker Tobacco: How many years used: 40 second hand exposure: No alcohol intake: never substance use type: does not use Current Medications Current Medications Medications: Home Medications aspirin 81 mg tablet,delayed release 81 mg PO DAILY #60 tabs 04/20/16 [History Confirmed 09/30/23] lisinopril 10 mg tablet 5 mg PO DAILY ##0 04/07/17 [History Confirmed 09/30/23] naproxen sodium 220 mg capsule (Aleve) 440 mg PO DAILY PRN pain 08/17/18 [History Confirmed 09/30/23] Disabled Walterg Beatriz #1 ea 11/13/18 [Rx Confirmed 09/30/23] esomeprazole magnesium 20 mg capsule,delayed release (Nexium 24HR) 20 mg PO DAILY 02/19/20 [History Confirmed 09/30/23] rosuvastatin 20 mg tablet (Crestor) 20 mg PO QPM #90 tabs 03/31/20 [Rx Confirmed 09/30/23] amlodipine 5 mg tablet (Norvasc) 5 mg PO DAILY #90 tabs 05/16/20 [Rx Confirmed 09/30/23] metoprolol tartrate 50 mg tablet 50 mg PO BID 09/08/20 [History Confirmed 09/30/23] escitalopram oxalate 20 mg tablet 20 mg PO DAILY #90 tabs 06/01/21 [Rx Confirmed 09/30/23] bupropion HCl 150 mg 24 hr tablet, extended release (Wellbutrin XL) 300 mg PO DAILY 09/30/23 [History Confirmed 09/30/23] nitroglycerin 0.4 mg sublingual tablet 0.4 mg sublingual PRN PRN Chest Pain 09/30/23 [History Confirmed 09/30/23] Visit Medications (administered) Generic Name Dose Route Start Last Admin Trade Name Freq PRN Reason Stop Dose Admin Acetaminophen 650 mg 09/30/23 11:23 10/04/23 04:00 Acetaminophen 325 Mg Tablet PO 650 mg Q6HR PRN Administration Fever/Mild Pain (1-3) Albuterol 2.5 mg 10/01/23 20:24 10/04/23 04:23 Albuterol 2.5 Mg/3 Ml Neb (Adult) INH 2.5 mg [id number] PRN Administration Shortness Of Breath Or Wheezing Amlodipine Besylate 5 mg 10/01/23 09:00 10/04/23 08:51 Amlodipine 5 Mg Tablet PO 5 mg DAILY SAILAJA Administration Aspirin 81 mg 10/01/23 09:00 10/04/23 08:49 Aspirin Ec 81 Mg Tablet PO 81 mg DAILY SAILAJA Administration Atorvastatin Calcium 40 mg 09/30/23 21:00 10/03/23 20:40 Atorvastatin 20 Mg Tablet PO 40 mg BEDTIME SAILAJA Administration Bupropion HCl 300 mg 10/01/23 09:00 10/04/23 08:48 Bupropion Xl 150 Mg Tab PO 300 mg DAILY SAILAJA Administration Docusate Sodium 100 mg 09/30/23 21:00 10/04/23 08:49 Docusate 100 Mg Capsule PO 100 mg BID [facility] Administration Enoxaparin Sodium 40 mg 10/01/23 09:00 10/04/23 08:48 Enoxaparin 40 Mg/0.4 Ml Syringe SUBCUT 40 mg DAILY SAILAJA Administration Escitalopram Oxalate 20 mg 10/01/23 09:00 10/04/23 08:49 Escitalopram 10 Mg Tablet PO 20 mg DAILY [facility] Administration Doxycycline Hyclate 100 mg/ 100 mls @ 100 mls/hr 10/03/23 08:45 10/04/23 09:45 Sodium Chloride IV Infused Q12H [facility] Infusion Lisinopril 5 mg 10/01/23 09:00 10/04/23 08:51 Lisinopril 10 Mg Tablet PO 5 mg DAILY SAILAJA Administration Melatonin 9 mg 10/01/23 20:00 10/02/23 21:02 Melatonin 3 Mg Tablet PO 9 mg BEDTIME PRN Administration insomnia Methylprednisolone 60 mg 10/04/23 05:00 10/04/23 11:21 Methylprednisolone 40 Mg/Ml Vial IV 60 mg Q6H [facility] Administration Metoprolol Tartrate 50 mg 09/30/23 21:00 10/04/23 08:51 Metoprolol Ir 50 Mg Tablet PO 50 mg BID [facility] Administration Morphine Sulfate 2 mg 09/30/23 11:23 10/04/23 04:55 Morphine 2 Mg/Ml Inj IV 2 mg Q4HR PRN Administration Pain, Severe (7-10) Ondansetron HCl 4 mg 09/30/23 17:57 10/03/23 18:08 Ondansetron 4 Mg/2 Ml Inj IV 4 mg Q8HR PRN Administration Nausea And Vomiting Ondansetron HCl 4 mg 09/30/23 17:57 10/03/23 19:51 Ondansetron 4 Mg Odt PO 4 mg Q8HR PRN Administration Nausea And Vomiting Oxycodone/Acetaminophen 1 tab 09/30/23 11:23 10/03/23 20:39 Oxycodone/Acetaminophen 5/325 Tablet PO 1 tab Q4HR PRN Administration Fever/Mild Pain (1-3) Pantoprazole Sodium 20 mg 10/01/23 06:00 10/04/23 06:[address] 20 Mg Tablet PO 20 mg 0600 SAILAJA Administration Sodium Chloride 10 ml 09/30/23 21:00 10/04/23 11:23 Sodium Chloride 0.9% Flush IV 10 ml BID SAILAJA Administration Exam Vital Signs (past 8 hours): - 10/04/23 08:00 10/04/23 08:51 10/04/23 08:51 Temperature 99.4 F Pulse Rate 72 72 Respiratory Rate 26 H Blood Pressure 140/63 Pulse Oximetry 90 L Oxygen Delivery Method Heated High Flow Oxygen Flow Rate 45 Fraction of Inspired Oxygen 10/04/23 12:00 10/04/23 12:58 Temperature 98.8 F Pulse Rate 75 74 Respiratory Rate 18 18 Blood Pressure 127/59 L Pulse Oximetry 92 93 Oxygen Delivery Method High Flow Nasal Cannula Oxygen Flow Rate 25 Fraction of Inspired Oxygen 55 Fraction of Inspired Oxygen 55 SaO2/FiO2 Ratio 169 Oxygen Delivery Method High Flow Nasal Cannula Oxygen Flow Rate 25 Narrative Exam Narrative: ill appearing Resp Other: on HFNC symmetric chest rise Cardio Other: rate controled Objective Labs 10/04/23 09:56 10/03/23 05:23 Labs: Laboratory Results - last 24 hr 09/30/23 10/04/23 10/04/23 08:28 08:50 09:56 WBC 11.3 H RBC 2.91 L Hgb 8.6 L Hct 25.1 L MCV 86.3 MCH 29.5 MCHC 34.1 RDW 13.3 Plt Count 227 Neut % (Auto) 94.4 H Lymph % (Auto) 3.1 L [place] % (Auto) 2.3 L Eos % (Auto) 0.0 L Baso % (Auto) 0.2 Neut # (Auto) 52074 H Lymph # (Auto) 300 L [place] # (Auto) 300 Eos # (Auto) 0 Baso # (Auto) 0 ABG Sample Site Left radial ABG pH 7.43 ABG pCO2 33.8 L ABG pO2 62 L ABG HCO3 23 ABG Total CO2 24 ABG O2 Saturation 92 L ABG Base Excess -2.0 FiO2 55 NT-Pro-B Natriuret Pep 6930 H A.calcoaceticus-baumannii cmplx PCR Not detected Bacteroides fragilis Not detected Layla albicans (PCR) Not detected Layla auris (PCR) Not detected C. glabrata (PCR) Not detected C. krusei (PCR) Not detected C. parapsilosis (PCR) Not detected C. tropicalis (PCR) Not detected C. neoform/gattii (PCR) Not detected Enterobacterales (PCR) Not detected E. cloacae complex PCR Not detected Enterococc faecalis PCR Not detected Enterococc faecium PCR Not detected E. coli (PCR) Not detected H. influenzae (PCR) Not detected Klebsiella aerogenes (PCR) Not detected Klebsiella oxytoca PCR Not detected Klebsiella pneumoniae Not detected List. monocytogenes PCR Not detected N. meningitidis (PCR) Not detected Proteus species (PCR) Not detected Salmonella spp. (PCR) Not detected Serratia marcescens PCR Not detected Staphylococcus sp PCR Detected Staph aureus (PCR) Not detected mecA/C & MREJ Resist Gene Not applicable mecA/C-Methicil Resis Gene Detected mcr-1 Colistin Res Gene PCR Not applicable Staph epidermidis (PCR) Detected Staph lugdunensis PCR Not detected S. maltophilia (PCR) Not detected Streptococcus sp PCR Not detected Group A Strep (PCR) Not detected Strep agalactiae (PCR) Not detected Strep pneumoniae (PCR) Not detected P. aeruginosa (PCR) Not detected Karrie/B-Vanco Res Genes Not applicable blaIMP Car res Gene PCR Not applicable KPC-Carbap Res Gene PCR Not applicable blaNDM Car Res Gene PCR Not applicable OXA-48 Carbapenem Resis Gene (PCR) Not applicable blaVIM Car Res Gene PCR Not applicable CTX-M Gene Resistance (PCR) Not applicable Assessment & Plan Assessment & Plan narrative: acue on chronic resp failure KEIKO COPD possible probable pna continue HFNC TTE map at goal rate controlled NPO trend bmp and monitor UO goal neagtuive balance agree with marily, would consuider readding ankit neg coverage if fio2 requirements worsen on steroids cont lasix dvt ppx unclear if this is infectious , frrom fluid overload, or possible flare from areas of fibrosis as the insteritial opciaites seem to be dominant in this area. will continue current managemnt, once I can reivew the TTE we may have a better idea on optizing his resp function. ttoal CCT 35 min
[2023-10-04] MEDS: cefTRIAXone 1,000 MG in SODIUM CHLORIDE 0.9% 100 ML 200 MG IV (15:35)
--- NOTE | 2023-10-04 16:35 | CM.DPNOTE ---
DCP Note MANAGER OF INTERNATIONAL reviewed EMR. Pt moved to ICU overnight. On heated high flow oxygen. Per provider PN, pt worsening. Here over next few days. MANAGER OF INTERNATIONAL unable to meet with pt due to triaging needs. PT continues to rec HH. CM team will f/u about HH when able. (likely [facility] as option that takes pt's Medicare [employer]). Plan: home with spouse within next 48hrs. f/u about HH referral. may need walker at dc. CM team will follow closely. ROSALINO Ibarra
--- NOTE | 2023-10-04 20:39 | PM.ICURNDS ---
- :: This patient was seen via real time interactive two-way audiovisual telecommunication. MDR completed with team pt remains on HFNC, TTE pending . he is on steroids, abx and lasix. continue to wean fio2 as tolerated. he is awake and in good psirits otherwise
[2023-10-04] MEDS: hydrOXYzine HCL 25 MG TABLET 50 MG PO (20:51)
[2023-10-04] MEDS: ZOLPIDEM 5 MG TABLET PO (20:51)
[2023-10-04] MEDS: ATORVASTATIN 20 MG TABLET 40 MG PO (20:51)
[2023-10-05] VITALS (16 sets, daily range): BP systolic 120–165; BP diastolic 55–70; PULSE 64–74; RESP 18–24; TEMP 36.6–37.1; O2SAT 90–96
[2023-10-05] MEDS: PANTOPRAZOLE DR 20 MG TABLET PO (04:30)
[2023-10-05 05:32] LABS: Add Manual Diff / Slide Review NO; Basophils Absolute Auto 0 /uL (0-100); Basophils Percent Auto 0.1 % (0-2); Eosinophils Absolute Auto 0 /uL (0-450); Hemoglobin 8.2 g/dL (13.5-17.5); Lymphocytes Absolute Auto 800 /uL (1100-4500); Lymphocytes Percent Auto 4.4 % (25-40); Mean Corpuscular HGB Conc 34.3 % (30-36); Mean Corpuscular Hemoglobin 29.4 PG (26-34); Mean Corpuscular Volume 85.6 fL (80-100); Monocytes Absolute Auto 500 /uL (0-900); Neutrophils Absolute Auto 16800 /uL (1500-7000); Neutrophils Percent Auto 92.5 % (50-75); Platelet Count 264 X10^3/uL (150-400); Red Cell Distribution Width 13.7 % (11.6-14.8); White Blood Cell Count 18.2 X10^3/uL (4.5-11.0)
[2023-10-05 05:43] LABS: Alanine Aminotransferase 41 IU/L (<50); Albumin 3.4 g/dL (3.5-5.0); Alkaline Phosphatase 66 U/L (38-126); Aspartate Aminotransferase 45 IU/L (17-59); BUN Creatinine Ratio 20.9 (6-22); Bilirubin Total 0.9 mg/dL (0.2-1.3); Blood Urea Nitrogen 28 mg/dL (9-20); Calcium 8.9 mg/dL (8.4-10.2); Carbon Dioxide 22 mmol/L (22-32); Chloride 106 mmol/L (98-107); Estimated Glomerular Filt Rate 58 mL/min (>60); Globulin 3.3 g/dL (1.7-4.1); Glucose 166 mg/dL (80-110); HEMOLYSIS < 15 (0-50); Potassium 3.5 mmol/L (3.4-5.1); Sodium 138 mmol/L (137-145); Total Protein 6.7 g/dL (6.3-8.2)
--- NOTE | 2023-10-05 06:46 | PC.NURSE ---
gravity manager RN note pt A&Ox3, anxious at HS, requested meds for sleeping, meds given with effect, pt woke up slightly confused at 0300, RT changed pt to 11L NC at HS and pt sats stayed 88-92% with occasional dips to mid 80s, denies SOB, voiding via condom cath with good amt clear yellow urine, meds and labs as ordered, periph IV site removed on R arm for occlusion and replaced on LFA
[2023-10-05] MEDS: DOXYCYCLINE 100 MG in SODIUM CHLORIDE 0.9% 100 ML IV ×2 (08:49→20:09)
[2023-10-05] MEDS: lisinopriL 10 MG TABLET 5 MG PO (08:50)
[2023-10-05] MEDS: ENOXAPARIN 40 MG/0.4 ML SYRINGE SUBCUT (08:50)
[2023-10-05] MEDS: ASPIRIN EC 81 MG TABLET PO (08:50)
[2023-10-05] MEDS: DOCUSATE 100 MG CAPSULE PO ×2 (08:50→20:10)
[2023-10-05] MEDS: ESCITALOPRAM 10 MG TABLET 20 MG PO (08:50)
[2023-10-05] MEDS: FUROSEMIDE 20 MG/2 ML VIAL IV ×2 (08:51→20:10)
[2023-10-05] MEDS: AMLODIPINE 5 MG TABLET PO (08:51)
[2023-10-05] MEDS: buPROPion XL 150 MG TAB 300 MG PO (08:51)
[2023-10-05] MEDS: METOPROLOL IR 50 MG TABLET PO ×2 (08:51→20:10)
[2023-10-05] MEDS: SODIUM CHLORIDE 0.9% FLUSH 10 ML IV ×2 (08:52→20:10)
--- NOTE | 2023-10-05 09:41 | P.PN_ITS ---
Subjective Subjective Date Patient Seen: 10/05/23 Time Patient Seen: 09:41 Interval history: Patient feeling much better today. He was able to sleep last night and breathing is much better. He received 20 units of IV Lasix at 4:00 a.m. on the and then at 9:00 p.m. on the in his breathing much better. Echo was done and shows normal EF which was not significantly changed from April of 2023. Patient was also started on Solu-Medrol and white blood cell count is elevated further today but no fever. Only 1 blood culture growing staph epidermidis. Suspect this may be a contaminant. Patient is requiring less oxygen by end of day patient on 6 L nasal cannula oxygen. Patient feeling great he states. Was able to ambulate with physical therapy. Slept well last night. Patient with previous history of coronary artery disease and has not had any chest pain Patient is eating well without any nausea or vomiting. Patient is having normal stooling. No constipation or diarrhea Patient is having normal urination No rashes Exam Vital Signs (past 8 hours): - 10/05/23 02:00 10/05/23 04:00 10/05/23 06:00 Temperature 98.0 F Pulse Rate 71 Respiratory Rate 23 Blood Pressure 120/55 L Pulse Oximetry 92 Oxygen Delivery Method Nasal Cannula Nasal Cannula Oxygen Flow Rate 11 10/05/23 08:00 10/05/23 08:49 Temperature 98.2 F Pulse Rate 74 Respiratory Rate 18 Blood Pressure Pulse Oximetry 92 90 L Oxygen Delivery Method High Flow Nasal Cannula Oxygen Flow Rate 11 11 Fraction of Inspired Oxygen 40 SaO2/FiO2 Ratio 169 Oxygen Delivery Method High Flow Nasal Cannula Oxygen Flow Rate 11 Narrative Exam Narrative: This is a very pleasant 68-year-old male who is followed by Dr. Sheffield and seen in [facility]. He is alert and oriented x3 and very talkative. He is feeling much better than on presentation. is present at bedside HEENT is remarkable for poor dentition and missing several teeth Neck: Is supple without adenopathy or thyromegaly or bruits Chest: Clear to auscultation with no wheezes or rhonchi slightly decreased breath sounds in the bases Cor: Regular rate and rhythm with distant S1-S2 Abdomen: Positive bowel sounds, soft, nontender, nondistended Extremities: No edema pulses intact Neurologic exam nonfocal Objective Labs 10/05/23 05:15 10/05/23 05:15 Labs: Laboratory Results - last 24 hr 10/04/23 10/05/23 09:56 05:15 WBC 11.3 H 18.2 H D RBC 2.91 L 2.80 L Hgb 8.6 L 8.2 L Hct 25.1 L 24.0 L MCV 86.3 85.6 MCH 29.5 29.4 MCHC 34.1 34.3 RDW 13.3 13.7 Plt Count 227 264 Neut % (Auto) 94.4 H 92.5 H Lymph % (Auto) 3.1 L 4.4 L [place] % (Auto) 2.3 L 3.0 Eos % (Auto) 0.0 L 0.0 L Baso % (Auto) 0.2 0.1 Neut # (Auto) 76307 H 67543 H Lymph # (Auto) 300 L 800 L [place] # (Auto) 300 500 Eos # (Auto) 0 0 Baso # (Auto) 0 0 Sodium 138 Potassium 3.5 Chloride 106 Carbon Dioxide 22 BUN 28 H Creatinine 1.34 H Estimated GFR 58 L BUN/Creatinine Ratio 20.9 Glucose 166 H Calcium 8.9 Total Bilirubin 0.9 AST 45 ALT 41 Alkaline Phosphatase 66 NT-Pro-B Natriuret Pep 6930 H Total Protein 6.7 Albumin 3.4 L Globulin 3.3 Albumin/Globulin Ratio 1.0 PFSH Medical History Vision disorder Gout Chronic cough Restless leg syndrome Mixed hyperlipidemia COPD (chronic obstructive pulmonary disease) Varicose veins of both lower extremities Sleep apnea Snoring Essential hypertension Mixed anxiety depressive disorder (01/18/17) Coronary artery disease (~2008) Gastroesophageal reflux disease Surgical History History of angioplasty Family History Father Stroke History of heart disease Hypertension Hyperlipidemia Mother Cancer Brother History of heart attack History of heart disease Sister Mental health problem Social History household members: spouse Smoking Status: Former smoker Tobacco: How many years used: 40 second hand exposure: No alcohol intake: never substance use type: does not use Assessment & Plan Assessment & Plan narrative: 1. Acute respiratory failure. Suspect multifactorial. Suspect community- acquired pneumonia and he seems to be improving with doxycycline and we will continue this. If he worsens will broaden coverage to include better Gram- negative coverage. Patient had CT scan showing no evidence of PE. Echo shows normal ejection fraction but patient has had an elevated BNP and a great response to IV Lasix. We will continue the same. I suspect this is a component of heart failure with preserved ejection fraction. Echo was not significantly changed from echo in April. Solu-Medrol was given any continues on this and I think this has made a significant improvement in his overall respiratory condition. We will continue the same. Consider taper to oral steroids in the a.m. 2. Pneumonia presumed community-acquired. One blood culture positive for strep epidermidis. Suspect contaminant. Patient seems to be improving. Will continue with respiratory therapy. Continue with supportive care with oxygen and nebulizers as needed. Continue with same doxycycline. Will broaden coverage to give more Gram-negative coverage if his symptoms worsen or he develops fever 3. COPD. Patient with long history of smoking but does not smoke now. Had COPD and was seen by pulmonology in [place]. They tried inhalers but it they did not make a difference. 4. Hypertension. Stable. No change. Will continue with same treatment. 5. GERD. Continue on pantoprazole. 6. MDD. Continue antidepressants 7. Leukocytosis suspect worsen due to steroids. He is afebrile and clinically is improving so I do not think this represents worsening infection. We will continue to monitor and recheck tomorrow 8. History of coronary artery disease with his 1st acute myocardial infarction in 2008. He has had 3 stents placed. He has not currently having any symptoms in his not having any angina. Plan: We will continue to follow. Will continue with rosuvastatin, metoprolol, lisinopril Assessment 9. Acute on chronic kidney disease with stable Renal function. We will continue to monitor due to diuretic 10. Anemia, normocytic anemia. Suspect delutional Plan will guaiac stools and do iron studies in a.m. 11. DVT prophylaxis Plan: Continue with current treatment Code status DNR but intubation okay. Disposition. Patient has had significant improvement. Anticipate discharge to home in next 48-72 hours. 58 minutes spent with the patient, discussing with nursing and with physicians and reviewing his chart and his workup, formulating a plan and documentation Quality VTE Deep Vein Thrombosis/Pulmonary Embolism Present on Admission: No
--- NOTE | 2023-10-05 11:20 | CM.DPC ---
DCP Cont. Reviewed EMR and team rounds for status updates. Pt is on 11LO2 at this time, will most likely be here a few more days to wean down O2 needs. Met with pt and spouse to discuss Home Health and preferences for agency. They both decline the need for Home Health at this time, stating that pt's is a cg and able to assist with his d/c needs and assistance once home. Will continue to monitor in case this changes.
[2023-10-05] MEDS: POTASSIUM CHLORIDE 20 MEQ TAB 40 MEQ PO (12:19)
--- NOTE | 2023-10-05 12:20 | PM.PN.EICU ---
Subjective Subjective IF CAMERA ACTIVATED, patient seen via real-time interactive audiovisual communication: Camera activated Consent obtained for tele-director facilities maintenance care: Yes Patient Location: ICU Provider location (State): [place] Other participants/roles: rn Interval history: pts fio2 requirements improved. TTe apprecaited. Current Medications Current Medications Medications: Home Medications aspirin 81 mg tablet,delayed release 81 mg PO DAILY #60 tabs 04/20/16 [History Confirmed 09/30/23] lisinopril 10 mg tablet 5 mg PO DAILY ##0 04/07/17 [History Confirmed 09/30/23] naproxen sodium 220 mg capsule (Aleve) 440 mg PO DAILY PRN pain 08/17/18 [History Confirmed 09/30/23] Disabled Parking Placard #1 ea 11/13/18 [Rx Confirmed 09/30/23] esomeprazole magnesium 20 mg capsule,delayed release (Nexium 24HR) 20 mg PO DAILY 02/19/20 [History Confirmed 09/30/23] rosuvastatin 20 mg tablet (Crestor) 20 mg PO QPM #90 tabs 03/31/20 [Rx Confirmed 09/30/23] amlodipine 5 mg tablet (Norvasc) 5 mg PO DAILY #90 tabs 05/16/20 [Rx Confirmed 09/30/23] metoprolol tartrate 50 mg tablet 50 mg PO BID 09/08/20 [History Confirmed 09/30/23] escitalopram oxalate 20 mg tablet 20 mg PO DAILY #90 tabs 06/01/21 [Rx Confirmed 09/30/23] bupropion HCl 150 mg 24 hr tablet, extended release (Wellbutrin XL) 300 mg PO DAILY 09/30/23 [History Confirmed 09/30/23] nitroglycerin 0.4 mg sublingual tablet 0.4 mg sublingual PRN PRN Chest Pain 09/30/23 [History Confirmed 09/30/23] Visit Medications (administered) Generic Name Dose Route Start Last Admin Trade Name Freq PRN Reason Stop Dose Admin Acetaminophen 650 mg 09/30/23 11:23 10/04/23 04:00 Acetaminophen 325 Mg Tablet PO 650 mg Q6HR PRN Administration Fever/Mild Pain (1-3) Albuterol 2.5 mg 10/01/23 20:24 10/04/23 04:23 Albuterol 2.5 Mg/3 Ml Neb (Adult) INH 2.5 mg [id number] PRN Administration Shortness Of Breath Or Wheezing Amlodipine Besylate 5 mg 10/01/23 09:00 10/05/23 08:51 Amlodipine 5 Mg Tablet PO 5 mg DAILY SAILAJA Administration Aspirin 81 mg 10/01/23 09:00 10/05/23 08:50 Aspirin Ec 81 Mg Tablet PO 81 mg DAILY SAILAJA Administration Atorvastatin Calcium 40 mg 09/30/23 21:00 10/04/23 20:51 Atorvastatin 20 Mg Tablet PO 40 mg BEDTIME SAILAJA Administration Bupropion HCl 300 mg 10/01/23 09:00 10/05/23 08:51 Bupropion Xl 150 Mg Tab PO 300 mg DAILY SAILAJA Administration Docusate Sodium 100 mg 09/30/23 21:00 10/05/23 08:50 Docusate 100 Mg Capsule PO 100 mg BID SAILAJA Administration Enoxaparin Sodium 40 mg 10/01/23 09:00 10/05/23 08:50 Enoxaparin 40 Mg/0.4 Ml Syringe SUBCUT 40 mg DAILY SAILAJA Administration Escitalopram Oxalate 20 mg 10/01/23 09:00 10/05/23 08:50 Escitalopram 10 Mg Tablet PO 20 mg DAILY SAILAJA Administration Furosemide 20 mg 10/04/23 21:00 10/05/23 08:51 Furosemide 20 Mg/2 Ml Vial IV 20 mg BID SAILAJA Administration Hydroxyzine HCl 50 mg 10/01/23 20:13 10/04/23 20:51 Hydroxyzine Hcl 25 Mg Tablet PO 50 mg BEDTIME PRN Administration Insomnia Doxycycline Hyclate 100 mg/ 100 mls @ 100 mls/hr 10/03/23 08:45 10/05/23 12:19 Sodium Chloride IV Infused Q12H SAILAJA Infusion Lisinopril 5 mg 10/01/23 09:00 10/05/23 08:50 Lisinopril 10 Mg Tablet PO 5 mg DAILY SAILAJA Administration Melatonin 9 mg 10/01/23 20:00 10/02/23 21:02 Melatonin 3 Mg Tablet PO 9 mg BEDTIME PRN Administration insomnia Methylprednisolone 60 mg 10/04/23 05:00 10/05/23 12:19 Methylprednisolone 40 Mg/Ml Vial IV 60 mg Q6H SAILAJA Administration Metoprolol Tartrate 50 mg 09/30/23 21:00 10/05/23 08:51 Metoprolol Ir 50 Mg Tablet PO 50 mg BID SAILAJA Administration Morphine Sulfate 2 mg 09/30/23 11:23 10/04/23 04:55 Morphine 2 Mg/Ml Inj IV 2 mg Q4HR PRN Administration Pain, Severe (7-10) Ondansetron HCl 4 mg 09/30/23 17:57 10/03/23 18:08 Ondansetron 4 Mg/2 Ml Inj IV 4 mg Q8HR PRN Administration Nausea And Vomiting Ondansetron HCl 4 mg 09/30/23 17:57 10/03/23 19:51 Ondansetron 4 Mg Odt PO 4 mg Q8HR PRN Administration Nausea And Vomiting Oxycodone/Acetaminophen 1 tab 09/30/23 11:23 10/03/23 20:39 Oxycodone/Acetaminophen 5/325 Tablet PO 1 tab Q4HR PRN Administration Fever/Mild Pain (1-3) Pantoprazole Sodium 20 mg 10/01/23 06:00 10/05/23 04:[address] 20 Mg Tablet PO 20 mg 0600 SAILAJA Administration Sodium Chloride 10 ml 09/30/23 21:00 10/05/23 08:52 Sodium Chloride 0.9% Flush IV 10 ml BID SAILAJA Administration Zolpidem Tartrate 5 mg 10/04/23 18:04 10/04/23 20:51 Zolpidem 5 Mg Tablet PO 5 mg BEDTIME PRN Administration Sleep Objective Labs 10/05/23 05:15 10/05/23 05:15 Labs: Laboratory Results - last 24 hr 10/05/23 05:15 WBC 18.2 H D RBC 2.80 L Hgb 8.2 L Hct 24.0 L MCV 85.6 MCH 29.4 MCHC 34.3 RDW 13.7 Plt Count 264 Neut % (Auto) 92.5 H Lymph % (Auto) 4.4 L [place] % (Auto) 3.0 Eos % (Auto) 0.0 L Baso % (Auto) 0.1 Neut # (Auto) 13973 H Lymph # (Auto) 800 L [place] # (Auto) 500 Eos # (Auto) 0 Baso # (Auto) 0 Sodium 138 Potassium 3.5 Chloride 106 Carbon Dioxide 22 BUN 28 H Creatinine 1.34 H Estimated GFR 58 L BUN/Creatinine Ratio 20.9 Glucose 166 H Calcium 8.9 Total Bilirubin 0.9 AST 45 ALT 41 Alkaline Phosphatase 66 Total Protein 6.7 Albumin 3.4 L Globulin 3.3 Albumin/Globulin Ratio 1.0 Exam Vital Signs (past 8 hours): - 10/05/23 06:00 10/05/23 08:00 10/05/23 08:00 Temperature 98.2 F Pulse Rate 74 Respiratory Rate 18 Pulse Oximetry 92 Oxygen Delivery Method Nasal Cannula High Flow Nasal Cannula Oxygen Flow Rate 11 10/05/23 08:49 Temperature Pulse Rate Respiratory Rate Pulse Oximetry 90 L Oxygen Delivery Method High Flow Nasal Cannula Oxygen Flow Rate 11 Fraction of Inspired Oxygen 40 SaO2/FiO2 Ratio 169 Oxygen Delivery Method High Flow Nasal Cannula Oxygen Flow Rate 11 Narrative Exam Narrative: ill appearing on HFNC Chest Other: symmetri chest rise Quality TeleICU VTE Deep Vein Thrombosis/Pulmonary Embolism Present on Admission: No Assessment & Plan Assessment & Plan narrative: acue on chronic resp failure KEIKO COPD possible probable pna continue HFNC - wean off as tolerated TTE appreciated map at goal rate controlled adat trend bmp and monitor UO goal neagtuive balance agree with marily, would add gram neg coverage again if he worsens on steroids cont lasix dvt ppx unclear if this is infectious , or possible flare from areas of fibrosis as the insteritial opciaites seem to be dominant in this area. would continue steroids at current dose ttoal CCT 35 min
[2023-10-05] MEDS: ACETAMINOPHEN 325 MG TABLET 650 MG PO (13:32)
--- NOTE | 2023-10-05 14:54 | PT.IPTN ---
Current Diagnoses Sepsis, unspecified organism (09/30/23) Mixed hyperlipidemia (09/30/23) Other specified anxiety disorders (09/30/23) Essential (primary) hypertension (09/30/23) Atherosclerotic heart disease of [place] coronary artery without angina pectoris (09/30/23) Pneumonia, unspecified organism (09/30/23) Gastro-esophageal reflux disease without esophagitis (09/30/23) Pain in left toe(s) (09/30/23) Other specified soft tissue disorders (09/30/23) Other chest pain (09/30/23) Physical Therapy Treatment Note M2 PT-IP Current Condition Start: 10/01/23 15:25 Freq: NEEDED Status: Active Protocol: Document 10/01/23 14:10 AB (Rec: 10/01/23 15:45 AB [id number]) Physical Therapy Current Condition Current Condition Evaluation Date 10/01/23 Treatment Diagnosis PNA; difficulty in walking Onset Date 09/30/23 M3 PT-IP Subjective Start: 10/01/23 15:25 Freq: NEEDED Status: Active Protocol: Document 10/05/23 16:11 TS (Rec: 10/05/23 16:29 TS [id number]) Subjective Physical Therapy Visit Type Type Treatment Note Visit Start Time 14:54 Visit Stop Time 15:18 Number of CENTERLESS GRINDER OPERATOR Visits 2 Physical Therapy Visit Comments Patient Comments Pt found asleep in bed, alert when awakened. Spo2 96% at 10L , HR in 70's, pt agreeable to PT. M4 PT-IP Mobility and Gait Start: 10/01/23 15:25 Freq: NEEDED Status: Active Protocol: Document 10/05/23 16:11 TS (Rec: 10/05/23 16:29 TS [id number]) PT-Bed Mobility Assessment Supine to Sit Supine to Sit Standby Assistance,Head of Bed Elevated,Bedrails Scooting Scooting to Edge of Bed Standby Assistance PT-Transfer Assessment Sit to and From Stand Sit to and from Stand Standby Assistance,Use of Upper Extremities Equipment Transfer Assistive Device Gait Belt,Front Wheeled Walker Orthotic/Prosthetic Devices or Brace: No Comments Mobility Comments Pt placed on portable o2 tank at 8L for mobility. Supine to sit HOB elevated SBA with use of bedrails. STS from bed with FWW SBA, pt had xLOB did not require assist to recover. Pt ambulated in hallway ~250' SBA with use of FWW and o2 at 8L. pt carried on conversation throughout walk with no SOB. Spo2 after mobility 99% on 8L of o2. Pt was left back in bed , all needs met, RN notified. Gait Assessment Gait Gait Assistance Required: Contact Guard Assist,Minimum Assistance Distance (Feet) 250 Able to Maintain Weight Bearing Status Yes During Gait Assistive Devices Assistive Device Gait Belt,Front Wheeled Walker Orthotic/Prosthetic Devices or Brace: No Gait Deviations General Gait Pattern Decreased Stride Length, Decreased Feet Clearance Factors Limiting Gait Function Factors Limiting Gait Function Decreased Activity Tolerance, Decreased Strength,Poor Balance,Poor Safety Awareness, Respiratory Distress Comments Gait Comments See mobility comments PT-Balance Assessment Sitting Balance and Reactions Static Sitting Balance Ability Good Dynamic Sitting Balance Ability Fair Standing Balance and Reactions Static Standing Balance Ability Good Dynamic Standing Balance Ability Fair Device Used FWW M5 PT-IP Objective Assessments Start: 10/01/23 15:25 Freq: NEEDED Status: Active Protocol: Document 10/01/23 14:10 AB (Rec: 10/01/23 15:45 AB [id number]) Orientation Orientation/Cognition Level of Alertness Alert Orientation Name,Situation Language Function Ability No Deficits Noted Safety Awareness Decreased Safety Awareness Memory Description No Deficits Noted Comments slgith confusion Gross Range of Motion Lower Extremity ROM Assessment Within Functional Limits Strength Lower Extremity Strength Assessment Within Functional Limits Coordination Assessment Gross Coordination Gross Coordination WNL Sensation Assessment Sensation Gross Sensation WNL Muscle Tone Muscle Tone WNL Yes M6 PT-IP Treatment Start: 10/01/23 15:25 Freq: NEEDED Status: Active Protocol: Document 10/05/23 16:11 TS (Rec: 10/05/23 16:29 TS [id number]) Physical Therapy Treatment Education Education Provided Safety M7 PT-IP Assessment and Plan Start: 10/01/23 15:25 Freq: NEEDED Status: Active Protocol: Document 10/05/23 16:11 TS (Rec: 10/05/23 16:29 TS [id number]) PT Summary Assessment and Plan Potential Rehabilitation Potential Fair Summary Impairments Pain,ROM,Strength,Balance,Bed Mobility,Transfers,Gait, Activity Tolerance Progress Towards Goals Progressing Toward Goals Assessment Summary Andrew is making good progress with his mobility this session . He progressed his gait to ~ 250' SBA with FWW and on 8L of o2. He denied any SOB and Spo2 remained in mid to upper 90's with mobility. PT is recommending pt return home with assist and HHPT. Goals Bed Mobility Goal Independent Transfer Goal Independent,Cane,Front Wheeled Walker Gait Goal Independent,Cane,Front Wheel Walker Gait Distance 200 Other Goals improve transfers and ambulation without AD mod I ~ 300 ft up/down 5 steps L rail ascending SBA Days to Meet Goals 10 Frequency of Treatment Frequency Of Treatment Once a Day Treatment Plan Physical Therapy Treatment Plan Bed Mobility Training,Transfer Training,Gait Training, Therapeutic Exercise,Balance Retraining,Post Op Education, Discharge Planning,Hot or Cold Pack,Neuromuscular Re-ed, Coordination Retraining,Manual Therapy Other Recommendations and Next Treatment ambulation using SPC/without Focus AD if appropriate Precautions Other Precautions O2 sat Recommendations To Nursing Amount of Assist Needed Standby Assistance Discharge Recommendations PT Discharge Recommendations Home with Assistance,Home Health Equipment Needed for Home Before FWW if not safe with SPC/ Discharge without AD Transportation Needs at Discharge Private Vehicle
[2023-10-05] MEDS: ATORVASTATIN 20 MG TABLET 40 MG PO (20:10)
--- NOTE | 2023-10-05 20:55 | PM.ICURNDS ---
- :: This patient was seen via real time interactive two-way audiovisual telecommunication. Note: Remains on BiPAP FiO2 40% and diuresing well. Will continue diurese and titrate down FiO2. Seek PT/OT and OOB as tolerated. D/w bedside RN.
[2023-10-06] VITALS (14 sets, daily range): BP systolic 133–173; BP diastolic 63–92; PULSE 63–71; RESP 16–28; TEMP 36.8–37.2; O2SAT 90–96
[2023-10-06] MEDS: PANTOPRAZOLE DR 20 MG TABLET PO (05:23)
[2023-10-06 05:24] LABS: Add Manual Diff / Slide Review NO; Basophils Absolute Auto 0 /uL (0-100); Basophils Percent Auto 0.1 % (0-2); Eosinophils Absolute Auto 0 /uL (0-450); Hemoglobin 8.6 g/dL (13.5-17.5); Lymphocytes Absolute Auto 800 /uL (1100-4500); Lymphocytes Percent Auto 4.1 % (25-40); Mean Corpuscular HGB Conc 34.2 % (30-36); Mean Corpuscular Hemoglobin 29.3 PG (26-34); Mean Corpuscular Volume 85.7 fL (80-100); Monocytes Absolute Auto 500 /uL (0-900); Monocytes Percent Auto 2.6 % (3-14); Neutrophils Absolute Auto 18800 /uL (1500-7000); Neutrophils Percent Auto 93.2 % (50-75); Platelet Count 318 X10^3/uL (150-400); Red Blood Cell Count 2.92 X10^6/uL (4.5-5.9); Red Cell Distribution Width 13.5 % (11.6-14.8); White Blood Cell Count 20.2 X10^3/uL (4.5-11.0)
[2023-10-06] MEDS: ACETAMINOPHEN 325 MG TABLET 650 MG PO ×2 (05:24→20:29)
[2023-10-06 05:35] LABS: HEMOLYSIS < 15 (0-50); Iron 59 ug/dL (49-181)
[2023-10-06 05:36] LABS: Alanine Aminotransferase 105 IU/L (<50); Albumin 3.3 g/dL (3.5-5.0); Albumin Globulin Ratio 1.1 (1.0-2.8); Alkaline Phosphatase 63 U/L (38-126); Aspartate Aminotransferase 86 IU/L (17-59); BUN Creatinine Ratio 27.3 (6-22); Bilirubin Total 0.8 mg/dL (0.2-1.3); Blood Urea Nitrogen 35 mg/dL (9-20); Carbon Dioxide 23 mmol/L (22-32); Chloride 107 mmol/L (98-107); Estimated Glomerular Filt Rate > 60 mL/min (>60); Globulin 3.1 g/dL (1.7-4.1); Glucose 163 mg/dL (80-110); HEMOLYSIS < 15 (0-50); Potassium 3.7 mmol/L (3.4-5.1); Sodium 140 mmol/L (137-145); Total Protein 6.4 g/dL (6.3-8.2)
[2023-10-06 05:45] LABS: Percent Iron Saturation 27 % (20-50); Total Iron Binding Capacity 221 ug/dL (261-462); Transferrin 165 mg/dL (206-381)
[2023-10-06 06:15] LABS: Ferritin 252 ng/mL (18-464)
--- NOTE | 2023-10-06 08:23 | PM.PN.1 ---
Subjective Subjective Date Patient Seen: 10/06/23 Time Patient Seen: 08:23 Interval history: Patient seen in follow-up of acute respiratory failure and pneumonia. Overall doing better. Off of high-flow oxygen on 2 L of O2. Feeling much better. Energy level has been good no other significant change. Blood pressure has been elevated last night. With no other changes. No chest pain shortness for breath Exam Vital Signs (past 8 hours): - 10/06/23 01:00 10/06/23 01:00 10/06/23 02:00 Temperature Pulse Rate 66 65 66 Respiratory Rate 16 19 21 Blood Pressure Pulse Oximetry 92 92 92 Oxygen Flow Rate 4 4 4 10/06/23 02:00 10/06/23 02:02 10/06/23 02:02 Temperature Pulse Rate 68 Respiratory Rate 26 H Blood Pressure 172/77 H 161/69 H Pulse Oximetry 93 Oxygen Flow Rate 4 10/06/23 03:00 10/06/23 04:00 10/06/23 04:00 Temperature 98.2 F Pulse Rate 66 63 Respiratory Rate 20 20 Blood Pressure 135/92 H Pulse Oximetry 91 92 Oxygen Flow Rate 4 10/06/23 05:00 10/06/23 06:00 10/06/23 06:01 Temperature Pulse Rate 66 67 68 Respiratory Rate 20 17 21 Blood Pressure Pulse Oximetry 90 L 91 93 Oxygen Flow Rate 4 4 10/06/23 06:01 10/06/23 07:00 Temperature Pulse Rate 71 Respiratory Rate 28 H Blood Pressure 173/77 H Pulse Oximetry 96 Oxygen Flow Rate Fraction of Inspired Oxygen 40 SaO2/FiO2 Ratio 169 Oxygen Delivery Method Nasal Cannula Oxygen Flow Rate 4 Narrative Exam Narrative: Alert elderly male in no acute distress breathing comfortably Mucous membranes moist neck supple without adenopathy lungs are clear heart is regular rate and rhythm without murmurs clicks rubs or gallops extremities with no edema Objective Labs 10/06/23 05:12 10/06/23 05:12 Labs: Laboratory Results - last 24 hr 10/06/23 05:12 WBC 20.2 H RBC 2.92 L Hgb 8.6 L Hct 25.0 L MCV 85.7 MCH 29.3 MCHC 34.2 RDW 13.5 Plt Count 318 Neut % (Auto) 93.2 H Lymph % (Auto) 4.1 L [place] % (Auto) 2.6 L Eos % (Auto) 0.0 L Baso % (Auto) 0.1 Neut # (Auto) 66092 H Lymph # (Auto) 800 L [place] # (Auto) 500 Eos # (Auto) 0 Baso # (Auto) 0 Sodium 140 Potassium 3.7 Chloride 107 Carbon Dioxide 23 BUN 35 H Creatinine 1.28 H Estimated GFR > 60 BUN/Creatinine Ratio 27.3 H Glucose 163 H Calcium 9.0 Iron 59 TIBC 221 L % Saturation 27 Transferrin 165 L Ferritin 252 Total Bilirubin 0.8 AST 86 H ALT 105 H Alkaline Phosphatase 63 Total Protein 6.4 Albumin 3.3 L Globulin 3.1 Albumin/Globulin Ratio 1.1 PFSH Medical History Vision disorder Gout Chronic cough Restless leg syndrome Mixed hyperlipidemia COPD (chronic obstructive pulmonary disease) Varicose veins of both lower extremities Sleep apnea Snoring Essential hypertension Mixed anxiety depressive disorder (01/18/17) Coronary artery disease (~2008) Gastroesophageal reflux disease Surgical History History of angioplasty Family History Father Stroke History of heart disease Hypertension Hyperlipidemia Mother Cancer Brother History of heart attack History of heart disease Sister Mental health problem Social History household members: spouse Smoking Status: Former smoker Tobacco: How many years used: 40 second hand exposure: No alcohol intake: never substance use type: does not use Assessment & Plan Assessment & Plan narrative: Acute respiratory failure markedly improved. Continue to suspect multifactorial. Although certainly with significant pneumonia. I do think he got fluid overloaded and probably had LV preserved heart failure. Which all seems to be resolved. Patient will be switched to oral medications today. Hopefully we can wean him off his O2. Is stable will be discharged tomorrow. Pneumonia. Overall doing well. Community-acquired. Not sure why it was stopped on his Rocephin white counts come up a little bit whether or not that is secondary to his steroids are not is unclear. Will be switched to oral medications and rechecked tomorrow. Will place on Ceftin and doxycycline. And home tomorrow if stable. COPD. Overall stable is not been on steroids or oxygen in the past. Will switch to oral today and if stable will just discharged on oral steroids and can be weaned as an outpatient. Hypertension. Poorly controlled. Will increase amlodipine and re-evaluate a.m.. Patient will check his blood pressure at home and bring his cuff in when he comes next time. GERD. On pantoprazole. MDD. Continue antidepressants. Leukocytosis. Slightly worsening. Wonder if secondary to steroids but concern for possible change in the pneumonia although clinically he is doing so well. Will restart cephalosporin and rechecked tomorrow. History of coronary artery disease. Stable. Acute on chronic kidney disease. Stable. No other change. Anemia select delusional. Will be followed as an outpatient. DVT prophylaxis stable. Code status DNR but intubation okay. Disposition if stable after switch to oral today discharge tomorrow. Patient understands questions answered Quality VTE Deep Vein Thrombosis/Pulmonary Embolism Present on Admission: No
[2023-10-06] MEDS: METOPROLOL IR 50 MG TABLET PO ×2 (08:35→20:07)
[2023-10-06] MEDS: cefUROXime 250 MG TABLET 500 MG PO ×2 (08:35→20:07)
[2023-10-06] MEDS: buPROPion XL 150 MG TAB 300 MG PO (08:35)
[2023-10-06] MEDS: AMLODIPINE 5 MG TABLET 10 MG PO (08:36)
[2023-10-06] MEDS: ESCITALOPRAM 10 MG TABLET 20 MG PO (08:36)
[2023-10-06] MEDS: ASPIRIN EC 81 MG TABLET PO (08:36)
[2023-10-06] MEDS: DOXYCYCLINE HYCLATE 100 MG TABLET PO ×2 (08:36→20:07)
[2023-10-06] MEDS: lisinopriL 10 MG TABLET 5 MG PO (08:36)
[2023-10-06] MEDS: FUROSEMIDE 20 MG TABLET PO (08:36)
[2023-10-06] MEDS: ENOXAPARIN 40 MG/0.4 ML SYRINGE SUBCUT (08:37)
[2023-10-06] MEDS: predniSONE 20 MG TABLET 40 MG PO (08:38)
[2023-10-06] MEDS: SODIUM CHLORIDE 0.9% FLUSH 10 ML IV ×2 (09:11→20:08)
--- NOTE | 2023-10-06 11:31 | PT.IPTN ---
Current Diagnoses Sepsis, unspecified organism (09/30/23) Mixed hyperlipidemia (09/30/23) Other specified anxiety disorders (09/30/23) Essential (primary) hypertension (09/30/23) Atherosclerotic heart disease of [place] coronary artery without angina pectoris (09/30/23) Pneumonia, unspecified organism (09/30/23) Chronic obstructive pulmonary disease, unspecified (09/30/23) Gastro-esophageal reflux disease without esophagitis (09/30/23) Pain in left toe(s) (09/30/23) Other specified soft tissue disorders (09/30/23) Other chest pain (09/30/23) Physical Therapy Treatment Note M2 PT-IP Current Condition Start: 10/01/23 15:25 Freq: NEEDED Status: Active Protocol: Document 10/01/23 14:10 AB (Rec: 10/01/23 15:45 AB [id number]) Physical Therapy Current Condition Current Condition Evaluation Date 10/01/23 Treatment Diagnosis PNA; difficulty in walking Onset Date 09/30/23 M3 PT-IP Subjective Start: 10/01/23 15:25 Freq: NEEDED Status: Active Protocol: Document 10/06/23 12:00 TS (Rec: 10/06/23 12:12 TS [id number]) Subjective Physical Therapy Visit Type Type Treatment Note Visit Start Time 11:31 Visit Stop Time 11:58 Number of IT SENIOR ANALYST Visits 3 Physical Therapy Visit Comments Patient Comments Pt found resting ni bed on 2L of o2, Spo2 95%, pt agreeable to PT. M4 PT-IP Mobility and Gait Start: 10/01/23 15:25 Freq: NEEDED Status: Active Protocol: Document 10/06/23 12:00 TS (Rec: 10/06/23 12:12 TS [id number]) PT-Bed Mobility Assessment Supine to Sit Supine to Sit Standby Assistance,Head of Bed Elevated,Bedrails Scooting Scooting to Edge of Bed Standby Assistance PT-Transfer Assessment Sit to and From Stand Sit to and from Stand Standby Assistance,Use of Upper Extremities Equipment Transfer Assistive Device None,Gait Belt Orthotic/Prosthetic Devices or Brace: No Comments Mobility Comments Pt performed bed mobility SBA with HOB elevated. STS from bed SBA with no AD. He mabulated in hallway ~300'CGA/ SBA with use of SPC. pt is unsteady initially with gait using SPC, balance improved with increase time with gait. He performed steps x9 SBA with use of SPC and single rail. pt ambulated back to room, was left back in bed with all needs met, spouse in room. Gait Assessment Gait Gait Assistance Required: Standby Assistance,Contact Guard Assist Distance (Feet) 300 Able to Maintain Weight Bearing Status Yes During Gait Assistive Devices Assistive Device Gait Belt,Straight Cane Orthotic/Prosthetic Devices or Brace: No Gait Deviations General Gait Pattern Decreased Stride Length, Decreased Feet Clearance Factors Limiting Gait Function Factors Limiting Gait Function Decreased Activity Tolerance, Decreased Strength,Poor Balance,Poor Safety Awareness, Respiratory Distress Comments Gait Comments See mobility comments Stair Climbing Assessment Evaluation Level of Assist On Stairs Standby Assistance,Contact Guard Assistance Devices Stair Climbing Assistive Devices Straight Cane,Left Railing Technique/Endurance Stair Climbing Direction Ascend and Descend Stair Climbing Technique Step to Step Number of Steps Climbed 9 Comments Stair Climbing Comments See mobility comments PT-Balance Assessment Sitting Balance and Reactions Static Sitting Balance Ability Good Dynamic Sitting Balance Ability Fair Standing Balance and Reactions Static Standing Balance Ability Good Dynamic Standing Balance Ability Fair Device Used FWW M5 PT-IP Objective Assessments Start: 10/01/23 15:25 Freq: NEEDED Status: Active Protocol: Document 10/01/23 14:10 AB (Rec: 10/01/23 15:45 AB [id number]) Orientation Orientation/Cognition Level of Alertness Alert Orientation Name,Situation Language Function Ability No Deficits Noted Safety Awareness Decreased Safety Awareness Memory Description No Deficits Noted Comments slgith confusion Gross Range of Motion Lower Extremity ROM Assessment Within Functional Limits Strength Lower Extremity Strength Assessment Within Functional Limits Coordination Assessment Gross Coordination Gross Coordination WNL Sensation Assessment Sensation Gross Sensation WNL Muscle Tone Muscle Tone WNL Yes M6 PT-IP Treatment Start: 10/01/23 15:25 Freq: NEEDED Status: Active Protocol: Document 10/06/23 12:00 TS (Rec: 10/06/23 12:12 [id number]) Physical Therapy Treatment Education Education Provided Safety M7 PT-IP Assessment and Plan Start: 10/01/23 15:25 Freq: NEEDED Status: Active Protocol: Document 10/06/23 12:00 TS (Rec: 10/06/23 12:12 TS [id number]) PT Summary Assessment and Plan Potential Rehabilitation Potential Fair Summary Impairments Pain,ROM,Strength,Balance,Bed Mobility,Transfers,Gait, Activity Tolerance Progress Towards Goals Progressing Toward Goals Assessment Summary Andrew continues to progress well with his mobility. He progressed his gait to ~300' SBA/CGA with use of SPC. He was initially unsteady with use of SPC, balance did improve with increased time with gait. Recommended to pt he continue to use FWW while in hospital. He progressed stairs to x9 SBA/CGA with use of single rail and SPC. PT is recommending home with assist from spouse and HHPT. Goals Bed Mobility Goal Independent Transfer Goal Independent,Cane,Front Wheeled Walker Gait Goal Independent,Cane,Front Wheel Walker Gait Distance 200 Other Goals improve transfers and ambulation without AD mod I ~ 300 ft up/down 5 steps L rail ascending SBA Days to Meet Goals 10 Frequency of Treatment Frequency Of Treatment Once a Day Treatment Plan Physical Therapy Treatment Plan Bed Mobility Training,Transfer Training,Gait Training, Therapeutic Exercise,Balance Retraining,Post Op Education, Discharge Planning,Hot or Cold Pack,Neuromuscular Re-ed, Coordination Retraining,Manual Therapy Other Recommendations and Next Treatment ambulation using SPC/without Focus AD if appropriate Precautions Other Precautions O2 sat Recommendations To Nursing Amount of Assist Needed Standby Assistance Discharge Recommendations PT Discharge Recommendations Home with Assistance,Home Health Equipment Needed for Home Before FWW if not safe with SPC/ Discharge without AD Transportation Needs at Discharge Private Vehicle
--- NOTE | 2023-10-06 13:12 | CM.DPC ---
DCP Cont. Reviewed EMR and team rounds for status updates. Pt is improving in O2 saturation, now on 2LO2 as opposed to 11L yesterday. Likely 1-2 more days until he is medically cleared for d/c. No anticipated home d/c needs.
[2023-10-06] MEDS: DOCUSATE 100 MG CAPSULE PO (20:07)
[2023-10-06] MEDS: ATORVASTATIN 20 MG TABLET 40 MG PO (20:07)
[2023-10-07] VITALS: BP 139/58; PULSE 66; RESP 20; TEMP 37.1; O2SAT 96
[2023-10-07 04:00] VITALS: BP 135/65; PULSE 64; RESP 16; TEMP 36.8; O2SAT 97
[2023-10-07 06:00] VITALS: O2SAT 95
[2023-10-07] MEDS: PANTOPRAZOLE DR 20 MG TABLET PO (06:10)
--- NOTE | 2023-10-07 06:37 | PC.NURSE ---
Patient rested well throughout the night. AOx4, VSS, NSR, Afebrile, tolerating RA. Oxygen weaned off throughout the night. Tolerating general diet. Voids per urinal, BMx2 in BSC during shift. Ambulated well to BSC, slow shuffling gate noted. PIV intact, saline locked. Reports tolerable pain with PRN tylenol. Continued POC.
[2023-10-07] MEDS: cefUROXime 250 MG TABLET 500 MG PO (08:40)
[2023-10-07] MEDS: ENOXAPARIN 40 MG/0.4 ML SYRINGE SUBCUT (08:40)
[2023-10-07 08:41] VITALS: BP 135/65; PULSE 64
[2023-10-07] MEDS: lisinopriL 10 MG TABLET 5 MG PO (08:41)
[2023-10-07] MEDS: ESCITALOPRAM 10 MG TABLET 20 MG PO (08:41)
[2023-10-07] MEDS: AMLODIPINE 5 MG TABLET 10 MG PO (08:41)
[2023-10-07] MEDS: METOPROLOL IR 50 MG TABLET PO (08:41)
[2023-10-07] MEDS: ASPIRIN EC 81 MG TABLET PO (08:42)
[2023-10-07] MEDS: DOXYCYCLINE HYCLATE 100 MG TABLET PO (08:42)
[2023-10-07] MEDS: buPROPion XL 150 MG TAB 300 MG PO (08:42)
[2023-10-07] MEDS: FUROSEMIDE 20 MG TABLET PO (08:42)
[2023-10-07] MEDS: SODIUM CHLORIDE 0.9% FLUSH 10 ML IV (08:42)
--- NOTE | 2023-10-07 08:47 | P.DS_ITS ---
History of Present Illness History of Present Illness Date Patient Seen: 10/07/23 Time Patient Seen: 08:47 Chief complaint: weakness/cp/sob/fever Narrative: Patient had unremarkable night. He is feeling great and ready to go home Blood pressure better on increased dose amlodipine 12 point review of systems otherwise negative Discharge Providers Provider Date of admission: 09/30/23 10:23 Discharge Date: 10/07/23 Primary care physician: Neo Tong MD Consults: 09/30/23 17:59 Consult to Occupational Therapy Evaluate & Treat Comment: Physician Instructions: Evaluate and treat Consult to Physical Therapy Evaluate & Treat Comment: Physician Instructions: Evaluate and Treat 10/04/23 06:21 Consult to Tele-medical billing coordinator Routine Comment: Consulting Provider: [facility] [employer] Reason for consultation: Data Entry Manager services 10/04/23 08:10 Consult to Tele-medical billing coordinator Routine Comment: Consulting Provider: [employer] Reason for consultation: Data Entry Manager services 10/05/23 13:00 Consult to Physical Therapy Evaluate & Treat Comment: Physician Instructions: Evaluate and Treat Discharge provider: Amanda Tang MD Summary Hospital Course Discharge Diagnosis: Acute respiratory failure Community-acquired pneumonia COPD exacerbation Heart failure with preserved ejection fraction Acute on chronic renal failure Leukocytosis Hypertension Coronary artery disease stable without symptoms Depression, stable on outpatient medications Hyperlipidemia Normocytic anemia with normal iron studies Hospital Course: Patient admitted with above diagnoses. Found to have community-acquired pneumonia and started on doxycycline. Condition worsened overnight and ceftriaxone was added and then prednisone and diuresis and consult to tele ICU physicians. Appreciate their input. Patient then improved fairly quickly. Was requiring high-flow nasal cannula oxygen and then this was weaned and on hospital day of discharge patient was stable on room air. Trial of ambulation with oxygenation is pending. Labs today pending Patient will be discharged home on doxycycline 100 mg twice daily, Ceftin 500 mg twice daily both for 7 days. He will be on Lasix 20 mg orally for 7 days, prednisone taper 40 mg for 3 days 20 mg for 5 days and 10 mg every other day for 7 days. Patient will follow up with Dr. Sheffield next week Status at Discharge Cognitive/behavioral status at discharge: oriented Functional status at discharge: uses cane/walker Overall status at discharge: patient is progressing back to baseline Exam Vital Signs (past 8 hours): - 10/07/23 04:00 10/07/23 06:00 10/07/23 08:41 Temperature 98.2 F Pulse Rate 64 64 Respiratory Rate 16 Blood Pressure 135/65 135/65 Pulse Oximetry 97 95 Oxygen Flow Rate 1 0 Fraction of Inspired Oxygen 40 SaO2/FiO2 Ratio 169 Oxygen Delivery Method Nasal Cannula Oxygen Flow Rate 0 Narrative Exam Narrative: Patient looks great today. Vital signs are stable. He is afebrile and O2 sat on room air is 97% HEENT is unremarkable Neck is supple without adenopathy Chest: Clear to auscultation with prolonged expiratory phase but no wheezes rhonchi or crackles Cor: Regular rate and rhythm without a murmur Abdomen positive bowel sounds soft Extremities no edema Neurologic exam nonfocal Objective Labs 10/06/23 05:12 10/06/23 05:12 [facility] Medical History Vision disorder Gout Chronic cough Restless leg syndrome Mixed hyperlipidemia COPD (chronic obstructive pulmonary disease) Varicose veins of both lower extremities Sleep apnea Snoring Essential hypertension Mixed anxiety depressive disorder (01/18/17) Coronary artery disease (~2008) Gastroesophageal reflux disease Surgical History History of angioplasty Family History Father Stroke History of heart disease Hypertension Hyperlipidemia Mother Cancer Brother History of heart attack History of heart disease Sister Mental health problem Social History household members: spouse Smoking Status: Former smoker Tobacco: How many years used: 40 second hand exposure: No alcohol intake: never substance use type: does not use Discharge Assessment & Plan Assessment and Plan Assessment: Acute respiratory failure Community-acquired pneumonia COPD exacerbation Heart failure with preserved ejection fraction Acute on chronic renal failure Leukocytosis Hypertension Coronary artery disease stable without symptoms Depression, stable on outpatient medications Hyperlipidemia Normocytic anemia with normal iron studies Plan of Treatment: Patient admitted with above diagnoses. Found to have community-acquired pneumonia and started on doxycycline. Condition worsened overnight and ceftriaxone was added and then prednisone and diuresis and consult to tele ICU physicians. Appreciate their input. Patient then improved fairly quickly. Was requiring high-flow nasal cannula oxygen and then this was weaned and on hospital day of discharge patient was stable on room air. Trial of ambulation with oxygenation is pending. Labs today pending Patient will be discharged home on doxycycline 100 mg twice daily, Ceftin 500 mg twice daily both for 7 days. He will be on Lasix 20 mg orally for 7 days, prednisone taper 40 mg for 3 days 20 mg for 5 days and 10 mg every other day for 7 days. Patient will follow up with Dr. Sheffield next week 40 minutes was spent in discharge planning and documentation Discharge Plan Discharge Plan Patient Disposition: Home Discharge orders & Medications Prescriptions: New cefuroxime axetil 250 mg Tablet 500 mg PO BID Qty: 14 0RF amlodipine [Norvasc] 5 mg Tablet 10 mg PO DAILY Qty: 30 0RF furosemide 20 mg Tablet 20 mg PO DAILY Qty: 7 0RF doxycycline hyclate 100 mg Tablet 100 mg PO BID Qty: 14 0RF prednisone 20 mg tablet 20 mg PO DAILY Qty: 15 0RF Rx Instructions: 2 tablets by mouth for 3 days; 1 tablet by mouth for 5 days; half tablet every other day for 7 days and stop Continued (DME) Disabled Parking Placard Qty: 1 0RF Dose Instruction: As directed Rx Instructions: Patient qualifies for Disabled Parking Placard aspirin 81 MG tablet,delayed release (DR/EC) 81 mg PO DAILY Qty: 60 lisinopril 10 MG tablet 5 mg PO DAILY Qty: 0 rosuvastatin [Crestor] 20 mg tablet 20 mg PO QPM Qty: 90 1RF escitalopram oxalate 20 mg tablet 20 mg PO DAILY Qty: 90 1RF esomeprazole magnesium [Nexium 24HR] 20 mg capsule,delayed release(DR/EC) 20 mg PO DAILY metoprolol tartrate 50 mg tablet 50 mg PO BID Patient Comments: Per Patient, changed. bupropion HCl [Wellbutrin XL] 150 mg tablet extended release 24 hr 300 mg PO DAILY nitroglycerin 0.4 mg Tablet, Sublingual 0.4 mg sublingual PRN PRN (Reason: Chest Pain) Rx Instructions: Place 1 tablet under tongue as directed every 5 minutes for chest pain up to 3 doses, if persists, call 911 Discontinued naproxen sodium [Aleve] 220 mg capsule 440 mg PO DAILY PRN (Reason: pain) amlodipine [Norvasc] 5 mg tablet 5 mg PO DAILY Qty: 90 3RF Follow up/Referrals: Noe Tong MD [Primary Care Provider] - Diet/Activity/Treatments Diet: Low-sodium and Low-cholesterol Activity: as tolerated Visit Report/Discharge Packet Stand Alone Forms: Patient Portal/API, Stroke Signs & Symptoms Discharge Data Primary Care Provider: Noe Tnog Quality VTE Deep Vein Thrombosis/Pulmonary Embolism Present on Admission: No
[2023-10-07 09:14] VITALS: BP 150/66; PULSE 58; RESP 18; TEMP 36; O2SAT 96
[2023-10-07 09:57] LABS: Add Manual Diff / Slide Review NO; Basophils Absolute Auto 0 /uL (0-100); Basophils Percent Auto 0.2 % (0-2); Eosinophils Absolute Auto 0 /uL (0-450); Hematocrit 27.8 % (41-53); Hemoglobin 9.3 g/dL (13.5-17.5); Lymphocytes Absolute Auto 2000 /uL (1100-4500); Lymphocytes Percent Auto 11.6 % (25-40); Mean Corpuscular HGB Conc 33.4 % (30-36); Mean Corpuscular Hemoglobin 28.7 PG (26-34); Mean Corpuscular Volume 85.7 fL (80-100); Monocytes Absolute Auto 1100 /uL (0-900); Monocytes Percent Auto 6.4 % (3-14); Neutrophils Absolute Auto 14200 /uL (1500-7000); Neutrophils Percent Auto 81.8 % (50-75); Platelet Count 365 X10^3/uL (150-400); Red Blood Cell Count 3.24 X10^6/uL (4.5-5.9); Red Cell Distribution Width 13.5 % (11.6-14.8); White Blood Cell Count 17.4 X10^3/uL (4.5-11.0)
[2023-10-07 10:13] LABS: BUN Creatinine Ratio 27.6 (6-22); Blood Urea Nitrogen 34 mg/dL (9-20); Calcium 8.8 mg/dL (8.4-10.2); Carbon Dioxide 25 mmol/L (22-32); Chloride 105 mmol/L (98-107); Estimated Glomerular Filt Rate > 60 mL/min (>60); Glucose 105 mg/dL (80-110); HEMOLYSIS < 15 (0-50); Potassium 3.2 mmol/L (3.4-5.1); Sodium 138 mmol/L (137-145)
--- NOTE | 2023-10-07 10:32 | CM.DPC ---
DCP Cont. Reviewed EMR and team rounds for pt's status updates. Pt is now medically cleared for d/c today. will plan to transport, no needs identified for further CM assistance at this time.
[2023-10-07] MEDS: POTASSIUM CHLORIDE 20 MEQ TAB 40 MEQ PO (10:43)
--- NOTE | 2023-10-07 11:01 | PC.NURSE ---
Day shift: MD Tang requested ambulation trial without oxygen, patient ambulated around his room and maintaining 94-96 percent on room air. Labs drawn and resulted prior to discharge. Potassium moderately low, pharmacy ordered PO potassium replacement prior to dischage. Discharge instructions gone over with patient and patient's spouse. All questions answered, patient stated understanding. PIV and tele removed prior to discharge. All belongings with patient. MIRANDA Hernandez escorted patient via wheelchair to exit where patient's spouse plans to drive him home.
== END 2023-10-07 11:08 | disposition home or self-care (01) | DRG 871 ==
LOC: ED 09:59 → AC 10:23 → ICU 10:51 → AC 17:04 → ICU 10-04 07:16
PROVIDERS: Family Medicine; Admitting Provider Family Medicine; Emergency Provider Emergency Medicine; Family Provider Internal Medicine Cardiovascular Disease; PCP Family Medicine; Referring Provider Emergency Medicine; Visit Provider Family Medicine
DX: A41.9 Sepsis, unspecified organism (principal); J18.9 Pneumonia, unspecified organism; J96.21 Acute and chronic respiratory failure with hypoxia; N17.9 Acute kidney failure, unspecified; J44.1 Chronic obstructive pulmonary disease with (acute) exacerbation; I13.0 Hypertensive heart and chronic kidney disease with heart failure and stage 1 through stage 4 chronic kidney disease, or unspecified chronic kidney disease; I50.30 Unspecified diastolic (congestive) heart failure; I25.10 Atherosclerotic heart disease of native coronary artery without angina pectoris; F32.9 Major depressive disorder, single episode, unspecified; E78.2 Mixed hyperlipidemia; K21.9 Gastro-esophageal reflux disease without esophagitis; M10.9 Gout, unspecified; J43.2 Centrilobular emphysema; N18.9 Chronic kidney disease, unspecified; D63.1 Anemia in chronic kidney disease; Z87.891 Personal history of nicotine dependence; Z66 Do not resuscitate
CPT/HCPCS: 36415; 36600; 51798; 71045; 71260; 71275; 74177; 80048; 80053; 81001; 82550; 82728; 82805; 83540; 83550; 83605; 83880; 84145; 84484; 84550; 85025; 87040; 87077; 87154; 87633; 93005; 93010; 93306; 94640; 94760; 94762; 96365; 96367; 97116; 97162; 97165; 97530; 97535; 99232; 99285; 99291; A9270; J0696; J1650; J1940; J2270; J2405; J2920; J7613; Q9967

== ENCOUNTER → 2024-01-06 16:36 | Outpatient (CLI) | payer OTHER, SELFPAY ==
[2023-09-30 12:12] VITALS: BMI 29.6
[2024-01-06 17:06] LABS: Add Manual Diff / Slide Review NO; Basophils Absolute Auto 100 /uL (0-100); Eosinophils Absolute Auto 200 /uL (0-450); Eosinophils Percent Auto 2.6 % (2-4); Hematocrit 34.2 % (41-53); Hemoglobin 11.6 g/dL (13.5-17.5); Lymphocytes Absolute Auto 2200 /uL (1100-4500); Lymphocytes Percent Auto 28.7 % (25-40); Mean Corpuscular HGB Conc 33.8 % (30-36); Mean Corpuscular Hemoglobin 29.2 PG (26-34); Mean Corpuscular Volume 86.2 fL (80-100); Monocytes Absolute Auto 700 /uL (0-900); Monocytes Percent Auto 9.3 % (3-14); Neutrophils Absolute Auto 4500 /uL (1500-7000); Neutrophils Percent Auto 58.4 % (50-75); Platelet Count 270 X10^3/uL (150-400); Red Blood Cell Count 3.98 X10^6/uL (4.5-5.9); Red Cell Distribution Width 14.1 % (11.6-14.8); White Blood Cell Count 7.6 X10^3/uL (4.5-11.0)
[2024-01-06 17:19] LABS: Alanine Aminotransferase 21 IU/L (<50); Albumin 4.1 g/dL (3.5-5.0); Albumin Globulin Ratio 1.5 (1.0-2.8); Alkaline Phosphatase 87 U/L (38-126); Aspartate Aminotransferase 28 IU/L (17-59); BUN Creatinine Ratio 15.1 (6-22); Blood Urea Nitrogen 26 mg/dL (9-20); Carbon Dioxide 26 mmol/L (22-32); Chloride 109 mmol/L (98-107); Estimated Glomerular Filt Rate 43 mL/min (>60); Globulin 2.8 g/dL (1.7-4.1); Glucose 95 mg/dL (80-110); HEMOLYSIS < 15 (0-50); Potassium 5.2 mmol/L (3.4-5.1); Sodium 141 mmol/L (137-145); Total Protein 6.9 g/dL (6.3-8.2)
[2024-01-06 17:48] LABS: TSH w/ Reflex to FT4 1.57 uIU/mL (0.47-4.68)
== END ==
PROVIDERS: Family Provider Internal Medicine Cardiovascular Disease; PCP Family Medicine; Referring Provider Family Medicine; Visit Provider Family Medicine
DX: I50.32 Chronic diastolic (congestive) heart failure (principal); R06.09 Other forms of dyspnea
CPT/HCPCS: 36415; 80053; 84443; 85025

== ENCOUNTER → 2024-09-13 07:42 | Outpatient (CLI) | payer MEDICARE, SELFPAY ==
[2023-09-30 12:12] VITALS: BMI 29.6
--- NOTE | 2024-09-13 | DI.NM.S_ITS ---
PROCEDURE: NM TREV PERF SPECT R&S PHARM Rest and pharmacological stress myocardial perfusion SPECT with gated imaging and ejection fraction RADIOPHARMACEUTICAL: 27.3 mCi Tc-99m tetrafosmin IV at rest and 26.2 mCi Tc-99m tetrafosmin IV at peak effect of pharmacological stress. A Mrs-tvi-urbjjsrr was performed. INDICATIONS: unstable angina TECHNIQUE: Radiopharmaceutical was injected at peak stress test, and also at rest. SPECT images were obtained. SPECT myocardial perfusion images were displayed in short axis, horizontal long axis, and vertical long axis views. Gated images were reviewed using [employer] software. COMPARISON: None. CARDIAC STRESS: A pharmacologic stress test was performed under the supervision of an attending staff, using an infusion of regadenoson 0.4 mg IV. Hemodynamic data: There is normal blood pressure and heart rate response to pharmacologic stress. Symptoms: The patient denied anginal chest pain. EKG: No diagnostic changes of ischemia; no ectopy. FINDINGS: Raw data: There is good myocardial uptake of radiotracer. No significant motion artifacts. Left ventricle function: Gated images demonstrate normal left ventricular wall thickening. No segmental wall motion abnormalities. No transient ischemic dilation; TID is 1.0 (normal less than 1.3). Left ventricle resting end diastolic volume is 115 mL. Left ventricle stress ejection fraction is 69%; normal range is above 45%. Myocardial perfusion: There is normal distribution of activity in the right and left ventricular myocardium. No fixed or reversible perfusion defects. IMPRESSION: Low risk study. No evidence of pharmacologic induced ischemia or scar. Normal LV size and function. Dictated by: Alanna Rincon D.O. on 09/14/2024 at 16:28 Approved by: Alanna Rincon D.O. on 09/14/2024 at 16:30
== END ==
PROVIDERS: Family Provider Internal Medicine Cardiovascular Disease; PCP Family Medicine; Referring Provider Nurse Practitioner; Visit Provider Nurse Practitioner
DX: I20.0 Unstable angina (principal)
CPT/HCPCS: 78452; 93017; A9502; J2785

== ENCOUNTER → 2024-09-13 09:13 | Outpatient (CLI) | payer MEDICARE, SELFPAY ==
[2023-09-30 12:12] VITALS: BMI 29.6
--- NOTE | 2024-09-13 09:14 | DI.ECHO.S_ITS ---
[facility]+ [facility] : : [address] : : [place] : : [id number] : : Phone: [phone] Echocardiogram Report + + :Name: DENNISE KLEIN Study Date: 09/13/2024 Height: 71 in : :[facility] ReadingLocation: Weight: 203 lb : : Gender: Male BSA: 2.1 m2 : :: 1955 Age: 69 yrs BP: 170/99 mmHg: :Reason For Study: ANGINA : :Ordering Physician: YANELI, : :SYLVAIN Swann Performed By: Kellee Roldan : :Referring: SYLVAIN GROVES W : + + Interpretation Summary The patient was in sinus bradycardia with heart rates between 52-57 bpm during the exam. 1 junctional beat seen. The left ventricle is normal in size and wall thickness. The left ventricular ejection fraction is normal. The ejection fraction is estimated to be 55-60%. The right ventricle is at the upper limits of normal in size. The right ventricular systolic function is normal. There is mild tricuspid regurgitation. Compared to the prior echo exam, there has been no change in TR severity. The right ventricular systolic pressure is estimated to be at least 39 mmHg based on an estimated right atrial pressure of 3 mm Hg. Previously 46 mmHg. Procedure: A two-dimensional transthoracic echocardiogram with color flow and Doppler was performed. The study quality was technically adequate. Comparison is made with the echocardiogram of 10/04/2023. The patient was in sinus bradycardia with heart rates between 52-57 bpm during the exam. Left Ventricle: The left ventricle is normal in size and wall thickness. There is no thrombus. The ejection fraction is estimated to be 55-60%. The left ventricular ejection fraction is normal. There are no focal wall motion abnormalities. MV E/A: 0.96 Med Peak E' Se: 4.6 cm/sec E/E' med: 16.8. Right Ventricle: The right ventricle is at the upper limits of normal in size. The right ventricular systolic function is normal. Atria: The left atrial size is normal. There has been no significant change since the previous study. Right atrial size is normal. There is no Doppler evidence for an interatrial shunt. Mitral Valve: The mitral valve leaflets appear borderline thickened, but open well. The mitral valve leaflets are slightly calcified. There is trace mitral regurgitation. Aortic Valve: The aortic valve is trileaflet. The aortic valve opens well. There is no aortic valve stenosis. No aortic regurgitation is present. Tricuspid Valve: The tricuspid valve is normal. There is mild tricuspid regurgitation. The right ventricular systolic pressure is estimated to be at least 39 mmHg based on an estimated right atrial pressure of 3 mm Hg. Compared to the prior echo exam, there has been no change in TR severity. Pulmonic Valve: The pulmonic valve is not well seen, but is grossly normal. There is no pulmonic valvular regurgitation. Great Vessels: The aortic root is normal size. The dimensions of the ascending aorta are normal. The IVC is of normal diameter and collapses greater than 50% with a sniff. This suggests a low right atrial pressure of 3 mm Hg. Pericardium/ Pleura There is no pericardial effusion. There is no pleural effusion. MMode/2D Measurements & Calculations LVIDd: 5.0 cm LVOT diam: 2.0 cm LVIDs: 3.7 cm Ao root diam: 3.5 cm FS: 26.3 % asc Aorta Diam: 3.0 cm IVSd: 0.99 cm LVPWd: 0.93 cm LV eli. diameter/BSA (cm/m^2): 2.4 LV sys. diameter/BSA (cm/m^2): 1.7 LA A2 area: 19.0 cm2 RA long axis: 4.7 cm LA A4 area: 17.2 cm2 RA area: 14.9 cm2 LA length (vol): 5.2 cm RA vol: 40.3 ml LA vol: 53.2 ml RA : 19.0 ml/m2 LA vol index: 25.1 ml/m2 IVC diam: 1.8 cm RVD1 (basal): 4.0 cm TAPSE: 1.8 cm Doppler Measurements & Calculations Ao V2 max: 131.0 cm/sec LVOT Max Se: 97.8 cm/sec Ao V2 mean: 90.9 cm/sec LV V1 max P.8 mmHg Ao max P.9 mmHg LV V1 VTI: 23.3 cm Ao mean P.7 mmHg LORETO(I,D): 2.3 cm2 Ao V2 VTI: 33.2 cm LORETO(V,D): 2.4 cm2 sev ratio: 0.70 LORETO indexed to BSA (cm^2/m^2): 1.1 MV E max se: 77.8 cm/sec TR max se: 299.1 cm/sec MV A max se: 80.8 cm/sec TR max P.8 mmHg MV E/A: 0.96 PA V2 max: 94.6 cm/sec Med Peak E' Se: 4.6 cm/sec PA V2 mean: 68.0 cm/sec E/E' med: 16.8 PA mean P.1 mmHg Lat Peak E' Se: 7.7 cm/sec PA pr(Accel): 22.5 mmHg E/E' lat: 10.1 E/e' average: 13.5 MV dec time: 0.25 sec SV(LVOT): 75.0 ml Reading Physician:02:12 PM
[2024-09-13 11:04] LABS: Add Manual Diff / Slide Review NO; Basophils Absolute Auto 100 /uL (0-100); Basophils Percent Auto 0.7 % (0-2); Eosinophils Absolute Auto 100 /uL (0-450); Eosinophils Percent Auto 1.1 % (2-4); Hematocrit 39.1 % (41-53); Hemoglobin 13.2 g/dL (13.5-17.5); Lymphocytes Absolute Auto 2000 /uL (1100-4500); Lymphocytes Percent Auto 19.8 % (25-40); Mean Corpuscular HGB Conc 33.7 % (30-36); Mean Corpuscular Hemoglobin 30.2 PG (26-34); Mean Corpuscular Volume 89.5 fL (80-100); Monocytes Absolute Auto 600 /uL (0-900); Monocytes Percent Auto 5.7 % (3-14); Neutrophils Absolute Auto 7300 /uL (1500-7000); Neutrophils Percent Auto 72.7 % (50-75); Platelet Count 274 X10^3/uL (150-400); Red Blood Cell Count 4.37 X10^6/uL (4.5-5.9); Red Cell Distribution Width 14.2 % (11.6-14.8); White Blood Cell Count 10.1 X10^3/uL (4.5-11.0)
[2024-09-13 11:16] LABS: Alanine Aminotransferase 27 IU/L (<50); Albumin 4.5 g/dL (3.5-5.0); Albumin Globulin Ratio 1.6 (1.0-2.8); Alkaline Phosphatase 90 U/L (38-126); Aspartate Aminotransferase 34 IU/L (17-59); BUN Creatinine Ratio 18.3 (6-22); Bilirubin Total 1.4 mg/dL (0.2-1.3); Blood Urea Nitrogen 26 mg/dL (9-20); Calcium 10.1 mg/dL (8.4-10.2); Carbon Dioxide 28 mmol/L (22-32); Chloride 106 mmol/L (98-107); Cholesterol 105 mg/dL (140-199); Estimated Glomerular Filt Rate 54 mL/min (>60); Globulin 2.9 g/dL (1.7-4.1); Glucose 113 mg/dL (80-110); HDL Cholesterol 38 mg/dL (40-60); HEMOLYSIS < 15 (0-50); LDL Cholesterol Calculated 29 mg/dL (<100); Potassium 5.1 mmol/L (3.4-5.1); Sodium 141 mmol/L (137-145); Total Protein 7.4 g/dL (6.3-8.2); Triglycerides 192 mg/dL (35-150)
== END ==
PROVIDERS: Family Provider Internal Medicine Cardiovascular Disease; PCP Family Medicine; Referring Provider Nurse Practitioner; Visit Provider Nurse Practitioner
DX: I07.1 Rheumatic tricuspid insufficiency (principal); I20.0 Unstable angina; I10 Essential (primary) hypertension; E78.5 Hyperlipidemia, unspecified
CPT/HCPCS: 36415; 78452; 80053; 80061; 85025; 93017; 93306; A9502; J2785

== ENCOUNTER → 2024-10-22 10:55 | Outpatient (CLI) | payer MEDICARE, SELFPAY ==
[2023-09-30 12:12] VITALS: BMI 29.6
[2024-10-22 11:52] LABS: Add Manual Diff / Slide Review NO; Basophils Absolute Auto 100 /uL (0-100); Basophils Percent Auto 0.7 % (0-2); Eosinophils Absolute Auto 100 /uL (0-450); Eosinophils Percent Auto 1.7 % (2-4); Hematocrit 36.4 % (41-53); Hemoglobin 12.7 g/dL (13.5-17.5); Lymphocytes Absolute Auto 1600 /uL (1100-4500); Lymphocytes Percent Auto 20.5 % (25-40); Mean Corpuscular Hemoglobin 30.9 PG (26-34); Mean Corpuscular Volume 88.4 fL (80-100); Monocytes Absolute Auto 600 /uL (0-900); Monocytes Percent Auto 7.5 % (3-14); Neutrophils Absolute Auto 5600 /uL (1500-7000); Neutrophils Percent Auto 69.6 % (50-75); Platelet Count 339 X10^3/uL (150-400); Red Blood Cell Count 4.12 X10^6/uL (4.5-5.9); Red Cell Distribution Width 14.1 % (11.6-14.8); White Blood Cell Count 8.1 X10^3/uL (4.5-11.0)
[2024-10-22 12:00] LABS: Hemoglobin A1C% w Est Avg Glu 5.5 % (4.0-6.0)
[2024-10-22 12:15] LABS: Alanine Aminotransferase 31 IU/L (<50); Albumin 4.1 g/dL (3.5-5.0); Albumin Globulin Ratio 1.3 (1.0-2.8); Alkaline Phosphatase 79 U/L (38-126); Aspartate Aminotransferase 38 IU/L (17-59); BUN Creatinine Ratio 15.8 (6-22); Bilirubin Total 1.3 mg/dL (0.2-1.3); Blood Urea Nitrogen 21 mg/dL (9-20); Calcium 9.3 mg/dL (8.4-10.2); Carbon Dioxide 25 mmol/L (22-32); Chloride 104 mmol/L (98-107); Estimated Glomerular Filt Rate 58 mL/min (>60); Globulin 3.1 g/dL (1.7-4.1); Glucose 132 mg/dL (80-110); HEMOLYSIS 38 (0-50); Potassium 3.9 mmol/L (3.4-5.1); Sodium 138 mmol/L (137-145); Total Protein 7.2 g/dL (6.3-8.2)
[2024-10-22 12:44] LABS: TSH w/ Reflex to FT4 1.35 uIU/mL (0.47-4.68)
[2024-10-22 13:20] LABS: Folate 17.5 ng/mL (2.76-20.0); Vitamin B12 709 pg/mL (239-931)
== END ==
PROVIDERS: Family Provider Internal Medicine Cardiovascular Disease; PCP Family Medicine; Referring Provider Family Medicine; Visit Provider Family Medicine
DX: G62.9 Polyneuropathy, unspecified (principal); E78.2 Mixed hyperlipidemia; N18.9 Chronic kidney disease, unspecified; G25.81 Restless legs syndrome; I12.9 Hypertensive chronic kidney disease with stage 1 through stage 4 chronic kidney disease, or unspecified chronic kidney disease
CPT/HCPCS: 36415; 80053; 82607; 82746; 83036; 84443; 85025

== ENCOUNTER → 2024-10-29 08:54 | Outpatient (CLI) | payer MEDICARE, SELFPAY ==
[2023-09-30 12:12] VITALS: BMI 29.6
--- NOTE | 2024-10-29 08:55 | DI.CT.S_ITS ---
PROCEDURE: CT LUNG LOW DOSE SCREENING INDICATIONS: Screening for Lung CA TECHNIQUE: Noncontrast 2.0-2.5 mm thick sections acquired from the pulmonary apices to the posterior costophrenic angles. 7 mm thick axial MIP, and 5 mm coronal and sagittal reformats were then acquired. For radiation dose reduction, the following was used: automated exposure control, adjustment of mA and/or kV according to patient size. COMPARISON: [facility], CT, CT ANGIO CHEST PE PROTOCOL, 10/04/2023, 5:14. [facility], CT, CT CHEST ABD PEL W CON, 09/30/2023, 8:34. FINDINGS: Image quality: Diagnostic. Lower Neck: No enlarged lymph nodes. Thyroid: No thyroid nodules which require sonographic follow up, per consensus guidelines. Axillae: No enlarged lymph nodes. Chest Wall: Unremarkable. Bones: Visualized osseous structures appear intact without acute fracture or focal destructive lesion. No acute compression fractures of the imaged spine. Lungs and Pleura: No pneumothorax or pleural effusions. Severe upper lobe predominant pulmonary emphysematous changes. Bibasilar atelectasis. A few scattered calcified pulmonary granulomas. Previously described 0.5 mm right middle lobe nodule is no longer visualized. No new suspicious or enlarging pulmonary nodules. No septal thickening or nodularity. Heart: Heart size is normal. No pericardial effusion. Multivessel atherosclerotic calcifications of the coronary arteries. Thoracic Vessels: The aorta and pulmonary arteries demonstrate normal size. Mediastinum and Liya: No enlarged lymph nodes. Esophagus: No wall thickening. Small hiatal hernia. Upper Abdomen: Visualized upper abdomen solid organs and bowel loops appear normal. IMPRESSION: No suspicious pulmonary nodules. LUNG-RADS 2; continued annual screening, if eligible. Clinically Significant Non-pulmonary Findings: Moderate atherosclerotic calcifications of the coronary arteries. If not already accomplished, consider further evaluation with cardiology consultation. Dictated by: Emmanuel Vizcarra M.D. on 10/29/2024 at 13:07 Approved by: Emmanuel Vizcarra M.D. on 10/29/2024 at 13:43
== END ==
PROVIDERS: Family Provider Internal Medicine Cardiovascular Disease; PCP Family Medicine; Referring Provider Family Medicine; Visit Provider Family Medicine
DX: F17.210 Nicotine dependence, cigarettes, uncomplicated (principal); Z12.2 Encounter for screening for malignant neoplasm of respiratory organs; J44.9 Chronic obstructive pulmonary disease, unspecified; I25.10 Atherosclerotic heart disease of native coronary artery without angina pectoris; K44.9 Diaphragmatic hernia without obstruction or gangrene
CPT/HCPCS: 71271

== ENCOUNTER → 2025-01-21 14:32 | Outpatient (CLI) | payer MEDICARE, SELFPAY ==
[2023-09-30 12:12] VITALS: BMI 29.6
--- NOTE | 2025-01-21 14:34 | DI.RAD.S_ITS ---
PROCEDURE: XR KNEE LT 3V INDICATIONS: Left knee pain TECHNIQUE: 3 views of the knee were acquired. COMPARISON: None. FINDINGS: Bones: No fractures or dislocations. Mild to moderate medial and lateral tibiofemoral and moderate patellofemoral compartment narrowing and osteophytosis. No suspicious bony lesions. Soft tissues: No joint effusion. No suspicious soft tissue calcifications. IMPRESSION: KL grade 2 tricompartmental osteoarthritis without evidence of acute osseous abnormality. Dictated by: Kendall Lindsey M.D. on 01/22/2025 at 2:51 Approved by: Kendall Lindsey M.D. on 01/22/2025 at 2:53
== END ==
PROVIDERS: PCP Family Medicine; Referring Provider Family Medicine; Visit Provider Family Medicine
DX: M17.12 Unilateral primary osteoarthritis, left knee (principal); M25.562 Pain in left knee
CPT/HCPCS: 73562